=== PATIENT | male | born 1955 | race Caucasian/White ===

== ENCOUNTER 2020-07-29 15:00 | Outpatient (RCR) | payer BC, SELFPAY ==
--- NOTE | 2020-06-23 09:47 | HMH.PTOPEV ---
PT Outpatient Evaluation Rehab PT Outpatient Evaluation Start: 06/23/20 08:54 Freq: Status: Active Protocol: Document 06/23/20 09:30 DAKOTA (Rec: 06/23/20 09:47 [email or web address] [id number]) Electronically Signed By Floyd Campoverde, PT 06/23/20 09:30 Outpatient Therapy Subjective History Subjective History Patient is a 64 year old male presenting to outpatient PT with reports of L posterior hip pain which radiates to L posterior thigh. Specific to L ischial tuberiosity. No reports of lumbar spine pain. No specific mechanism of injury. No recent imaging to report. Pain is worst in prolonged sitting. Symptom onset approximatley 2 years that has most recently progressively gotten worse. Comorbidities include hx of diabetes, L lobectomy, L RCR, HTN and HL. Chief Complaint Pain,Stiff,Weakness Symptom Type Ache,Dull Symptoms Relieved By Activity Symptoms Aggravated By Sitting Prior Functional Limitations None Current Functional Limitations Sitting Symptom Description Intermittent Level of pain today (0-10) 2 Pain scale - at its best (0-10) 0 Pain scale - at its worst (0-10) 8 Hip/Knee Eval Gait Observation General Gait Pattern Observation No Deviations/Normal Assistive Device Assistive Devices None / NA Palpation Tenderness left Knee Palpation Overall Comment L ischial tuberosity 3/4 Hip Palpation Findings Tenderness MMT right Hip Flexion Strength Grade 5 Normal Hip Abduction Strength Grade 5 Normal Hip Adduction Strength Grade 5 Normal Hip Extension Strength Grade 5 Normal Hip External Rotation Strength Grade 5 Normal Hip Internal Rotation Strength Grade 5 Normal Knee Extension Strength Grade 5 Normal Knee Flexion Strength Grade 5 Normal left Hip Flexion Strength Grade 4- Good- Hip Abduction Strength Grade 4 Good Hip Adduction Strength Grade 4 Good Hip Extension Strength Grade 4- Good- Hip External Rotation Strength Grade 4- Good- Hip Internal Rotation Strength Grade 4- Good- Knee Extension Strength Grade 4 Good Knee Flexion Strength Grade 4 Good ROM Hip Flexion w/Knee Flexed Passive Range 88 of Motion (degrees) Hip Flexion w/Knee Extended Passive 42 Range of Motion (degrees) Hip Abduction Passive
--- NOTE | 2020-07-19 15:40 | HMH.RHREAS ---
Rehab Reassessment Rehab OP Re-assessment Start: 07/19/20 15:12 Freq: Status: Active Protocol: Document 07/19/20 15:13 DAKOTA (Rec: 07/19/20 15:18 DAKOTA [id number]) Electronically Signed By Floyd Campoverde, PT 07/19/20 15:13 Rehab Re-assessment Subjective Subjective Patient reports 60% improvement since start of care. Objective Objective Notes L hip AROM: flx 98; abd 40; ext 10; add 35; ER WNL; IR 10 L hip MMT: flx 4+/5; abd 4/5; ext 4/5; add 4+/5; ER 4/5; IR 4/5; knee flx 4+/5; knee ext 4 +/5 Pain: 3/10 currently 4/10 at worst Neuro WNL Special tests: - Assessment Progress Assessment Progressing as Expected Assessment Notes Patient has shown significant objective improvements as noted above since initial evaluation. He continues to have symptoms with prolonged sitting. These symptoms are resulting in functional limitations with work related and house hold activities. Patient goals met STG's Goals Not Met LTG's Revised Goals NA Plan Plan Continue with current POC Frequency of Therapy 2x/week Duration of therapy 4 weeks Time and Billing Re-Eval Time 15 Re-Eval Billing Units 1 PHYSICIAN CERTIFICATION: I certify the specified therapy services for Tomas Azul are required, authorized, and reviewed every 30 days.
== END 2020-07-29 15:05 | disposition home or self-care (01) ==
LOC: PT 15:00
PROVIDERS: PCP Nurse Practitioner Family; Visit Provider Internal Medicine Adolescent Medicine
DX: M16.12 Unilateral primary osteoarthritis, left hip (principal)
CPT/HCPCS: 20560; 97010; 97014; 97110; 97163; 97164; G0283

== ENCOUNTER → 2020-08-19 13:31 | Outpatient (CLI) | payer BC, SELFPAY | PROVIDERS: PCP Internal Medicine Adolescent Medicine; Visit Provider Internal Medicine Adolescent Medicine | DX: I48.91 Unspecified atrial fibrillation (principal) | CPT/HCPCS: 93306 ==

== ENCOUNTER → 2020-08-26 11:11 | Outpatient (CLI) | payer BC, SELFPAY | PROVIDERS: PCP Internal Medicine Adolescent Medicine; Visit Provider Internal Medicine Cardiovascular Disease | DX: R06.00 Dyspnea, unspecified (principal); R42 Dizziness and giddiness; R94.31 Abnormal electrocardiogram [ECG] [EKG] | CPT/HCPCS: 93225; 93226 ==

== ENCOUNTER → 2020-09-02 06:16 | Outpatient (CLI) | payer SELFPAY ==
--- NOTE | 2020-09-02 06:20 | CT_ITS ---
PROCEDURE: CT HEART W CALCIUM SCORE CLINICAL HISTORY: eval for CAD COMPARISON: No exams were available for comparison TECHNIQUE: Axial images obtained with sagittal and coronal reformats. All CT scans at the facility use one or more dose reduction, viz: automated exposure control, ma/kV adjustment per patient size (including targeted exams where dose is matched to indication, i.e. head), or iterative reconstruction technique. FINDINGS: Coronary artery calcium score is 309. Moderate calcific plaque burden with high cardiovascular disease risk. Incidental findings include degenerative changes in the thoracic spine. Calcified granuloma is present within the left upper lobe IMPRESSION: Moderate calcific plaque burden with high cardiovascular disease risk Dictated by: Silvio Hanna MD 09/02/2020 11:49 Silvio Hanna MD in [place] 09/02/2020 11:49
== END ==
PROVIDERS: PCP Internal Medicine Adolescent Medicine; Visit Provider Internal Medicine Cardiovascular Disease
DX: Z13.6 Encounter for screening for cardiovascular disorders (principal); Z82.49 Family history of ischemic heart disease and other diseases of the circulatory system
CPT/HCPCS: 75571

== ENCOUNTER → 2020-09-02 06:21 | Outpatient (CLI) | payer BC, SELFPAY ==
--- NOTE | 2020-09-02 06:22 | CA_ITS ---
APPROVED REPORT Heating Equipment Repairer: LIYAH Laterality: Bilateral Indications: dizziness Risk Factors Hypertension: Diabetes Doppler Spectral Velocity Analysis ECA (R) 93.60/16.10 cm/s ECA (L) 77.90/10.70 cm/s dICA (R) 78.90/36.30 cm/s dICA (L) 77.30/22.00 cm/s Marge (R) 78.20/30.00 cm/s Marge (L) 86.70/35.80 cm/s pICA (R) 51.10/18.10 cm/s pICA (L) 70.40/28.30 cm/s dCCA (R) 74.30/19.60 cm/s dCCA (L) 76.10/20.10 cm/s pCCA (R) 166.00/24.40 cm/s pCCA (L) 157.00/29.90 cm/s Vert (R) 71.20/21.00 cm/s Vert (L) 30.60/7.86 cm/s ICA/CCA 1.06 ICA/CCA 1.13 Findings Duplex evaluation demonstrates stenosis of the right proximal internal carotid artery <20% with PSV <140 cm/sec, EDV <100 cm/sec, and IC/CC Ratio <4.0. Duplex evaluation demonstrates stenosis of the left proximal internal carotid artery <20% with PSV <140 cm/sec, EDV <100 cm/sec, and IC/CC Ratio <4.0. Conclusion Duplex evaluation demonstrates stenosis of the right proximal internal carotid artery <20% with PSV <140 cm/sec, EDV <100 cm/sec, and IC/CC Ratio <4.0. Duplex evaluation demonstrates stenosis of the left proximal internal carotid artery <20% with PSV <140 cm/sec, EDV <100 cm/sec, and IC/CC Ratio <4.0. Electronically signed by : Silvio Hanna MD 09/02/2020 16:23:17
--- NOTE | 2020-09-02 06:22 | CA_ITS ---
APPROVED REPORT Exam: Pharmacologic Technologist: Sara Umana, Ht: 5 ft 11 in Wt: 284 lbs BSA: 2.45 m2 HR: 52 bpm BP: 124/61 mmHg Rhythm: A FIb with CVR, PRWP Anteriorly Medical History Medical History: Diabetic ??? Noninsulin, HTN, Hyperlipidemia Medications: Verapamil,,,,, Gabapentin,,,,, Mobic,,,,, Crestor,,,,, Vit b 12,,,,, NovOLOG,,,,, Janumet,,,,, Lisinopri/HCTZ,,,,, Apixbam,,,,, Cardiac Risk Factors: HTN, Hyperlipidemia, Diabetes (non-insulin) Stress Test Details Test: LEXISCAN HR Resting HR: 69 bpm Max Heart Rate (APMHR): 157.470998 bpm Max HR Achieved: 92 bpm Target HR (85% APMHR): 133.604813 bpm % of APMHR: 58.60 Recovery HR: 74 bpm BP Resting BP: 124/61 mmHg Max BP: 124/61 mmHg Recovery BP: 109.0/59.0 mmHg ECG Resting ECG: A Fib with CVR, PRWP anteriorly Clinical Reason for Termination: Completed Protocol Exercise duration: 04:12 min Highest Stage Achieved: Exercise capacity: 1.0 METs Stress ECG Conclusion During the lexiscan pt experinced no symptoms. No arrhythmias or ectopy. <1.5mm ST Segment changes. Non diagnostic conclusion. Images to follow. Test Summary REST . . . . . . . Sitting REST 09:17 . . 69 . 124/ 61 . . Stage 1 01:00 . . 65 . . . . Stage 2 01:00 . . 85 . . . . Stage 3 01:00 . . 73 . 107/ 62 . . Stage 4 01:00 . . 58 . 107/ 64 . . Stage 4 01:12 . . 65 . 107/ 64 . Stop exercise at 04:12 RECOVERY 01:00 . . 74 . . . . RECOVERY 02:00 . . 76 . . . . RECOVERY 03:00 . . 81 . . . . RECOVERY 03:17 . . 68 . 103/ 62 . . Electronically signed by : Milton Holley, 09/02/2020 10:08:08
--- NOTE | 2020-09-02 06:54 | NM_ITS ---
APPROVED REPORT Exam: Nuclear Stress Test Indication: short of breath..fatigue..dizziness Patient Location: Outpatient Stress Tech: Sara HUSSEIN Tech:Martha HoodISRAEL RT(R)(N) Ht: 5 ft 10 in Wt: 286 lbs HR: 52 bpm BP: 124/61 mmHg BSA: 2.43 m2 BMI: 41.0 History: short of breath..fatigue..dizziness Procedure: Patient received a 0.4 mg of intravenous Lexiscan, resting heart rate 52 bpm, resting blood pressure 124/61 mmHg, with Lexiscan maximum heart rate achived was 79 bpm which is Less than 85 % of the maximum predicted heart rate and blood pressure was 107/62 mmHg. With Lexiscan, patient denied any complaint of chest pain. Electrocardiogram Resting electrocardiogram showed atrial fibrillation, with Lexiscan there is less than 1.[address] segment depression noted from the baseline EKG. The EKG portion of the Lexiscan is nondiagnostic. Cardiac Stress and Resting SPECT Images: Cardiac Stress and Resting SPECT images were obtained using technetium 99m Myoview 31.5 mCi stress and 10.44 mCi at rest. Gated SPECT for analysis of segmental wall motion and calculation of the ejection fraction also done. Prone images were also obtained. Cardiac stress and resting SPECT images show uniform myocardial activity without segmental perfusion abnormality, computer derived ejection fraction is 42% with left ventricular global hypokinesis, however during the study patient was in atrial fibrillation with variable ventricular response that may underestimate the ejection fraction. Conclusion: 1. The EKG portion of the Lexiscan is nondiagnostic. 2. No scintigraphic evidence of reversible ischemia seen, computer derived ejection fraction is 42% with left ventricular global hypokinesis, however during the study patient was in atrial fibrillation with variable ventricular response that may underestimate the ejection fraction by gated SPECT. An echocardiogram will be better modality to evaluate left ventricular systolic function. Electronically signed by : Milton Holley, 09/03/2020 18:00:55
[2020-09-02 11:28] LABS: Chloride 99 mmol/L (98-107); Potassium 5.1 mmoL/L (3.5-5.1); Sodium 140 mmol/L (136-145)
[2020-09-02 11:31] LABS: Anion Gap 18.1 mEq/L (5-15); Blood Urea Nitrogen 18 mg/dl (9-20); Calcium 9.9 mg/dl (8.4-10.2); Carbon Dioxide 28 mmol/L (22.0-30.0); Estimated Glomerular Filt Rate 98 ml/min (>60); GFR (African American) 118 ML/MIN (>60); Glucose 127 mg/dl (74-100)
[2020-09-02 11:40] LABS: NT Pro Brain Natriuretic Pep. 550 pg/mL (0-125)
== END ==
PROVIDERS: PCP Internal Medicine Adolescent Medicine; Visit Provider Internal Medicine Cardiovascular Disease
DX: R06.00 Dyspnea, unspecified (principal); I48.91 Unspecified atrial fibrillation; R42 Dizziness and giddiness; R60.0 Localized edema; R94.31 Abnormal electrocardiogram [ECG] [EKG]; I27.20 Pulmonary hypertension, unspecified; I10 Essential (primary) hypertension; E78.5 Hyperlipidemia, unspecified; G56.80 Other specified mononeuropathies of unspecified upper limb; Z82.49 Family history of ischemic heart disease and other diseases of the circulatory system
CPT/HCPCS: 36415; 78452; 80048; 83880; 93017; 93880; A9502; J2785

== ENCOUNTER → 2020-09-14 10:21 | Outpatient (CLI) | payer BC, SELFPAY ==
[2020-09-14 11:05] LABS: Basophils # 0.1 K/mm3 (0-0.2); Basophils % 0.5 % (0.1-2.0); Eosinophils # 0.2 K/mm3 (0.0-0.4); Eosinophils % 2.6 % (0.1-12.0); Hematocrit 47.1 % (42.0-52.0); Hemoglobin 15.4 g/dL (14.1-18.0); Lymphocytes # 2.6 K/mm3 (0.7-4.5); Lymphocytes % 28.3 % (10-50); Mean Corpuscular HGB Conc 32.6 g/dL (31.8-35.4); Mean Corpuscular Hemoglobin 28.7 pg (27.0-31.2); Mean Platelet Volume 8.5 fl (7.4-10.4); Monocytes # 0.5 K/mm3 (0.1-1.0); Monocytes % 5.2 % (1.7-9.3); Neutrophils # 5.9 K/mm3 (1.8-7.8); Neutrophils % 63.3 % (37.0-80.0); Platelet Count 215 K/mm3 (142-424); Red Blood Count 5.35 M/mm3 (4.60-6.20); Red Cell Distribution Width 14.6 % (11.5-17.5); White Blood Count 9.3 K/mm3 (4.8-10.8)
[2020-09-14 11:09] LABS: Hemoglobin A1C 6.7 % (4.0-6.0)
[2020-09-14 12:25] LABS: Alanine Aminotransferase 18 U/L (12-78); Albumin Level 4.6 g/dl (3.5-5.0); Albumin/Globulin Ratio 1.4 (1.1-1.8); Alkaline Phosphatase 50 U/L (38-126); Anion Gap 13.5 mEq/L (5-15); Aspartate Amino Transferase 26 U/L (17-59); Bilirubin,Total 1.6 mg/dl (0.2-1.3); Blood Urea Nitrogen 24 mg/dl (9-20); Calcium 9.4 mg/dl (8.4-10.2); Carbon Dioxide 30 mmol/L (22.0-30.0); Chloride 102 mmol/L (98-107); Chol/HDL Ratio 2.8 (1-3.5); Cholesterol 135 mg/dl (140-200); Estimated Glomerular Filt Rate 75 ml/min (>60); GFR (African American) 91 ML/MIN (>60); Globulin 3.2 g/dL (1.3-3.2); Glucose 141 mg/dl (74-100); HDL Cholesterol 49 mg/dl (40-60); Magnesium 1.6 mg/dl (1.6-2.3); Potassium 5.5 mmoL/L (3.5-5.1); Sodium 140 mmol/L (136-145); Total Protein,Serum 7.8 g/dl (6.3-8.2); Triglycerides 87 mg/dl (30-150); VLDL Cholesterol 17 mg/dL (0-40)
[2020-09-14 12:36] LABS: Direct LDL Cholesterol 67.63 mg/dL (100-129)
== END ==
PROVIDERS: Visit Provider Internal Medicine Adolescent Medicine
DX: E11.9 Type 2 diabetes mellitus without complications (principal); E78.5 Hyperlipidemia, unspecified; E83.42 Hypomagnesemia
CPT/HCPCS: 36415; 80053; 80061; 83036; 83735; 85025

== ENCOUNTER → 2020-09-27 07:07 | Outpatient (CLI) | payer BC, SELFPAY | PROVIDERS: Visit Provider Internal Medicine Cardiovascular Disease | DX: Z20.822 Contact with and (suspected) exposure to COVID-19 (principal) | CPT/HCPCS: U0003 ==

== ENCOUNTER 2020-09-30 12:20 | Day surgery (SDC) | payer BC, SELFPAY ==
[2020-09-30 12:24] VITALS: BMI 39.0
[2020-09-30 12:32] VITALS: BP 130/89; PULSE 63; RESP 20; O2SAT 100
[2020-09-30 14:15] VITALS: BP 140/77; PULSE 72; RESP 20; O2SAT 98
--- NOTE | 2020-09-30 14:22 | ECG_ITS ---
APPROVED REPORT Exam: Resting ECG HR:72 bpm ECG Measurements Heart Rate 72 AXES IA 182 P 0 QRSd 90 QRS 20 QT 398 T 25 QTc 435 Conclusion Normal sinus rhythm Nonspecific ST abnormality Abnormal ECG Electronically signed by : Deo Larsen, 10/01/2020 15:18:53
[2020-09-30 14:23] VITALS: BP 121/75; PULSE 72; RESP 20; O2SAT 99
[2020-09-30 14:30] VITALS: BP 106/49; PULSE 72; RESP 20; O2SAT 97
[2020-09-30 14:31] LABS: Blood Urea Nitrogen 18 mg/dl (9-20); Calcium 9.1 mg/dl (8.4-10.2); Carbon Dioxide 29 mmol/L (22.0-30.0); Chloride 103 mmol/L (98-107); Creatinine Clearance Estimated 136 mL/min (50-200); Estimated Glomerular Filt Rate 98 ml/min (>60); GFR (African American) 118 ML/MIN (>60); Glucose 95 mg/dl (74-100); Sodium 137 mmol/L (136-145)
--- NOTE | 2020-09-30 14:35 | HMH.CARDIO ---
[facility] Cardioversion Date: 09/30/20 Provider:: LANI Maldonado Procedure Performed:: Synchronized electrical cardioversion Diagnosis:: New onset atrial fibrillation Procedure Summary:: Patient was brought to the cardiac Inside Steward/Stewardess as an outpatient. After informed consent was obtained, anesthesia provided sedation during which time the patient was given a single synchronized 200 J shock which converted him from atrial fibrillation to normal sinus rhythm. Patient tolerated the procedure without complications. Complications:: None Conculsion:: Routine postop care. Resume home medications. Follow-up in the office in 1 week.
[2020-09-30 14:39] VITALS: BP 106/49; PULSE 72; RESP 13; O2SAT 97
[2020-09-30 16:27] LABS: Anion Gap 9.7 mEq/L (5-15); Potassium 4.7 mmoL/L (3.5-5.1)
== END 2020-09-30 15:00 | disposition home or self-care (01) ==
LOC: CATHLAB 12:21
PROVIDERS: Physician Assistant; PCP Internal Medicine Adolescent Medicine; Visit Provider Internal Medicine Cardiovascular Disease
DX: I48.91 Unspecified atrial fibrillation (principal)
CPT/HCPCS: 80048; 92960; 93005

== ENCOUNTER → 2021-03-23 10:56 | Outpatient (CLI) | payer BC, SELFPAY ==
[2021-03-23 11:36] LABS: Basophils # 0.1 K/mm3 (0-0.2); Basophils % 0.7 % (0.1-2.0); Eosinophils # 0.3 K/mm3 (0.0-0.4); Eosinophils % 2.6 % (0.1-12.0); Hematocrit 48.6 % (42.0-52.0); Lymphocytes # 2.4 K/mm3 (0.7-4.5); Lymphocytes % 24.3 % (10-50); Mean Corpuscular Hemoglobin 30.7 pg (27.0-31.2); Mean Corpuscular Volume 92.9 fl (80-94); Mean Platelet Volume 9.5 fl (7.4-10.4); Monocytes # 0.5 K/mm3 (0.1-1.0); Monocytes % 5.1 % (1.7-9.3); Neutrophils # 6.6 K/mm3 (1.8-7.8); Neutrophils % 67.4 % (37.0-80.0); Platelet Count 223 K/mm3 (142-424); Red Blood Count 5.23 M/mm3 (4.60-6.20); Red Cell Distribution Width 13.9 % (11.5-17.5); White Blood Count 9.8 K/mm3 (4.8-10.8)
[2021-03-23 11:46] LABS: Chloride 100 mmol/L (98-107); Sodium 138 mmol/L (136-145)
[2021-03-23 11:47] LABS: Potassium 5.2 mmoL/L (3.5-5.1)
[2021-03-23 11:49] LABS: Alanine Aminotransferase 25 U/L (12-78); Albumin Level 4.8 g/dl (3.5-5.0); Albumin/Globulin Ratio 1.5 (1.1-1.8); Alkaline Phosphatase 45 U/L (38-126); Anion Gap 16.2 mEq/L (5-15); Aspartate Amino Transferase 35 U/L (17-59); Blood Urea Nitrogen 18 mg/dl (9-20); Calcium 9.7 mg/dl (8.4-10.2); Carbon Dioxide 27 mmol/L (22.0-30.0); Cholesterol 149 mg/dl (140-200); Estimated Glomerular Filt Rate 114 ml/min (>60); GFR (African American) 137 ML/MIN (>60); Globulin 3.2 g/dL (1.3-3.2); Glucose 176 mg/dl (74-100); Magnesium 1.4 mg/dl (1.6-2.3); Triglycerides 98 mg/dl (30-150); VLDL Cholesterol 20 mg/dL (0-40)
[2021-03-23 11:50] LABS: Chol/HDL Ratio 2.6 (1-3.5); HDL Cholesterol 57 mg/dl (40-60)
[2021-03-23 12:00] LABS: Direct LDL Cholesterol 72.92 mg/dL (100-129)
[2021-03-23 13:43] LABS: Hemoglobin A1C 8.9 % (4.0-6.0)
== END ==
PROVIDERS: PCP Internal Medicine Adolescent Medicine; Visit Provider Internal Medicine Adolescent Medicine
DX: E11.9 Type 2 diabetes mellitus without complications (principal); E83.42 Hypomagnesemia; E78.5 Hyperlipidemia, unspecified; Z79.4 Long term (current) use of insulin
CPT/HCPCS: 36415; 80053; 80061; 83036; 83735; 85025

== ENCOUNTER 2021-04-14 14:00 | Outpatient (RCR) | payer BC, SELFPAY | END 2021-04-14 14:05 | disposition home or self-care (01) | LOC: PT 14:00 | PROVIDERS: Visit Provider Nurse Practitioner Family | DX: M25.562 Pain in left knee (principal) | CPT/HCPCS: 97010; 97014; 97016; 97035; 97110; 97163; 97530; G0283 ==

== ENCOUNTER 2022-06-20 11:58 | Day surgery (SDC) | payer MEDICARE, OTHER, SELFPAY ==
[2022-06-05 13:18] VITALS: BMI 40.4
[2022-06-20 13:28] VITALS: BP 127/65; PULSE 89; RESP 18; TEMP 36.3; O2SAT 97
[2022-06-20 13:47] LABS: POC Glucose,Bedside 124 (70-110)
--- NOTE | 2022-06-20 14:14 | EXP.ANES.CKL ---
[facility] Disclaimer: The information contained in this section may have been updated after the patient was seen, as this information can be updated by other users. 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 caffeine: Yes special loly needs: No agree to transfusion: No do you feel safe at home: Yes victim of physical abuse: No victim of emotional abuse: No victim of sexual abuse: No would you like helpful sources: No [facility] Anesthesia Checklist Patient Identification Patient Identification: Arm Band Structural Data Admitted From: Home Planned Operative Procedure/s: Colonoscopy Consent for Planned Operative Procedure(s) Verified: Yes Verified Documents: Surgical Consent and History and Physical NPO Status Verified Time NPO: 00:00 Additional verifications Anesthesia Reactions: No Airway Assessment C-Spine Mobility Assessed: Yes TMJ Mobility Assessed: Yes Dentition: Good Dentition Neurological Assessment Level of Consciousness: Awake and Alert Anesthesia Plan Anesthesia Risk discussed: Yes Anesthesia Plan: Verified ASA Class: III Anesthesia Type: MAC
[2022-06-20 14:35] VITALS: O2SAT 99
--- NOTE | 2022-06-20 14:56 | HMH.SCOPE ---
Procedure: Date: 06/20/22 Patient Date of :: 1955 Procedure Performed:: Colonoscopy Indications:: Screening colonoscopy Performing Provider:: Hira Leal MD Referring Provider:: Deo Larsen MD Sedation:: See RN records Procedure:: After placing the patient in the left lateral decubitus position, the colonoscopy was gently inserted into the rectum and under direct visualization advanced to the cecum which was identified by transillumination in the right lower quadrant, identification of the ileocecal valve, appendiceal orifice, and cecal strap. Color, texture, mucosa, and anatomy of the colon were carefully examined with the scope. Findings:: Anal canal: normal Rectum: normal Sigmoid colon: diverticulosis Descending colon: normal without polyps or inflammatory changes Splenic flexure: normal Transverse colon: normal without polyps or inflammatory changes Hepatic flexure: normal Ascending colon: normal without polyps or inflammatory changes Cecum: Sessile polyp 4-5 mm in size. Removed with cold snare polypectomy Terminal ileum: not visualized Impression: Polyp of cecum Diverticulosis Recommendations:: Await pathology results Repeat colonoscopy in 5 years Complications:: None Estimated blood obtained (mL): 0
[2022-06-20 15:00] VITALS: BP 91/46; PULSE 76; RESP 15; TEMP 36.4; O2SAT 95
[2022-06-20 15:10] VITALS: BP 94/62; PULSE 74; RESP 17; O2SAT 96
[2022-06-20 15:30] VITALS: BP 122/62; PULSE 81; RESP 16; TEMP 36.6; O2SAT 97
== END 2022-06-20 15:30 | disposition home or self-care (01) ==
PROVIDERS: PCP Internal Medicine Adolescent Medicine; Visit Provider Internal Medicine
PROC: 0DJD8ZZ Inspection of Lower Intestinal Tract, Via Natural or Artificial Opening Endoscopic (ICD-10-PCS; CPT 45378; principal; 2022-06-20 13:30)
DX: Z12.11 Encounter for screening for malignant neoplasm of colon (principal); D12.0 Benign neoplasm of cecum; K57.30 Diverticulosis of large intestine without perforation or abscess without bleeding; Z79.899 Other long term (current) drug therapy; E11.9 Type 2 diabetes mellitus without complications
CPT/HCPCS: 45385; 82962; 88305

== ENCOUNTER → 2022-09-03 08:55 | Outpatient (CLI) | payer MEDICARE, OTHER, SELFPAY ==
[2022-09-03 10:36] LABS: Chloride 100 mmol/L (98-107); Potassium 4.1 mmoL/L (3.5-5.1); Sodium 139 mmol/L (136-145)
[2022-09-03 10:38] LABS: Blood Urea Nitrogen 12 mg/dl (9-20); Estimated Glomerular Filt Rate 135 ml/min (>60); GFR (African American) 164 ML/MIN (>60)
[2022-09-03 10:39] LABS: Anion Gap 16.1 mEq/L (5-15); Calcium 9.1 mg/dl (8.4-10.2); Carbon Dioxide 27 mmol/L (22.0-30.0); Cholesterol 111 mg/dl (140-200); Glucose 105 mg/dl (74-100); Triglycerides 73 mg/dl (30-150); VLDL Cholesterol 15 mg/dL (0-40)
[2022-09-03 10:50] LABS: Direct LDL Cholesterol 51.28 mg/dL (100-129)
[2022-09-03 10:55] LABS: Hemoglobin A1C 7.9 % (4.0-6.0)
[2022-09-03 13:33] LABS: Chol/HDL Ratio 2.4 (1-3.5); HDL Cholesterol 47 mg/dl (40-60)
== END ==
PROVIDERS: PCP Nurse Practitioner Family; Visit Provider Nurse Practitioner Family
DX: I10 Essential (primary) hypertension (principal); E11.29 Type 2 diabetes mellitus with other diabetic kidney complication; Z79.4 Long term (current) use of insulin
CPT/HCPCS: 36415; 80048; 80061; 83036

== ENCOUNTER 2023-06-19 12:00 | Day surgery (SDC) | payer MEDICARE, OTHER, SELFPAY ==
[2023-06-19] MEDS: LACTATED RINGERS 1000ML 1,000 ML 100 ML IV (13:05)
[2023-06-19 13:11] VITALS: BP 141/69; PULSE 61; RESP 18; TEMP 36.4; O2SAT 100
--- NOTE | 2023-06-19 14:06 | EXP.ANES.CKL ---
[facility] Disclaimer: The information contained in this section may have been updated after the patient was seen, as this information can be updated by other users. 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 caffeine: Yes special loly needs: No agree to transfusion: No do you feel safe at home: Yes victim of physical abuse: No victim of emotional abuse: No victim of sexual abuse: No would you like helpful sources: No [facility] Anesthesia Checklist Patient Identification Patient Identification: Arm Band, Family and Verbal (Name & ) Structural Data Admitted From: Home Planned Operative Procedure/s: EGD Consent for Planned Operative Procedure(s) Verified: Yes Verified Documents: Surgical Consent and History and Physical NPO Status Verified Time NPO: 22:00 Chart Verification Results Verified: CBC, BMP, ECG and Chest Xray Additional verifications Fingerstick Blood Glucose: 118 Anesthesia Reactions: No Cardiovascular Assessment Pulse Rhythm: Irregular Peripheral Edema: No Airway Assessment Mallampati Score:: Class II C-Spine Mobility Assessed: Yes (FROM) TMJ Mobility Assessed: Yes Dentition: Good Dentition (Nothing loose per pt.) Neurological Assessment Level of Consciousness: Awake, Alert, Appropriate and Follows Commands Hx Seizures: No Numbness or tingling in extremities: No Anesthesia Plan Anesthesia Risk discussed: Yes Anesthesia Plan: Verified ASA Class: III Anesthesia Type: MAC
[2023-06-19 14:08] VITALS: O2SAT 100
--- NOTE | 2023-06-19 14:19 | HMH.SCOPE ---
Procedure: Date: 06/19/23 Patient Date of :: 1955 Procedure Performed:: EGD Indications:: The patient is a 67-year-old who presents for EGD evaluation of anemia. The patient had a colonoscopy one year ago. The patient denies a history of melena or hematochezia. Performing Provider:: Hira Leal MD Referring Provider:: Tomas Ferro MD Sedation:: See RN records Procedure:: The gastroscope was gently passed through the incisoral orifice into the oral cavity and under direct visualization the esophagus was intubated. The endoscope was passed down the esophagus, through the stomach, and into the duodenum. Color, texture, mucosa, and anatomy of the esophagus, stomach, and duodenum were carefully examined with the scope. Findings:: The esophagus appeared normal. The Z-line was regular and measured at 44 cm. There was moderate inflammation characterized by erythematous and congested mucosa in the body of the stomach and erythematous mucosa in the antrum. Biopsies were obtained with a cold forceps for histology. Duodenum appeared normal. Obturator obtained with cold forceps for histology. Impression: Moderate gastritis Recommendations:: Await pathology results Will arrange small bowel capsule endoscopy for further evaluation of anemia. Follow-up with referring provider as previously scheduled. Complications:: None Estimated blood obtained (mL): 0 Colonoscopy Component Colonoscopy Component Was a colonoscopy performed during today's procedure?: No
[2023-06-19 14:25] VITALS: BP 141/75; PULSE 74; RESP 16; TEMP 36.4; O2SAT 94
[2023-06-19 14:31] VITALS: BP 156/75; PULSE 75; RESP 18; O2SAT 100
== END 2023-06-19 14:45 | disposition home or self-care (01) ==
PROVIDERS: PCP Nurse Practitioner Family; Visit Provider Internal Medicine
PROC: 0DJ08ZZ Inspection of Upper Intestinal Tract, Via Natural or Artificial Opening Endoscopic (ICD-10-PCS; CPT 43235; principal; 2023-06-19 13:30)
DX: D64.9 Anemia, unspecified (principal); K29.50 Unspecified chronic gastritis without bleeding; B96.81 Helicobacter pylori [H. pylori] as the cause of diseases classified elsewhere
CPT/HCPCS: 43239; 88305

== ENCOUNTER 2023-07-03 07:10 | Outpatient (CLI) | payer MEDICARE, OTHER, SELFPAY ==
[2023-07-03 07:31] LABS: Basophils % 0.6 % (0.1-2.0); Eosinophils # 0.2 K/mm3 (0.0-0.4); Eosinophils % 3.7 % (0.1-12.0); Hematocrit 28.6 % (42.0-52.0); Hemoglobin 8.4 g/dL (14.1-18.0); Lymphocytes # 1.8 K/mm3 (0.7-4.5); Lymphocytes % 38.5 % (10-50); Mean Corpuscular HGB Conc 29.5 g/dL (31.8-35.4); Mean Corpuscular Hemoglobin 21.2 pg (27.0-31.2); Mean Corpuscular Volume 71.9 fl (80-94); Mean Platelet Volume 8.5 fl (7.4-10.4); Monocytes # 0.3 K/mm3 (0.1-1.0); Monocytes % 6.5 % (1.7-9.3); Neutrophils # 2.3 K/mm3 (1.8-7.8); Neutrophils % 50.6 % (37.0-80.0); Platelet Count 197 K/mm3 (142-424); Red Blood Count 3.98 M/mm3 (4.60-6.20); Red Cell Distribution Width 17.7 % (11.5-17.5); White Blood Count 4.6 K/mm3 (4.8-10.8)
[2023-07-03 08:28] LABS: Iron 32 ug/dL (49-181)
[2023-07-03 08:38] LABS: Total Iron Binding Capacity 440 ug/dL (261-462)
[2023-07-03 09:04] LABS: Ferritin 6.01 ng/ml (17.9-464)
== END 2023-07-03 23:59 | disposition home or self-care (01) ==
LOC: LAB 07:11
PROVIDERS: PCP Nurse Practitioner Family; Visit Provider Internal Medicine Medical Oncology
DX: D64.9 Anemia, unspecified (principal); D50.9 Iron deficiency anemia, unspecified
CPT/HCPCS: 36415; 82728; 83540; 83550; 85025

== ENCOUNTER 2023-07-08 07:31 | Outpatient (CLI) | payer MEDICARE, OTHER, SELFPAY ==
--- NOTE | 2023-07-08 07:32 | FL_ITS ---
FINAL REPORT CLINICAL HISTORY: dap 4426.12 1.03 fluoro time anemia FINDINGS: Small bowel follow-through. The patient ingested barium. Spot and overhead films were obtained. The picture hanger film is unremarkable . The transit time to the colon is normal . The mucosal fold pattern is normal . Spot images of the terminal ileum are unremarkable . IMPRESSION: Normal small bowel follow-through . dap 4426.12 Authenticated and ERN
[2023-07-08] MEDS: BARIUM SULFATE(E-Z-AC);750ML BOTTLE 750 ML PO (11:16)
[2023-07-08] MEDS: DIATRIZOATE MEGLUMINE(GASTROGRAFIN) 66%-10% 120ML 120 ML PO (11:16)
== END 2023-07-08 23:59 | disposition home or self-care (01) ==
LOC: RAD 07:31
PROVIDERS: PCP Nurse Practitioner Family; Visit Provider Internal Medicine
DX: D50.9 Iron deficiency anemia, unspecified (principal)
CPT/HCPCS: 74250

== ENCOUNTER 2023-07-09 13:03 | Outpatient (CLI) | payer MEDICARE, OTHER, SELFPAY ==
[2023-07-09 13:14] VITALS: BP 138/68; PULSE 72; RESP 18; TEMP 36.9; O2SAT 100
[2023-07-09] MEDS: IRON SUCROSE COMPLEX 200 MG in 0.9 % SODIUM CHLORIDE 100 ML 220 MG IV (13:15)
[2023-07-09] MEDS: SODIUM CHLORIDE 0.9% 10ML FLUSH SYRINGE 10 ML IV (13:15)
[2023-07-09] MEDS: SODIUM CHLORIDE 0.9% 50ML BAG 50 ML IV (13:15)
[2023-07-09 13:45] VITALS: BP 129/66; PULSE 78; RESP 18; O2SAT 99
[2023-07-09 14:10] VITALS: BP 131/62; PULSE 74; RESP 18; O2SAT 99
== END 2023-07-09 14:10 | disposition home or self-care (01) ==
LOC: INF 13:04
PROVIDERS: PCP Nurse Practitioner Family; Visit Provider Internal Medicine Medical Oncology
DX: D50.9 Iron deficiency anemia, unspecified (principal)
CPT/HCPCS: 96365; J1756

== ENCOUNTER 2023-07-16 14:04 | Outpatient (CLI) | payer MEDICARE, OTHER, SELFPAY ==
[2023-07-16 14:05] VITALS: BP 116/64; PULSE 74; RESP 18; TEMP 36.7; O2SAT 99
[2023-07-16] MEDS: IRON SUCROSE COMPLEX 200 MG in 0.9 % SODIUM CHLORIDE 100 ML 220 MG IV (14:05)
[2023-07-16 14:35] VITALS: BP 115/72; PULSE 75
[2023-07-16] MEDS: SODIUM CHLORIDE 0.9% 10ML FLUSH SYRINGE 10 ML IV (14:36)
[2023-07-16] MEDS: SODIUM CHLORIDE 0.9% 50ML BAG 50 ML IV (14:36)
== END 2023-07-16 14:45 | disposition home or self-care (01) ==
LOC: INF 14:06
PROVIDERS: PCP Nurse Practitioner Family; Visit Provider Internal Medicine Medical Oncology
DX: D50.8 Other iron deficiency anemias (principal)
CPT/HCPCS: 96365; J1756

== ENCOUNTER 2023-07-23 13:22 | Outpatient (CLI) | payer MEDICARE, OTHER, SELFPAY ==
--- OUTSIDE RECORDS SUMMARY | 2023-07-23 13:24 | XMS_ITS | Patient Health Record ---
Author Name Unknown Organization [facility] Address [address] [place] [address] Care Team Providers [employer] Insurance Claims Adjuster Name Role Phone Deo Larsen Primary Care Provider JeseniaKimberly Unavailable [phone] Siegel Kimberly Unavailable [phone] ALLERGIES No Known Allergies RESULTS Component Value Reference Range Notes M-Basic Metabolic Panel Reviewed date:09/05/2022 02:52:05 PM Interpretation: Performing Lab: Notes/Report: NA 139 136-145 mmol/L K 4.1 3.5-5.1 mmoL/L CL 100 98-107 mmol/L CO2 27 22.0-30.0 mmol/L GAP 16.1 5-15 mEq/L BUN 12 9-20 mg/dl CREATT 0.60 0.66-1.25 mg/dl GFRAA 164 >60 ML/MIN EGFR 135 >60 ml/min GLU 105 74-100 mg/dl M-Hemoglobin A1C Reviewed date:09/05/2022 02:52:05 PM Interpretation: Performing Lab: Notes/Report: HGBA1C 7.9 4.0-6.0 % < 6% Non-Diabetic Level < 7% Controlled Diabetic Level > 8% Poorly Controlled Diabetic Level M-Lipid Panel Reviewed date:09/05/2022 02:52:06 PM Interpretation: Performing Lab: Notes/Report: Patient Fasting? Y TRIG 73 30-150 mg/dl CHOL 111 140-200 mg/dl DLDL 51.28 100-129 mg/dL VLDL 15 0-40 mg/dL HDL 47 40-60 mg/dl --- 09/03/22 1333 --- HDL previously reported as: 47 mg/dl CHLHDL 2.4 1-3.5 Microalbumin (In-House) Reviewed date:01/07/2023 09:02:59 AM Interpretation:Normal Performing Lab: Notes/Report: Normal ALB 30mg CRE 300mg A:C <30mg LIPID PANEL, STANDARD (7600) Reviewed date:01/08/2023 08:59:07 AM Interpretation: Performing Lab:LIYAH, [facility] [employer] [address], Community Veterinary PartnersTaenMR[address] Arnold Simmons Notes/Report: FASTING: YES FASTING:YES NON-FASTING; NON-FASTING; NON-FASTING; NON-FASTING; NON-FAST CHOLESTEROL, TOTAL 109 <200 mg/dL HDL CHOLESTEROL 42 > OR = 40 mg/dL TRIGLYCERIDES 88 <150 mg/dL LDL-CHOLESTEROL 50 Reference range: <100 Desirable range <100 mg/dL for primary prevention; <70 mg/dL for patients with CHD or diabetic patients with > or = 2 CHD risk factors. LDL-C is now calculated using the Sal-Meng calculation, which is a validated novel method providing better accuracy than the Friedewald equation in the estimation of LDL-C. Sal SS et al. ALLAN. 2013;310(19): 4896-0939 (http://education.InterAtlas/faq/IIC871) CHOL/HDLC RATIO 2.6 <5.0 (calc) NON HDL CHOLESTEROL 67 <130 mg/dL (calc) For patients with diabetes plus 1 major ASCVD risk factor, treating to a non-HDL-C goal of <100 mg/dL (LDL-C of <70 mg/dL) is considered a therapeutic option. COMPREHENSIVE METABOLIC PANE L (65709) Reviewed date:01/08/2023 09:00:07 AM Interpretation: Performing Lab:LIYAH, [employer] [facility], FilterEasyTpoxSV[address] Arnold Simmons Notes/Report: NON-FASTING; NON-FASTING; NON-FASTING; NON-FASTING; NON-FAST FASTING:YES FASTING: YES GLUCOSE 185 65-99 mg/dL Fasting reference interval For someone without known diabetes, a glucose value >125 mg/dL indicates that they may have diabetes and this should be confirmed with a follow-up test. UREA NITROGEN (BUN) 25 7-25 mg/dL CREATININE 0.84 0.70-1.35 mg/dL EGFR 96 > OR = 60 mL/min/1.73m2 BUN/CREATININE RATIO SEE NOTE: 6-22 (calc) Not Reported: BUN and Creatinine are within reference range. SODIUM 138 135-146 mmol/L POTASSIUM 4.3 3.5-5.3 mmol/L CHLORIDE 101 98-110 mmol/L CARBON DIOXIDE 26 20-32 mmol/L CALCIUM 9.7 8.6-10.3 mg/dL PROTEIN, TOTAL 7.3 6.1-8.1 g/dL ALBUMIN 4.4 3.6-5.1 g/dL GLOBULIN 2.9 1.9-3.7 g/dL (calc) ALBUMIN/GLOBULIN RATIO 1.5 1.0-2.5 (calc) BILIRUBIN, TOTAL 1.2 0.2-1.2 mg/dL ALKALINE PHOSPHATASE 41 35-144 U/L AST 22 10-35 U/L ALT 18 9-46 U/L MAGNESIUM (622) Reviewed date:01/08/2023 08:58:50 AM Interpretation: Performing Lab:LIYAH, [facility], FilterEasyNyyzMA[address] Arnold Simmons Notes/Report: NON-FASTING; NON-FASTING; NON-FASTING; NON-FASTING; NON-FAST FASTING:YES FASTING: YES MAGNESIUM 1.7 1.5-2.5 mg/dL CBC (INCLUDES DIFF/PLT) (639 9) Reviewed date:01/17/2023 06:24:04 PM Interpretation: Performing Lab:LIYAH [facility], FilterEasyLwobPU[address] Arnold Simmons Notes/Report: NON-FASTING; NON-FASTING; NON-FASTING; NON-FASTING; NON-FAST FASTING: YES FASTING:YES WHITE BLOOD CELL COUNT 7.9 3.8-10.8 Thousand/ uL RED BLOOD CELL COUNT 4.25 4.20-5.80 Million/uL HEMOGLOBIN 10.8 13.2-17.1 g/dL HEMATOCRIT 34.0 38.5-50.0 % MCV 80.0 80.0-100.0 fL MCH 25.4 27.0-33.0 pg MCHC 31.8 32.0-36.0 g/dL RDW 13.7 11.0-15.0 % PLATELET COUNT 248 140-400 Thousand/uL MPV 11.1 7.5-12.5 fL ABSOLUTE NEUTROPHILS 4519 5713-5036 cells/uL ABSOLUTE LYMPHOCYTES 2283 850-3900 cells/uL ABSOLUTE MONOCYTES 695 200-950 cells/uL ABSOLUTE EOSINOPHILS 356 15-500 cells/uL ABSOLUTE BASOPHILS 47 0-200 cells/uL NEUTROPHILS 57.2 LYMPHOCYTES 28.9 MONOCYTES 8.8 EOSINOPHILS 4.5 BASOPHILS 0.6 HEMOGLOBIN A1c (496) Reviewed date:01/17/2023 06:24:05 PM Interpretation: Performing Lab:LIYAH [facility], FilterEasyWulhVN[address] Arnold Simmons Notes/Report: FASTING: YES FASTING:YES NON-FASTING; NON-FASTING; NON-FASTING; NON-FASTING; NON-FAST HEMOGLOBIN A1c 9.2 <5.7 % of total Hgb For someone without known diabetes, a hemoglobin A1c value of 6.5% or greater indicates that they may have diabetes and this should be confirmed with a follow-up test. For someone with known diabetes, a value <7% indicates that their diabetes is well controlled and a value greater than or equal to 7% indicates suboptimal control. A1c targets should be individualized based on duration of diabetes, age, comorbid conditions, and other considerations. Currently, no consensus exists regarding use of hemoglobin A1c for diagnosis of diabetes for children. VITAMIN B12 (927) Reviewed date:01/11/2023 08:38:56 AM Interpretation: Performing Lab:LIYAH [employer] [address], FilterEasyNnfqEU[address] Arnold Simmons Notes/Report: NON-FASTING; NON-FASTING; NON-FASTING; NON-FASTING; NON-FAST FASTING:YES FASTING: YES VITAMIN B12 160 281-0756 pg/mL FERRITIN (457) Reviewed date:01/17/2023 06:24:05 PM Interpretation: Performing Lab:LIYAH [employer] [address], Community Veterinary PartnersIaswWQ[address] Arnold Simmons Notes/Report: NON-FASTING; NON-FASTING; NON-FASTING; NON-FASTING; NON-FAST FASTING:YES FASTING: YES FERRITIN 8 24-380 ng/mL Rapid Covid/Flu A-B Combo Reviewed date:02/26/2023 04:53:09 PM Interpretation: Performing Lab: Notes/Report: Rapid Covid positive Flu A neg Flu B neg IRON, TIBC AND FERRITIN PANE L (5616) Reviewed date:05/13/2023 11:54:10 AM Interpretation: Performing Lab:LIYAH [facility], FilterEasyLoevMT[address] Arnold Simmons Notes/Report: NON-FASTING; NON-FASTING; NON-FASTING; NON-FASTING; NON-FAST IRON, TOTAL 24 50-180 mcg/dL IRON BINDING CAPACITY 496 250-425 mc g/dL (calc) % SATURATION 5 20-48 % (calc) FERRITIN 5 24-380 ng/mL BASIC METABOLIC PANEL (26412 ) Reviewed date:05/13/2023 11:23:42 AM Interpretation: Performing Lab:LIYAH [facility], FilterEasyCwqaGM[address] Arnold Simmons Notes/Report: NON-FASTING; NON-FASTING; NON-FASTING; NON-FASTING; NON-FAST GLUCOSE 106 65-99 mg/dL Fasting reference interval For someone without known diabetes, a glucose value between 100 and 125 mg/dL is consistent with prediabetes and should be confirmed with a follow-up test. UREA NITROGEN (BUN) 18 7-25 mg/dL CREATININE 0.80 0.70-1.35 mg/dL EGFR 98 > OR = 60 mL/min/1.73m2 BUN/CREATININE RATIO SEE NOTE: 6-22 (calc) Not Reported: BUN and Creatinine are within reference range. SODIUM 139 135-146 mmol/L POTASSIUM 4.2 3.5-5.3 mmol/L CHLORIDE 103 98-110 mmol/L CARBON DIOXIDE 29 20-32 mmol/L CALCIUM 9.7 8.6-10.3 mg/dL MAGNESIUM (622) Reviewed date:05/11/2023 11:26:49 AM Interpretation: Performing Lab:LIYAH [employer] [address], FilterEasyFjmrZK[address] Arnold Simmons Notes/Report: NON-FASTING; NON-FASTING; NON-FASTING; NON-FASTING; NON-FAST MAGNESIUM 1.6 1.5-2.5 mg/dL CBC (INCLUDES DIFF/PLT) (639 9) Reviewed date:05/13/2023 11:23:42 AM Interpretation: Performing Lab:LIYAH [employer] Mt[address] [facility], [facility] Care HospitalLgxhZL[address] Arnold Simmons Notes/Report: NON-FASTING; NON-FASTING; NON-FASTING; NON-FASTING; NON-FAST WHITE BLOOD CELL COUNT 7.8 3.8-10.8 Thousand/ uL RED BLOOD CELL COUNT 3.92 4.20-5.80 Million/uL HEMOGLOBIN 8.6 13.2-17.1 g/dL HEMATOCRIT 29.2 38.5-50.0 % MCV 74.5 80.0-100.0 fL MCH 21.9 27.0-33.0 pg MCHC 29.5 32.0-36.0 g/dL RDW 15.3 11.0-15.0 % PLATELET COUNT 248 140-400 Thousand/uL MPV 11.0 7.5-12.5 fL ABSOLUTE NEUTROPHILS 5117 2826-3108 cells/uL ABSOLUTE LYMPHOCYTES 7428 347-7300 cells/uL ABSOLUTE MONOCYTES 616 200-950 cells/uL ABSOLUTE EOSINOPHILS 234 15-500 cells/uL ABSOLUTE BASOPHILS 39 0-200 cells/uL NEUTROPHILS 65.6 LYMPHOCYTES 23.0 MONOCYTES 7.9 EOSINOPHILS 3.0 BASOPHILS 0.5 HEMOGLOBIN A1c (496) Reviewed date:05/13/2023 11:23:42 AM Interpretation: Performing Lab:LIYAH [employer] [address] [facility], [facility] Care HospitalQsdfSC[address] Arnold Simmons Notes/Report: NON-FASTING; NON-FASTING; NON-FASTING; NON-FASTING; NON-FAST HEMOGLOBIN A1c 6.6 <5.7 % of total Hgb For someone without known diabetes, a hemoglobin A1c value of 6.5% or greater indicates that they may have diabetes and this should be confirmed with a follow-up test. For someone with known diabetes, a value <7% indicates that their diabetes is well controlled and a value greater than or equal to 7% indicates suboptimal control. A1c targets should be individualized based on duration of diabetes, age, comorbid conditions, and other considerations. Currently, no consensus exists regarding use of hemoglobin A1c for diagnosis of diabetes for children. HbA1c performed on Zhongjia MRO platform. occult blood Reviewed date:05/15/2023 01:57:50 PM Interpretation:Negative Performing Lab: Notes/Report: Negative TEST AUTHORIZATION Reviewed date:01/11/2023 08:39:18 AM Interpretation: Performing Lab:LIYAH [employer] A[address] [facility], [facility] CenterWdhjSI[address] Arnold Simmons Notes/Report: NON-FASTING; NON-FASTING; NON-FASTING; NON-FASTING; NON-FAST FASTING:YES FASTING: YES TEST NAME: FOLATE, SERUM TEST CODE: [id number] CLIENT CONTACT: CHRISTOS JAUREGUI REPORT ALWAYS MESSAGE SIGNATURE The laboratory testing on this patient was verbally requested or confirmed by the ordering physician or his or her authorized motor vehicle field representative after contact with an employee of [employer]. Federal regulations require that we maintain on file written authorization for all laboratory testing. Accordingly we are asking that the ordering physician or his or her authorized motor vehicle field representative sign a copy of this report and promptly return it to the client services associate. Signature: COMMENT Please fax this signed form to [phone]. Please do not attempt to return this document by other methods. Documents will not be viewed by a motor vehicle field representative. Please do not use this fax number for other service requests. FOLATE, SERUM (466) Reviewed date:01/11/2023 08:38:47 AM Interpretation: Performing Lab:LIYAH [employer] Qyue[address] [facility]te[facility], [facility] SystemBeuiGI[address] Arnold Simmons Notes/Report: NON-FASTING; NON-FASTING; NON-FASTING; NON-FASTING; NON-FAST FASTING:YES FASTING: YES FOLATE, SERUM 16.5 Reference Range Low: <3.4 Borderline: 3.4-5.4 Normal: >5.4 MEDICATIONS Medication SIG (Take, Route, Frequency, Duration) Notes Start Date End Date Status Xarelto 20 mg TAKE 1 TABLET BY JOSÉ TH EVERY EVENING for 30 days Active meloxicam 7.5 mg 1 tab(s) orally once a day for 90 days Active FeroSul 325 mg TAKE 1 TABLET BY JOSÉ TH 3 TIMES A WEEK for 28 Active gabapentin 100 mg 2 caps orally at bed time for 30 days 07/16/2023 Active metFORMIN 1000 mg 1 tab(s) orally 2 ti mes a day for 30 day(s) Active Toucuateo Max SoloStar 300 units/mL 64 units subcutaneously once a day for 30 days Active TraZODone Hydrochloride 50 mg 50 mg orally once a day at bedtime for 30 days 05/09/2023 Active magnesium gluconate 250 mg 1 tab(s) orally once daily Active NovoFine Plus Pen Needle 32G 4mm - for use with insulin injection 3 times a day for 30 days Active C-pap mask and supplies as directed DX: CRISTIAN for 30 days 01/29/2020 Active hydrochlorothiazide-lisino pril 25 mg-20 mg 1 tab(s) orally once a day for 90 days Active metoprolol 50 mg 1 tab(s) orally once a day for 30 day(s) Active Syringe 3cc 20g 1 - IM every 2 weeks f or 30 days Active rosuvastatin 5 mg 1 tab(s) orally once a day (at bedtime) Active cyanocobalamin 1000 mcg/mL 1000 MCG EVER Y 2 WEEKS INTRAMUSCULARLY intramuscularly every 2 weeks for 30 day(s) Active FreeStyle [place] 14 Day [place] as directed for 30 days 09/03/2022 Acti ve Mounjaro 5 mg/0.5 mL INJECT 5 MG (0.5 ML ) SUBCUTANEOUSLY ONCE a WEEK for 28 Active FreeStyle [place] 14 Day Sensor as directed for 28 days 09/03/2022 Acti ve HumaLOG KwikPen 100 units/mL 8 units subcutaneously with each meal for 30 days 02/14/2023 Activ e IMMUNIZATIONS Vaccine Route Administration Date Status Comme nts Pneumovax 23 IM Intramuscular 04/20/2016 Administered Influenza-Fluzone 3+years (NON-MEDICARE) IM Intramuscular 11/15/2016 Administered Flublok IM Intramuscular 12/21/2020 Administered Flublok IM Intramuscular 12/02/2019 Administered Fluvirin--Influenza vaccine 3+ year Unknown 12/12/2006 Administered Fluzone High Dose IM Intramuscular 01/07/2023 Administered H1N1 Vaccine IM Intramuscular 01/27/2009 Administered Influenza-Fluzone 3+years (NON-MEDICARE) IM Intramuscular 12/23/2017 Administered Prevnar PCV-20 (Pneumococcal conjugate 20) IM Intramuscular 01/01/2022 Administered SHINGRIX IM Intramuscular 01/01/2022 Administered Zostavax (Shingles) IM Intramuscular 11/04/2017 Administer ed Shingrix SOCIAL HISTORY Sex Assigned At : Social History Observation Description Sex Assigned At Unknown PROBLEMS Problem Type ICD Code Onset Dates Problem Status W/U Status Risk SNOMED Code Notes Problem Type 2 diabetes mellitus with other diabetic kidney complication (E11.29) Active confirmed 474432666 Problem Hypomagnesemia (E83.42) Active confirmed 583368076 Problem Proteinuria, unspecified (R80.9) Active confirmed 61166677 Problem Hyperlipidemia (E78.5) Active confirmed 97211164 Problem Essential hypertension (I10) Active confirmed 36415383 Problem B12 deficiency (E53.8) Active confirmed 903420040 Problem RLS (restless legs syndrome) (G25.81) Active confirmed 64156902 Problem BMI 40.0-44.9, adult (Z68.41) Active confirmed 419937542 Problem Immunization(s) administered (Z23) Active confirmed Requires vaccination (526620542) Problem Type 2 diabetes mellitus without complication (E11.9) Active confirmed 72005643 Problem History of anemia (Z86.2) Active confirmed 417936221 Problem Obstructive sleep apnea syndrome (G47.33) Active confirmed 53984440 Problem Diabetic peripheral neuropathy (E11.42) Active confirmed 894454116 Problem 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) Active confirmed 882711152 Problem Iron deficiency anemia, unspecified iron deficiency anemia type (D50.9) Active confirmed 91572120 Problem Insomnia, unspecified type (G47.00) Active confirmed 857040694 Problem Long-term insulin use (Z79.4) Active confirmed Long-term curre nt use of insulin (521898878) Problem Uncontrolled type 2 diabetes mellitus with hyperglycemia, without long-term current use of insulin (E11.65) Active confirmed 849112570 Problem Acne rosacea (L71.9) Active confirmed 369250027 Problem New onset a-fib (I48.91) Active confirmed 03169065 Problem Chronic atrial fibrillation (I48.20) Active confirmed 835488058 Problem Osteoarthritis of left hip, unspecified osteoarthritis type (M16.12) Active confirmed [id number] VITAL SIGNS Heart Rate 80 /min 05/09/2023 Temperature 98.0 degrees Fahrenheit 05/09/2023 Oximetry 99% on RA 02/26/2023 Blood pressure diastolic 84 mm Hg 05/09/2023 Height 5 ft 10 in in 05/09/2023 Blood pressure systolic 122 mm Hg 05/09/2023 Weight 268 lbs 05/09/2023 BMI 38.45 kg/m2 05/09/2023 Encounters Encounter Location Date Provider Diagnosis [facility] [address] [place] [address] 09/03/2022 Kimberly Ba Type 2 diabetes mellitus with other diabetic kidney complication E11.29 ; Essential hypertension I10 and Long-term insulin use Z79.4 [facility] [place] [address] [place] [address] 01/07/2023 Kimberly Ba Type 2 diabetes mellitus with other diabetic kidney complication E11.29 ; Medicare annual wellness visit, initial Z00.00 ; Essential hypertension I10 ; Long-term insulin use Z79.4 ; RLS (restless legs syndrome) G25.81 ; History of anemia Z86.2 ; B12 deficiency E53.8 ; Hypomagnesemia E83.42 ; Chronic atrial fibrillation I48.20 ; BMI 40.0-44.9, adult Z68.41 and Encounter for immunization Z23 [facility] [place] [address] [place] [address] 02/26/2023 Kimberly Sieegl Cough in adult R05.9 and Pneumonia due to Coronavirus disease 2019 J12.82 Brian[facility] [place] [address] [place], [place] [address] 05/09/2023 Kimberly Ba Type 2 diabetes mellitus with other diabetic kidney complication E11.29 ; Essential hypertension I10 ; Long-term insulin use Z79.4 ; RLS (restless legs syndrome) G25.81 ; Hypomagnesemia E83.42 ; Chronic atrial fibrillation I48.20 ; Iron deficiency anemia, unspecified iron deficiency anemia type D50.9 and Insomnia, unspecified type G47.00 [facility] [place] [address] [place] [address] 05/15/2023 Kimberly Ba Iron deficiency anem ia, unspecified iron deficiency anemia type D50.9 [facility] [place] [address] [place] [address] 01/07/2023 Deo Larsen RLS (restless legs syndrome) G25.81 [facility] [place] [address] [place] [address] 01/16/[address] [facility] [place] [address] [place] [address] 02/05/[address] [facility] [place] [address] [place] [address] 02/14/[address] [facility] [place] [address] [place] [address] 03/13/[address] [facility] [place] [address] [facility] [address] [place] [address] 03/14/2023 Kimberly Ba Pneumonia due to Coronavirus disease [address] [facility] [place] [address] [place] [address] 05/02/[address] [facility] [place] [address] [place] [address] 05/09/[address] [facility] [place] [address] [facility] [address] [place] [address] 05/15/2023 Kimberly Ba ASSESSMENTS Encounter Date Diagnosis Assessment Notes Treatment Notes Treatment Clinical Notes 01/07/2023 RLS (restless legs syndrome) (ICD-10 - G25.81) 02/26/2023 Pneumonia due to Coronavirus disease 2019 (ICD-10 - J12.82) Discussed importance of pulmonary toilet and hydration. Offered Paxlovid and discussed risk vs benefit. Also consulted PCP Kandace. Through shared decision making with patient, will proceed with prescribing Paxlovid. Advised on vitamin regimen. Discussed reasons to seek care in clinic or ED (worsening cough, shortness of breath, inability to tolerate typical PO intake). Also recommended self-quarantine at home per CDC guidelines. Discussed the etiology & expected course of a viral URI and discussed the rationale for not prescribing antibiotics. Continue supportive care with PRN antipyretics, OTC cough/cold meds Coricidin HBP, nasal saline rinses/Neti pot with distilled water, salt water gargles, cough drops, and humidifier. Encourage PO hydration. Discussed the signs and symptoms of worsening condition and need for reassessment in clinic or ED. Discussed if not starting to feel better by or Saturday, he can return to clinic for evaluation. Keep previously scheduled physical exam or f/u sooner PRN. Patient and his voice understanding and are agreeable to this plan. Patient is high risk for decline with COVID19. Very strict return precautions to clinic vs ED discussed. 02/26/2023 Cough in adult (ICD-10 - R05.9) 03/14/2023 Pneumonia due to Coronavirus disease 2019 (ICD-10 - J12.82) 05/09/2023 Type 2 diabetes mellitus with other diabetic kidney complication (ICD-10 - E11.29) Glucose readings are much more consistent over the past month or so. Continue to increase dose of Mounjaro and hopefully lower his dose of insulin. This should help with additional weight loss as well. Labs today as noted 05/09/2023 Essential hypertension (ICD-10 - I10) Well-controlled on current regimen 09/03/2022 Type 2 diabetes mellitus with other diabetic kidney complication (ICD-10 - E11.29) Rec trial of CGM as noted, labs today and may adjust insulin dosing again pending results 09/03/2022 Essential hypertension (ICD-10 - I10) 05/15/2023 Iron deficiency anemia, unspecified iron deficiency anemia type (ICD-10 - D50.9) 01/07/2023 Type 2 diabetes mellitus with other diabetic kidney complication (ICD-10 - E11.29) Continue to scale back lunchtime dose of NovoLog, avoid hypoglycemia. Insurance would not cover continuous glucose meter from his local pharmacy, I gave him the contact information for [facility] medical. Eye exam is up-to-date, tolerating GRACIA inhibitor and statin therapy. Continue efforts for weight loss, continue regular exercise 01/07/2023 Medicare annual wellness visit, initial (ICD-10 - Z00.00) Up-to-date on screening exams, influenza vaccination updated today. We discussed getting his RSV vaccine and COVID booster at his local pharmacy. 01/07/2023 Essential hypertension (ICD-10 - I10) Improved from prior visit, I did encourage him to get a blood pressure monitor so that he can check this periodically at home 09/03/2022 Long-term insulin use (ICD-10 - Z79.4) 05/09/2023 Long-term insulin use (ICD-10 - Z79.4) Still injecting up to 4 times per day, tolerating well 05/09/2023 RLS (restless legs syndrome) (ICD-10 - G25.81) Continue gabapentin for now. Consider transition to Requip if symptoms or not improving. 01/07/2023 Long-term insulin use (ICD-10 - Z79.4) 01/07/2023 RLS (restless legs syndrome) (ICD-10 - G25.81) Increase gabapentin to 200 mg at bedtime, if this is ineffective or not tolerated, consider Requip 05/09/2023 Hypomagnesemia (ICD-10 - E83.42) 05/09/2023 Chronic atrial fibrillation (ICD-10 - I48.20) follows with cardiology 01/07/2023 History of anemia (ICD-10 - Z86.2) 01/07/2023 B12 deficiency (ICD-10 - E53.8) 05/09/2023 Iron deficiency anemia, unspecified iron deficiency anemia type (ICD-10 - D50.9) repeat labs as noted. colonoscopy neg in 2022. consider IV iron replacement pending results 05/09/2023 Insomnia, unspecified type (ICD-10 - G47.00) 01/07/2023 Hypomagnesemia (ICD-10 - E83.42) 01/07/2023 Chronic atrial fibrillation (ICD-10 - I48.20) Continue follow-up with cardiology 01/07/2023 BMI 40.0-44.9, adult (ICD-10 - Z68.41) Complicates all aspects of care 01/07/2023 Encounter for immunization (ICD-10 - Z23) 01/07/2023 Other [facility] [employer] [facility] material was published PLAN OF TREATMENT Pending Test Test Name Order Date X ray : Chest 01/21/2009 MRI : Lumbosacral Spine 10/05/2013 N-CMP 08/14/2006 N-Lipid Panel 08/14/2006 N-HbA1C 08/14/2006 Sleep Study 06/03/2009 EKG : In House 02/25/2014 Physical Therapy 03/15/2021 Physical Therapy 06/20/2020 Physical Therapy 10/02/2013 Dietary Consult 05/14/2019 H-CMP 11/15/2016 H-LIPID PANEL 11/15/2016 H-HGBA1C 11/15/2016 H-MISCELLANEOUS TEST 02/25/2014 C-CBC 08/13/2016 C-CBC 06/23/2015 C-CBC 05/12/2015 C-CBC 10/11/2014 C-CBC 03/03/2014 C-CBC 10/02/2013 C-Sed Rate (ESR) 06/23/2015 C-BASIC METABOLIC 08/11/2015 C-BASIC METABOLIC 01/29/2019 C-CMP 03/18/2013 C-CMP 12/12/2011 C-CMP 09/10/2011 C-CMP 06/23/2015 C-CMP 08/13/2016 C-CMP 03/21/2020 C-CMP 03/03/2014 C-CMP 06/09/2014 C-CMP 10/11/2014 C-CMP 05/12/2015 C-CMP 06/20/2020 C-CMP 06/16/2012 C-CMP 08/27/2008 C-MICROALBUMIN 06/16/2012 C-MICROALBUMIN 12/12/2011 C-MICROALBUMIN 03/03/2014 C-LIPID PANEL 12/12/2011 C-LIPID PANEL 03/18/2013 C-LIPID PANEL 09/10/2011 C-LIPID PANEL 01/13/2009 C-LIPID PANEL 06/16/2012 C-LIPID PANEL 06/20/2020 C-LIPID PANEL 10/11/2014 C-LIPID PANEL 05/12/2015 C-LIPID PANEL 06/09/2014 C-LIPID PANEL 03/03/2014 C-LIPID PANEL 03/21/2020 C-LIPID PANEL 08/11/2015 C-MAGNESIUM 08/11/2015 C-MAGNESIUM 06/23/2015 C-MAGNESIUM 06/20/2020 C-TSH 10/02/2013 C-TSH 12/07/2010 C-TSH 06/23/2015 C-TSH 03/18/2013 C-FREE T4 03/18/2013 C-FREE T4 10/02/2013 C-PSA 06/16/2012 C-VITAMIN B12 12/24/2013 C-VITAMIN B12 10/02/2013 C-VITAMIN B12 06/20/2020 C-VITAMIN B12 08/13/2016 C-VITAMIN B12 10/11/2014 C-VITAMIN B12 05/12/2015 C-VITAMIN B12 03/03/2014 C-VITAMIN B12 03/18/2013 C-CPK 12/12/2011 C-CPK 06/23/2015 C-HGBA1C 08/11/2015 C-HGBA1C 08/13/2016 C-HGBA1C 01/29/2019 C-HGBA1C 05/12/2015 C-HGBA1C 10/11/2014 C-HGBA1C 06/09/2014 C-HGBA1C 03/03/2014 C-HGBA1C 08/27/2008 C-HGBA1C 06/16/2012 C-HGBA1C 09/10/2011 C-HGBA1C 12/12/2011 C-HGBA1C 03/18/2013 C-VITAMIN D, 25-HYDROXY 03/18/2013 C-VITAMIN D, 25-HYDROXY 10/02/2013 C-VITAMIN D, 25-HYDROXY 03/03/2014 spirometry 12/12/2011 Future Test Test Name Order Date C-HOMOCYSTEINE 01/26/2008 C-CMP 06/29/2019 C-HGBA1C 06/29/2019 C-CMP 10/19/2019 C-LIPID PANEL 10/19/2019 C-HGBA1C 10/19/2019 Next Appt Details Provider Name:Kimberly Abdi Travis ce, 09/02/2023 08:00:00 AM, [address] [place] [facility] [address] [facility], [address], [place], [address], Insurance Providers Payer Name Payer Address Payer Phone Subscriber Number Group Number Insured Name Patient Relationship to Insured Coverage Start Date Coverage End Date [place]IC[place] [address] [place] [place] [address] [id number] Tomas Azul Self - patient is the insured [facility]PPLE[facility] INSURANCE [address] [place] [phone] [id number] Tomas Azul Self - patient is the insured [employer] [address] [place] [address] ACL Tomas Azul Self - patient is the insured MEDICATIONS ADMINISTERED Medication Instructions Date of Administration Dosage Notes Cyanocobalamin/B-12 Pt's Own Medication 10/27/2013 Cyanocobalamin/B-12 Pt's Own Medication 11/12/2013 Cyanocobalamin/B-12 Pt's Own Medication 11/26/2013 Cyanocobalamin/B-12 Pt's Own Medication 12/15/2013 1 mL Cyanocobalamin/B-12 Pt's Own Medication 12/24/2013 1 mL Cyanocobalamin/B-12 Pt's Own Medication 01/13/2015 1 mL Cyanocobalamin/B-12 Pt's Own Medication 03/09/2015 1 mL Cyanocobalamin/B-12 Pt's Own Medication 08/11/2015 1 mL Cyanocobalamin/B-12 Pt's Own Medication 05/31/2015 1 mL Cyanocobalamin/B-12 Pt's Own Medication 12/11/2014 1 mL Cyanocobalamin/B-12 Pt's Own Medication 11/16/2014 1 mL Cyanocobalamin/B-12 Pt's Own Medication 10/23/2014 1 mL Cyanocobalamin/B-12 Pt's Own Medication 06/09/2014 1 mL Cyanocobalamin/B-12 Pt's Own Medication 03/03/2014 1 mL Cyanocobalamin/B-12 Pt's Own Medication 12/02/2013 1 mL Cyanocobalamin/B-12 Pt's Own Medication 11/04/2013 Cyanocobalamin/B-12 Pt's Own Medication 10/21/2013 Kenalog 10/28/2015 1 mL MEDICAL (GENERAL) HISTORY Medical History History ICD Code hypertension type II diabetes hypercholestrolemia 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
[2023-07-23 13:35] VITALS: BP 117/52; PULSE 81; RESP 18; O2SAT 100
[2023-07-23] MEDS: IRON SUCROSE COMPLEX 200 MG in 0.9 % SODIUM CHLORIDE 100 ML 220 MG IV (13:35)
[2023-07-23] MEDS: SODIUM CHLORIDE 0.9% 50ML BAG 50 ML IV (13:35)
[2023-07-23 14:15] VITALS: BP 128/60; PULSE 62; RESP 18; O2SAT 100
== END 2023-07-23 14:15 | disposition home or self-care (01) ==
PROVIDERS: PCP Nurse Practitioner Family; Visit Provider Internal Medicine Medical Oncology
DX: D50.8 Other iron deficiency anemias (principal); T45.4X5A Adverse effect of iron and its compounds, initial encounter
CPT/HCPCS: 96365; J1756

== ENCOUNTER 2023-07-30 13:02 | Outpatient (CLI) | payer MEDICARE, OTHER, SELFPAY ==
--- OUTSIDE RECORDS SUMMARY | 2023-07-30 13:04 | XMS_ITS | Patient Health Record ---
Author Name Unknown Organization [facility] Address [address] [place] [address] Care Team Providers Care Putty Mixer And Applier Name Role Phone Deo Larsen Primary Care Provider [phone] Kimberly Ba Unavailable [phone] Kimberly Siegel Unavailable [phone] ALLERGIES No Known Allergies RESULTS Component Value Reference Range Notes FOLATE, SERUM (466) Reviewed date:01/11/2023 08:38:47 AM Interpretation: Performing Lab:LIYAH, [facility] [id number], [place]oustVwilZZ[address] Arnold Simmons Notes/Report: NON-FASTING; NON-FASTING; NON-FASTING; NON-FASTING; NON-FAST FASTING:YES FASTING: YES FOLATE, SERUM 16.5 Reference Range Low: <3.4 Borderline: 3.4-5.4 Normal: >5.4 TEST AUTHORIZATION Reviewed date:01/11/2023 08:39:18 AM Interpretation: Performing Lab:LIYAH, [facility] [id number], [place]oust[place]jhqGA[address] Arnold Simmons Notes/Report: NON-FASTING; NON-FASTING; NON-FASTING; NON-FASTING; NON-FAST FASTING:YES FASTING: YES TEST NAME: FOLATE, SERUM TEST CODE: [id number] CLIENT CONTACT: CHRISTOS JAUREGUI REPORT ALWAYS MESSAGE SIGNATURE The laboratory testing on this patient was verbally requested or confirmed by the ordering physician or his or her authorized apprenticeship representative after contact with an employee of [facility]. Federal regulations require that we maintain on file written authorization for all laboratory testing. Accordingly we are asking that the ordering physician or his or her authorized apprenticeship representative sign a copy of this report and promptly return it to the retail client solutions analyst. Signature: COMMENT Please fax this signed form to [phone]. Please do not attempt to return this document by other methods. Documents will not be viewed by a apprenticeship representative. Please do not use this fax number for other service requests. Rapid Covid/Flu A-B Combo Reviewed date:02/26/2023 04:53:09 PM Interpretation: Performing Lab: Notes/Report: Rapid Covid positive Flu A neg Flu B neg occult blood Reviewed date:05/15/2023 01:57:50 PM Interpretation:Negative Performing Lab: Notes/Report: Negative HEMOGLOBIN A1c (496) Reviewed date:05/13/2023 11:23:42 AM Interpretation: Performing Lab:LIYAH, [facility] [id number], [place]oustJkuzUX[address] Arnold Simmons Notes/Report: NON-FASTING; NON-FASTING; NON-FASTING; NON-FASTING; [...] of diabetes for children. HbA1c performed on Rachel platform. CBC (INCLUDES DIFF/PLT) (639 9) Reviewed date:05/13/2023 11:23:42 AM Interpretation: Performing Lab:LIYAH, [facility] [id number], TencentTtrbXH[address] Arnold Simmons Notes/Report: NON-FASTING; NON-FASTING; NON-FASTING; NON-FASTING; NON-FAST WHITE BLOOD CELL COUNT 7.8 3.8-10.8 Thousand/ uL RED BLOOD CELL COUNT 3.92 4.20-5.80 Million/uL HEMOGLOBIN 8.6 13.2-17.1 g/dL HEMATOCRIT 29.2 38.5-50.0 % MCV 74.5 80.0-100.0 fL MCH 21.9 27.0-33.0 pg MCHC 29.5 32.0-36.0 g/dL RDW 15.3 11.0-15.0 % PLATELET COUNT 248 140-400 Thousand/uL MPV 11.0 7.5-12.5 fL ABSOLUTE NEUTROPHILS 5117 4501-5198 cells/uL ABSOLUTE LYMPHOCYTES 9641 159-7512 cells/uL ABSOLUTE MONOCYTES 616 200-950 cells/uL ABSOLUTE EOSINOPHILS 234 15-500 cells/uL ABSOLUTE BASOPHILS 39 0-200 cells/uL NEUTROPHILS 65.6 LYMPHOCYTES 23.0 MONOCYTES 7.9 EOSINOPHILS 3.0 BASOPHILS 0.5 MAGNESIUM (622) Reviewed date:05/11/2023 11:26:49 AM Interpretation: Performing Lab:LIYAH [facility] [id number], [place] YdiyJF[address] Arnold Simmons Notes/Report: NON-FASTING; NON-FASTING; NON-FASTING; NON-FASTING; NON-FAST MAGNESIUM 1.6 1.5-2.5 mg/dL BASIC METABOLIC PANEL (94538 ) Reviewed date:05/13/2023 11:23:42 AM Interpretation: Performing Lab:LIYAH [facility] [id number], TencentFskiGW[address] Arnold Simmons Notes/Report: NON-FASTING; NON-FASTING; NON-FASTING; NON-FASTING; [...] 29 20-32 mmol/L CALCIUM 9.7 8.6-10.3 mg/dL IRON, TIBC AND FERRITIN PANE L (5616) Reviewed date:05/13/2023 11:54:10 AM Interpretation: Performing Lab:LIYAH [facility] [id number], [facility] HospitalZqiwMX[address] Arnold Simmons Notes/Report: NON-FASTING; NON-FASTING; NON-FASTING; NON-FASTING; NON-FAST IRON, TOTAL 24 50-180 mcg/dL IRON BINDING CAPACITY 496 250-425 mc g/dL (calc) % SATURATION 5 20-48 % (calc) FERRITIN 5 24-380 ng/mL FERRITIN (457) Reviewed date:01/17/2023 06:24:05 PM Interpretation: Performing Lab:LIYAH [facility] [id number], [facility] HospitalBmgiNQ[address] Arnold Simmons Notes/Report: NON-FASTING; NON-FASTING; NON-FASTING; NON-FASTING; NON-FAST FASTING:YES FASTING: YES FERRITIN 8 24-380 ng/mL VITAMIN B12 (927) Reviewed date:01/11/2023 08:38:56 AM Interpretation: Performing Lab:LIYAH [facility], [place] XvmxSB[address] Arnold Simmons Notes/Report: NON-FASTING; NON-FASTING; NON-FASTING; NON-FASTING; NON-FAST FASTING:YES FASTING: YES VITAMIN B12 832 315-1979 pg/mL HEMOGLOBIN A1c (496) Reviewed date:01/17/2023 06:24:05 PM Interpretation: Performing Lab:LIYAH [facility], TencentCndfDN[address] Aronld Simmons Notes/Report: NON-FASTING; NON-FASTING; NON-FASTING; NON-FASTING; NON-FAST FASTING:YES FASTING: YES HEMOGLOBIN A1c 9.2 <5.7 % of total [...] A1c for diagnosis of diabetes for children. CBC (INCLUDES DIFF/PLT) (639 9) Reviewed date:01/17/2023 06:24:04 PM Interpretation: Performing Lab:LIYAH [facility] [id number], TencentJfxgHI[address] Arnold Simmons Notes/Report: NON-FASTING; NON-FASTING; NON-FASTING; NON-FASTING; NON-FAST FASTING:YES FASTING: YES WHITE BLOOD CELL COUNT 7.9 3.8-10.8 Thousand/ uL RED BLOOD CELL COUNT 4.25 4.20-5.80 Million/uL HEMOGLOBIN 10.8 13.2-17.1 g/dL HEMATOCRIT 34.0 38.5-50.0 % MCV 80.0 80.0-100.0 fL MCH 25.4 27.0-33.0 pg MCHC 31.8 32.0-36.0 g/dL RDW 13.7 11.0-15.0 % PLATELET COUNT 248 140-400 Thousand/uL MPV 11.1 7.5-12.5 fL ABSOLUTE NEUTROPHILS 4519 2785-4119 cells/uL ABSOLUTE LYMPHOCYTES 2283 850-3900 cells/uL ABSOLUTE MONOCYTES 695 200-950 cells/uL ABSOLUTE EOSINOPHILS 356 15-500 cells/uL ABSOLUTE BASOPHILS 47 0-200 cells/uL NEUTROPHILS 57.2 LYMPHOCYTES 28.9 MONOCYTES 8.8 EOSINOPHILS 4.5 BASOPHILS 0.6 MAGNESIUM (622) Reviewed date:01/08/2023 08:58:50 AM Interpretation: Performing Lab:LIYAH [facility] [id number], TencentIjtyNY[address] Arnold Simmons Notes/Report: NON-FASTING; NON-FASTING; NON-FASTING; NON-FASTING; NON-FAST FASTING:YES FASTING: YES MAGNESIUM 1.7 1.5-2.5 mg/dL COMPREHENSIVE METABOLIC PANE L (97750) Reviewed date:01/08/2023 09:00:07 AM Interpretation: Performing Lab:LIYAH [facility] [id number], TencentStbbMY[address] Arnold Simmons Notes/Report: NON-FASTING; NON-FASTING; NON-FASTING; NON-FASTING; [...] 22 10-35 U/L ALT 18 9-46 U/L LIPID PANEL, STANDARD (7600) Reviewed date:01/08/2023 08:59:07 AM Interpretation: Performing Lab:CB, [facility] [address] [facility], [facility] HospitalGoeiLX[address] Arnold Simmons Notes/Report: NON-FASTING; NON-FASTING; NON-FASTING; NON-FASTING; NON-FAST FASTING:YES FASTING: YES CHOLESTEROL, TOTAL 109 <200 mg/dL HDL CHOLESTEROL 42 > OR = 40 mg/dL TRIGLYCERIDES 88 <150 mg/dL LDL-CHOLESTEROL 50 Reference range: <100 Desirable range <100 mg/dL for primary prevention; <70 mg/dL for patients with CHD or diabetic patients with > or = 2 CHD risk factors. LDL-C is now calculated using the Verito calculation, which is a validated novel method providing better accuracy than the Friedewald equation in the estimation of LDL-C. Sal GREENBERG et al. ALLAN. 2013;310(19): 2105-0501 (http://education.Butlr/faq/POF814) CHOL/HDLC RATIO 2.6 <5.0 (calc) NON HDL CHOLESTEROL 67 <130 mg/dL (calc) For patients with diabetes plus 1 major ASCVD risk factor, treating to a non-HDL-C goal of <100 mg/dL (LDL-C of <70 mg/dL) is considered a therapeutic option. Microalbumin (In-House) Reviewed date:01/07/2023 09:02:59 AM Interpretation:Normal Performing Lab: Notes/Report: Normal ALB 30mg CRE 300mg A:C <30mg M-Lipid Panel Reviewed date:09/05/2022 02:52:06 PM Interpretation: Performing Lab: Notes/Report: Patient Fasting? Y TRIG 73 30-150 mg/dl CHOL 111 140-200 mg/dl DLDL 51.28 100-129 mg/dL VLDL 15 0-40 mg/dL HDL 47 40-60 mg/dl --- 09/03/22 1333 --- HDL previously reported as: 47 mg/dl CHLHDL 2.4 1-3.5 M-Hemoglobin A1C Reviewed date:09/05/2022 02:52:05 PM Interpretation: Performing Lab: Notes/Report: HGBA1C 7.9 4.0-6.0 % < 6% Non-Diabetic Level < 7% Controlled Diabetic Level > 8% Poorly Controlled Diabetic Level M-Basic Metabolic Panel Reviewed date:09/05/2022 02:52:05 PM Interpretation: Performing Lab: Notes/Report: NA 139 136-145 mmol/L K 4.1 3.5-5.1 mmoL/L CL 100 98-107 mmol/L CO2 27 22.0-30.0 mmol/L GAP 16.1 5-15 mEq/L BUN 12 9-20 mg/dl CREATT 0.60 0.66-1.25 mg/dl GFRAA 164 >60 ML/MIN EGFR 135 >60 ml/min GLU 105 74-100 mg/dl MEDICATIONS Medication SIG (Take, Route, Frequency, Duration) Notes Start Date End Date Status meloxicam 7.5 mg 1 tab(s) orally once a day for 90 days Active FeroSul 325 mg TAKE 1 TABLET BY JOSÉ 3 TIMES A WEEK for 28 Active gabapentin 100 mg 2 caps orally at bed time for 30 days 07/16/2023 Active metFORMIN 1000 mg 1 tab(s) orally 2 ti mes a day for 30 day(s) Active Toujeo Max SoloStar 300 units/mL 64 units subcutaneously once a day for 30 days Active TraZODone Hydrochloride 50 mg 50 mg orally once a day at bedtime for 30 days 05/09/2023 Active Mounjaro 5 mg/0.5 mL INJECT 5 MG (0.5 ML ) SUBCUTANEOUSLY ONCE a WEEK for 28 Active Syringe 3cc 20g 1 - IM every 2 weeks f or 30 days Active cyanocobalamin 1000 mcg/mL 1000 MCG EVER Y 2 WEEKS INTRAMUSCULARLY intramuscularly every 2 weeks for 30 day(s) Active magnesium gluconate 250 mg 1 tab(s) orally once daily Active NovoFine Plus Pen Needle 32G 4mm - for use with insulin injection 3 times a day for 30 days Active Xarelto 20 mg TAKE 1 TABLET BY JOSÉ TH EVERY EVENING for 30 days Active C-pap mask and supplies as directed DX: CRISTIAN for 30 days 01/29/2020 Active hydrochlorothiazide-lisino pril 25 mg-20 mg 1 tab(s) orally once a day for 90 days Active metoprolol 50 mg 1 tab(s) orally once a day for 30 day(s) Active rosuvastatin 5 mg 1 tab(s) orally once a day (at bedtime) Active FreeStyle [place] 14 Day [place] as directed for 30 days 09/03/2022 Acti ve FreeStyle [place] 14 Day Sensor as directed for 28 days 09/03/2022 Acti ve HumaLOG KwikPen 100 units/mL 8 units subcutaneously with each meal for 30 days 02/14/2023 Activ e IMMUNIZATIONS Vaccine Route Administration Date Status Comme nts Prevnar PCV-20 (Pneumococcal conjugate 20) IM Intramuscular 01/01/2022 Administered SHINGRIX IM Intramuscular 01/01/2022 Administered Pneumovax 23 IM Intramuscular 04/20/2016 Administered Influenza-Fluzone 3+years (NON-MEDICARE) IM Intramuscular 12/23/2017 Administered Influenza-Fluzone 3+years (NON-MEDICARE) IM Intramuscular 11/15/2016 Administered H1N1 Vaccine IM Intramuscular 01/27/2009 Administered Fluzone High Dose IM Intramuscular 01/07/2023 Administered Fluvirin--Influenza vaccine 3+ year Unknown 12/12/2006 Administered Flublok IM Intramuscular 12/21/2020 Administered Flublok IM Intramuscular 12/02/2019 Administered Zostavax (Shingles) IM Intramuscular 11/04/2017 Administer ed Shingrix SOCIAL HISTORY Sex Assigned At : Social History Observation Description Sex Assigned At Unknown PROBLEMS Problem Type ICD Code Onset Dates Problem Status W/U Status Risk SNOMED Code Notes Problem Type 2 diabetes mellitus with other diabetic kidney complication (E11.29) Active confirmed 874547573 Problem Hypomagnesemia (E83.42) Active confirmed 024424914 Problem Proteinuria, unspecified (R80.9) Active confirmed 97231847 Problem Hyperlipidemia (E78.5) Active confirmed 31418043 Problem Essential hypertension (I10) Active confirmed 96323090 Problem B12 deficiency (E53.8) Active confirmed 904246201 Problem RLS (restless legs syndrome) (G25.81) Active confirmed 49980260 Problem BMI 40.0-44.9, adult (Z68.41) Active confirmed 411491238 Problem Immunization(s) administered (Z23) Active confirmed Requires vaccination (624922058) Problem Type 2 diabetes mellitus without complication (E11.9) Active confirmed 92497249 Problem History of anemia (Z86.2) Active confirmed 654088790 Problem Obstructive sleep apnea syndrome (G47.33) Active confirmed 22458621 Problem Diabetic peripheral neuropathy (E11.42) Active confirmed 732582874 Problem 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) Active confirmed 625025921 Problem Iron deficiency anemia, unspecified iron deficiency anemia type (D50.9) Active confirmed 69888109 Problem Insomnia, unspecified type (G47.00) Active confirmed 245586805 Problem Long-term insulin use (Z79.4) Active confirmed Long-term curre nt use of insulin (688253570) Problem Uncontrolled type 2 diabetes mellitus with hyperglycemia, without long-term current use of insulin (E11.65) Active confirmed 950922263 Problem Acne rosacea (L71.9) Active confirmed 949292142 Problem New onset a-fib (I48.91) Active confirmed 33868059 Problem Chronic atrial fibrillation (I48.20) Active confirmed 268948919 Problem Osteoarthritis of left hip, unspecified osteoarthritis type (M16.12) Active confirmed 455408494173517 VITAL SIGNS Heart Rate 80 /min 05/09/2023 Temperature 98.0 degrees Fahrenheit 05/09/2023 Oximetry 99% on RA 02/26/2023 Blood pressure diastolic 84 mm Hg 05/09/2023 Height 5 ft 10 in in 05/09/2023 Blood pressure systolic 122 mm Hg 05/09/2023 Weight 268 lbs 05/09/2023 BMI 38.45 kg/m2 05/09/2023 Encounters Encounter Location Date [facility] [place] [address] [place] [address] 09/03/2022 Kimberly Ba Type 2 diabetes mellitus with other diabetic kidney complication E11.29 ; Essential hypertension I10 and Long-term insulin use Z79.4 [facility] [place] [address] [place] [address] 01/07/2023 Kimberly Ba Type 2 diabetes mellitus with other diabetic kidney complication E11.29 ; Medicare annual wellness visit, initial Z00.00 ; Essential hypertension I10 ; Long-term insulin use Z79.4 ; RLS (restless legs syndrome) G25.81 ; History of anemia Z86.2 ; B12 deficiency E53.8 ; Hypomagnesemia E83.42 ; Chronic atrial fibrillation I48.20 ; BMI 40.0-44.9, adult Z68.41 and Encounter for immunization Z23 [facility] [place] [address] [place] [address] 02/26/2023 Kimberly Siegel Cough in adult R05.9 and Pneumonia due to Coronavirus disease 2019 J12.82 Brianne [facility] [place] [address] [place], [place] [address] 05/09/2023 Kimberly Ba Type 2 diabetes mellitus with other diabetic kidney complication E11.29 ; Essential hypertension I10 ; Long-term insulin use Z79.4 ; RLS (restless legs syndrome) G25.81 ; Hypomagnesemia E83.42 ; Chronic atrial fibrillation I48.20 ; Iron deficiency anemia, unspecified iron deficiency anemia type D50.9 and Insomnia, unspecified type G47.00 [facility] [place] [address] [place] [address] 05/15/2023 Kimberly Jesenia Iron deficiency anem ia, unspecified iron deficiency anemia type D50.9 [facility] [place] [address] [place] [address] 01/07/2023 Deo Suzie RLS (restless legs syndrome) G25.81 [facility] [place] [address] [place] [address] 01/16/2023 Kimberly Jesenia [facility] [place] [address] [place] [address] 02/05/2023 Deo Besson [facility] [place] [address] [place] [address] 02/14/2023 Kimberly Jesenia [facility] [place] [address] [place] [address] 03/13/2023 Kimberly Velazcoence [facility] [place] [address] [place] [address] 03/14/2023 Kimberly Velazcoence Pneumonia due to Coronavirus disease 2018 J12.82 [facility] [place] [address] [place] [address] 05/02/2023 Deo Besson [facility] [place] [address] [place] [address] 05/09/2023 Kimberly Velazcoence [facility] [place] [address] [place] [address] 05/15/2023 Kimberly Velazcoence [facility] [place] [address] [place] [address] 07/30/2023 Deo Suzie ASSESSMENTS Encounter Date Diagnosis Assessment Notes Treatment Notes Treatment Clinical Notes 09/03/2022 Type 2 diabetes mellitus with other diabetic kidney complication (ICD-10 - E11.29) Rec trial of CGM as noted, labs today and may adjust insulin dosing again pending results 09/03/2022 Essential hypertension (ICD-10 - I10) 01/07/2023 RLS (restless legs syndrome) (ICD-10 - [...] 02/26/2023 Cough in adult (ICD-10 - R05.9) 05/09/2023 Type 2 diabetes mellitus with other diabetic kidney complication (ICD-10 - E11.29) Glucose readings are much more consistent over the past month or so. Continue to increase dose of Mounjaro and hopefully lower his dose of insulin. This should help with additional weight loss as well. Labs today as noted 05/09/2023 Essential hypertension (ICD-10 - I10) Well-controlled on current regimen 05/15/2023 Iron deficiency anemia, unspecified iron deficiency anemia type (ICD-10 - D50.9) 03/14/2023 Pneumonia due to Coronavirus disease 2019 (ICD-10 - J12.82) 01/07/2023 Type 2 diabetes mellitus with other diabetic kidney complication (ICD-10 - E11.29) Continue to scale back lunchtime dose of NovoLog, avoid hypoglycemia. Insurance would not cover continuous glucose meter from his local pharmacy, I gave him the contact information for [facility] medical. Eye exam is up-to-date, [...] he can check this periodically at home 05/09/2023 Long-term insulin use (ICD-10 - Z79.4) Still injecting up to 4 times per day, tolerating well 09/03/2022 Long-term insulin use (ICD-10 - Z79.4) 05/09/2023 RLS (restless legs syndrome) (ICD-10 - [...] EKG : In House 02/25/2014 Physical Therapy 10/02/2013 Physical Therapy 03/15/2021 Physical Therapy 06/20/2020 Dietary Consult 05/14/2019 H-CMP 11/15/2016 H-LIPID PANEL 11/15/2016 H-HGBA1C 11/15/2016 H-MISCELLANEOUS TEST 02/25/2014 C-CBC 10/02/2013 C-CBC 08/13/2016 C-CBC 06/23/2015 C-CBC 03/03/2014 C-CBC 05/12/2015 C-CBC 10/11/2014 C-Sed Rate (ESR) 06/23/2015 C-BASIC METABOLIC 08/11/2015 C-BASIC METABOLIC 01/29/2019 C-CMP 03/21/2020 C-CMP 06/20/2020 C-CMP 08/27/2008 C-CMP 08/13/2016 C-CMP 06/23/2015 C-CMP 05/12/2015 C-CMP 06/09/2014 C-CMP 10/11/2014 C-CMP 03/03/2014 C-CMP 03/18/2013 C-CMP 06/16/2012 C-CMP 12/12/2011 C-CMP 09/10/2011 C-MICROALBUMIN 12/12/2011 C-MICROALBUMIN 06/16/2012 C-MICROALBUMIN 03/03/2014 C-LIPID PANEL 03/03/2014 C-LIPID PANEL 10/11/2014 C-LIPID PANEL 05/12/2015 C-LIPID PANEL 06/09/2014 C-LIPID PANEL 08/11/2015 C-LIPID PANEL 01/13/2009 C-LIPID PANEL 06/20/2020 C-LIPID PANEL 03/21/2020 C-LIPID PANEL 06/16/2012 C-LIPID PANEL 12/12/2011 C-LIPID PANEL 03/18/2013 C-LIPID PANEL 09/10/2011 C-MAGNESIUM 06/20/2020 C-MAGNESIUM 08/11/2015 C-MAGNESIUM 06/23/2015 C-TSH 06/23/2015 C-TSH 10/02/2013 C-TSH 12/07/2010 C-TSH 03/18/2013 C-FREE T4 03/18/2013 C-FREE T4 10/02/2013 C-PSA 06/16/2012 C-VITAMIN B12 03/18/2013 C-VITAMIN B12 06/20/2020 C-VITAMIN B12 10/02/2013 C-VITAMIN B12 12/24/2013 C-VITAMIN B12 05/12/2015 C-VITAMIN B12 08/13/2016 C-VITAMIN B12 10/11/2014 C-VITAMIN B12 03/03/2014 C-CPK 06/23/2015 C-CPK 12/12/2011 C-HGBA1C 12/12/2011 C-HGBA1C 06/16/2012 C-HGBA1C 09/10/2011 C-HGBA1C 05/12/2015 C-HGBA1C 08/13/2016 C-HGBA1C 08/11/2015 C-HGBA1C 03/18/2013 C-HGBA1C 06/09/2014 C-HGBA1C 03/03/2014 C-HGBA1C 10/11/2014 C-HGBA1C 08/27/2008 C-HGBA1C 01/29/2019 C-VITAMIN D, 25-HYDROXY 10/02/2013 C-VITAMIN D, 25-HYDROXY 03/03/2014 C-VITAMIN D, 25-HYDROXY 03/18/2013 spirometry 12/12/2011 Future Test Test Name Order Date C-HOMOCYSTEINE 01/26/2008 C-CMP 06/29/2019 C-HGBA1C 06/29/2019 C-CMP 10/19/2019 C-LIPID PANEL 10/19/2019 C-HGBA1C 10/19/2019 Next Appt Details Provider Name:Kimberly Robles ce, 09/02/2023 08:00:00 AM, [address], [place], [address], Insurance Providers Payer Name Payer Address Payer Phone Subscriber Number Group Number Insured Name Patient Relationship to Insured Coverage Start Date Coverage End Date [place] [address] [place] [phone] [id number] Tomas Azul Self - patient is the insured [facility] MEDICARE SUPPLEMENT INSURANCE [address] [place] [phone] [id number] Azul Tomas Self - patient is the insured [employer] [address] [place] [address] [address] [place] [address] ACL Tomas Azul Self - patient is the insured MEDICATIONS ADMINISTERED Medication Instructions Date of Administration Dosage Notes Cyanocobalamin/B-12 Pt's Own Medication 10/21/2013 Cyanocobalamin/B-12 Pt's Own Medication 11/04/2013 Cyanocobalamin/B-12 Pt's Own Medication 11/12/2013 Cyanocobalamin/B-12 Pt's Own Medication 11/26/2013 Cyanocobalamin/B-12 Pt's Own Medication 12/02/2013 1 mL Cyanocobalamin/B-12 Pt's Own Medication 03/03/2014 1 mL Cyanocobalamin/B-12 Pt's Own Medication 06/09/2014 1 mL Cyanocobalamin/B-12 Pt's Own Medication 12/11/2014 1 mL Cyanocobalamin/B-12 Pt's Own Medication 03/09/2015 1 mL Kenalog 10/28/2015 1 mL Cyanocobalamin/B-12 Pt's Own Medication 08/11/2015 1 mL Cyanocobalamin/B-12 Pt's Own Medication 05/31/2015 1 mL Cyanocobalamin/B-12 Pt's Own Medication 01/13/2015 1 mL Cyanocobalamin/B-12 Pt's Own Medication 11/16/2014 1 mL Cyanocobalamin/B-12 Pt's Own Medication 10/23/2014 1 mL Cyanocobalamin/B-12 Pt's Own Medication 12/24/2013 1 mL Cyanocobalamin/B-12 Pt's Own Medication 12/15/2013 1 mL Cyanocobalamin/B-12 Pt's Own Medication 10/27/2013 MEDICAL (GENERAL) HISTORY Medical History History ICD [...]
[2023-07-30 13:19] VITALS: BP 101/49; PULSE 71; RESP 18; TEMP 36.7; O2SAT 99
[2023-07-30] MEDS: IRON SUCROSE COMPLEX 200 MG in 0.9 % SODIUM CHLORIDE 100 ML 220 MG IV (13:20)
[2023-07-30] MEDS: SODIUM CHLORIDE 0.9% 50ML BAG 50 ML IV (13:20)
[2023-07-30 13:50] VITALS: BP 103/49; PULSE 72
== END 2023-07-30 13:55 | disposition home or self-care (01) ==
LOC: INF 13:02
PROVIDERS: PCP Nurse Practitioner Family; Visit Provider Internal Medicine Medical Oncology
DX: D50.9 Iron deficiency anemia, unspecified (principal)
CPT/HCPCS: 96365; J1756

== ENCOUNTER 2023-08-02 12:18 | Outpatient (CLI) | payer MEDICARE, OTHER, SELFPAY ==
--- OUTSIDE RECORDS SUMMARY | 2023-08-02 12:21 | XMS_ITS | Patient Health Record ---
Author Name Unknown Organization [facility] [place] Address [address] [place] [address] Care Team Providers Care Livestock Sales Representative Name Role Phone Deo Larsen Primary Care Provider JeseniaKimberly Unavailable [phone] Siegel Kimberly Unavailable [phone] ALLERGIES No Known Allergies RESULTS Component Value [...] Reviewed date:01/08/2023 08:59:07 AM Interpretation: Performing Lab:LIYAH, [employer]-[address] O-CODESteAmeriprime, MacheenOsecRD[address] Arnold Simmons Notes/Report: NON-FASTING; NON-FASTING; NON-FASTING; NON-FASTING; [...] LDL-C. Sal SS et al. ALLAN. 2013;310(19): 7225-2435 (http://education.Plan Me Up/faq/TWR982) CHOL/HDLC RATIO 2.6 <5.0 (calc) NON HDL CHOLESTEROL 67 <130 mg/dL (calc) For patients with diabetes plus 1 major ASCVD risk factor, treating to a non-HDL-C goal of <100 mg/dL (LDL-C of <70 mg/dL) is considered a therapeutic option. COMPREHENSIVE METABOLIC PANE L (07650) Reviewed date:01/08/2023 09:00:07 AM Interpretation: Performing Lab:LIYAH, [address]13[address] O-CODEStel [facility], DOCUSYSCtueZC[address] Arnold Simmons Notes/Report: NON-FASTING; NON-FASTING; NON-FASTING; NON-FASTING; [...] Reviewed date:01/08/2023 08:58:50 AM Interpretation: Performing Lab:LIYAH, [employer] [facility]-[address]13[address] O-CODESteR&M Engineering, DOCUSYSAclrKJ[address] Arnold Simmons Notes/Report: NON-FASTING; NON-FASTING; NON-FASTING; NON-FASTING; NON-FAST FASTING:YES FASTING: YES MAGNESIUM 1.7 1.5-2.5 mg/dL CBC (INCLUDES DIFF/PLT) (639 9) Reviewed date:01/17/2023 06:24:04 PM Interpretation: Performing Lab:LIYAH [employer] [facility], DOCUSYSNqwmJK[address] Arnold Simmons Notes/Report: NON-FASTING; NON-FASTING; NON-FASTING; NON-FASTING; NON-FAST FASTING:YES FASTING: YES WHITE BLOOD CELL COUNT 7.9 3.8-10.8 Thousand/ uL RED BLOOD CELL COUNT 4.25 4.20-5.80 Million/uL HEMOGLOBIN 10.8 13.2-17.1 g/dL HEMATOCRIT 34.0 38.5-50.0 % MCV 80.0 80.0-100.0 fL MCH 25.4 27.0-33.0 pg MCHC 31.8 32.0-36.0 g/dL RDW 13.7 11.0-15.0 % PLATELET COUNT 248 140-400 Thousand/uL MPV 11.1 7.5-12.5 fL ABSOLUTE NEUTROPHILS 4519 8125-5038 cells/uL ABSOLUTE LYMPHOCYTES 2283 850-3900 cells/uL ABSOLUTE MONOCYTES 695 200-950 cells/uL ABSOLUTE EOSINOPHILS 356 15-500 cells/uL ABSOLUTE BASOPHILS 47 0-200 cells/uL NEUTROPHILS 57.2 LYMPHOCYTES 28.9 MONOCYTES 8.8 EOSINOPHILS 4.5 BASOPHILS 0.6 HEMOGLOBIN A1c (496) Reviewed date:01/17/2023 06:24:05 PM Interpretation: Performing Lab:LIYAH [employer] [facility]-[address] O-CODESteR&M Engineering, [employer]FeuqWW[address] Arnold Simmons Notes/Report: NON-FASTING; NON-FASTING; NON-FASTING; NON-FASTING; [...] A1c for diagnosis of diabetes for children. FOLATE, SERUM (466) Reviewed date:01/11/2023 08:38:47 AM Interpretation: Performing Lab:LIYAH [employer] [facility]-[place] [address], DOCUSYSHvrgNJ[address] Arnold Simmons Notes/Report: NON-FASTING; NON-FASTING; NON-FASTING; NON-FASTING; NON-FAST FASTING:YES FASTING: YES FOLATE, SERUM 16.5 Reference Range Low: <3.4 Borderline: 3.4-5.4 Normal: >5.4 VITAMIN B12 (927) Reviewed date:01/11/2023 08:38:56 AM Interpretation: Performing Lab:LIYAH [facility] [address], DOCUSYSUnxlVG[address] Arnold Simmons Notes/Report: NON-FASTING; NON-FASTING; NON-FASTING; NON-FASTING; NON-FAST FASTING:YES FASTING: YES VITAMIN B12 355 548-5900 pg/mL FERRITIN (457) Reviewed date:01/17/2023 06:24:05 PM Interpretation: Performing Lab:LIYAH, [employer] [facility] Orww5352 O-CODESteAmeriprime, [facility] HospitalTnvcUN[address] Arnold Simmons Notes/Report: NON-FASTING; NON-FASTING; NON-FASTING; NON-FASTING; NON-FAST FASTING:YES FASTING: YES FERRITIN 8 24-380 ng/mL TEST AUTHORIZATION Reviewed date:01/11/2023 08:39:18 AM Interpretation: Performing Lab:LIYAH, [address] O-CODEStel [employer], [place] NwugFJ[address] Arnold Simmons Notes/Report: NON-FASTING; NON-FASTING; NON-FASTING; NON-FASTING; NON-FAST FASTING:YES FASTING: YES TEST NAME: FOLATE, SERUM TEST CODE: [id number] CLIENT CONTACT: CHRISTOS JAUREGUI REPORT ALWAYS MESSAGE SIGNATURE The laboratory testing on this patient was verbally requested or confirmed by the ordering physician or his or her authorized service support representative after contact with an employee of [employer]. Federal regulations require that we maintain on file written authorization for all laboratory testing. Accordingly we are asking that the ordering physician or his or her authorized service support representative sign a copy of this report and promptly return it to the client care specialist. Signature: COMMENT Please fax this signed form to [phone]. Please do not attempt to return this document by other methods. Documents will not be viewed by a service support representative. Please do not use this fax number for other service requests. Rapid Covid/Flu A-B Combo Reviewed date:02/26/2023 04:53:09 PM Interpretation: Performing Lab: Notes/Report: Rapid Covid positive Flu A neg Flu B neg IRON, TIBC AND FERRITIN PANE L (5616) Reviewed date:05/13/2023 11:54:10 AM Interpretation: Performing Lab:LIYAH, [employer] [facility]-[place] Felp1789 O-CODESteSaint Barnab[facility], [facility] HospitalEgukBP[address] Arnold Simmons Notes/Report: NON-FASTING; NON-FASTING; NON-FASTING; NON-FASTING; NON-FAST IRON, TOTAL 24 50-180 mcg/dL IRON BINDING CAPACITY 496 250-425 mc g/dL (calc) % SATURATION 5 20-48 % (calc) FERRITIN 5 24-380 ng/mL BASIC METABOLIC PANEL (36661 ) Reviewed date:05/13/2023 11:23:42 AM Interpretation: Performing Lab:LIYAH [employer] Yiqs9681 O-CODEStel [facility], [facility] HospitalNjmsWL[address] Arnold Simmons Notes/Report: NON-FASTING; NON-FASTING; NON-FASTING; NON-FASTING; [...] Reviewed date:05/11/2023 11:26:49 AM Interpretation: Performing Lab:LIYAH [employer] [facility] Kihr5052 O-CODEStel [facility], [facility] HospitalWaprPI[address] Arnold Simmons Notes/Report: NON-FASTING; NON-FASTING; NON-FASTING; NON-FASTING; NON-FAST MAGNESIUM 1.6 1.5-2.5 mg/dL CBC (INCLUDES DIFF/PLT) (639 9) Reviewed date:05/13/2023 11:23:42 AM Interpretation: Performing Lab:LIYAH [facility] Tjcw8660 O-CODEStel [facility], [facility] HospitalIzrhFJ[address] Arnold Simmons Notes/Report: NON-FASTING; NON-FASTING; NON-FASTING; NON-FASTING; NON-FAST WHITE BLOOD CELL COUNT 7.8 3.8-10.8 Thousand/ uL RED BLOOD CELL COUNT 3.92 4.20-5.80 Million/uL HEMOGLOBIN 8.6 13.2-17.1 g/dL HEMATOCRIT 29.2 38.5-50.0 % MCV 74.5 80.0-100.0 fL MCH 21.9 27.0-33.0 pg MCHC 29.5 32.0-36.0 g/dL RDW 15.3 11.0-15.0 % PLATELET COUNT 248 140-400 Thousand/uL MPV 11.0 7.5-12.5 fL ABSOLUTE NEUTROPHILS 5117 8377-4569 cells/uL ABSOLUTE LYMPHOCYTES 9313 933-0071 cells/uL ABSOLUTE MONOCYTES 616 200-950 cells/uL ABSOLUTE EOSINOPHILS 234 15-500 cells/uL ABSOLUTE BASOPHILS 39 0-200 cells/uL NEUTROPHILS 65.6 LYMPHOCYTES 23.0 MONOCYTES 7.9 EOSINOPHILS 3.0 BASOPHILS 0.5 HEMOGLOBIN A1c (496) Reviewed date:05/13/2023 11:23:42 AM Interpretation: Performing Lab:CB, [facility]ale1355 RustteSaint [facility]ab[facility], [facility] HospitalHkrqHU[address] Arnold Simmons Notes/Report: NON-FASTING; NON-FASTING; NON-FASTING; NON-FASTING; [...] of diabetes for children. HbA1c performed on [employer] platform. occult blood Reviewed date:05/15/2023 01:57:50 PM Interpretation:Negative Performing Lab: Notes/Report: Negative MEDICATIONS Medication SIG (Take, Route, Frequency, Duration) [...] (at bedtime) Active FreeStyle Jersey 14 Day Shafer as directed for 30 days 09/03/2022 Acti ve FreeStyle [place] 14 Day Sensor as directed for 28 days 09/03/2022 Acti ve HumaLOG KwikPen 100 units/mL 8 units subcutaneously with each meal for 30 days 02/14/2023 Activ e IMMUNIZATIONS Vaccine Route Administration Date Status Comme nts Influenza-Fluzone 3+years (NON-MEDICARE) IM Intramuscular 11/15/2016 Administered Influenza-Fluzone 3+years (NON-MEDICARE) IM Intramuscular 12/23/2017 Administered Fluvirin--Influenza vaccine 3+ year Unknown 12/12/2006 Administered Flublok IM Intramuscular 12/21/2020 Administered Flublok IM Intramuscular 12/02/2019 Administered Fluzone High Dose IM Intramuscular 01/07/2023 Administered H1N1 Vaccine IM Intramuscular 01/27/2009 Administered Pneumovax 23 IM Intramuscular 04/20/2016 Administered Prevnar PCV-20 (Pneumococcal conjugate 20) IM [...] other diabetic kidney complication (E11.29) Active confirmed 208609723 Problem Hypomagnesemia (E83.42) Active confirmed 292230697 Problem Proteinuria, unspecified (R80.9) Active confirmed 49848252 Problem Hyperlipidemia (E78.5) Active confirmed 73078705 Problem Essential hypertension (I10) Active confirmed 98766739 Problem B12 deficiency (E53.8) Active confirmed 010121050 Problem RLS (restless legs syndrome) (G25.81) Active confirmed 12113013 Problem BMI 40.0-44.9, adult (Z68.41) Active confirmed 501459212 Problem Immunization(s) administered (Z23) Active confirmed Requires vaccination (478760226) Problem Type 2 diabetes mellitus without complication (E11.9) Active confirmed 03335794 Problem History of anemia (Z86.2) Active confirmed 109078301 Problem Obstructive sleep apnea syndrome (G47.33) Active confirmed 67621688 Problem Diabetic peripheral neuropathy (E11.42) Active confirmed 970102398 Problem 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) Active confirmed 560218649 Problem Iron deficiency anemia, unspecified iron deficiency anemia type (D50.9) Active confirmed 44582724 Problem Insomnia, unspecified type (G47.00) Active confirmed 809019494 Problem Long-term insulin use (Z79.4) Active confirmed Long-term curre nt use of insulin (190748508) Problem Uncontrolled type 2 diabetes mellitus with hyperglycemia, without long-term current use of insulin (E11.65) Active confirmed 582793947 Problem Acne rosacea (L71.9) Active confirmed 524368405 Problem New onset a-fib (I48.91) Active confirmed 66496630 Problem Chronic atrial fibrillation (I48.20) Active confirmed 969192046 Problem Osteoarthritis of left hip, unspecified osteoarthritis type (M16.12) Active confirmed 981896352791259 VITAL SIGNS Heart Rate 80 /min 05/09/2023 Temperature 98.0 degrees Fahrenheit 05/09/2023 Oximetry 99% on RA 02/26/2023 Blood pressure diastolic 84 mm Hg 05/09/2023 Height 5 ft 10 in in 05/09/2023 Blood pressure systolic 122 mm Hg 05/09/2023 Weight 268 lbs 05/09/2023 BMI 38.45 kg/m2 05/09/2023 Encounters Encounter Location Date [facility] [address] [place] [address] 09/03/2022 Kimberly Ba Type 2 diabetes mellitus with other diabetic kidney complication E11.29 ; Essential hypertension I10 and Long-term insulin use Z79.4 [facility] [place] [address] [place] [address] 01/07/2023 Kimberly Ba Type 2 diabetes mellitus with other diabetic kidney complication E11.29 ; Medicare annual wellness visit, initial Z00.00 ; Essential hypertension I10 ; Long-term insulin use Z79.4 ; RLS (restless legs syndrome) G25.81 ; History of anemia Z86.2 ; B12 deficiency E53.8 ; Hypomagnesemia E83.42 ; Chronic atrial fibrillation I48.20 ; BMI 40.0-44.9, adult Z68.41 and Encounter for immunization Z23 [facility] [place] [address] [place] [address] 02/26/2023 Kimberly Siegel Cough in adult R05.9 and Pneumonia due to Coronavirus disease 2019 J12.82 Brianne [facility] [place] [address] [place], [place] [address] 05/09/2023 Kimberly Ba Type 2 diabetes mellitus with other diabetic kidney complication E11.29 ; Essential hypertension I10 ; Long-term insulin use Z79.4 ; RLS (restless legs syndrome) G25.81 ; Hypomagnesemia E83.42 ; Chronic atrial fibrillation I48.20 ; Iron deficiency anemia, unspecified iron deficiency anemia type D50.9 and Insomnia, unspecified type G47.00 [facility] [place] [address] [place] [address] 05/15/2023 Kimberly Jesenia Iron deficiency anem ia, unspecified iron deficiency anemia type D50.9 [facility] [place] [address] [place] [address] 01/07/2023 Deo Besnaveen RLS (restless legs syndrome) G25.81 [facility] [place] [address] [place] [address] 01/16/2023 Kimberly Jesenia [facility] [place] [address] [place] [address] 02/05/2023 Deo Besson [facility] [place] [address] [place] [address] 02/14/2023 Kimberly Jesenia [facility] [place] [address] [place] [address] 03/13/2023 Kimberly Jesenia [facility] [place] [address] [place] [address] 03/14/2023 Kimberly Velazcoence Pneumonia due to Coronavirus disease 2019 J12.82 [facility] [place] [address] [place] [address] 05/02/2023 Deo Besson [facility] [place] [address] [place] [address] 05/09/2023 Kimberly Jesenia [facility] [place] [address] [place] [address] 05/15/2023 Kimberly Jesenia [facility] [place] [address] [place] [address] 07/30/2023 Deo Suzie ASSESSMENTS Encounter Date Diagnosis Assessment Notes Treatment Notes Treatment Clinical Notes 09/03/2022 Type 2 diabetes mellitus with other diabetic kidney complication (ICD-10 - E11.29) Rec trial of CGM as noted, labs today and may adjust insulin dosing again pending results 09/03/2022 Essential hypertension (ICD-10 - I10) 01/07/2023 Type 2 diabetes mellitus with other diabetic kidney complication (ICD-10 - E11.29) Continue to scale back lunchtime dose of NovoLog, avoid hypoglycemia. Insurance would not cover continuous glucose meter from his local pharmacy, I gave him the contact information for [facility] medical. Eye exam is up-to-date, tolerating GRACIA inhibitor and statin therapy. Continue efforts for weight loss, continue regular exercise 01/07/2023 RLS (restless legs syndrome) (ICD-10 - G25.81) 03/14/2023 Pneumonia due to Coronavirus disease 2019 [...] (ICD-10 - I10) Well-controlled on current regimen 01/07/2023 Medicare annual wellness visit, initial (ICD-10 - Z00.00) Up-to-date on screening exams, influenza vaccination updated today. We discussed getting his RSV vaccine and COVID booster at his local pharmacy. 05/15/2023 Iron deficiency anemia, unspecified iron deficiency anemia type (ICD-10 - D50.9) 02/26/2023 Pneumonia due to Coronavirus disease 2019 [...] Cough in adult (ICD-10 - R05.9) 05/09/2023 Long-term insulin use (ICD-10 - Z79.4) Still injecting up to 4 times per day, tolerating well 01/07/2023 Essential hypertension (ICD-10 - I10) Improved from prior visit, I did encourage him to get a blood pressure monitor so that he can check this periodically at home 09/03/2022 Long-term insulin use (ICD-10 - Z79.4) 01/07/2023 Long-term insulin use (ICD-10 - Z79.4) 05/09/2023 RLS (restless legs syndrome) (ICD-10 - G25.81) Continue gabapentin for now. Consider transition to Requip if symptoms or not improving. 01/07/2023 RLS (restless legs syndrome) (ICD-10 - G25.81) Increase gabapentin to 200 mg at bedtime, if this is ineffective or not tolerated, consider Requip 05/09/2023 Hypomagnesemia (ICD-10 - E83.42) 01/07/2023 History of anemia (ICD-10 - Z86.2) 05/09/2023 Chronic atrial fibrillation (ICD-10 - I48.20) follows with cardiology 05/09/2023 Iron deficiency anemia, unspecified iron deficiency anemia type (ICD-10 - D50.9) repeat labs as noted. colonoscopy neg in 2022. consider IV iron replacement pending results 01/07/2023 B12 deficiency (ICD-10 - E53.8) 01/07/2023 Hypomagnesemia (ICD-10 - E83.42) 05/09/2023 Insomnia, unspecified type (ICD-10 - G47.00) 01/07/2023 Chronic atrial fibrillation (ICD-10 - I48.20) [...] House 02/25/2014 Physical Therapy 10/02/2013 Physical Therapy 06/20/2020 Physical Therapy 03/15/2021 Dietary Consult 05/14/2019 H-CMP 11/15/2016 H-LIPID PANEL 11/15/2016 H-HGBA1C 11/15/2016 H-MISCELLANEOUS TEST 02/25/2014 C-CBC 03/03/2014 C-CBC 08/13/2016 C-CBC 05/12/2015 C-CBC 06/23/2015 C-CBC 10/02/2013 C-CBC 10/11/2014 C-Sed Rate (ESR) 06/23/2015 C-BASIC METABOLIC 08/11/2015 C-BASIC METABOLIC 01/29/2019 C-CMP 06/23/2015 C-CMP 08/13/2016 C-CMP 03/03/2014 C-CMP 05/12/2015 C-CMP 12/12/2011 C-CMP 06/16/2012 C-CMP 03/18/2013 C-CMP 06/09/2014 C-CMP 09/10/2011 C-CMP 06/20/2020 C-CMP 03/21/2020 C-CMP 10/11/2014 C-CMP 08/27/2008 C-MICROALBUMIN 06/16/2012 C-MICROALBUMIN 12/12/2011 C-MICROALBUMIN 03/03/2014 C-LIPID PANEL 03/03/2014 C-LIPID PANEL 03/18/2013 C-LIPID PANEL 12/12/2011 C-LIPID PANEL 06/16/2012 C-LIPID PANEL 08/11/2015 C-LIPID PANEL 05/12/2015 C-LIPID PANEL 10/11/2014 C-LIPID PANEL 03/21/2020 C-LIPID PANEL 06/20/2020 C-LIPID PANEL 09/10/2011 C-LIPID PANEL 01/13/2009 C-LIPID PANEL 06/09/2014 C-MAGNESIUM 06/20/2020 C-MAGNESIUM 06/23/2015 C-MAGNESIUM 08/11/2015 C-TSH 06/23/2015 C-TSH 10/02/2013 C-TSH 03/18/2013 C-TSH 12/07/2010 C-FREE T4 03/18/2013 C-FREE T4 10/02/2013 C-PSA 06/16/2012 C-VITAMIN B12 03/18/2013 C-VITAMIN B12 05/12/2015 C-VITAMIN B12 03/03/2014 C-VITAMIN B12 12/24/2013 C-VITAMIN B12 10/02/2013 C-VITAMIN B12 08/13/2016 C-VITAMIN B12 10/11/2014 C-VITAMIN B12 06/20/2020 C-CPK 06/23/2015 C-CPK 12/12/2011 C-HGBA1C 12/12/2011 C-HGBA1C 06/16/2012 C-HGBA1C 03/18/2013 C-HGBA1C 05/12/2015 C-HGBA1C 03/03/2014 C-HGBA1C 08/11/2015 C-HGBA1C 08/13/2016 C-HGBA1C 01/29/2019 C-HGBA1C 10/11/2014 C-HGBA1C 06/09/2014 C-HGBA1C 09/10/2011 C-HGBA1C 08/27/2008 C-VITAMIN D, 25-HYDROXY 10/02/2013 C-VITAMIN D, 25-HYDROXY 03/18/2013 C-VITAMIN D, 25-HYDROXY 03/03/2014 spirometry 12/12/2011 Future Test Test Name Order Date C-HOMOCYSTEINE 01/26/2008 C-CMP 06/29/2019 C-HGBA1C 06/29/2019 C-CMP 10/19/2019 C-LIPID PANEL 10/19/2019 C-HGBA1C 10/19/2019 Next Appt Details Provider Name:Kimberly Robles ce, 09/02/2023 08:00:00 AM, [address], [place], [address], Insurance Providers Payer Name Payer Address Payer Phone Subscriber Number Group Number Insured Name Patient Relationship to Insured Coverage Start Date Coverage End Date [place] [address] [place] [place] [phone] [id number] Tomas Azul Self - patient is the insured [facility] MEDICARE SUPPLEMENT INSURANCE [address] [place] [phone] [id number] Azul Tomas Self - patient is the insured [employer] [address] [place] [address] [address] [place] [address] ACL Tomas Azul Self - patient is the insured MEDICATIONS ADMINISTERED Medication Instructions Date of Administration Dosage Notes Cyanocobalamin/B-12 Pt's Own Medication 10/21/2013 Cyanocobalamin/B-12 Pt's Own Medication 11/04/2013 Cyanocobalamin/B-12 Pt's Own Medication 11/12/2013 Cyanocobalamin/B-12 Pt's Own Medication 11/26/2013 Cyanocobalamin/B-12 Pt's Own Medication 12/02/2013 1 mL Cyanocobalamin/B-12 Pt's Own Medication 06/09/2014 1 mL Cyanocobalamin/B-12 Pt's Own Medication 10/23/2014 1 mL Cyanocobalamin/B-12 Pt's Own Medication 03/09/2015 1 mL Cyanocobalamin/B-12 Pt's Own Medication 05/31/2015 1 mL Kenalog 10/28/2015 1 mL Cyanocobalamin/B-12 Pt's Own Medication 08/11/2015 1 mL Cyanocobalamin/B-12 Pt's Own Medication 01/13/2015 1 mL Cyanocobalamin/B-12 Pt's Own Medication 12/11/2014 1 mL Cyanocobalamin/B-12 Pt's Own Medication 11/16/2014 1 mL Cyanocobalamin/B-12 Pt's Own Medication 03/03/2014 1 mL Cyanocobalamin/B-12 Pt's Own Medication 12/24/2013 [...]
[2023-08-02 12:33] VITALS: BP 132/63; PULSE 73; RESP 18; TEMP 36.6; O2SAT 99
[2023-08-02] MEDS: IRON SUCROSE COMPLEX 200 MG in 0.9 % SODIUM CHLORIDE 100 ML 220 MG IV (12:33)
[2023-08-02 13:05] VITALS: BP 130/77; PULSE 76; RESP 18; TEMP 36.4; O2SAT 98
== END 2023-08-02 13:06 | disposition home or self-care (01) ==
LOC: INF 12:19
PROVIDERS: PCP Nurse Practitioner Family; Visit Provider Internal Medicine Medical Oncology
DX: D50.9 Iron deficiency anemia, unspecified (principal)
CPT/HCPCS: 96365; J1756

== ENCOUNTER 2023-12-24 11:43 | Outpatient (CLI) | payer MEDICARE, OTHER, SELFPAY ==
--- OUTSIDE RECORDS SUMMARY | 2023-12-24 11:46 | XMS_ITS | Patient Health Record ---
Author Organization [facility] [place] Address [address] [place] [address] Care Team Providers Care Parking Meter Collector Name Role Phone Deo Larsen Primary Care Provider [phone] Kimberly Ba Unavailable [phone] Kimberly Siegel Unavailable [phone] Allergies No Known Allergies Results Component Value Reference Range Notes Rapid Covid/Flu A-B Combo Reviewed date:02/26/2023 04:53:09 PM Interpretation: Performing Lab: Notes/Report: Rapid Covid positive Flu A neg Flu B neg TEST AUTHORIZATION Reviewed date:01/11/2023 08:39:18 AM Interpretation: Performing Lab:CB, [facility] [address], [facility] CenterQwskST[address] Arnold Simmons Notes/Report: FASTING: YES FASTING:YES NON-FASTING; NON-FASTING; NON-FASTING; NON-FASTING; NON-FAST TEST NAME: FOLATE, SERUM TEST CODE: [id number] CLIENT CONTACT: CHRISTOS JAUREGUI REPORT ALWAYS MESSAGE SIGNATURE The laboratory testing on this patient was verbally requested or confirmed by the ordering physician or his or her authorized sales representative business courses after contact with an employee of [email or web address]. Federal regulations require that we maintain on file written authorization for all laboratory testing. Accordingly we are asking that the ordering physician or his or her authorized sales representative business courses sign a copy of this report and promptly return it to the client account specialist. Signature: COMMENT Please fax this signed form to [phone]. Please do not attempt to return this document by other methods. Documents will not be viewed by a sales representative business courses. Please do not use this fax number for other service requests. FOLATE, SERUM (466) Reviewed date:01/11/2023 08:38:47 AM Interpretation: Performing Lab:[email or web address] Bpxg[address]144 [facility] Arnold Simmons Notes/Report: NON-FASTING; NON-FASTING; NON-FASTING; NON-FASTING; NON-FAST FASTING:YES FASTING: YES FOLATE, SERUM 16.5 Reference Range Low: <3.4 Borderline: 3.4-5.4 Normal: >5.4 CBC (INCLUDES DIFF/PLT) (639 9) Reviewed date:05/13/2023 11:23:42 AM Interpretation: Performing Lab:LIYAH [email or web address] Jiii8305 [facility] CenterLogue TransportSelect Special[facility] Arnold Simmons Notes/Report: NON-FASTING; NON-FASTING; NON-FASTING; NON-FASTING; NON-FAST WHITE BLOOD CELL COUNT 7.8 3.8-10.8 Thousand/ uL RED BLOOD CELL COUNT 3.92 4.20-5.80 Million/uL HEMOGLOBIN 8.6 13.2-17.1 g/dL HEMATOCRIT 29.2 38.5-50.0 % MCV 74.5 80.0-100.0 fL MCH 21.9 27.0-33.0 pg MCHC 29.5 32.0-36.0 g/dL RDW 15.3 11.0-15.0 % PLATELET COUNT 248 140-400 Thousand/uL MPV 11.0 7.5-12.5 fL ABSOLUTE NEUTROPHILS 5117 3882-9300 cells/uL ABSOLUTE LYMPHOCYTES 2158 344-1134 cells/uL ABSOLUTE MONOCYTES 616 200-950 cells/uL ABSOLUTE EOSINOPHILS 234 15-500 cells/uL ABSOLUTE BASOPHILS 39 0-200 cells/uL NEUTROPHILS 65.6 LYMPHOCYTES 23.0 MONOCYTES 7.9 EOSINOPHILS 3.0 BASOPHILS 0.5 HEMOGLOBIN A1c (496) Reviewed date:05/13/2023 11:23:42 AM Interpretation: Performing Lab:LIYAH [email or web address]1355 [employer] [facility], [facility] CenterPzmeJU[address] Arnold Simmons Notes/Report: NON-FASTING; NON-FASTING; NON-FASTING; NON-FASTING; [...] of diabetes for children. HbA1c performed on Storelift platform. COMPREHENSIVE METABOLIC PANE (96053) Reviewed date:09/05/2023 02:15:33 PM Interpretation: Performing Lab:LIYAH [email or web address] Jzjw7433 My Ad BoxVirtua Voorhees, [facility] CenterTqamVQ[address] Arnold Simmons Notes/Report: NON-FASTING; NON-FASTING; NON-FASTING; NON-FASTING; NON-FAST GLUCOSE 117 65-99 mg/dL Fasting reference interval For someone without known diabetes, a glucose value between 100 and 125 mg/dL is consistent with prediabetes and should be confirmed with a follow-up test. UREA NITROGEN (BUN) 32 7-25 mg/dL CREATININE 1.27 0.70-1.35 mg/dL EGFR 62 > OR = 60 mL/min/1.73m2 BUN/CREATININE RATIO 25 6-22 (calc) SODIUM 139 135-146 mmol/L POTASSIUM 4.8 3.5-5.3 mmol/L CHLORIDE 102 98-110 mmol/L CARBON DIOXIDE 24 20-32 mmol/L CALCIUM 10.2 8.6-10.3 mg/dL PROTEIN, TOTAL 7.7 6.1-8.1 g/dL ALBUMIN 4.6 3.6-5.1 g/dL GLOBULIN 3.1 1.9-3.7 g/dL (calc) ALBUMIN/GLOBULIN RATIO 1.5 1.0-2.5 (calc) BILIRUBIN, TOTAL 1.3 0.2-1.2 mg/dL ALKALINE PHOSPHATASE 36 35-144 U/L AST 18 10-35 U/L ALT 12 9-46 U/L VITAMIN B12 (927) Reviewed date:09/05/2023 02:15:34 PM Interpretation: Performing Lab:LIYAH [email or web address] Y[address] [facility], [facility] CenterDmcbRO[address] Arnold Simmons Notes/Report: NON-FASTING; NON-FASTING; NON-FASTING; NON-FASTING; NON-FAST VITAMIN B12 147 295-6017 pg/mL PSA, TOTAL (5363) Reviewed date:09/05/2023 02:15:34 PM Interpretation: Performing Lab:LIYAH [email or web address] Tycn[address] [facility], [place] RyyeHX[address] Arnold Simmons Notes/Report: NON-FASTING; NON-FASTING; NON-FASTING; NON-FASTING; NON-FAST PSA, TOTAL 3.34 < OR = 4.00 ng/mL The total PSA value from this assay system is standardized against the WHO standard. The test result will be approximately 20% lower when compared to the equimolar-standardized total PSA (Renae Lookout). Comparison of serial PSA results should be interpreted with this fact in mind. This test was performed using the Siemens chemiluminescent method. Values obtained from different assay methods cannot be used interchangeably. PSA levels, regardless of value, should not be interpreted as absolute evidence of the presence or absence of disease. occult blood Reviewed date:05/15/2023 01:57:50 PM Interpretation:Negative Performing Lab: Notes/Report: Negative IRON, TIBC AND FERRITIN PANE L (5616) Reviewed date:09/05/2023 02:15:33 PM Interpretation: Performing Lab:LIYAH [email or web address] Lsos9164 [employer] [facility], [facility] CenterXczzCK[address] Arnold Simmons Notes/Report: NON-FASTING; NON-FASTING; NON-FASTING; NON-FASTING; NON-FAST IRON, TOTAL 56 50-180 mcg/dL IRON BINDING CAPACITY 428 250-425 mc g/dL (calc) % SATURATION 13 20-48 % (calc) FERRITIN 27 24-380 ng/mL LIPID PANEL, STANDARD (7600) Reviewed date:09/05/2023 02:15:33 PM Interpretation: Performing Lab:LIYAH [email or web address] Albi7296 [employer] [facility], [facility] CenterTcudGU[address] Arnold Simmons Notes/Report: NON-FASTING; NON-FASTING; NON-FASTING; NON-FASTING; NON-FAST CHOLESTEROL, TOTAL 120 <200 mg/dL HDL CHOLESTEROL 54 > OR = 40 mg/dL TRIGLYCERIDES 86 <150 mg/dL LDL-CHOLESTEROL 49 with > or = 2 CHD risk factors. LDL-C is now calculated using the Verito calculation, which is a validated novel method providing better accuracy than the Friedewald equation in the estimation of LDL-C. Sal SS et al. ALLAN. 2013;310(27): 7622-4863 (http://Resident Research.[employer]/faq/RWH020) Reference range: <100 Desirable range <100 mg/dL for primary prevention; <70 mg/dL for patients with CHD or diabetic patients CHOL/HDLC RATIO 2.2 <5.0 (calc) NON HDL CHOLESTEROL 66 <130 mg/dL (calc) For patients with diabetes plus 1 major ASCVD risk factor, treating to a non-HDL-C goal of <100 mg/dL (LDL-C of <70 mg/dL) is considered a therapeutic option. MAGNESIUM (622) Reviewed date:09/05/2023 02:15:33 PM Interpretation: Performing Lab:LIYAH [email or web address]1355 [employer], [employer] ApyhUC[address] Arnold Simmons Notes/Report: NON-FASTING; NON-FASTING; NON-FASTING; NON-FASTING; NON-FAST MAGNESIUM 1.8 1.5-2.5 mg/dL CBC (INCLUDES DIFF/PLT) (639 9) Reviewed date:09/05/2023 02:15:33 PM Interpretation: Performing Lab:LIYAH [id number], Return PathKjfkGS[address] Arnold Simmons Notes/Report: NON-FASTING; NON-FASTING; NON-FASTING; NON-FASTING; NON-FAST WHITE BLOOD CELL COUNT 7.8 3.8-10.8 Thousand/ uL RED BLOOD CELL COUNT 4.86 4.20-5.80 Million/uL HEMOGLOBIN 11.9 13.2-17.1 g/dL HEMATOCRIT 39.0 38.5-50.0 % MCV 80.2 80.0-100.0 fL MCH 24.5 27.0-33.0 pg MCHC 30.5 32.0-36.0 g/dL RDW 11.0-15.0 % Due to platelet or RBC variability in size or shape the result cannot be reported accurately. PLATELET COUNT 197 140-400 Thousand/uL MPV 11.0 7.5-12.5 fL ABSOLUTE NEUTROPHILS 4688 3443-5971 cells/uL ABSOLUTE LYMPHOCYTES 2192 850-3900 cells/uL ABSOLUTE MONOCYTES 585 200-950 cells/uL ABSOLUTE EOSINOPHILS 289 15-500 cells/uL ABSOLUTE BASOPHILS 47 0-200 cells/uL NEUTROPHILS 60.1 LYMPHOCYTES 28.1 MONOCYTES 7.5 EOSINOPHILS 3.7 BASOPHILS 0.6 HEMOGLOBIN A1c (496) Reviewed date:09/05/2023 02:15:33 PM Interpretation: Performing Lab:LIYAH, [facility] Harveye1355 [facility] CenterteVirtua Voorhees, [place] HliqMX[address] Arnold Simmons Notes/Report: NON-FASTING; NON-FASTING; NON-FASTING; NON-FASTING; NON-FAST HEMOGLOBIN A1c 6.0 <5.7 % of total Hgb This test was performed on the Joan selvin c503 platform. Effective 05/15/23, a change in test platforms from the Rachel [employer]ulator to the Joan selvin c503 may have shifted HbA1c results compared to historical results. Based on laboratory validation testing conducted at [facility], the Joan platform relative to the Rachel platform had an average increase in HbA1c value of < or = 0.3%. This difference is within accepted variability established by the National Glycohemoglobin Standardization Program. Note that not all individuals will have had a shift in their results and direct comparisons between historical and current results for testing conducted on different platforms is not recommended. For someone without known diabetes, a hemoglobin A1c value between 5.7% and 6.4% is consistent with prediabetes and should be confirmed with a follow-up test. For someone with known diabetes, a value <7% indicates that their diabetes is well controlled. A1c targets should be individualized based on duration of diabetes, age, comorbid conditions, and other considerations. This assay result is consistent with an increased risk of diabetes. Currently, no consensus exists regarding use of hemoglobin A1c for diagnosis of diabetes for children. Microalbumin (In-House) Reviewed date:01/07/2023 09:02:59 AM Interpretation:Normal Performing Lab: Notes/Report: Normal ALB 30mg CRE 300mg A:C <30mg LIPID PANEL, STANDARD (7600) Reviewed date:01/08/2023 08:59:07 AM Interpretation: Performing Lab:LIYAH [employer] Kucy4494 [employer] GroupteVirtua Voorhees, [facility] Medical CenterDwwwTT[address] Arnold Simmons Notes/Report: NON-FASTING; NON-FASTING; NON-FASTING; NON-FASTING; [...] LDL-C. Sal GREENBERG et al. ALLAN. 2013;310(19): 3983-1909 (http://education.[employer]/faq/CMC255) CHOL/HDLC RATIO 2.6 <5.0 (calc) NON HDL CHOLESTEROL 67 <130 mg/dL (calc) For patients with diabetes plus 1 major ASCVD risk factor, treating to a non-HDL-C goal of <100 mg/dL (LDL-C of <70 mg/dL) is considered a therapeutic option. COMPREHENSIVE METABOLIC PANE (54140) Reviewed date:01/08/2023 09:00:07 AM Interpretation: Performing Lab:LIYAH [email or web address] Wlyf2749 [employer] [facility], [facility] CenterXyezIY[address] Arnold Simmons Notes/Report: NON-FASTING; NON-FASTING; NON-FASTING; NON-FASTING; [...] Reviewed date:01/08/2023 08:58:50 AM Interpretation: Performing Lab:LIYAH [email or web address] [employer], [facility] CenterQgcjJU[address] Arnold Simmons Notes/Report: NON-FASTING; NON-FASTING; NON-FASTING; NON-FASTING; NON-FAST FASTING:YES FASTING: YES MAGNESIUM 1.7 1.5-2.5 mg/dL CBC (INCLUDES DIFF/PLT) (639 9) Reviewed date:01/17/2023 06:24:04 PM Interpretation: Performing Lab:LIYAH [facility] [employer], TechniScanVzxzIC[address] Arnold Simmons Notes/Report: NON-FASTING; NON-FASTING; NON-FASTING; NON-FASTING; NON-FAST FASTING:YES FASTING: YES WHITE BLOOD CELL COUNT 7.9 3.8-10.8 Thousand/ uL RED BLOOD CELL COUNT 4.25 4.20-5.80 Million/uL HEMOGLOBIN 10.8 13.2-17.1 g/dL HEMATOCRIT 34.0 38.5-50.0 % MCV 80.0 80.0-100.0 fL MCH 25.4 27.0-33.0 pg MCHC 31.8 32.0-36.0 g/dL RDW 13.7 11.0-15.0 % PLATELET COUNT 248 140-400 Thousand/uL MPV 11.1 7.5-12.5 fL ABSOLUTE NEUTROPHILS 4519 9472-9279 cells/uL ABSOLUTE LYMPHOCYTES 2283 850-3900 cells/uL ABSOLUTE MONOCYTES 695 200-950 cells/uL ABSOLUTE EOSINOPHILS 356 15-500 cells/uL ABSOLUTE BASOPHILS 47 0-200 cells/uL NEUTROPHILS 57.2 LYMPHOCYTES 28.9 MONOCYTES 8.8 EOSINOPHILS 4.5 BASOPHILS 0.6 HEMOGLOBIN A1c (496) Reviewed date:01/17/2023 06:24:05 PM Interpretation: Performing Lab:LIYAH [email or web address] [address], [facility] CenterFcfqSA[address] Arnold Simmons Notes/Report: NON-FASTING; NON-FASTING; NON-FASTING; NON-FASTING; NON-FAST FASTING:YES FASTING: YES HEMOGLOBIN A1c 9.2 <5.7 % of total Hgb For someone without known diabetes, a hemoglobin A1c value of 6.5% or greater indicates that they may have diabetes and this should be confirmed with a follow-up test. hemoglobin A1c for diagnosis of diabetes for children. For someone with known diabetes, a value <7% indicates that their diabetes is well controlled and a value greater than or equal to 7% indicates suboptimal control. A1c targets should be individualized based on duration of diabetes, age, comorbid conditions, and other considerations. Currently, no consensus exists regarding use of VITAMIN B12 (927) Reviewed date:01/11/2023 08:38:56 AM Interpretation: Performing Lab:LIYAH [email or web address], TechniScanFqdhBD[address] Arnold Simmons Notes/Report: NON-FASTING; NON-FASTING; NON-FASTING; NON-FASTING; NON-FAST FASTING:YES FASTING: YES VITAMIN B12 283 510-9185 pg/mL FERRITIN (457) Reviewed date:01/17/2023 06:24:05 PM Interpretation: Performing Lab:LIYAH [email or web address], [place] KatgKR[address] Arnold Simmons Notes/Report: NON-FASTING; NON-FASTING; NON-FASTING; NON-FASTING; NON-FAST FASTING:YES FASTING: YES FERRITIN 8 24-380 ng/mL IRON, TIBC AND FERRITIN PANE L (5616) Reviewed date:05/13/2023 11:54:10 AM Interpretation: Performing Lab:LIYAH [email or web address], [place] SudgFU[address] Arnold Simmons Notes/Report: NON-FASTING; NON-FASTING; NON-FASTING; NON-FASTING; NON-FAST IRON, TOTAL 24 50-180 mcg/dL IRON BINDING CAPACITY 496 250-425 mc g/dL (calc) % SATURATION 5 20-48 % (calc) FERRITIN 5 24-380 ng/mL BASIC METABOLIC PANEL (37421 ) Reviewed date:05/13/2023 11:23:42 AM Interpretation: Performing Lab:LIYAH [email or web address] Healthe1355 [facility] CenterLogue TransportSelect Specialty Hospital [facility] Arnold Simmons Notes/Report: NON-FASTING; NON-FASTING; NON-FASTING; NON-FASTING; [...] Reviewed date:05/11/2023 11:26:49 AM Interpretation: Performing Lab:LIYAH [email or web address].comEssentia Healthe1355 [facility] CenterLogue TransportSelect Specialty Hospital [facility] Arnold Simmons Notes/Report: NON-FASTING; NON-FASTING; NON-FASTING; NON-FASTING; NON-FAST MAGNESIUM 1.6 1.5-2.5 mg/dL Medications Medication SIG (Take, Route, Frequency, Duration) Notes Start Date End Date Status metFORMIN 1000 mg 1 tab(s) orally 2 ti mes a day for 90 days Active C-pap mask and supplies as directed DX: CRISTIAN for 30 days 01/29/2020 Active meloxicam 7.5 mg 1 tab(s) orally once a day for 90 days Active metoprolol 50 mg 1 tab(s) orally once a day for 30 day(s) Active gabapentin 100 mg 2 caps orally at bed time for 30 days 07/16/2023 Active rosuvastatin 5 mg 1 tab(s) orally once a day (at bedtime) Active FreeStyle [place] 14 Day [place] as directed for 30 days 09/03/2022 Acti ve Mounjaro 7.5 mg/0.5 mL 7.5 mg subcutaneo usly once a week for 28 days 09/09/2023 Active magnesium gluconate 250 mg 1 tab(s) orally once daily Active cyanocobalamin 1000 mcg/mL 1000 MCG EVER Y 2 WEEKS INTRAMUSCULARLY intramuscularly every 2 weeks for 30 day(s) Active Xarelto 20 mg 1 tab(s) orally once a day (in the evening) for 90 days Active FreeStyle Jersey 14 Day Sensor as directed for 28 days 09/03/2022 Acti ve Syringe 3cc 20g 1 - IM every 2 weeks f or 30 days Active hydrochlorothiazide-lisino pril 25 mg-20 mg 1 tab(s) orally once a day Active NovoFine Plus Pen Needle 32G 4mm - for use with insulin injection 3 times a day for 30 days Active Immunizations Vaccine Route Administration Date Status Comme nts Flublok IM Intramuscular 12/02/2019 Administered Flublok IM Intramuscular 12/21/2020 Administered Fluvirin--Influenza vaccine 3+ year Unknown 12/12/2006 Administered Fluzone High Dose IM Intramuscular 01/07/2023 Administered Fluzone High Dose IM Intramuscular 10/30/2023 Administered H1N1 Vaccine IM Intramuscular 01/27/2009 Administered Influenza-Fluzone 3+years (NON-MEDICARE) IM Intramuscular 11/15/2016 Administered Influenza-Fluzone 3+years (NON-MEDICARE) IM Intramuscular 12/23/2017 Administered Pneumovax 23 IM Intramuscular 04/20/2016 Administered Prevnar PCV-20 (Pneumococcal conjugate 20) IM Intramuscular 01/01/2022 Administered SHINGRIX IM Intramuscular 01/01/2022 Administered Zostavax (Shingles) IM Intramuscular 11/04/2017 Administer ed Shingrix Problems Problem Type SNOMED Code ICD Code Onset Dates Problem Status W/U Status Risk Notes Problem 453055231 Type 2 diabetes mellitus with other diabetic kidney complication (E11.29) Active confirmed Problem 546133121 Hypomagnesemia (E83.42) Active confirmed Problem 07858753 Proteinuria, unspecified (R80.9) Active confirmed Problem 06359587 Hyperlipidemia (E78.5) Active confirmed Problem 88857191 Essential hypertension (I10) Active confirmed Problem 282222899 B12 deficiency (E53.8) Active confirmed Problem 22501380 RLS (restless legs syndrome) (G25.81) Active confirmed Problem 651971570 BMI 40.0-44.9, adult (Z68.41) Active confirmed Problem Requires vaccination (203087802) Immunization(s) administered (Z23) Active confirmed Problem 36528731 Type 2 diabetes mellitus without complication (E11.9) Active confirmed Problem 187631101 History of anemi a (Z86.2) Active confirmed Problem 58849890 Obstructive slee p apnea syndrome (G47.33) Active confirmed Problem 923251151 Diabetic peripheral neuropathy (E11.42) Active confirmed Problem 865837533 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) Active confirmed Problem 88220187 Iron deficiency anemia, unspecified iron deficiency anemia type (D50.9) Active confirmed Problem 070688176 Insomnia, unspecified type (G47.00) Active confirmed Problem Long-term current use of insulin (947974304) Long-term insulin use (Z79.4) Active confirmed Problem 834035317 Uncontrolled typ e 2 diabetes mellitus with hyperglycemia, without long-term current use of insulin (E11.65) Active confirmed Problem 479525130 Acne rosacea (L71.9) Active confirmed Problem 96252054 New onset a-fib (I48.91) Active confirmed Problem 161152203 Chronic atrial fibrillation (I48.20) Active confirmed Problem 776759856876240 Osteoarthritis o f left hip, unspecified osteoarthritis type (M16.12) Active confirmed Vital Signs Heart Rate 88 /min 09/09/2023 Temperature 98.0 degrees Fahrenheit 09/09/2023 Oximetry 99% on RA 02/26/2023 Blood pressure diastolic 68 mm Hg 09/09/2023 Height 5 ft 10 in in 09/09/2023 Blood pressure systolic 112 mm Hg 09/09/2023 Weight 244 lbs 09/09/2023 BMI 35.01 kg/m2 09/09/2023 Encounters Encounter Location Date Provider Diagnosis [facility] [place] [address] [place] [address] 09/04/2023 Deo Suzie [facility] [place] [address] [place] [address] 01/07/2023 Kimberly Ba Type 2 diabetes mellitus with other diabetic kidney complication E11.29 ; Medicare annual wellness visit, initial Z00.00 ; Essential hypertension I10 ; Long-term insulin use Z79.4 ; RLS (restless legs syndrome) G25.81 ; History of anemia Z86.2 ; B12 deficiency E53.8 ; Hypomagnesemia E83.42 ; Chronic atrial fibrillation I48.20 ; BMI 40.0-44.9, adult Z68.41 and Encounter for immunization Z23 [facility] [place] [address] [place] [address] 02/26/2023 Kimberly Robbin Cough in adult R05.9 and Pneumonia due to Coronavirus disease 2019 J12.82 [facility] [place] [address] [place] [address] 05/09/2023 Kimberly Ba Type 2 diabetes mellitus with other diabetic kidney complication E11.29 ; Essential hypertension I10 ; Long-term insulin use Z79.4 ; RLS (restless legs syndrome) G25.81 ; Hypomagnesemia E83.42 ; Chronic atrial fibrillation I48.20 ; Iron deficiency anemia, unspecified iron deficiency anemia type D50.9 and Insomnia, unspecified type G47.00 [facility] [place] [address] [place] [address] 05/15/2023 Kimberly Jesenia Iron deficiency anem ia, unspecified iron deficiency anemia type D50.9 [facility] [place] [address] [place] [address] 09/09/2023 Kimberly Jesenia B12 deficiency E53.8 ; Type 2 diabetes mellitus with other diabetic kidney complication E11.29 ; Essential hypertension I10 ; Hyperlipidemia E78.5 ; Hypomagnesemia E83.42 and Iron deficiency anemia, unspecified iron deficiency anemia type D50.9 [facility] [address] [address] 10/30/2023 Deo Larsen Immunization(s) administered Z23 [facility] [place] [address] [place] [address] 01/07/2023 Deo Besson RLS (restless legs syndrome) G25.81 [facility] [place] [address] [place] [address] 01/16/2023 Kimberly Jesenia [facility] [place] [address] [place] [address] 02/05/2023 Deo Besson [facility] [place] [address] [place] [address] 02/14/2023 Kimberly Jesenia [facility] [place] [address] [place] [address] 03/13/2023 Kimberly Jesenia [facility] [place] [address] [place] [address] 03/14/2023 Kimberly Jesenia Pneumonia due to Coronavirus disease 2019 J12.82 [facility] [place] [address] [place] [address] 05/02/2023 Deo Besson [facility] [place] [address] [place] [address] 05/09/2023 Kimberly Jesenia [facility] [place] [address] [place] [address] 05/15/2023 Kimberly Jesenia [facility] [place] [address] [place] [address] 07/30/2023 Deo Besson [facility] [place] [address] [place] [address] 08/26/2023 Kimberly Jesenia B12 deficiency E53.8 ; Essential hypertension I10 ; Hyperlipidemia E78.5 ; Hypomagnesemia E83.42 ; Type 2 diabetes mellitus with other diabetic kidney complication E11.29 ; Iron deficiency anemia, unspecified iron deficiency anemia type D50.9 and Screening PSA (prostate specific antigen) Z12.5 [facility] [place] [address] [place] [address] 09/09/2023 Kimberly Jesenia [facility] [place] [address] [place] [address] 11/04/2023 Kimberly Ba Assessments Encounter Date Diagnosis (ICD Code) Assessment Notes Treat ment Notes Treatment Clinical Notes 01/07/2023 Type 2 diabetes mellitus with other diabetic kidney complication (ICD-10 - E11.29) Continue to scale back lunchtime dose of NovoLog, avoid hypoglycemia. Insurance would not cover continuous glucose meter from his local pharmacy, I gave him the contact information for [facility] medical. Eye exam is up-to-date, tolerating GRACIA [...] iron deficiency anemia type (ICD-10 - D50.9) 08/26/2023 Essential hypertension (ICD-10 - I10) 08/26/2023 B12 deficiency (ICD-10 - E53.8) 09/09/2023 Type 2 diabetes mellitus with other diabetic kidney complication (ICD-10 - E11.29) doing wonderfully on Mounjaro, has stopped insulin for now. Rec increase to 7.5mg weekly and decrease metformin to once daily. Continue to monitor. Continue ACEI, statin therapy and routine podiatry exam. H/O mild microalbuminuria, continue to monitor creatinine. Did not tolerate SGLT2I on several occasions 09/09/2023 B12 deficiency (ICD-10 - E53.8) at goal > 400 10/30/2023 Immunization(s) administered (ICD-10 - Z23) 09/09/2023 Essential hypertension (ICD-10 - I10) Rec decrease lisinopril HCT to 1/2 tablet daily and monitor BP. Goal < 130/80 08/26/2023 Hyperlipidemia (ICD-10 - E78.5) 05/09/2023 Long-term insulin use (ICD-10 - Z79.4) Still injecting up to 4 times per day, tolerating well 01/07/2023 Essential hypertension (ICD-10 - I10) Improved from prior visit, I did encourage him to get a blood pressure monitor so that he can check this periodically at home 05/09/2023 RLS (restless legs syndrome) (ICD-10 - G25.81) Continue gabapentin for now. Consider transition to Requip if symptoms or not improving. 01/07/2023 Long-term insulin use (ICD-10 - Z79.4) 08/26/2023 Hypomagnesemia (ICD-10 - E83.42) 09/09/2023 Hyperlipidemia (ICD-10 - E78.5) continue statin therapy 09/09/2023 Hypomagnesemia (ICD-10 - E83.42) in normal range 08/26/2023 Type 2 diabetes mellitus with other diabetic kidney complication (ICD-10 - E11.29) 05/09/2023 Hypomagnesemia (ICD-10 - E83.42) 01/07/2023 RLS (restless legs syndrome) (ICD-10 - G25.81) Increase gabapentin to 200 mg at bedtime, if this is ineffective or not tolerated, consider Requip 01/07/2023 History of anemia (ICD-10 - Z86.2) 05/09/2023 Chronic atrial fibrillation (ICD-10 - I48.20) follows with cardiology 08/26/2023 Iron deficiency anemia, unspecified iron deficiency anemia type (ICD-10 - D50.9) 09/09/2023 Iron deficiency anemia, unspecified iron deficiency anemia type (ICD-10 - D50.9) labs improved, continue FU with Dr Ferro 01/07/2023 B12 deficiency (ICD-10 - E53.8) 05/09/2023 Iron deficiency anemia, unspecified iron deficiency anemia type (ICD-10 - D50.9) repeat labs as noted. colonoscopy neg in 2022. consider IV iron replacement pending results 05/09/2023 Insomnia, unspecified type (ICD-10 - G47.00) 01/07/2023 Hypomagnesemia (ICD-10 - E83.42) 08/26/2023 Screening PSA (prostate specific antigen) (ICD-10 - Z12.5) 01/07/2023 Chronic atrial fibrillation (ICD-10 - I48.20) Continue follow-up with cardiology 01/07/2023 BMI 40.0-44.9, adult (ICD-10 - Z68.41) Complicates all aspects of care 01/07/2023 Encounter for immunization (ICD-10 - Z23) 01/07/2023 Other [facility] material was published Plan Of Treatment Pending Test Test Name Order Date X ray : Chest 01/21/2009 MRI : Lumbosacral Spine 10/05/2013 N-CMP 08/14/2006 N-Lipid Panel 08/14/2006 N-HbA1C 08/14/2006 Sleep Study 06/03/2009 EKG : In House 02/25/2014 Physical Therapy 10/02/2013 Physical Therapy 06/20/2020 Physical Therapy 03/15/2021 Dietary Consult 05/14/2019 H-CMP 11/15/2016 H-LIPID PANEL 11/15/2016 H-HGBA1C 11/15/2016 H-MISCELLANEOUS TEST 02/25/2014 C-CBC 03/03/2014 C-CBC 10/02/2013 C-CBC 08/13/2016 C-CBC 06/23/2015 C-CBC 05/12/2015 C-CBC 10/11/2014 C-Sed Rate (ESR) 06/23/2015 C-BASIC METABOLIC 01/29/2019 C-BASIC METABOLIC 08/11/2015 C-CMP 08/13/2016 C-CMP 03/21/2020 C-CMP 06/20/2020 C-CMP 03/03/2014 C-CMP 03/18/2013 C-CMP 06/09/2014 C-CMP 06/16/2012 C-CMP 06/23/2015 C-CMP 10/11/2014 C-CMP 05/12/2015 C-CMP 08/27/2008 C-CMP 12/12/2011 C-CMP 09/10/2011 C-MICROALBUMIN 12/12/2011 C-MICROALBUMIN 06/16/2012 C-MICROALBUMIN 03/03/2014 C-LIPID PANEL 06/20/2020 C-LIPID PANEL 03/21/2020 C-LIPID PANEL 03/03/2014 C-LIPID PANEL 06/16/2012 C-LIPID PANEL 03/18/2013 C-LIPID PANEL 06/09/2014 C-LIPID PANEL 05/12/2015 C-LIPID PANEL 10/11/2014 C-LIPID PANEL 08/11/2015 C-LIPID PANEL 12/12/2011 C-LIPID PANEL 09/10/2011 C-LIPID PANEL 01/13/2009 C-MAGNESIUM 08/11/2015 C-MAGNESIUM 06/23/2015 C-MAGNESIUM 06/20/2020 C-TSH 10/02/2013 C-TSH 06/23/2015 C-TSH 03/18/2013 C-TSH 12/07/2010 C-FREE T4 03/18/2013 C-FREE T4 10/02/2013 C-PSA 06/16/2012 C-VITAMIN B12 06/20/2020 C-VITAMIN B12 03/03/2014 C-VITAMIN B12 12/24/2013 C-VITAMIN B12 10/02/2013 C-VITAMIN B12 08/13/2016 C-VITAMIN B12 03/18/2013 C-VITAMIN B12 10/11/2014 C-VITAMIN B12 05/12/2015 C-CPK 06/23/2015 C-CPK 12/12/2011 C-HGBA1C 09/10/2011 C-HGBA1C 08/27/2008 C-HGBA1C 05/12/2015 C-HGBA1C 10/11/2014 C-HGBA1C 06/09/2014 C-HGBA1C 06/16/2012 C-HGBA1C 12/12/2011 C-HGBA1C 03/18/2013 C-HGBA1C 08/11/2015 C-HGBA1C 08/13/2016 C-HGBA1C 01/29/2019 C-HGBA1C 03/03/2014 C-VITAMIN D, 25-HYDROXY 03/03/2014 C-VITAMIN D, 25-HYDROXY 10/02/2013 C-VITAMIN D, 25-HYDROXY 03/18/2013 spirometry 12/12/2011 Future Test Test Name Order Date C-HOMOCYSTEINE 01/26/2008 C-CMP 06/29/2019 C-HGBA1C 06/29/2019 C-CMP 10/19/2019 C-LIPID PANEL 10/19/2019 C-HGBA1C 10/19/2019 Next Appt Details Provider Name:Kimberly Abdi Travis ce, 01/13/2024 08:00:00 AM, [address] [facility] [address] [facility], [address], [place], [address], Insurance Providers Payer Name Payer Address Payer Phone Subscriber Number Group Number Insured Name Patient Relationship to Insured Coverage Start Date Coverage End Date [place] [address] [place] [place] [phone] [id number] Tomas Azul Self - patient is the insured [employer] MED[employer]ARE SUPPLEMENT INSURANCE [address] [place] [phone] [id number] Tomas Azul Self - patient is the insured [employer] [address] [place] [address] [phone] ACL Tomas Azul Self - patient is the insured Medications Administered Medication Instructions Date of Administration Dosage Notes Cyanocobalamin/B-12 Pt's Own Medication 10/21/2013 Cyanocobalamin/B-12 Pt's Own Medication 10/27/2013 Cyanocobalamin/B-12 Pt's Own Medication 11/04/2013 Cyanocobalamin/B-12 Pt's Own Medication 11/12/2013 Cyanocobalamin/B-12 Pt's Own Medication 11/26/2013 Cyanocobalamin/B-12 Pt's Own Medication 12/02/2013 1 mL Cyanocobalamin/B-12 Pt's Own Medication 12/15/2013 1 mL Cyanocobalamin/B-12 Pt's Own Medication 12/24/2013 1 mL Cyanocobalamin/B-12 Pt's Own Medication 03/03/2014 1 mL Cyanocobalamin/B-12 Pt's Own Medication 06/09/2014 1 mL Cyanocobalamin/B-12 Pt's Own Medication 10/23/2014 1 mL Cyanocobalamin/B-12 Pt's Own Medication 11/16/2014 1 mL Cyanocobalamin/B-12 Pt's Own Medication 12/11/2014 1 mL Cyanocobalamin/B-12 Pt's Own Medication 01/13/2015 1 mL Cyanocobalamin/B-12 Pt's Own Medication 03/09/2015 1 mL Cyanocobalamin/B-12 Pt's Own Medication 05/31/2015 1 mL Cyanocobalamin/B-12 Pt's Own Medication 08/11/2015 1 mL Kenalog 10/28/2015 1 mL Medical (General) History Medical History History ICD Code hypertension type [...]
[2023-12-24 12:17] LABS: Basophils # 0.1 K/mm3 (0-0.2); Basophils % 0.8 % (0.1-2.0); Eosinophils # 0.3 K/mm3 (0.0-0.4); Eosinophils % 4.6 % (0.1-12.0); Hematocrit 35.1 % (42.0-52.0); Hemoglobin 13.2 g/dL (14.1-18.0); Lymphocytes % 32.7 % (10-50); Mean Corpuscular HGB Conc 37.6 g/dL (31.8-35.4); Mean Corpuscular Hemoglobin 31.9 pg (27.0-31.2); Mean Corpuscular Volume 84.9 fl (80-94); Mean Platelet Volume 8.2 fl (7.4-10.4); Monocytes # 0.3 K/mm3 (0.1-1.0); Monocytes % 5.3 % (1.7-9.3); Neutrophils # 3.5 K/mm3 (1.8-7.8); Neutrophils % 56.7 % (37.0-80.0); Platelet Count 169 K/mm3 (142-424); Red Blood Count 4.14 M/mm3 (4.60-6.20); Red Cell Distribution Width 15.1 % (11.5-17.5); White Blood Count 6.1 K/mm3 (4.8-10.8)
[2023-12-24 12:34] LABS: Iron 67 ug/dL (49-181)
[2023-12-24 12:44] LABS: Total Iron Binding Capacity 443 ug/dL (261-462)
[2023-12-24 17:57] LABS: Occult Blood,Stool Positive (Negative)
[2023-12-26 15:12] LABS: H. pylori Stool Ag, EIA Negative (Negative)
== END 2023-12-24 23:59 | disposition home or self-care (01) ==
PROVIDERS: PCP Nurse Practitioner Family; Visit Provider Internal Medicine Gastroenterology
DX: D50.9 Iron deficiency anemia, unspecified (principal); A04.8 Other specified bacterial intestinal infections; B19.20 Unspecified viral hepatitis C without hepatic coma
CPT/HCPCS: 36415; 82272; 82728; 83540; 83550; 85025; 87338; G0328

== ENCOUNTER 2024-01-02 09:25 | Day surgery (SDC) | payer MEDICARE, OTHER, SELFPAY ==
[2023-12-31 11:58] VITALS: BMI 32.3
--- OUTSIDE RECORDS SUMMARY | 2024-01-02 09:29 | XMS_ITS ---
Author Organization [facility] Address [address] [place], [place] [address] Care Team Providers Care Metal Furniture Assembly Supervisor Name Role Phone Deo Larsen Primary Care Provider Kimberly Ba [phone] REASON FOR VISIT glucometer Encounters Encounter Location Date Provider Diagnosis [facility] [address] [place], [place] [address] 09/09/2023 Kimberly Ba Plan Of Treatment Next Appt Details Provider Name:Kimberly Robles ce, 01/13/2024 08:00:00 AM, [address], [address], [place], [place], [address], Progress Notes * Tomas AZUL TDOB:[birth year] (67 yo M)Acc No.[id number]:09/09/2023 Patient:?Tomas AZUL :1955???Age:67 Y???Sex:Male Address[address] [place] [address] * true * Date:? Generated for Printi ng/Faxing/eTransmitting on:?01/02/2024 09:29 AM EDT
--- OUTSIDE RECORDS SUMMARY | 2024-01-02 09:29 | XMS_ITS ---
Author Organization [facility] Address [address] [facility] [address] [place] [address] Care Team Providers Care Supervisor Grading Name Role Phone Deo Larsen Primary Care Provider REASON FOR VISIT flu shot Immunizations Vaccine Route Administration Date Status Comme nts Fluzone High Dose IM Intramuscular 10/30/2023 Administered Encounters Encounter Location Date Provider Diagnosis [address] [address] 10/30/2023 Deo Larsen Immunization(s) administered Z23 Assessments Encounter Date Diagnosis (ICD Code) Assessment Notes Treat ment Notes Treatment Clinical Notes 10/30/2023 Immunization(s) administered (ICD-10 - Z23) Plan Of Treatment Next Appt Details Provider Name:Kimberly Robles , 01/13/2024 08:00:00 AM, [address] [facility] [address] [facility], [address], [place], [address], Progress Notes * Tomas AZUL TDOB:[birth year] (67 yo M)Acc No.[id number]:10/30/2023 Patient:?Tomas AZUL Provider:?Deo Larsen MD :1955???Age:67 Y???Sex:Male Luis Alberto e:10/30/2023 Address[address] [place] Subjective: * Chief Complaints: * ???1. Flu shot. * Medical History:? Objective: Assessment: * Assessment: 1.?Immunization(s) administe red - Z23 (Primary)? Plan: * Treatment: * Immunizations:? Fluzone High Dose : 0.7 mL (Dose No:1) (Route: Intramuscular) given by ANURAG Perez on Left Deltoid (Immunization(s) administered) * Procedure Codes:?95012 Influ trixie High Dose Vaccine >65 Years Old, G0008 ADMINISTRATION-FLU VACCINE MEDICARE ONLY * * Sign off status: Completed true * Provider:?Deo Larsen MD Date :?10/30/2023 Generated for Paul smith/Iker/Brittney on:?01/02/2024 09:29 AM EDT
--- OUTSIDE RECORDS SUMMARY | 2024-01-02 09:29 | XMS_ITS ---
Author Organization [facility] Address [address] [facility] [address] [facility] [address] [place] [address] Care Team Providers Care Academic Director Name Role Phone Deo Larsen Primary Care Provider Kimberly Ba [phone] REASON FOR VISIT Refills Medications Medication SIG (Take, Route, Frequency, Duration) Notes Start Date End Date Status Xarelto 20 mg TAKE 1 TABLET BY JOSÉ TH EVERY EVENING for 90 days Active Encounters Encounter Location Date Provider Diagnosis [facility] [address] [facility] [address] [facility] [address] [place], [place] [address] 11/04/2023 Kimberly Ba Plan Of Treatment Medication Medication Name Sig Start Date Stop Date Notes Xarelto 20 mg TAKE 1 TABLET BY JOSÉ TH EVERY EVENING for 90 days Next Appt Details Provider Name:Kimberly Robles ce, 01/13/2024 08:00:00 AM, [address] [facility] [address] [facility], [address], [place], [place], [address], Progress Notes * Tomas AZUL TDOB:[birth year] (67 yo M)Acc No.[id number]:11/04/2023 Patient:?Tomas AZUL :1955???Age:67 Y???Sex:Male Address:[address] [place] [address] * Refills? Refill Xarelto tablet, 20 mg, 90, TAKE 1 TABLET BY MOUTH EVERY EVENING, 90 days, Refills=0 * true * Date:? Generated for Paul smith/Iker/Brittney on:?01/02/2024 09:29 AM EDT
--- OUTSIDE RECORDS SUMMARY | 2024-01-02 09:30 | XMS_ITS | Patient Health Record ---
Author Organization [facility] [place] Address [address] [place] [address] Care Team Providers Care Statistical Typist Name Role Phone Deo Lasren Primary Care Provider [phone] Kimberly Ba Unavailable [phone] Kimberly Siegel Unavailable [phone] Allergies No Known Allergies Results Component Value Reference Range Notes Rapid Covid/Flu A-B Combo Reviewed date:02/26/2023 04:53:09 PM Interpretation: Performing Lab: Notes/Report: Rapid Covid positive Flu A neg Flu B neg FOLATE, SERUM (466) Reviewed date:01/11/2023 08:38:47 AM Interpretation: Performing Lab:LIYAH [facility] [address], [facility] ClinicAhyaLV[address] Arnold Simmons Notes/Report: NON-FASTING; NON-FASTING; NON-FASTING; NON-FASTING; NON-FAST FASTING:YES FASTING: YES FOLATE, SERUM 16.5 Reference Range Low: <3.4 Borderline: 3.4-5.4 Normal: >5.4 TEST AUTHORIZATION Reviewed date:01/11/2023 08:39:18 AM Interpretation: Performing Lab:LIYAH [employer] [address], [facility] ClinicLgjlVH[address] Arnold Simmons Notes/Report: NON-FASTING; NON-FASTING; NON-FASTING; NON-FASTING; NON-FAST FASTING:YES FASTING: YES TEST NAME: FOLATE, SERUM TEST CODE: [id number] CLIENT CONTACT: CHRISTOS JAUREGUI REPORT ALWAYS MESSAGE SIGNATURE The laboratory testing on this patient was verbally requested or confirmed by the ordering physician or his or her authorized entry level marketing representative after contact with an employee of [employer]. Federal regulations require that we maintain on file written authorization for all laboratory testing. Accordingly we are asking that the ordering physician or his or her authorized entry level marketing representative sign a copy of this report and promptly return it to the client insights consultant. Signature: COMMENT Please fax this signed form to [phone]. Please do not attempt to return this document by other methods. Documents will not be viewed by a entry level marketing representative. Please do not use this fax number for other service requests. IRON, TIBC AND FERRITIN JESSICA Abdi ([id number]) Reviewed date:05/13/2023 11:54:10 AM Interpretation: Performing Lab:LIYAH [facility] Ex[address] 4[facility]ilsSh[facility] Cities[address] Arnold Simmons Notes/Report: NON-FASTING; NON-FASTING; NON-FASTING; NON-FASTING; NON-FAST IRON, TOTAL 24 50-180 mcg/dL IRON BINDING CAPACITY 496 250-425 mc g/dL (calc) % SATURATION 5 20-48 % (calc) FERRITIN 5 24-380 ng/mL BASIC METABOLIC PANEL (08093 ) Reviewed date:05/13/2023 11:23:42 AM Interpretation: Performing Lab:LIYAH [facility] Qkks3344 4SoilsAtrium Health [facility] MinneapolisDixlNG[address] Arnold Simmons Notes/Report: NON-FASTING; NON-FASTING; NON-FASTING; NON-FASTING; [...] Reviewed date:05/11/2023 11:26:49 AM Interpretation: Performing Lab:LIYAH [facility] [address], [facility] MinneapolisRyskDM[address] Arnold Simmons Notes/Report: NON-FASTING; NON-FASTING; NON-FASTING; NON-FASTING; NON-FAST MAGNESIUM 1.6 1.5-2.5 mg/dL CBC (INCLUDES DIFF/PLT) (639 9) Reviewed date:05/13/2023 11:23:42 AM Interpretation: Performing Lab:LIYAH [employer]come[address], [facility] MinneapolisTsscFD[address] Arnold Simmons Notes/Report: NON-FASTING; NON-FASTING; NON-FASTING; NON-FASTING; NON-FAST WHITE BLOOD CELL COUNT 7.8 3.8-10.8 Thousand/ uL RED BLOOD CELL COUNT 3.92 4.20-5.80 Million/uL HEMOGLOBIN 8.6 13.2-17.1 g/dL HEMATOCRIT 29.2 38.5-50.0 % MCV 74.5 80.0-100.0 fL MCH 21.9 27.0-33.0 pg MCHC 29.5 32.0-36.0 g/dL RDW 15.3 11.0-15.0 % PLATELET COUNT 248 140-400 Thousand/uL MPV 11.0 7.5-12.5 fL ABSOLUTE NEUTROPHILS [phone] cells/uL ABSOLUTE LYMPHOCYTES 3336 261-4561 cells/uL ABSOLUTE MONOCYTES 616 200-950 cells/uL ABSOLUTE EOSINOPHILS 234 15-500 cells/uL ABSOLUTE BASOPHILS 39 0-200 cells/uL NEUTROPHILS 65.6 LYMPHOCYTES 23.0 MONOCYTES 7.9 EOSINOPHILS 3.0 BASOPHILS 0.5 HEMOGLOBIN A1c (496) Reviewed date:05/13/2023 11:23:42 AM Interpretation: Performing Lab:LIYAH [facility] [address], [facility] MinneapolisSucdEC[address] Arnold Simmons Notes/Report: NON-FASTING; NON-FASTING; NON-FASTING; NON-FASTING; [...] for children. HbA1c performed on Rachel platform. IRON, TIBC AND FERRITIN JESSICA Abdi ([id number]) Reviewed date:09/05/2023 02:15:33 PM Interpretation: Performing Lab:LIYAH [facility] Fdlv9970 DiveboardRaritan [facility], [facility] MinneapolisDldzAI[address] Arnold Simmons Notes/Report: NON-FASTING; NON-FASTING; NON-FASTING; NON-FASTING; NON-FAST IRON, TOTAL 56 50-180 mcg/dL IRON BINDING CAPACITY 428 250-425 mc g/dL (calc) % SATURATION 13 20-48 % (calc) FERRITIN 27 24-380 ng/mL LIPID PANEL, STANDARD (7600) Reviewed date:09/05/2023 02:15:33 PM Interpretation: Performing Lab:LIYAH [facility] Ggxj8387 DiveboardRaritan Bay Medical Center, [facility] MinneapolisMvghKS[address] Arnold Simmons Notes/Report: NON-FASTING; NON-FASTING; NON-FASTING; NON-FASTING; NON-FAST CHOLESTEROL, TOTAL 120 <200 mg/dL HDL CHOLESTEROL 54 > OR = 40 mg/dL TRIGLYCERIDES 86 <150 mg/dL LDL-CHOLESTEROL 49 with > or = 2 CHD risk factors. LDL-C is now calculated using the Sal-Yusra calculation, which is a validated novel method providing better accuracy than the Friedewald equation in the estimation of LDL-C. Sal GREENBERG et al. ALLAN. 2013;310(19): 2711-3775 (http://education.Talend/faq/LLU484) Reference range: <100 Desirable range <100 mg/dL for primary prevention; <70 mg/dL for patients with CHD or diabetic patients CHOL/HDLC RATIO 2.2 <5.0 (calc) NON HDL CHOLESTEROL 66 <130 mg/dL (calc) For patients with diabetes plus 1 major ASCVD risk factor, treating to a non-HDL-C goal of <100 mg/dL (LDL-C of <70 mg/dL) is considered a therapeutic option. COMPREHENSIVE METABOLIC PANE L (47677) Reviewed date:09/05/2023 02:15:33 PM Interpretation: Performing Lab:LIYAH [employer] Platformse[address], [place] IjhjHP[address] Arnold Simmons Notes/Report: NON-FASTING; NON-FASTING; NON-FASTING; NON-FASTING; [...] 18 10-35 U/L ALT 12 9-46 U/L MAGNESIUM (622) Reviewed date:09/05/2023 02:15:33 PM Interpretation: Performing Lab:LIYAH [employer] Platformse[address] [facility], [facility] MinneapolisNmqzOV[address] Arnold Simmons Notes/Report: NON-FASTING; NON-FASTING; NON-FASTING; NON-FASTING; NON-FAST MAGNESIUM 1.8 1.5-2.5 mg/dL CBC (INCLUDES DIFF/PLT) (639 9) Reviewed date:09/05/2023 02:15:33 PM Interpretation: Performing Lab:LIYAH [facility] Vmao2884 [facility] HospitalteRar[facility], [facility] MinneapolisDrysJN[address] Arnold Simmons Notes/Report: NON-FASTING; NON-FASTING; NON-FASTING; NON-FASTING; [...] MPV 11.0 7.5-12.5 fL ABSOLUTE NEUTROPHILS 4688 1229-8911 cells/uL ABSOLUTE LYMPHOCYTES 2192 850-3900 cells/uL ABSOLUTE MONOCYTES 585 200-950 cells/uL ABSOLUTE EOSINOPHILS 289 15-500 cells/uL ABSOLUTE BASOPHILS 47 0-200 cells/uL NEUTROPHILS 60.1 LYMPHOCYTES 28.1 MONOCYTES 7.5 EOSINOPHILS 3.7 BASOPHILS 0.6 HEMOGLOBIN A1c (496) Reviewed date:09/05/2023 02:15:33 PM Interpretation: Performing Lab:LIYAH [facility] Tstc0540 [facility], [facility] HospitalDxvaCA[address] Arnold Simmons Notes/Report: NON-FASTING; NON-FASTING; NON-FASTING; NON-FASTING; NON-FAST HEMOGLOBIN A1c 6.0 <5.7 % of total Hgb This test was performed on the Joan selvin c503 platform. Effective 05/15/23, a change in test platforms from the Rachel Cheese Blender to the Joan selvin c503 may have shifted HbA1c results compared to historical results. Based on laboratory validation testing conducted at [facility], the Joan platform relative to the Rachel [...] diabetes for children. VITAMIN B12 (927) Reviewed date:09/05/2023 02:15:34 PM Interpretation: Performing Lab:LIYAH, [facility] [address], [place] CkbiNE[address] Arnold Simmons Notes/Report: NON-FASTING; NON-FASTING; NON-FASTING; NON-FASTING; NON-FAST VITAMIN B12 678 474-5590 pg/mL PSA, TOTAL (5363) Reviewed date:09/05/2023 02:15:34 PM Interpretation: Performing Lab:LIYAH, [facility] [address], MyNewDeals.comFcdkAI[address] Arnold Simmons Notes/Report: NON-FASTING; NON-FASTING; NON-FASTING; NON-FASTING; NON-FAST PSA, TOTAL 3.34 < OR = 4.00 ng/mL The total PSA value from this assay system is standardized against the WHO standard. The test result will be approximately 20% lower when compared to the equimolar-standardized total PSA (Renae Fany). Comparison of serial PSA results should be interpreted with this fact in mind. This test was performed using the Siemens chemiluminescent method. Values obtained from different assay methods cannot be used interchangeably. PSA levels, regardless of value, should not be interpreted as absolute evidence of the presence or absence of disease. Microalbumin (In-House) Reviewed date:01/07/2023 09:02:59 AM Interpretation:Normal Performing Lab: Notes/Report: Normal ALB 30mg CRE 300mg A:C <30mg LIPID PANEL, STANDARD (7600) Reviewed date:01/08/2023 08:59:07 AM Interpretation: Performing Lab:LIYAH, [facility] [address], [place] UlpdLF[address] Arnold Simmons Notes/Report: NON-FASTING; NON-FASTING; NON-FASTING; NON-FASTING; [...] of LDL-C. Sal SS et al. ALLAN. 2013;310(31): 1573-7853 (http://education.Talend/faq/CLN910) CHOL/HDLC RATIO 2.6 <5.0 (calc) NON HDL CHOLESTEROL 67 <130 mg/dL (calc) For patients with diabetes plus 1 major ASCVD risk factor, treating to a non-HDL-C goal of <100 mg/dL (LDL-C of <70 mg/dL) is considered a therapeutic option. COMPREHENSIVE METABOLIC JESSICA Abdi (71660) Reviewed date:01/08/2023 09:00:07 AM Interpretation: Performing Lab:CB, [facility]ared [address], [place] HarveyLryrUK[address] Arnold Simmons Notes/Report: NON-FASTING; NON-FASTING; NON-FASTING; NON-FASTING; [...] Reviewed date:01/08/2023 08:58:50 AM Interpretation: Performing Lab:LIYAH [employer] Platformse[address], [facility] MinneapolisKhnmWC[address] Arnold Simmons Notes/Report: NON-FASTING; NON-FASTING; NON-FASTING; NON-FASTING; NON-FAST FASTING:YES FASTING: YES MAGNESIUM 1.7 1.5-2.5 mg/dL CBC (INCLUDES DIFF/PLT) (639 9) Reviewed date:01/17/2023 06:24:04 PM Interpretation: Performing Lab:LIYAH [employer] H[address]ji[address], [facility] MinneapolisIpinVE[address] Arnold Simmons Notes/Report: NON-FASTING; NON-FASTING; NON-FASTING; NON-FASTING; NON-FAST FASTING:YES FASTING: YES WHITE BLOOD CELL COUNT 7.9 3.8-10.8 Thousand/ uL RED BLOOD CELL COUNT 4.25 4.20-5.80 Million/uL HEMOGLOBIN 10.8 13.2-17.1 g/dL HEMATOCRIT 34.0 38.5-50.0 % MCV 80.0 80.0-100.0 fL MCH 25.4 27.0-33.0 pg MCHC 31.8 32.0-36.0 g/dL RDW 13.7 11.0-15.0 % PLATELET COUNT 248 140-400 Thousand/uL MPV 11.1 7.5-12.5 fL ABSOLUTE NEUTROPHILS 4519 5186-9871 cells/uL ABSOLUTE LYMPHOCYTES 2283 850-3900 cells/uL ABSOLUTE MONOCYTES 695 200-950 cells/uL ABSOLUTE EOSINOPHILS 356 15-500 cells/uL ABSOLUTE BASOPHILS 47 0-200 cells/uL NEUTROPHILS 57.2 LYMPHOCYTES 28.9 MONOCYTES 8.8 EOSINOPHILS 4.5 BASOPHILS 0.6 HEMOGLOBIN A1c (496) Reviewed date:01/17/2023 06:24:05 PM Interpretation: Performing Lab:LIYAH [employer] [address] [facility], [facility] MinneapolisFlwjEQ[address] Arnold Simmons Notes/Report: NON-FASTING; NON-FASTING; NON-FASTING; NON-FASTING; [...] Reviewed date:01/11/2023 08:38:56 AM Interpretation: Performing Lab:LIYAH [facility]come[address]55 [address] [facility], [facility] MinneapolisXbjwDT[address] Arnold Simmons Notes/Report: NON-FASTING; NON-FASTING; NON-FASTING; NON-FASTING; NON-FAST FASTING:YES FASTING: YES VITAMIN B12 880 150-2442 pg/mL FERRITIN (457) Reviewed date:01/17/2023 06:24:05 PM Interpretation: Performing Lab:LIYAH [facility]come1355 [address] [facility], [facility] MinneapolisUwtzGN[address] Arnold Simmons Notes/Report: NON-FASTING; NON-FASTING; NON-FASTING; NON-FASTING; NON-FAST FASTING:YES FASTING: YES FERRITIN 8 24-380 ng/mL occult blood Reviewed date:05/15/2023 01:57:50 PM Interpretation:Negative Performing Lab: Notes/Report: Negative Medications Medication SIG (Take, Route, Frequency, Duration) [...] (at bedtime) Active FreeStyle [place] 14 Day Severance as directed for 30 days 09/03/2022 Acti [...] Problem Status W/U Status Risk Notes Problem 234165686 Type 2 diabetes mellitus with other diabetic kidney complication (E11.29) Active confirmed Problem 292432773 Hypomagnesemia (E83.42) Active confirmed Problem 48843685 Proteinuria, unspecified (R80.9) Active confirmed Problem 48981636 Hyperlipidemia (E78.5) Active confirmed Problem 11108309 Essential hypertension (I10) Active confirmed Problem 489359723 B12 deficiency (E53.8) Active confirmed Problem 32474234 RLS (restless legs syndrome) (G25.81) Active confirmed Problem 202723379 BMI 40.0-44.9, adult (Z68.41) Active confirmed Problem Requires vaccination (444713237) Immunization(s) administered (Z23) Active confirmed Problem 90871102 Type 2 diabetes mellitus without complication (E11.9) Active confirmed Problem 421602384 History of anemi a (Z86.2) Active confirmed Problem 84590632 Obstructive slee p apnea syndrome (G47.33) Active confirmed Problem 466256482 Diabetic peripheral neuropathy (E11.42) Active confirmed Problem 132557951 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) Active confirmed Problem 04772897 Iron deficiency anemia, unspecified iron deficiency anemia type (D50.9) Active confirmed Problem 251440797 Insomnia, unspecified type (G47.00) Active confirmed Problem Long-term current use of insulin (309973859) Long-term insulin use (Z79.4) Active confirmed Problem 159598286 Uncontrolled typ e 2 diabetes mellitus with hyperglycemia, without long-term current use of insulin (E11.65) Active confirmed Problem 412129292 Acne rosacea (L71.9) Active confirmed Problem 51327262 New onset a-fib (I48.91) Active confirmed Problem 197426733 Chronic atrial fibrillation (I48.20) Active confirmed Problem 278519953996689 Osteoarthritis o f left hip, unspecified osteoarthritis type (M16.12) Active confirmed Vital Signs Heart Rate 88 /min 09/09/2023 Temperature 98.0 degrees Fahrenheit 09/09/2023 Oximetry 99% on RA 02/26/2023 Blood pressure diastolic 68 mm Hg 09/09/2023 Height 5 ft 10 in in 09/09/2023 Blood pressure systolic 112 mm Hg 09/09/2023 Weight 244 lbs 09/09/2023 BMI 35.01 kg/m2 09/09/2023 Encounters Encounter Location Date Provider Diagnosis [facility] [place] [address] [place] [address] 09/04/2023 Deo Suzie [facility] [place] [address] [place] [address] 01/07/2023 Kimberly Ba Type 2 diabetes mellitus with other diabetic kidney complication E11.29 ; Medicare annual wellness visit, initial Z00.00 ; Essential hypertension I10 ; Long-term insulin use Z79.4 ; RLS (restless legs syndrome) G25.81 ; History of anemia Z86.2 ; B12 deficiency E53.8 ; Hypomagnesemia E83.42 ; Chronic atrial fibrillation I48.20 ; BMI 40.0-44.9, adult Z68.41 and Encounter for immunization Z23 [facility] [place] [address] [place] [address] 02/26/2023 Kimberly Robbin Cough in adult R05.9 and Pneumonia due to Coronavirus disease 2019 J12.82 [facility] [place] [address] [place] [address] 05/09/2023 Kimberly Ba Type 2 diabetes mellitus with other diabetic kidney complication E11.29 ; Essential hypertension I10 ; Long-term insulin use Z79.4 ; RLS (restless legs syndrome) G25.81 ; Hypomagnesemia E83.42 ; Chronic atrial fibrillation I48.20 ; Iron deficiency anemia, unspecified iron deficiency anemia type D50.9 and Insomnia, unspecified type G47.00 [facility] [place] [address] [place] [address] 05/15/2023 Kimberly Jesenia Iron deficiency anem ia, unspecified iron deficiency anemia type D50.9 [facility] [place] [address] [place] [address] 09/09/2023 Kimberly Jesenia B12 deficiency E53.8 ; Type 2 diabetes mellitus with other diabetic kidney complication E11.29 ; Essential hypertension I10 ; Hyperlipidemia E78.5 ; Hypomagnesemia E83.42 and Iron deficiency anemia, unspecified iron deficiency anemia type D50.9 [facility] [address] [address] 10/30/2023 Deo Larsen Immunization(s) administered Z23 [facility] [place] [address] [place] [address] 01/07/2023 Deo Besson RLS (restless legs syndrome) G25.81 [facility] [place] [address] [place] [address] 01/16/2023 Kimberly Jesenia [facility] [place] [address] [place] [address] 02/05/2023 Deo Besson [facility] [place] [address] [place] [address] 02/14/2023 Kimberly Jesenia [facility] [place] [address] [place] [address] 03/13/2023 Kimberly Jesenia [facility] [place] [address] [place] [address] 03/14/2023 Kimberly Jesenia Pneumonia due to Coronavirus disease 2019 J12.82 [facility] [place] [address] [place] [address] 05/02/2023 Deo Besson [facility] [place] [address] [place] [address] 05/09/2023 Kimberly Jesenia [facility] [place] [address] [place] [address] 05/15/2023 Kimberly Jesenia [facility] [place] [address] [place] [address] 07/30/2023 Deo Besson [facility] [place] [address] [place] [address] 08/26/2023 Kimberly Jesenia B12 deficiency E53.8 ; Essential hypertension I10 ; Hyperlipidemia E78.5 ; Hypomagnesemia E83.42 ; Type 2 diabetes mellitus with other diabetic kidney complication E11.29 ; Iron deficiency anemia, unspecified iron deficiency anemia type D50.9 and Screening PSA (prostate specific antigen) Z12.5 [facility] [place] [address] [place] [address] 09/09/2023 Kimberly Jesenia [facility] [place] [address] [place] [address] 11/04/2023 Kimberly Ba Assessments Encounter Date Diagnosis (ICD Code) Assessment Notes Treat ment Notes Treatment Clinical Notes 01/07/2023 Type 2 diabetes mellitus with other diabetic kidney complication (ICD-10 - E11.29) Continue to scale back lunchtime dose of NovoLog, avoid hypoglycemia. Insurance would not cover continuous glucose meter from his local pharmacy, I gave him the contact information for [facility] medical. Eye exam is up-to-date, [...] 11/15/2016 H-MISCELLANEOUS TEST 02/25/2014 C-CBC 03/03/2014 C-CBC 06/23/2015 C-CBC 10/11/2014 C-CBC 05/12/2015 C-CBC 08/13/2016 C-CBC 10/02/2013 C-Sed Rate (ESR) 06/23/2015 C-BASIC METABOLIC 01/29/2019 C-BASIC METABOLIC 08/11/2015 C-CMP 05/12/2015 C-CMP 08/13/2016 C-CMP 06/23/2015 C-CMP 06/09/2014 C-CMP 12/12/2011 C-CMP 03/03/2014 C-CMP 10/11/2014 C-CMP 08/27/2008 C-CMP 09/10/2011 C-CMP 06/16/2012 C-CMP 03/18/2013 C-CMP 06/20/2020 C-CMP 03/21/2020 C-MICROALBUMIN 06/16/2012 C-MICROALBUMIN 03/03/2014 C-MICROALBUMIN 12/12/2011 C-LIPID PANEL 12/12/2011 C-LIPID PANEL 06/09/2014 C-LIPID PANEL 08/11/2015 C-LIPID PANEL 05/12/2015 C-LIPID PANEL 10/11/2014 C-LIPID PANEL 03/03/2014 C-LIPID PANEL 03/18/2013 C-LIPID PANEL 06/16/2012 C-LIPID PANEL 09/10/2011 C-LIPID PANEL 01/13/2009 C-LIPID PANEL 03/21/2020 C-LIPID PANEL 06/20/2020 C-MAGNESIUM 06/20/2020 C-MAGNESIUM 08/11/2015 C-MAGNESIUM 06/23/2015 C-TSH 06/23/2015 C-TSH 03/18/2013 C-TSH 12/07/2010 C-TSH 10/02/2013 C-FREE T4 10/02/2013 C-FREE T4 03/18/2013 C-PSA 06/16/2012 C-VITAMIN B12 03/18/2013 C-VITAMIN B12 03/03/2014 C-VITAMIN B12 08/13/2016 C-VITAMIN B12 05/12/2015 C-VITAMIN B12 10/11/2014 C-VITAMIN B12 10/02/2013 C-VITAMIN B12 12/24/2013 C-VITAMIN B12 06/20/2020 C-CPK 06/23/2015 C-CPK 12/12/2011 C-HGBA1C 12/12/2011 C-HGBA1C 06/09/2014 C-HGBA1C 05/12/2015 C-HGBA1C 08/11/2015 C-HGBA1C 01/29/2019 C-HGBA1C 08/13/2016 C-HGBA1C 03/03/2014 C-HGBA1C 10/11/2014 C-HGBA1C 03/18/2013 C-HGBA1C 06/16/2012 C-HGBA1C 09/10/2011 C-HGBA1C 08/27/2008 C-VITAMIN D, 25-HYDROXY 03/03/2014 C-VITAMIN D, 25-HYDROXY 03/18/2013 C-VITAMIN D, 25-HYDROXY 10/02/2013 spirometry 12/12/2011 Future Test Test Name Order Date C-HOMOCYSTEINE 01/26/2008 C-CMP 06/29/2019 C-HGBA1C 06/29/2019 C-CMP 10/19/2019 C-LIPID PANEL 10/19/2019 C-HGBA1C 10/19/2019 Next Appt Details Provider Name:Kimberly Abdi Travis ce, 01/13/2024 08:00:00 AM, [address] [facility] [address] [facility], [address], [place], [address], Insurance Providers Payer Name Payer Address Payer Phone Subscriber Number Group Number Insured Name Patient Relationship to Insured Coverage Start Date Coverage End Date MEDICARE [place] [place] [phone] [id number] Tomas Azul Self - patient is the insured [employer] MEDICARE SUPPLEMENT INSURANCE [address] [place] [phone] [id number] Tomas Azul Self - patient is the insured [employer] [address] [place] [address] ACL Tomas Azul Self - patient is [...]
[2024-01-02] MEDS: LACTATED RINGERS 1000ML 1,000 ML 25 ML IV (09:51)
[2024-01-02 09:53] VITALS: BP 144/73; PULSE 72; RESP 18; TEMP 36.6; O2SAT 99
[2024-01-02 10:04] LABS: POC Glucose,Bedside 127 (70-110)
--- NOTE | 2024-01-02 10:10 | EXP.ANES.CKL ---
[facility] Disclaimer: The information contained in this section may have been updated after the patient was seen, as this information can be updated by other users. 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 caffeine: Yes special loly needs: No agree to transfusion: No do you feel safe at home: Yes victim of physical abuse: No victim of emotional abuse: No victim of sexual abuse: No would you like helpful sources: No [facility] Anesthesia Checklist Patient Identification Patient Identification: Arm Band and Verbal (Name & ) Structural Data Admitted From: Home Planned Operative Procedure/s: EGD/Colonoscopy Consent for Planned Operative Procedure(s) Verified: Yes Verified Documents: Surgical Consent and History and Physical NPO Status Verified Time NPO: 00:00 Additional verifications Anesthesia Reactions: No Airway Assessment Mallampati Score:: Class II C-Spine Mobility Assessed: Yes TMJ Mobility Assessed: Yes Dentition: Good Dentition Neurological Assessment Level of Consciousness: Awake Hx Seizures: No Numbness or tingling in extremities: No Anesthesia Plan Anesthesia Risk discussed: Yes Anesthesia Plan: Verified ASA Class: III Anesthesia Type: MAC
[2024-01-02 10:41] VITALS: O2SAT 100
--- NOTE | 2024-01-02 10:50 | HMH.PROCNOTE ---
[facility] Procedure Note Date: 01/02/24 Time: 10:50 Procedure Note:: Upper Endoscopy Procedure Report: Esophagogastroduodenoscopy with cold biopsies Endoscopost: Loi Dumont II, MD Referring Physician: ELLIOTT Gandara Date of Procedure: January 02, 2024 Equipment: Olympus GIF 190 standard upper endoscope Sedation: MAC sedation Indications: Mr. Azul is a 68-year-old gentleman with iron deficiency anemia in June 2023. His hemoglobin and hematocrit were 8.4 and 28.6 with serum iron 32 and ferritin 6.01. His iron saturation was 7.27%. He had a colonoscopy in June 2022 with single small tubular adenoma in the cecum. His EGD in June 2023 showed moderate chronic gastritis with biopsies positive for H. pylori. He was treated for H. pylori. He has been on Xarelto. He was taking ibuprofen regularly but stopped ibuprofen. Repeat labs showed hemoglobin 13.2 and hematocrit 35.1 and he was on some iron replacement. His repeat iron saturation was 15% with ferritin 11.0 and serum iron 67. Stool was sent and he was Hemoccult positive. Repeat panendoscopy was performed because of ongoing chronic GI blood loss and iron deficiency. Procedure: Prior to the procedure, a history and physical exam was performed, and patient's medications and allergies were reviewed. The risks, benefits and alternatives of the sedation and procedure were discussed with the patient. All questions were answered and informed consent was obtained. The patient was brought to the procedure room. Patient identification and proposed procedure were verified by the physician and the nurse. The patient was placed in a left lateral decubitus position and the scope was passed under direct vision. Throughout the procedure, the patient's blood pressure, pulse, and oxygen saturations were monitored continuously. The upper GI endoscopy was accomplished without difficulty. The patient tolerated the procedure well. Findings: The scope was passed directly into the upper esophagus and advanced to the fourth portion of the duodenum and proximal jejunum. The post bulbar duodenum, proximal jejunum and duodenal bulb were normal with normal mucosa and conniventes. There were no AVMs/angiodysplasias identified. The scope was withdrawn through a normal duodenal bulb and pylorus into the stomach. Within the stomach there was evidence of cobblestoning/reticular pattern with erythema of the body and fundus of the stomach suggestive of H. pylori. Biopsies were taken at the incisura and lesser curvature and body of the stomach to rule out H. pylori. Upon retroflexion there was no hiatal hernia. The scope was then withdrawn into the esophagus. There was no evidence of reflux esophagitis or Montero's. Biopsies were taken from the GE junction. The remainder of the esophageal mucosa was normal. Impression: 1. Mild to moderate chronic gastritis?suspect H. pylori (not eradicated) Plan: I will follow-up the biopsies for H. pylori and if positive use therapy with less resistance patterns (no clarithromycin-based therapy). I would plan to repeat stool antigen in 3 months. This could be the source of his iron deficiency and anemia. I will proceed with colonoscopy. If colonoscopy is normal, I would then consider video capsule enteroscopy.
--- NOTE | 2024-01-02 10:56 | P.PCN_ITS ---
[facility] Procedure Note Date: 01/02/24 Time: 11:08 Procedure Note:: Colonoscopy Procedure Report: Colonoscopy Endoscopist: Loi Dumont II, MD Referring physician: ELLIOTT Gandara Date of Procedure: January 02, 2024 Equipment: Olympus 190 variable stiffness pediatric colonoscope Sedation: MAC sedation Indication: Mr. Azul is a 68-year-old gentleman with ongoing iron deficiency anemia and Hemoccult positive stool. His hemoglobin and hematocrit have improved but he remains anemic and his Hemoccult was positive on 12/24/2023. His hemoglobin and hematocrit were 13.2 and 35.1 with serum iron 67, iron saturation 15% and ferritin 11.0. This was slightly improved from iron studies in June 2023 when his ferritin was 6 and iron saturation 7.27% and serum iron 32. The patient did have a colonoscopy in June 2022 at which time a 4 to 5 mm cecal tubular adenoma was removed. He reports no abdominal pain, bright red rectal bleeding, hematochezia or melena. His EGD showed chronic gastritis with endoscopic appearance of probable H. pylori. Procedure: Prior to the procedure, a history and physical exam was performed, and patient's medications and allergies were reviewed. The risks, benefits and alternatives of the sedation and procedure were discussed with the patient. All questions were answered and informed consent was obtained. The patient was brought to the procedure room. Patient identification and proposed procedure were verified by the physician and the nurse. The patient was placed in a left lateral decubitus position and the scope was passed under direct vision. Throughout the procedure, the patient's blood pressure, pulse, and oxygen saturations were monitored continuously. The colonoscopy was accomplished without difficulty. The patient tolerated the procedure well. Findings: On digital rectal examination there was normal rectal tone. There were no external hemorrhoids. The colonoscope was introduced through the anal canal to the rectum and advanced to the cecum. The ileocecal valve and appendiceal orifice were identified. The scope was advanced a short distance into the ileum which appeared grossly normal. The scope was then withdrawn into the colon. There was a nonbleeding AVMs/angiodysplasia of the cecum and a small AVM/angiodysplasia of the transverse (nonbleeding) the remaining cecum, ascending and transverse colon and mucosa were grossly normal. There were scattered diverticuli throughout the descending and sigmoid colon (LEFT colon). The rectum itself was normal. Upon retroflexion within the rectum there were grade 2 internal hemorrhoids. The preparation was good throughout with Pep Preparation Score of 8 out of 9. The cecal time was 10 minutes. Impression: 1. Small nonbleeding AVMs/angiodysplasia of cecum/transverse 2. Left-sided diverticulosis 3. Grade 2 internal hemorrhoids Plan: I do feel that the anemia is likely related to H. pylori and his use of anticoagulation/Xarelto. I would consider video capsule enteroscopy if he fails to have iron repletion on daily iron replacement or remains Hemoccult positive. I do suspect that he may small bowel AVMs/angiodysplasias that may be playing some role.
[2024-01-02 11:14] VITALS: BP 109/64; PULSE 67; RESP 18; O2SAT 96
[2024-01-02 11:24] VITALS: BP 114/72; PULSE 69; RESP 18; O2SAT 98
[2024-01-02 11:34] VITALS: BP 112/64; PULSE 68; RESP 18; O2SAT 97
[2024-01-02 11:48] VITALS: BP 119/71; PULSE 58; RESP 18; O2SAT 98
== END 2024-01-02 11:44 | disposition home or self-care (01) ==
PROVIDERS: PCP Nurse Practitioner Family; Visit Provider Internal Medicine Gastroenterology
PROC: 0DJ08ZZ Inspection of Upper Intestinal Tract, Via Natural or Artificial Opening Endoscopic (ICD-10-PCS; CPT 43235; principal; 2024-01-02 11:00)
DX: R19.5 Other fecal abnormalities (principal); D50.9 Iron deficiency anemia, unspecified; Z86.0101 Personal history of adenomatous and serrated colon polyps; K29.70 Gastritis, unspecified, without bleeding; K55.20 Angiodysplasia of colon without hemorrhage; K57.30 Diverticulosis of large intestine without perforation or abscess without bleeding; K64.1 Second degree hemorrhoids; E11.8 Type 2 diabetes mellitus with unspecified complications; Z79.84 Long term (current) use of oral hypoglycemic drugs
CPT/HCPCS: 43239; 45378; 82962; J7120

== ENCOUNTER 2024-04-06 09:30 | Outpatient (CLI) | payer MEDICARE, OTHER, SELFPAY ==
[2024-04-06 10:08] LABS: Basophils % 0.4 % (0.1-2.0); Eosinophils # 0.2 K/mm3 (0.0-0.4); Eosinophils % 3.1 % (0.1-12.0); Hematocrit 38.8 % (42.0-52.0); Lymphocytes % 28.1 % (10-50); Mean Corpuscular HGB Conc 30.9 g/dL (31.8-35.4); Mean Corpuscular Hemoglobin 25.4 pg (27.0-31.2); Mean Corpuscular Volume 82.2 fl (80-94); Mean Platelet Volume 10.6 fl (7.4-10.4); Monocytes # 0.5 K/mm3 (0.1-1.0); Monocytes % 7.4 % (1.7-9.3); Neutrophils # 4.4 K/mm3 (1.8-7.8); Neutrophils % 60.7 % (37.0-80.0); Platelet Count 234 K/mm3 (142-424); Red Blood Count 4.72 M/mm3 (4.60-6.20); Red Cell Distribution Width 14.7 % (11.5-17.5); White Blood Count 7.2 K/mm3 (4.8-10.8)
[2024-04-06 10:47] LABS: Iron 54 ug/dL (49-181)
[2024-04-06 13:07] LABS: Total Iron Binding Capacity 481 ug/dL (261-462)
[2024-04-06 13:21] LABS: Ferritin 8.27 ng/ml (17.9-464)
== END 2024-04-06 23:59 | disposition home or self-care (01) ==
LOC: LAB 09:32
PROVIDERS: PCP Nurse Practitioner Family; Visit Provider Nurse Practitioner Family
DX: D50.9 Iron deficiency anemia, unspecified (principal)
CPT/HCPCS: 36415; 82728; 83540; 83550; 85025

== ENCOUNTER 2024-04-09 15:01 | Outpatient (CLI) | payer MEDICARE, OTHER, SELFPAY ==
[2024-04-09 15:31] LABS: Occult Blood,Stool Positive (Negative)
[2024-04-09 15:32] LABS: Occult Blood,Stool Positive (Negative)
[2024-04-09 15:34] LABS: Occult Blood,Stool Positive (Negative)
== END 2024-04-09 23:59 | disposition home or self-care (01) ==
LOC: LAB 15:03
PROVIDERS: PCP Nurse Practitioner Family; Visit Provider Nurse Practitioner Family
DX: D50.9 Iron deficiency anemia, unspecified (principal)
CPT/HCPCS: 82272; G0328

== ENCOUNTER 2024-07-06 09:40 | Outpatient (CLI) | payer MEDICARE, SELFPAY ==
[2024-07-06 09:52] LABS: Basophils % 0.6 % (0.1-2.0); Eosinophils # 0.2 Kmm3 (0.0-0.4); Eosinophils % 3.2 % (0.1-12.0); Hematocrit 41.4 % (42.0-52.0); Hemoglobin 13.8 g/dL (14.1-18.0); Lymphocytes # 1.9 K/mm3 (0.7-4.5); Lymphocytes % 28.5 % (10-50); Mean Corpuscular HGB Conc 33.3 g/dL (31.8-35.4); Mean Corpuscular Hemoglobin 28.7 pg (27.0-31.2); Mean Corpuscular Volume 86.1 fl (80-94); Mean Platelet Volume 10.2 fl (7.4-10.4); Monocytes # 0.5 K/mm3 (0.1-1.0); Monocytes % 7.9 % (1.7-9.3); Neutrophils # 3.9 K/mm3 (1.8-7.8); Neutrophils % 59.6 % (37.0-80.0); Nucleated Red Blood Cells # 0 10^3/uL; Nucleated Red Blood Cells % 0 %; Platelet Count 186 K/mm3 (142-424); Red Blood Count 4.81 M/mm3 (4.60-6.20); Red Cell Distribution Width 15.4 % (11.5-17.5); Red Cell Distribution Width-SD 48.8 fL; White Blood Count 6.6 K/mm3 (4.8-10.8)
[2024-07-06 10:59] LABS: Iron 162 ug/dL (49-181)
[2024-07-06 11:08] LABS: Total Iron Binding Capacity 434 ug/dL (261-462)
[2024-07-06 11:34] LABS: Ferritin 15.5 ng/ml (17.9-464)
== END 2024-07-06 23:59 | disposition home or self-care (01) ==
LOC: LAB 09:41
PROVIDERS: PCP Nurse Practitioner Family; Visit Provider Nurse Practitioner Family
DX: D50.9 Iron deficiency anemia, unspecified (principal)
CPT/HCPCS: 36415; 82728; 83540; 83550; 85025

== ENCOUNTER 2024-07-08 08:51 | Outpatient (CLI) | payer MEDICARE, SELFPAY | END 2024-07-08 23:59 | disposition home or self-care (01) | LOC: RAD 08:52 | PROVIDERS: PCP Nurse Practitioner Family; Visit Provider Nurse Practitioner Family | DX: R50.9 Fever, unspecified (principal); R19.5 Other fecal abnormalities ==

== ENCOUNTER 2025-02-01 07:37 | Outpatient (CLI) | payer MEDICARE, SELFPAY ==
--- OUTSIDE RECORDS SUMMARY | 2023-09-04 03:45 | XMS_ITS ---
Author Organization [facility] Address [address] [facility] [address] [place] [address] Care Team Providers Care Director Of Market Intelligence Name Role Phone Deo Larsen Primary Care Provider Encounters Encounter Location Date Provider Diagnosis [facility] [place] [address] [place] [address] 09/04/2023 Deo Larsen Plan Of Treatment Next Appt Details Provider Name:Kimberly Robles ce, 07/13/2025 08:00:00 AM, [address], [place], [place], [address], Progress Notes * Tomas AZUL TDOB:[birth year] (69 yo M)Acc No.[id number]:09/04/2023 LABS Patient: Tomas KRUEGER Provider: Lexis Larsen MD :1955 A ge:67 Y S ex:Male Date:09/04/2023 Address:[address] [place], [id number] Subjective: * Chief Complaints: * * Medical History: Objective: * Vitals: Assessment: Plan: * Treatment: * * Electronic signature of Jason Larsen MD FAAP on 02/01/2025 at 07:42 AM EST Sign off status: Pending * Provider: Lexis Larsen MD Date: 09/04/2023 Generated for Printi ng/Iker/Brittney on: 1 04/03/2024 07:42 AM EST
--- OUTSIDE RECORDS SUMMARY | 2024-06-13 16:30 | XMS_ITS ---
Author Organization [facility] Address [address] [place] [address] Care Team Providers Care Slurry Worker Name Role Phone Deo Larsen Primary Care Provider [phone] Migration, Provider Unavailable Unavailable REAS[facility]ISIT [facility] Encounter Medications Medication SIG (Take, Route, Frequency, Duration) Notes Start Date End Date Status FreeStyle Jersey 14 Day Sensor DIRECTED; Duration: 28 DAYS *Please review and pick correct strength-formulat ion from Linkuaan options. If intended option is not shown, discontinue and re-order from Quick Search* 09/03/2022 Active metFORMIN HCl 1000 MG 1 tab(s) orally once a day; Duration: 90 days Active NOVOFINE PLUS PEN NEEDLE 32G 4MM - FOR USE WITH INSULIN INJECTION 3 TIMES A DAY; Duration: 30 DAYS *Please review for potential replacement for e-prescription and drug interaction check* Active Meloxicam 7.5 MG 1 tab(s) orally once a day; Duration: 90 days Active Mounjaro 10 MG/0.5 ML 10 MG SUBCUTANEOUSLY ONCE A WEEK; Duration: 28 DAYS *Please review and pick correct strength-formulat ion from Linkuaan options. If intended option is not shown, discontinue and re-order from Quick Search* 01/15/2024 Active Magnesium Gluconate 250 MG 1 tab(s) orally once daily Active FreeStyle Jersey 14 Day Peridot DIRECTED; Duration: 30 DAYS *Please review and pick correct strength-formulat ion from Linkuaan options. If intended option is not shown, discontinue and re-order from Quick Search* 09/03/2022 Active Rosuvastatin Calcium 5 MG 1 tab(s) orally once a day (at bedtime) Active C-PAP MASK AND SUPPLIES DIRECTED DX: CRISTIAN; Duration: 30 DAYS *Please review for potential replacement for e-prescription and drug interaction check* 01/29/2020 Active Lisinopril-hydroCHLO ROthiazide 20-25 MG 1 tab(s) orally once a day; Duration: 90 days Active SYRINGE 3CC 20G 1 - IM EVERY 2 WEEKS; Duration: 28 DAYS *Please review for potential replacement for e-prescription and drug interaction check* Active Cyanocobalamin 1000 MCG/ML 1000 MCG EVERY 2 WEEKS INTRAMUSCULARLY intramuscularly every 2 weeks; Duration: 28 days Active Gabapentin 100 MG 2 caps orally at bedtime; Duration: 90 days 01/13/2024 Active Xarelto 20 MG 1 tab(s) orally once a day (in the evening); Duration: 90 days Active Metoprolol Succinate ER 50 MG 1 tab(s) orally once a day; Duration: 90 days Active Encounters Encounter Location Date Provider Diagnosis [facility] [place] [address] [facility] [address] [place], [place] [address] 06/13/2024 Provider Migration Essential hypertension I10 Assessments Encounter Date Diagnosis (ICD Code) Assessment Notes Treatment Notes Treatment Clinical Notes Section Notes 06/13/2024 Essential hypertension (ICD-10 - I10) Plan Of Treatment Medication Medication Name Sig Start Date Stop Date Notes Mounjaro 10 MG/0.5 ML 10 MG SUBCUTANEOUS LY ONCE A WEEK; Duration: 28 DAYS 01/15/2024 *Please review and pick correct strength-formulatio n from Medispan options. If intended option is not shown, discontinue and re-order from Quick Search* Lisinopril-hydroCHLORO thiazide 20-25 MG 1 tab(s) orally once a day; Duration: 90 days SYRINGE 3CC 20G 1 - IM EVERY 2 WEEKS; Duration: 28 DAYS *Please review for potential replacement for e-prescription and drug interaction check* Cyanocobalamin 1000 MCG/ML 1000 MCG EVERY 2 WEEKS INTRAMUSCULARLY intramuscularly every 2 weeks; Duration: 28 days Gabapentin 100 MG 2 caps orally at bedtime; Duration: 90 days 01/13/2024 Xarelto 20 MG 1 tab(s) orally once a day (in the evening); Duration: 90 days Metoprolol Succinate ER 50 MG 1 tab(s) orally once a day; Duration: 90 days Next Appt Details Provider Name:Kimberly Robles ce, 07/13/2025 08:00:00 AM, [address], [address], [place], [address], Progress Notes * Tomas AZUL TDOB:[birth year] (69 yo M)Acc No.[id number]:06/13/2024 Patient: Tomas KRUEGER Provider: Maxi Kumar :1955 A ge:68 Y S ex:Male Date:06/13/2024 Address:[address] [place] [address] [address] [id number] Pcp:Deo Larsen Subjective: * Chief Complaints: * [facility] . [facility] * Medical History: * Medications: T aking Magnesium Gluconate 250 MG Tablet 1 tab(s) orally once daily , Taking C- PAP MASK AND SUPPLIES DIRECTED DX: CRISTIAN , Notes to Pharmacist: *Please review for potential replacement for e-prescription and drug interaction check*, Taking Rosuvastatin Calcium 5 MG Tablet 1 tab(s) orally once a day (at bedtime) , Taking FreeStyle Jersey 14 Day Peridot DIRECTED , Notes to Pharmacist: *Please review and pick correct strength-formulation from Kalidospan options. If intended option is not shown, discontinue and re-order from Quick Search*, Taking FreeStyle Jersey 14 Day Sensor DIRECTED , Notes to Pharmacist: *Please review and pick correct strength-formulation from Kalidospan options. If intended option is not shown, discontinue and re-order from Quick Search*, Taking NOVOFINE PLUS PEN NEEDLE 32G 4MM - FOR USE WITH INSULIN INJECTION 3 TIMES A DAY , Notes to Pharmacist: *Please review for potential replacement for e-prescription and drug interaction check*, Taking metFORMIN HCl 1000 MG Tablet 1 tab(s) orally once a day , Taking Meloxicam 7.5 MG Tablet 1 tab(s) orally once a day Objective: * Vitals: Assessment: * Assessment: 1. E ssential hypertension - I10 Plan: * Treatment: 2. O thers Refill Metoprolol Succinate ER Tablet Extended Release 24 Hour, 50 MG, 1 tab(s), orally, once a day, 90 days, 90 Tablet, Refills 1; R efill Gabapentin Capsule, 100 MG, 2 caps, orally, at bedtime, 90 days, 180, Refills 1; R efill Cyanocobalamin Solution, 1000 MCG/ML, 1000 MCG EVERY 2 WEEKS INTRAMUSCULARLY, intramuscularly, every 2 weeks, 28 days, 2, Refills 5; R efill SYRINGE 3CC 20G 1 , - IM EVERY 2 WEEKS, 28 DAYS, 2, Refills 5, Notes to Pharmacist: *Please review for potential replacement for e-prescription and drug interaction check*; R efill Mounjaro SOLUTION, 10 MG/0.5 ML, 10 MG, SUBCUTANEOUSLY, ONCE A WEEK, 28 DAYS, 2 ML, Refills 5, Notes to Pharmacist: *Please review and pick correct strength-formulation from Usbek & Rica options. If intended option is not shown, discontinue and re-order from Quick Search*; R efill Xarelto Tablet, 20 MG, 1 tab(s), orally, once a day (in the evening), 90 days, 90, Refills 3. * * Electronic signature of Prov ider Migration on 02/01/2025 at 07:42 AM EST Sign off status: Pending * Provider: Maxi montes de oca Migration Date: 0 06/13/2024 Generated for Paul smith/Iker/Brittney on: 04/03/2024 07:42 AM EST
--- OUTSIDE RECORDS SUMMARY | 2024-12-11 11:30 | XMS_ITS | Encounter Summary ---
Author Organization [facility] Address [address] [place] [address] Care Team Providers Care Web Project Manager Name Role Phone Deo Larsen MD Primary Care Provider [phone] Reason for Visit * Auth/Cert (Routine) Specialty Diagnoses / Procedures Referred By Ema shipman Referred To Contact Diagnoses Atrial fibrillation, persistent Iron deficiency anemia, unspecified iron deficiency anemia type Atrial Fibrillation Procedures NH PERQ CLSR TCAT L ATR APNDGE W/ENDOCARDIAL IMPLNT Atrial Appendage Occlusion, DNS Xarelto Referral ID Status Reason Start Date Expiration Date Visits Re quested Visits Authorized [id number] 1 1 Encounter Details Date Type Department Care Team (Latest Contact Info) Description 12/11/2024 12:30 PM EDT Pre-Admission Testing [facility] PREADMISSION T [address] [place] [id number] Atrial fibrillation, persistent Social History Tobacco Use Types Packs/Day Years Used Date Smoking Tobacco: Never Smokeless Tobacco: Never Alcohol Use Standard Drinks/Week Comments Never 0 (1 standard drink = 0.6 oz pur e alcohol) AUDIT-C Answer Date Recorded Q1: How often do you have a drink containing alcohol? Never 08/29/2021 Q2: How many drinks containi ng alcohol do you have on a typical day when you are drinking? Patient does not drink Q3: How often do you have si x or more drinks on one occasion? Never 08/29/2021 Abuse Screen Answer Date Recorded Feels Unsafe at Home or Work/School no 12/11/2024 Feels Threatened by Someone no 100 05/2024 Does Anyone Try to Keep You From Having Contact with Others or Doing Things Outside Your Home? no 12/11/2024 Physical Signs of Abuse Present no 12/11/2024 Education Answer Date Recorded Help with school or training? Not on file Preferred Language Gambian 12/11/2024 Sex and Gender Information Value Date Recorded Sex Assigned at Male 12/07/2024 10:00 AM EDT Legal Sex Male 1:21 PM EDT Gender Identity Not on file Sexual Orientation Straight 12/07/2024 10 :00 AM EDT documented as of this encounter OR Notes * PAT - Naty Miranda RN - 12/11/2024 12:30 PM EDT An arrival time for procedure was not provided during PAT visit. If patient had any questions or concerns about their arrival time, they were instructed to contact their surgeon/physician. Additionally, if the patient referred to an arrival time that was acquired from their my chart account, patient was encouraged to verify that time with their surgeon/physician. Arrival times are NOT provided inPre Admission Testing Department. Patient denies any current skin issues. documented in this encounter Plan of Treatment Upcoming Encounters Date Type Department Care Team (Late st Contact Info) Description 03/31/2025 2:00 PM EST Office Visit [facility] [address] [facility] [address] [place] [address] Elmer Olea PA [address] [facility] [address] [place] [address] 06/25/2025 12:30 PM EDT Telemedicine [facility] [address] [facility] [address] [place] [address] Nathan Sherman APRN [address] [place] [address] 01/12/2026 1:45 PM EST Office Visit [facility] [address] [place] [phone] Willy Garza MD [address] [place] [address] documented as of this encounter Procedures Procedure Name Priority Date/Time Associated Diagnosis Comments PROTIME-INR Routine 12/11/2024 12:34 PM EDT Atrial fibrillation, persistent CBC (NO DIFF) Routine 12/11/2024 12:34 PM EDT Atrial fibrillation, persistent HEMOGLOBIN A1C STAT 12/11/2024 12:34 PM EDT BASIC METABOLIC PANEL Routine 12/11/2024 12:34 PM EDT Atrial fibrillation, persistent documented in this encounter Results * (ABNORMAL) Protime-INR (12/11/2024 12:34 PM EDT) Protime 25.0(H) 12.2 - 15.3 Seconds 12/11/2024 1:20 PM EDT [facility] INR 2.10(H) 0.89 - 1.12 12/11/2024 1:20 PM EDT [facility] Blood Venipuncture / Unknown 12/11/2024 12:34 PM EDT 12/11/2024 12:52 PM EDT us Tara GARIBAY LAB BLOOD ORDERABLES Final Res ult [facility]
[address] [place] [address], * (ABNORMAL) Basic metabolic panel (12/11/2024 12:34 PM EDT) Glucose 121(H) 65 - 99 mg/dL 12/11/2024 1:16 PM EDT [facility] BUN 16.7 8.0 - 23.0 mg/dL 12/11/2024 1:16 PM EDT [facility] Creatinine 0.89 0.76 - 1.27 mg/dL 12/11/2024 1:16 PM EDT [facility] Sodium 136 136 - 145 mmol/L 12/11/2024 1:16 PM EDT [facility] Potassium 4.6 3.5 - 5.2 mmol/L 12/11/2024 1:16 PM EDT [facility] Comment:Specimen hemolyzed. Result may be falsely elevated. Chloride 101 98 - 107 mmol/L 12/11/2024 1:16 PM EDT [facility] CO2 24.5 22.0 - 29.0 mmol/L 12/11/2024 1:16 PM EDT [facility] Calcium 9.6 8.6 - 10.5 mg/dL 12/11/2024 1:16 PM EDT [facility] BUN/Creatinine Ratio 18.8 7.0 - 25.0 12/11/2024 1:16 PM EDT [facility] Anion Gap 10.5 5.0 - 15.0 mmol/L 12/11/2024 1:16 PM EDT [facility] eGFR 93.9 >60.0 mL/min/1.7 3 12/11/2024 1:16 PM EDT [facility] Blood Venipuncture / Unknown 12/11/2024 12:34 PM EDT 12/11/2024 12:52 PM EDT [facility] - 12/11/2024 1:16 PM EDT GFR Categories in Chronic Kidney Disease (CKD) GFR Category GFR (mL/min/1.73) Interpretation G1 90 or greater Normal or high (1) G2 60-89 Mild decrease (1) G3a 45-59 Mild to moderate decrease G3b 30-44 Moderate to severe decrease G4 15-29 Severe decrease G5 14 or less Kidney failure (1)In the absence of evidence of kidney disease, neither GFR category G1 or G2 fulfill the criteria for CKD. eGFR calculation 2020 CKD-EPI creatinine equation, which does not include race as a factor us Tara GARIBAY LAB BLOOD ORDERABLES Final Res ult [facility]
[address] [place] [address], [place] [phone] * CBC (No diff) (12/11/2024 12:34 PM EDT) WBC 6.50 3.40 - 10.80 10*3/mm3 12/11/2024 1:01 PM EDT [facility] RBC 4.91 4.14 - 5.80 10*6/mm3 12/11/2024 1:01 PM EDT [facility] Hemoglobin 14.9 13.0 - 17.7 g/dL 12/11/2024 1:01 PM EDT [facility] Hematocrit 44.9 37.5 - 51.0 % 12/11/2024 1:01 PM EDT [facility] MCV 91.4 79.0 - 97.0 fL 12/11/2024 1:01 PM EDT [facility] MCH 30.3 26.6 - 33.0 pg 12/11/2024 1:01 PM EDT [facility] MCHC 33.2 31.5 - 35.7 g/dL 12/11/2024 1:01 PM EDT [facility] RDW 12.7 12.3 - 15.4 % 12/11/2024 1:01 PM EDT [facility] RDW-SD 42.5 37.0 - 54.0 fl 12/11/2024 1:01 PM EDT [facility] MPV 10.3 6.0 - 12.0 fL 12/11/2024 1:01 PM EDT [facility] Platelets 189 140 - 450 10*3/mm3 12/11/2024 1:01 PM EDT [facility] Blood Venipuncture / Unknown 12/11/2024 12:34 PM EDT 12/11/2024 12:52 PM EDT Tara GARIBAY LAB BLOOD ORDERABLES Final Res ult Performing Organization Address [facility] Co de Phone Number [facility]
[address] [place] [address], * (ABNORMAL) Hemoglobin A1c (12/11/2024 12:34 PM EDT) Hemoglobin A1C 6.25(H) 4.80 - 5.60 % 12/11/2024 2:07 PM EDT [facility] Blood Venipuncture / Unknown 12/11/2024 12:34 PM EDT 12/11/2024 12:52 PM EDT Narrative [facility] - 12/11/2024 2:07 PM EDT Hemoglobin A1C Ranges: Increased Risk for Diabetes 5.7% to 6.4% Diabetes >= 6.5% Diabetic Goal < 7.0% Tara GARIBAY LAB BLOOD ORDERABLES Final Res ult Performing Organization Address [facility] Co de Phone Number [facility]
[address] [place] [address], documented in this encounter Visit Diagnoses Diagnosis Atrial fibrillation, persistent documented in this encounter Care Teams Web Project Manager Relationship Specialty Start Date End Date Deo Larsen MD [facility] [address] [place] [id number] PCP - General Adolescent Medicine 11/18/20 documented as of this encounter"
--- OUTSIDE RECORDS SUMMARY | 2024-12-22 09:10 | XMS_ITS | Encounter Summary ---
Author Organization [facility] Address [address] [place] [id number] Care Team Providers Care Sporting Goods Sales Manager Name Role Phone Deo Larsen MD Primary Care Provider [phone] Reason for Referral * Diagnostic Imaging (Routine) - Closed Specialty Diagnoses / Procedures Referred By Ema shipman Referred To Contact Diagnoses Atrial fibrillation, persistent Iron deficiency anemia, unspecified iron deficiency anemia type Procedures Intra-Op Structural Heart DAVID (Cardiology Read) [facility] [address] [place] [address] Phone: tel: fax: Referral ID Status Reason Start Date Expiration Date Visits Re quested Visits Authorized [id number] Closed 08/26/2024 11/25/2025 1 1 * Invasive Procedures (Routine) - Pending Review Specialty Diagnoses / Procedures Referred By Ema shipman Referred To Contact Diagnoses Atrial fibrillation, persistent Iron deficiency anemia, unspecified iron deficiency anemia type Procedures EP/CRM Study Willy Garza MD [address] [place] [address] Phone: tel: fax: Referral ID Status Reason Start Date Expiration Date V isits Requested Visits Authorized [id number] Pending Review 11/13/2024 02/12/2026 1 1 Reason for Visit * Auth/Cert (Routine) Specialty Diagnoses / Procedures Referred By Contac t Referred To Contact Diagnoses Atrial fibrillation, persistent Iron deficiency anemia, unspecified iron deficiency anemia type Atrial Fibrillation Procedures NC PERQ CLSR TCAT L ATR APNDGE W/ENDOCARDIAL IMPLNT Atrial Appendage Occlusion, DNS Xarelto Referral ID Status Reason Start Date Expiration Date Visits Re quested Visits Authorized [id number] 1 1 Encounter Details Date Type Department Care Team (Late st Contact Info) Description 12/22/2024 10:10 AM EDT - 12/22/2024 4:00 PM EDT Hospital Encounter [facility] [address] [facility] [place] [address] Willy Garza MD [address] [facility] [address] [place] [address] Longstanding persistent atrial fibrillation (Primary Dx); Atrial fibrillation, persistent; Iron deficiency anemia, unspecified iron deficiency anemia type Discharge Disposition: Home or Self Care Social History Tobacco Use Types Packs/Day Years Used Date Smoking Tobacco: Never Smokeless Tobacco: Never Alcohol Use Standard Drinks/Week Comments Never 0 (1 standard drink = 0.6 oz pur e alcohol) AUDIT-C Answer Date Recorded Q1: How often do you have a drink containing alcohol? Never 12/22/2024 Q2: How many drinks containi ng alcohol do you have on a typical day when you are drinking? Patient does not drink Q3: How often do you have si x or more drinks on one occasion? Never 12/22/2024 Abuse Screen Answer Date Recorded Feels Unsafe at Home or Work/School no 12/22/2024 Feels Threatened by Someone no 12/09 Does Anyone Try to Keep You From Having Contact with Others or Doing Things Outside Your Home? no 12/22/2024 Physical Signs of Abuse Present no 12/22/2024 Housing Stability Answer Date Recorded Current Living Arrangements home 12/09 Potentially Unsafe Housing Conditions Not on satish e 12/22/2024 Disabilities Answer Date Recorded Difficulty Concentrating, Remembering or Making Decisions no 12/22/2024 Difficulty Managing Errands Independently no 12/22/2024 Education Answer Date Recorded Help with school or training? Not on file Preferred Language Italian 12/11/2024 Sex and Gender Information Value Date Recorded Sex Assigned at Male 12/07/2024 10:00 AM EDT Legal Sex Male 1:21 PM EDT Gender Identity Not on file Sexual Orientation Straight 12/07/2024 10 :00 AM EDT documented as of this encounter Last Filed Vital Signs Vital Sign Reading Time Taken Comments Blood Pressure 116/70 12/22/2024 3:30 PM EDT Pulse 59 12/22/2024 3:30 PM EDT Temperature 36.2 C (97.1 F) 12/22/2024 1:14 PM EDT Respiratory Rate 16 12/22/2024 1:14 PM EDT Oxygen Saturation 96% 12/22/2024 3:30 PM EDT Inhaled Oxygen Concentration - - Weight 103 kg (227 lb 1.2 oz) 12/22/2024 3:18 PM EDT Height 180.3 cm (5' 11 ) 12/22/2024 10:33 AM EDT Body Mass Index 31.67 12/22/2024 10:33 AM EDT documented in this encounter Functional Status * Question Answer Date of Assessment Author 1. Wish to be (Past 1 Month) No 12/22/2024 10:30 AM EDT Radha Corbin RN 2. Non-Specific Active Suicidal Thoughts (Past 1 Month) No 12/22/2024 10:30 AM EDT Radha Corbin RN * Calculated C-SSRS Risk Score (Lifetime/Recent) Answer Date of Assessment Author No Risk Indicated 12/22/2024 10:30 AM EDT Rebeka Wolfe RN * Keith Suicide Severity Rating Scale (Screener/Recent Self-Report) Question Answer Date of Assessment Author 6. Suicidal Behavior (Lifetime) No 12/22/2024 10:30 AM EDT Radha Corbin RN documented as of this encounter Discharge Instructions * Attachments The following attachments cannot be sent through Care Everywhere. * Femoral Site Care (Italian) * General Anesthesia Adult Care After (Italian) * Left Atrial Appendage Closure Device Implantation (Italian) * Atrial Fibrillation (Italian) * Rivaroxaban Tablets (Italian) * Aspirin Tablets (Italian) documented in this encounter Medications at Time of Discharge aspirin 81 MG EC tablet Take 1 tablet by mouth Daily. 90 tablet 3 12/22/2024 gabapentin (NEURONTIN) 100 MG capsule Take 2 capsules by mouth every night at bedtime. 10/24/2024 lisinopril-hydro chlorothiazide (PRINZIDE,ZESTOR ETIC) 20-12.5 MG per tablet Take 1 tablet by mouth Every Morning. 08/31/2021 meloxicam (MOBIC) 7.5 MG tablet Take 1 tablet by mouth Daily. metFORMIN (GLUCOPHAGE) 1000 MG tablet Take 1 tablet by mouth Daily. 08/19/2022 Metoprolol Succinate 50 MG capsule extended-release 24 hour sprinkle Take 50 mg by mouth Every Morning. rosuvastatin (CRESTOR) 10 MG tablet Take 1 tablet by mouth Daily. 07/26/2023 B-D 3CC LUER-SERGE SYR 23GX1 23G X 1 3 ML misc 12/14/2021 Continuous Glucose Sensor (FreeStyle Jersey 3 Plus Sensor) Use. Cyanocobalamin 1000 MCG/ML kit Inject 1 mL into the appropriate muscle as directed by prescriber Every 14 (Fourteen) Days. Iron, Ferrous Sulfate, 325 (65 Fe) MG tablet Take 1 tablet by mouth Daily. 08/20/2023 Magnesium Oxide -Mg Supplement ([employer] Magnesium) 500 MG tablet Take 1 tablet by mouth Daily. 08/20/2023 Mounjaro 12.5 MG/0.5ML solution auto-injector Inject 0.5 mL under the skin into the appropriate area as directed 1 (One) Time Per Week. 08/10/2024 Tirzepatide (MOUNJARO SC) Inject under the skin into the appropriate area as directed. documented as of this encounter H&P Notes * Willy Garza MD - 12/22/2024 10:12 AM EDT Cardiology H&P Tomas Azul 1955 There is no work phone number on file. 12/22/24 DATE OF ADMISSION: 12/22/2024 [facility] Deo Treadwell MD [address] [facility] [address] / [place] [address] Referring Provider: Willy Garza MD CC: AFIB, bleeding issues in past. Problem List: Persistent Atrial Fibrillation CHADsVasc= 3 (HTN, DM, age) on Xarelto Diagnosed August 2020 ECV to NSR, return to AFIB about one month later Echo, 08/20/20, EF 55%, LA mod dilated Lexiscan Stress test, 09/02/20, EF 42%, no ischemia 48 hour Holter, 12/20/20, Avg HR 59, Min HR 26, Max HR 131 bpm. 99% AF, periodic slow ventricular response, longest pause 2.8 seconds, WC NSVT VT vs aberrancy. Initiated on Flecainide Dec 2020. PVA 08/29/2021: RFA of PV, LA PW, LA roof, and RFA of right atrial flutter. Echocardiogram 04/16/2023: EF is 56 to 60%, mild calcification of the aortic valve HTN HLD Iron deficiency anemia with unknown GI blood loss. Multiple iron transfusions in the past. 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 He has been taking Xarelto and over the past year has had multiple E GDs and colonoscopies due to iron deficiency anemia and chronic blood loss. Unfortunately they havenot found the source. He has required multiple iron transfusions in the past. He states he gets bloodwork 3-4 times per year which has showed anemia or low iron each time. He denies any CVA or TIA symptoms. In regards to his atrial fibrillation he is status post pulmonary vein ablation and right atrial flutter ablation in August 2021 and has been maintaining normal sinus rhythm. He has been compliant with his Xarelto without missed doses. He also started a baby aspirin this morning as instructed. Allergies[1] Prior to Admission Medications Prescriptions Last Dose Informant Patient Reported? Taking? B-D 3CC LUER-SERGE SYR 23GX1 23G X 1 3 ML misc Self Yes No Continuous Glucose Sensor (FreeStyle [place] 3 Plus Sensor) Self, Medication Bottle Yes No Use. Cyanocobalamin 1000 MCG/ML kit Self Yes No Inject 1 mL into the appropriate muscle as directed by prescriber Every 14 (Fourteen) Days. gabapentin (NEURONTIN) 100 MG capsule Self, Medication Bottle Yes No Take 2 capsules by mouth every night at bedtime. Iron, Ferrous Sulfate, 325 (65 Fe) MG tablet Self, Medication Bottle Yes No Take 1 tablet by mouth Daily. lisinopril-hydrochlorothiazide (PRINZIDE,ZESTORETIC) 20-12.5 MG per tablet Self, Medication Bottle No No Take 1 tablet by mouth Every Morning. Patient taking differently: Take 0.5 tablets by mouth Every Morning. lisinopril-hydrochlorothiazide (PRINZIDE,ZESTORETIC) 20-25 MG per tablet Self, Medication Bottle Yes No Take 1 tablet by mouth Daily. Magnesium Oxide -Mg Supplement ([employer]S Magnesium) 500 MG tablet Self, Medication Bottle Yes No Take 1 tablet by mouth Daily. meloxicam (MOBIC) 7.5 MG tablet Medication Bottle, Self Yes No Take 1 tablet by mouth Daily. metFORMIN (GLUCOPHAGE) 1000 MG tablet Self, Medication Bottle Yes No Take 1 tablet by mouth Daily. Metoprolol Succinate 50 MG capsule extended-release 24 hour sprinkle Medication Bottle, Self Yes No Take 50 mg by mouth Every Morning. Mounjaro 12.5 MG/0.5ML solution auto-injector Self, Medication Bottle Yes No Inject 0.5 mL under the skin into the appropriate area as directed 1 (One) Time Per Week. rivaroxaban (XARELTO) 20 MG tablet Self, Medication Bottle No No Take 1 tablet by mouth Daily. PATIENT HAS NOT YET STARTED THIS MEDICATION OF 08/28/21, STATES HISINSURANCE CHANGED HIM FROM ELIQUIS TO XARELTO BUT HE IS TO FINISH HIS ELIQUIS FIRST rosuvastatin (CRESTOR) 10 MG tablet Self, Medication Bottle Yes No Take 1 tablet by mouth Daily. Tirzepatide (MOUNJARO SC) Self, Medication Bottle Yes No Inject under the skin into the appropriate area as directed. Current Medications[2] Social History[3] Family History Problem Relation Age of Onset Heart attack Mother Heart failure Father No Known Problems Brother No Known Problems Sister REVIEW OF SYSTEMS: CONSTITUTIONAL: No weight loss, fever, chills, weakness or fatigue. HEENT: No visual loss, blurred vision, double vision, yellow sclerae. No hearing loss, congestion, sore throat. SKIN: No rashes, urticaria, ulcers, sores. RESPIRATORY: No shortness of breath, hemoptysis, cough, sputum. GI: No anorexia, nausea, vomiting, diarrhea. No abdominal pain, melena. : No burning on urination, hematuria or increased frequency. ENDOCRINE: No diaphoresis, cold or heat intolerance. No polyuria or polydipsia. NEURO: No headache, dizziness, syncope, paralysis, ataxia, or parasthesias. No change in bowel or bladder control. No history of CVA/TIA MUSCULOSKELETAL: No muscle, back pain, joint pain or stiffness. HEMATOLOGY: No anemia, bleeding, bruising. No history of DVT/PE. PSYCH: No history of depression, anxiety Vitals: 12/22/24 1033 12/22/24 1035 BP: 133/73 132/67 BP Location: Right arm Left arm Patient Position: Lying Lying Pulse: 66 66 Resp: 16 Temp: 98.4 ??F (36.9 ??C) TempSrc: Tympanic SpO2: 99% 99% Weight: 103 kg (226 lb 13.7 oz) Height: 180.3 cm (71 ) Vital Sign Min/Max for last 24 hours Temp Min: 98.4 ??F (36.9 ??C) Max: 98.4 ??F (36.9 ??C) BP Min: 132/67 Max: 133/73 Pulse Min: 66 Max: 66 Resp Min: 16 Max: 16 SpO2 Min: 99 % Max: 99 % No data recorded No intake or output data in the 24 hours ending 12/22/24 1136 Physical Exam: GEN: Well nourished, Well- developed No acute distress HEENT: Normocephalic, Atraumatic, PERRLA, moist mucous membranes NECK: supple, NO JVD, no thyromegaly, no lymphadenopathy CARDIAC: S1S2 RRR no murmur, gallop, rub LUNGS: Clear to ausculation, normal respiratory effort ABDOMEN: Soft, nontender, normal bowel sounds EXTREMITIES:No gross deformities, No clubbing, cyanosis, or edema SKIN: Warm, dry NEURO: No focal deficits PSYCHIATRIC: Normal affect and mood I personally viewed and interpreted the patient's EKG/Telemetry/lab data Data: Results from last 7 days Lab Units 12/22/24 1031 POTASSIUM mmol/L 4.1 Lab Results Component Value Date GLUCOSE 121 (H) 12/11/2024 CALCIUM 9.6 12/11/2024 NA 136 12/11/2024 K 4.1 12/22/2024 CO2 24.5 12/11/2024 CL 101 12/11/2024 BUN 16.7 12/11/2024 CREATININE 0.89 12/11/2024 EGFR 93.9 12/11/2024 BCR 18.8 12/11/2024 ANIONGAP 10.5 12/11/2024 Lab Results Component Value Date WBC 6.50 12/11/2024 HGB 14.9 12/11/2024 HCT 44.9 12/11/2024 MCV 91.4 12/11/2024 PLT 189 12/11/2024 No intake or output data in the 24 hours ending 12/22/24 1136 Telemetry: NSR Assessment and Plan: Persistent atrial fibrillation: - Status post PVI and right atrial flutter ablation August 2021. [id number] = 3. Continue Xarelto 20 mg daily continue present medications. Successful procedure at this point with no recurrent clinical symptoms of atrial fibrillation. Patient doing well. - Anticoagulation: [id number] 3 on Xarelto with chronic iron deficiency anemia requiring multipleiron transfusions in the past and persistent anemia with bloodwork 3-4 times this year, and inability to identify source of bleeding. The patient will undergo left atrial appendage occlusive device today as he has not had good candidate for long-term anticoagulation but is tolerating short-term anticoagulation with Xarelto. - Has bled score: 4 (estimated rate of major bleeding with 1 year of OAC - 4.9 to 19.6%) Electronically signed by LANI Morataya, 12/22/24, 10:43 AM EDT. I have read the above note and agree [1] No Known Allergies [2] Current Facility-Administered Medications: acetaminophen (TYLENOL) tablet 650 mg, 650 mg, Oral, Q4H PRN, Tara Fajardo PA ceFAZolin 2000 mg IVPB in 100 mL NS (MBP), 2,000 mg, Intravenous, Once, Tara Fajardo PA famotidine (PEPCID) injection 20 mg, 20 mg, Intravenous, Once, Tha Ferro MD [START ON 12/23/2024] lactated ringers infusion, 9 mL/hr, Intravenous, Continuous, Tha Ferro MD lidocaine PF 1% (XYLOCAINE) injection 0.5 mL, 0.5 mL, Injection, Once PRN, Tha Ferro MD midazolam (VERSED) injection 0.5 mg, 0.5 mg, Intravenous, Q10 Min PRN, Tha Ferro MD nitroglycerin (NITROSTAT) SL tablet 0.4 mg, 0.4 mg, Sublingual, Q5 Min PRN, Tara Fajardo PA sodium chloride 0.9 % flush 10 mL, 10 mL, Intravenous, Q12H, Tha Ferro MD sodium chloride 0.9 % flush 10 mL, 10 mL, Intravenous, PRN, Tha Ferro MD sodium chloride 0.9 % flush 10 mL, 10 mL, Intravenous, PRN, Tara Fajardo PA sodium chloride 0.9 % flush 3 mL, 3 mL, Intravenous, Q12H, Tara Fajardo PA sodium chloride 0.9 % infusion 40 mL, 40 mL, Intravenous, PRN, Tara Fajardo PA [3] Social History Socioeconomic History Marital status: Tobacco Use Smoking status: Never Smokeless tobacco: Never Vaping Use Vaping status: Never Used Substance and Sexual Activity Alcohol use: Never Drug use: Never Sexual activity: Yes Partners: Female control/protection: None documented in this encounter Nursing Notes * Samantha Barragan RN - 12/22/2024 1:30 PM EDT LAAO Procedure Information Tomas Azul [address] [place] [phone] (home) ISH Orifice Maximal Width: 24 mm Cumulative Air Kerma: 25 mGy Contrast Volume: 70 mL Dose Area Product: 185.44 ?Gy-M2 * Samantha Barragan RN - 12/09/2024 12:10 PM EDT PRE-LAAO HISTORY Tomas Azul [address] [place], [place] [address] [place] [address] There are no phone numbers on file. Referring MD: Deo Larsen MD Information obtained from: [x] Medical record review [x] Patient report Scheduled for: LAAO implant on December 22, [address] Garza SDM Visit: Deo Larsen MD CHADS-VASc Risk Assessment 3 Total Score 1 Hypertension 1 DM 1 Age 65-74 Criteria that do not apply: CHF Age >/= 75 PRIOR STROKE/TIA/THROMBO Vascular Disease Sex: Female History & Risk Factors (prior to LAAO implant) [id number] Risk Factors: Congestive HF [x] No [] Yes LV Dysfunction [x] No [] Yes Hypertension [] No [x] Yes Diabetes [] No [x] Yes Stroke [x] No [] Yes TIA [x] No [] Yes Thromboembolism [] No [] Yes Vascular Disease [x] No [] Yes If Yes, Type [] Prior [place] [] PAD [] Aortic Plaque Statin if indicated [] No [x] Yes (CAD, CVA/TIA, PVA, DM) HAS-BLED Risk Factors: HTN (uncontrolled) [] No [x] Yes Abnormal Renal Fxn [x] No [] Yes Abnormal Liver Fxn [x] No [] Yes Stroke [x] No [] Yes Bleeding event [x] No [] Yes Labile INR [x] No [] Yes Alcohol [x] No [] Yes Antiplatelets [x] No [] Yes NSAIDS [] No [x] Yes- Mobic Additional Stroke & Bleeding Risk Factors: Increased Fall Risk [] No [x] Yes Bleeding Event [] No [x] Yes If Yes, Type [] Intracranial [] Epistaxis [] GI [x] Other- anemia Rhythm History: AFIBTYPE: persistent Valvular AFib [x] No [] Yes If Yes, Rheum Valve Disease [] No [] Yes If Yes, Mitral Valve Replacement [] No [] Yes If Yes, Mechanical? [] No [] Yes If Yes, Mitral Valve Repair [] No [] Yes Attempt at AFib Termination: [] No [x] Yes If Yes, pharmacologic CV [] No [x] Yes If Yes, DC cardioversion [] No [x] Yes If Yes, catheter ablation [] No [x] Yes If Yes, Date of most recent: Atrial Flutter [x] No [] Yes If Yes, attempt at termination [] No [] Yes If Yes, pharmacologic cardioversion [] No [] Yes If Yes, DC cardioversion [] No [] Yes If Yes, catheter ablation [] No [] Yes If Yes, Date of most recent: ISH Intervention [x] No [] Yes Additional History & Risk Factors: Cardiomyopathy [x] No [] Yes Chronic Lung Disease [x] No [] Yes Coronary Artery Disease [x] No [] Yes Sleep Apnea [x] No [] Yes If Yes, compliant with treatment [] No [] Yes Epicardial Approach Considered [x] No [] Yes Diagnostic Studies: Last Echo: [x] TTE Date: 04/16/23 EF: 56-60% LA: 3.7cm VHD: Mild mitral annular calcification is present. Trace mitral valve regurgitation is present. No significant mitral valve stenosis is present. The tricuspid valve is grossly normal in structure. Trace tricuspid valve regurgitation is present. Estimated right ventricular systolic pressure from tricuspid regurgitation is normal (<35 mmHg). No tricuspid valve stenosis is present. Juan Antonio, arb arni for EF < 40% Pre-procedure blood thinner medications: Pt will hold monjaro 7 days prior to surgery and continue uninterrupted Xarelto. Discussed pre procedure workup, procedure, recovery and follow up appointments along with medication options. 12/09/24 12:10 EDT [facility] Revised 04/04/2023 Cosigned by Willy Garza MD at 12/09/2024 4:39 PM EDT Associated attestation - Willy Garza MD - 12/09/2024 4:39 PM EDT I have reviewed this documentation and agree. documented in this encounter Plan of Treatment Upcoming Encounters Date Type Department Care Team (Late st Contact Info) Description 03/31/2025 2:00 PM EST Office Visit [facility] [address] [place] [phone] Elmer Olea PA [address] [place] [address] 06/25/2025 12:30 PM EDT Telemedicine [facility] [address] [facility] [address] [place] [address] Nathan Sherman APRN [address] [place] [address] 01/12/2026 1:45 PM EST Office Visit [facility] [address] [email or web address] [address] [place] [phone] Willy Garza MD [address] [facility] [address] [place] [address] documented as of this encounter Procedures Procedure Name Priority Date/Time Associated Diagnosis Comments EP STUDY Routine 12/22/2024 1:06 PM EDT Atrial fibrillation, persistent Iron deficiency anemia, unspecified iron deficiency anemia type POCT ACTIVATED CLOTTING TIME Routine 12/22/2024 12:59 PM EDT POCT ACTIVATED CLOTTING TIME Routine 12/22/2024 12:44 PM EDT INTRA-OP STRUCTURAL HEART DAVID (CARDIOLOGY READ) Routine 12/22/2024 11:56 AM EDT Atrial fibrillation, persistent Iron deficiency anemia, unspecified iron deficiency anemia type POCT GLUCOSE FINGERSTICK Routine 12/22/2024 10:38 AM EDT POTASSIUM Routine 12/22/2024 10:31 AM EDT documented in this encounter Results * ATRIAL APPENDAGE OCCLUSION - CAR (12/22/2024 1:06 PM EDT) Anatomical Region Laterality Modality X-Ray Angiograph y Narrative 12/22/2024 1:28 PM EDT DATE OF PROCEDURE: 12/22/24 REFERRING PHYSICIAN: Deo Larsen MD CHAIN TESTING MACHINE OPERATOR/REAMING PRESS OPERATOR: Willy Garza MD PROCEDURE(S) PERFORMED: 1. Insertion of a left atrial appendage occlusive device (Watchman flex pro). 2. Transseptal catheterization to the left atrium x1. 3. Intracardiac ultrasound monitoring. INDICATIONS FOR PROCDEDURE: 69-year-old white male with a history of persistent atrial fibrillation in the setting of elevated Andrew Vasc Score 3 with a score of 4 with a past medical history of chronic iron deficiency anemia with unknown GI blood loss who has been deemed a poor long-term oral anticoagulant candidate but is stable short-term one. He presents today for insertion of left atrial appendage occlusive device. MEDICATION(S) GIVEN TO PATIENT DURING THIS PROCEDURE: General anesthesia, heparin, dye, protamine DESCRIPTION(S) OF THE PROCEDURE: The patient was brought to the cardiovascular electrophysiology laboratory in a non-sedated state. The risks and benefits of conscious sedation and insertion of a left atrial appendage occlusive device were explained to the patient and written, informed consent was obtained. The patient was prepped and draped in the usual sterile manner. Access through the right femoral vein was achieved x 2 using the modified Seldinger technique and the following sheaths and catheters were inserted: 1. An 11-[place], intracardiac ultrasound catheter was advanced via a 10-[place] sheath in the right femoral vein to the high right atrium for visualization of left atrial structures. 2. A 27 mm left atrial appendage occlusive watchman flex device pro was advanced via a 17 [place] sheath to the left atrial appendage for insertion. The patient arrived in the clinical electrophysiology laboratory in atrial fibrillation with a heart rate of 66 bpm. Intracardiac ultrasound demonstrated no left atrial appendage thrombus or significant left atrial smoke. Transseptal catheterization to the left atrium was then performed x 1 using a Diag transseptal needle and guided with the use of intracardiac ultrasound. Intravenous heparin was initiated during the study to maintain activated clotting times greater than 300 seconds. The 8 [place] Daig transseptal sheath was exchanged for a 17 [place] sterrable Watchman sheath in the left atrium. A 6 [place] pigtail catheter was then advanced in the left atrial appendage. Venograms of the left atrial appendage was then performed in 2 views. There was only 1 lobe of the appendage identified. The 17 [place] sheath was advanced over the pigtail in the appendage. A 27 mm watchman flex pro device was then left in place. The compression stability numbers were excellent and no significant leakage around the device was seen by DAVID. A tug test was performed which demonstrated excellent stability as well. After multiple measurements confirmed the stability of the device with no significant yung-device leakage by DAVID, the device was left in place. No pericardial effusion was seen at the end this study. The sheaths and catheters are removed and with Vascade venous plugging system. Hemostasis was adequate. Estimated blood loss was minimal. The patient tolerated the procedure without difficulty and was transferred to their room in stable condition. COMPLICATIONS: None. FINAL IMPRESSIONS: 1. Successful insertion of a 27 mm watchman flex pro left atrial appendage occlusive device. 2. Successful transseptal catheterization to the left atrium x 1. 3. Successful intracardiac ultrasound monitoring. RECOMMENDATION(S): 1. The patient will be monitored on telemetry. If stable, the patient will be discharged later today. Willy Garza MD 12/22/24 13:13 EDT Procedure Narrative Risks, benefits and alternatives were discussed with the patient and/or family. Plan is for monitored anesthesia care. Less than 20 mL of estimated blood loss during the case. No specimen was collected during the case. us Willy Garza MD CV ELECTROPHYSIOLOGY ORDERAB LES Final Result * (ABNORMAL) POC Activated Clotting Time (12/22/2024 12:59 PM EDT) Activated Clotting Time 423(H) 82 - 152 Seconds 12/22/2024 3:14 PM EDT [facility] Comment:Serial Number: [id number] 1Operator: [id number] Blood 12/22/2024 12:5 9 PM EDT 12/22/2024 3:14 PM EDT us Willy Garza MD POINT OF CARE TEST ORDERABLE S Final Result Performing Organization Address [facility] Co de Phone Number [facility]
[address] [place] [address], [place] [phone] * (ABNORMAL) POC Activated Clotting Time (12/22/2024 12:44 PM EDT) [facility] Activated Clotting Time 158(H) 82 - 152 Seconds 12/22/2024 3:14 PM EDT [facility] Comment:Serial Number: [id number] 1Operator: [id number] Blood 12/22/2024 12:4 4 PM EDT 12/22/2024 3:14 PM EDT us Willy Garza MD POINT OF CARE TEST ORDERABLE S Final Result Performing Organization Address [facility] de Phone Number [facility]
[address] [place] [address], [place] [phone] * Intra-Op Structural Heart DAVID (Cardiology Read) (12/22/2024 11:56 AM EDT) [facility] CV VAS BP LEFT ARM 132/74 mmHg Anatomical Region Laterality Modality Ultrasound Narrative 12/22/2024 4:03 PM EDT Intraoperative DAVID imaging was performed for ISH occlusion device placement. The ISH was examined and found to be free of thrombus and sizing measurements were obtained. DAVID imaging was used to guide placement of a 27mm Watchman FLX Pro. After deployment at the ISH ostium, there was no periprosthetic flow seen. Left Ventricle Left ventricular ejection fraction appears to be 56 - 60%. Normal left ventricular cavity size and wall thickness noted. All left ventricular wall segments contract normally. Right Ventricle Normal right ventricular cavity size and systolic function noted. Left Atrium The left atrial cavity is dilated. No evidence of a left atrial thrombus present. Left atrial appendage was found to be singularly lobar in nature. Left atrial appendage morphology best described as chicken wing. The left atrial appendage was visualized through multiple planes. No evidence of a left atrial appendage thrombus was present. Intraoperative DAVID imaging was performed for ISH occlusion device placement. The ISH was examined and found to be free of thrombus and sizing measurements were obtained. DAVID imaging was used to guide placement of a 27mm Watchman FLX Pro. After deployment at the ISH ostium, there was no periprosthetic flow seen. After removal of the sheaths, there was a residual 2-3mm ASD with left to right flow seen on color doppler. Right Atrium The right atrial cavity is dilated. Mitral Valve The mitral valve is structurally normal with no significant stenosis present. Trace mitral valve regurgitation is present. Tricuspid Valve The tricuspid valve is normal in structure. Aortic Valve The aortic valve is abnormal in structure. There is mild calcification of the aortic valve. Trace aortic valve regurgitation is present. No aortic valve stenosis is present. Pulmonic Valve The pulmonic valve is structurally normal. There is no significant pulmonic valve regurgitation present. Pericardium There is no evidence of pericardial effusion. . Greater Vessels No dilation of the sinuses of Valsalva is present. No dilation of the proximal aorta is present. There is (grade 2) plaque in the proximal aorta present. There is evidence of proximal aorta sclerosis/calcification present. No dilation of the ascending aorta is present. No dilation of the aortic arch is present. There is mild plaque in the aortic arch present. Study Quality The study is technically good for diagnosis. Atrial fibrillation was the predominant rhythm observed during the procedure. DAVID Procedure Details 3D rendering, reconstruction & interpretation was performed under concurrent supervision. The 3D imaging probe was used to image the heart. Acquisitions were captured in real-time 3D and full volume to assess Watchman. Informed consent for Transesophageal Echocardiogram, and use of contrast as needed, was obtained prior to the procedure. The procedure was performed in the labor standards director. Patient was noted to be in a fasting state, with a peripheral IV in place. A bite block was placed for probe protection. Anesthesia monitored sedation was administered by anesthesia staff. Please see notes for documentation. See anesthesia noted for meds used An adult multi-frequency, multiplane transesophageal echocardiographic endoscope was inserted and manipulated in the standard fashion to achieve multiplane views. Transesophageal probe was able to be passed without difficulty. Usual basal, mid-esophageal, transgastric, and aortic views were obtained. DAVID probe identification 6. The patient's vital signs, including blood pressure, heart rate, pulse oximetry, and cardiac rhythm were monitored throughout the procedure. Vitals signs remained stable throughout the study. Post-procedural recovery was completed in the Cardio-Vascular/Close Observation Unit, The patient tolerated the procedure without evidence of oropharyngeal or esophageal trauma. us Willy Garza MD CV ECHO ORDERABLES Final Res ult * (ABNORMAL) POC Glucose Once (12/22/2024 10:38 AM EDT) Glucose 145(H) 70 - 130 mg/dL 12/22/2024 10:41 AM EDT [facility] Comment:Serial Number: [id number]: [id number] Blood 12/22/2024 10:3 8 AM EDT 12/22/2024 10:41 AM EDT us Tha Ferro MD POINT OF CARE TEST ORDERABLES F inal Result Performing Organization Address City/[facility]/ZIP Co de Phone Number [facility]
[address] [place] [address], * Potassium (12/22/2024 10:31 AM EDT) Potassium 4.1 3.5 - 5.2 mmol/L 12/22/2024 11:07 AM EDT [facility] Blood Line / Unknown 12/22/2024 10 :31 AM EDT 12/22/2024 10:42 AM EDT us Tha Ferro MD LAB BLOOD ORDERABLES Final Resu lt [facility]
[address] [place] [address], documented in this encounter Visit Diagnoses Diagnosis Iron deficiency anemia- Primary Unspecified iron deficiency anemia Atrial fibrillation, persistent Iron deficiency anemia, unspecified iron deficiency anemia type Longstanding persistent atrial fibrillation Atrial fibrillation, persistent PAF (paroxysmal atrial fibrillation) Atrial fibrillation Atrial fibrillation, persistent Iron deficiency anemia, unspecified iron deficiency anemia type documented in this encounter Admitting Diagnoses Diagnosis Atrial fibrillation, persistent Iron deficiency anemia Unspecified iron deficiency anemia PAF (paroxysmal atrial fibrillation) Atrial fibrillation documented in this encounter Administered Medications Inactive Administered Medications - up to 3 most recent administrations Medication Order MAR Action Action Date Dose Rate Site dexAMETHasone (DECADRON) injection 8 mg 8 mg, Intravenous, Once As Needed, Vomiting, Nausea, If not given pre-op/intra-op, Starting on Sat12/22/24 at 1328, For 1 dose, If giving IV, may be pushed over a minimum of 1 minute. droperidol (INAPSINE) injection 0.625 mg 0.625 mg, Intravenous, Once As Needed, Nausea, Vomiting, Starting on Sat12/22/24 at 1328, For 1 dose droperidol (INAPSINE) injection 0.625 mg 0.625 mg, Intramuscular, Once As Needed, Nausea, Vomiting, Starting on Sat12/22/24 at 1328, For 1 dose famotidine (PEPCID) tablet 20 mg 20 mg, Oral, Once, On Sat12/22/24 at 1012, For 1 dose Given 12/22/2024 10:48 AM EDT 20 mg fentaNYL citrate (PF) (SUBLIMAZE) injection 25 mcg 25 mcg, Intravenous, Every 5 Minutes PRN, Severe Pain, breakthrough pain, Starting on Sat12/22/24 at 1328, For 4 doses, PACU only. Maximum cumulative total dose of fentanyl is 100 mcg (30 MME) If given for pain, use the following pain scale: Mild Pain = Pain Score of 1-3, CPOT 1-2 Moderate Pain = Pain Score of 4-6, CPOT 3-4 Severe Pain = Pain Score of 7-10, CPOT 5-8 hydrALAZINE (APRESOLINE) injection 5 mg 5 mg, Intravenous, Every 10 Minutes PRN, High Blood Pressure, for systolic blood pressure greater than 180 mmHg or diastolic blood pressure greater than 105 mmHg, Starting on Sat12/22/24 at 1328, Up to 20 mg. If multiple IV medications ordered use in the following order: labetalol, hydrALAZINE, metoprolol, enalaprilat, verapamil, niCARdipine if blood pressure remains uncontrolled. Caution: Look alike/sound alike drug alert ipratropium-albuterol (DUO-NEB) nebulizer solution 3 mL 3 mL, Nebulization, Once As Needed, Wheezing, Shortness of Air, bronchospasm, Starting on Sat12/22/24 at 1328, For 1 dose labetalol (NORMODYNE,TRANDATE) injection 5 mg 5 mg, Intravenous, Every 5 Minutes PRN, High Blood Pressure, for systolic blood pressure greater than 180 mmHg or diastolic blood pressure greater than 105 mmHg, Starting on Sat12/22/24 at 1328, Up to 20 mg. Hold for heart rate less than 60. If multiple IV medications ordered use in the following order: labetalol, hydrALAZINE, metoprolol, enalaprilat, verapamil, niCARdipine if blood pressure remains uncontrolled. Give IV Push over 2 minutes. lactated ringers infusion 9 mL/hr, Intravenous, Continuous, Starting on Sat12/23/24 at 0000, For 1 day, May switch to NS IV at [facility] if renal / if indicated New Bag 12/22/2024 12:01 PM EDT lidocaine PF 1% (XYLOCAINE) injection 0.5 mL 0.5 mL, Injection, Once As Needed, IV Start, Starting on Sat12/22/24 at 1011, For 1 dose midazolam (VERSED) injection 0.5 mg 0.5 mg, Intravenous, Every 10 Minutes PRN, Anxiety prophylaxis, Pre-op comfort, Starting on Sat12/22/24 at 1011, For 2 doses, May repeat dose in 10 minutes one time then contact provider for additional orders. If given IV Push: give slowly over at least 2 minutes, unless provider at bedside for induction. (KAM) naloxone (NARCAN) injection 0.4 mg 0.4 mg, Intravenous, As Needed, Opioid Reversal, unresponsiveness, decrease oxygen saturation, Starting on Sat12/22/24 at 1328 naloxone (NARCAN) injection 0.4 mg 0.4 mg, Intravenous, Every 5 Minutes PRN, Respiratory Depression, Starting on Sat12/22/24 at 1328, If respiratory rate is less than 8 breaths/minute or patient is difficult to arouse stop any narcotics and contact physician. Administer slow IV push. Repeat as ordered until patient's respiratory rate is greater than 12 breaths/minute. ondansetron (ZOFRAN) injection 4 mg 4 mg, Intravenous, Once As Needed, Nausea, Vomiting, Starting on Sat12/22/24 at 1328, For 1 dose, If BOTH ondansetron (ZOFRAN) and promethazine (PHENERGAN) are ordered use ondansetron first and THEN promethazine IF ondansetron is ineffective. sodium chloride 0.9 % flush 10 mL 10 mL, Intravenous, Every 12 Hours Scheduled, First dose on Sat12/22/24 at 1012 sodium chloride 0.9 % flush 10 mL 10 mL, Intravenous, As Needed, Line Care, Starting on Sat12/22/24 at 1011 sodium chloride 0.9 % flush 10 mL 10 mL, Intravenous, Every 12 Hours Scheduled, First dose on Sat12/22/24 at 1330 sodium chloride 0.9 % flush 10 mL 10 mL, Intravenous, As Needed, Line Care, Starting on Sat12/22/24 at 1328 sodium chloride 0.9 % infusion 40 mL 40 mL, Intravenous, As Needed, Line Care, Starting on Sat12/22/24 at 1328, Following administration of an IV intermittent medication, flush line with 40mL NS at 100mL/hr. documented in this encounter Active and Recently Administered Medications Times are shown in EDT. Scheduled Medication Order 12/20/2024 12/21/2024 12/22/2024 ceFAZolin 2000 mg IVPB in 100 mL NS (MBP) (COMPLETED) 2,000 mg, Intravenous, Administer over 30 Minutes, Once, On Sat12/22/24 at 1013, For 1 dose, dental front office assistant to EP lab Caution: Look alike/sound alike drug alert, Indications: Surgical Prophylaxis 1222 (New Bag - Prov ider: Daniel Gutierres, JOSE DE JESUS) famotidine (PEPCID) injection 20 mg 20 mg, Intravenous, Once, On Sat12/22/24 at 1012, For 1 dose, Give IV push over 2 minutes. 1012 (Due) famotidine (PEPCID) tablet 20 mg (COMPLETED) 20 mg, Oral, Once, On Sat12/22/24 at 1012, For 1 dose 1048 (Given - Provid er: Rebeka Corbin RN) sodium chloride 0.9 % flush 10 mL 10 mL, Intravenous, Every 12 Hours Scheduled, First dose on Sat12/22/24 at 1012 1012 (Due) sodium chloride 0.9 % flush 10 mL 10 mL, Intravenous, Every 12 Hours Scheduled, First dose on Sat12/22/24 at 1330 1330 (Due) Continuous Medication Order 12/20/2024 12/21/2024 12/22/2024 lactated ringers infusion 9 mL/hr, Intravenous, Continuous, Starting on Sat12/23/24 at 0000, For 1 day, May switch to NS IV at [facility] if renal / if indicated 1201 (New Bag - Prov ider: Daniel Gutierres CRNA)1853 (Due: Order Ending - Provider: Automatic Discharge Provider - Comment: [Order ends at this time. Document the following action when infusion is complete: Stopped]) PRN Medication Order 12/20/2024 12/21/2024 12/22/2024 dexAMETHasone (DECADRON) injection 8 mg 8 mg, Intravenous, Once As Needed, Vomiting, Nausea, If not given pre-op/intra-op, Starting on Sat12/22/24 at 1328, For 1 dose, If giving IV, may be pushed over a minimum of 1 minute. droperidol (INAPSINE) injection 0.625 mg(Linked Group 1) 0.625 mg, Intravenous, Once As Needed, Nausea, Vomiting, Starting on Sat12/22/24 at 1328, For 1 dose droperidol (INAPSINE) injection 0.625 mg(Linked Group 1) 0.625 mg, Intramuscular, Once As Needed, Nausea, Vomiting, Starting on Sat12/22/24 at 1328, For 1 dose fentaNYL citrate (PF) (SUBLIMAZE) injection 25 mcg(Linked Group 2) 25 mcg, Intravenous, Every 5 Minutes PRN, Severe Pain, breakthrough pain, Starting on Sat12/22/24 at 1328, For 4 doses, PACU only. Maximum cumulative total dose of fentanyl is 100 mcg (30 MME) If given for pain, use the following pain scale: Mild Pain = Pain Score of 1-3, CPOT 1-2 Moderate Pain = Pain Score of 4-6, CPOT 3-4 Severe Pain = Pain Score of 7-10, CPOT 5-8 heparin (porcine) injection (CANCELED) Code / Trauma / Sedation Medication, Starting on Sat12/22/24 at 1243 1243 (Given - Provid er: Lucie Toth RN) hydrALAZINE (APRESOLINE) injection 5 mg 5 mg, Intravenous, Every 10 Minutes PRN, High Blood Pressure, for systolic blood pressure greater than 180 mmHg or diastolic blood pressure greater than 105 mmHg, Starting on Sat12/22/24 at 1328, Up to 20 mg. If multiple IV medications ordered use in the following order: labetalol, hydrALAZINE, metoprolol, enalaprilat, verapamil, niCARdipine if blood pressure remains uncontrolled. Caution: Look alike/sound alike drug alert iopamidol (ISOVUE-370) 76 % injection (CANCELED) Code / Trauma / Sedation Medication, Starting on Sat12/22/24 at 1300 1300 (Given - Provid er: Willy Garza MD) ipratropium-albuterol (DUO-NEB) nebulizer solution 3 mL 3 mL, Nebulization, Once As Needed, Wheezing, Shortness of Air, bronchospasm, Starting on Sat12/22/24 at 1328, For 1 dose labetalol (NORMODYNE,TRANDATE) injection 5 mg 5 mg, Intravenous, Every 5 Minutes PRN, High Blood Pressure, for systolic blood pressure greater than 180 mmHg or diastolic blood pressure greater than 105 mmHg, Starting on Sat12/22/24 at 1328, Up to 20 mg. Hold for heart rate less than 60. If multiple IV medications ordered use in the following order: labetalol, hydrALAZINE, metoprolol, enalaprilat, verapamil, niCARdipine if blood pressure remains uncontrolled. Give IV Push over 2 minutes. lidocaine PF 1% (XYLOCAINE) injection 0.5 mL 0.5 mL, Injection, Once As Needed, IV Start, Starting on Sat12/22/24 at 1011, For 1 dose midazolam (VERSED) injection 0.5 mg 0.5 mg, Intravenous, Every 10 Minutes PRN, Anxiety prophylaxis, Pre-op comfort, Starting on Sat12/22/24 at 1011, For 2 doses, May repeat dose in 10 minutes one time then contact provider for additional orders. If given IV Push: give slowly over at least 2 minutes, unless provider at bedside for induction. (KAM) naloxone (NARCAN) injection 0.4 mg 0.4 mg, Intravenous, As Needed, Opioid Reversal, unresponsiveness, decrease oxygen saturation, Starting on Sat12/22/24 at 1328 naloxone (NARCAN) injection 0.4 mg(Linked Group 2) 0.4 mg, Intravenous, Every 5 Minutes PRN, Respiratory Depression, Starting on Sat12/22/24 at 1328, If respiratory rate is less than 8 breaths/minute or patient is difficult to arouse stop any narcotics and contact physician. Administer slow IV push. Repeat as ordered until patient's respiratory rate is greater than 12 breaths/minute. ondansetron (ZOFRAN) injection 4 mg 4 mg, Intravenous, Once As Needed, Nausea, Vomiting, Starting on Sat12/22/24 at 1328, For 1 dose, If BOTH ondansetron (ZOFRAN) and promethazine (PHENERGAN) are ordered use ondansetron first and THEN promethazine IF ondansetron is ineffective. protamine injection (CANCELED) Code / Trauma / Sedation Medication, Starting on Sat12/22/24 at 1304 1304 (Given - Provid er: Lucie Toth RN) sodium chloride 0.9 % flush 10 mL 10 mL, Intravenous, As Needed, Line Care, Starting on Sat12/22/24 at 1011 sodium chloride 0.9 % flush 10 mL 10 mL, Intravenous, As Needed, Line Care, Starting on Sat12/22/24 at 1328 sodium chloride 0.9 % infusion 40 mL 40 mL, Intravenous, As Needed, Line Care, Starting on Sat12/22/24 at 1328, Following administration of an IV intermittent medication, flush line with 40mL NS at 100mL/hr. Linked Groups Order Group 1: droperidol (INAPSINE) injection 0.625 mgJump to med 0.625 mg, Intravenous, Once As Needed, Nausea, Vomiting, Starting on Sat12/22/24 at 1328, For 1 dose Or droperidol (INAPSINE) injection 0.625 mgJump to med 0.625 mg, Intramuscular, Once As Needed, Nausea, Vomiting, Starting on Sat12/22/24 at 1328, For 1 dose Group 2: fentaNYL citrate (PF) (SUBLIMAZE) injection 25 mcgJump to med 25 mcg, Intravenous, Every 5 Minutes PRN, Severe Pain, breakthrough pain, Starting on Sat12/22/24 at 1328, For 4 doses, PACU only. Maximum cumulative total dose of fentanyl is 100 mcg (30 MME) If given for pain, use the following pain scale: Mild Pain = Pain Score of 1-3, CPOT 1-2 Moderate Pain = Pain Score of 4-6, CPOT 3-4 Severe Pain = Pain Score of 7-10, CPOT 5-8 And naloxone (NARCAN) injection 0.4 mgJump to med 0.4 mg, Intravenous, Every 5 Minutes PRN, Respiratory Depression, Starting on Sat12/22/24 at 1328, If respiratory rate is less than 8 breaths/minute or patient is difficult to arouse stop any narcotics and contact physician. Administer slow IV push. Repeat as ordered until patient's respiratory rate is greater than 12 breaths/minute. documented in this encounter Care Teams Sporting Goods Sales Manager Relationship Specialty Start Date End Date Deo Larsen MD [address] [place] [address] [address] PCP - General Adolescent Medicine 11/18/20 documented as of this encounter
--- OUTSIDE RECORDS SUMMARY | 2024-12-22 10:15 | XMS_ITS | Encounter Summary ---
Author Organization [facility] Address [address] [place] [address] Care Team Providers Care Director Of Recruitment Name Role Phone Deo Larsen MD Primary Care Provider [phone] Reason for Visit * Auth/Cert (Routine) Specialty Diagnoses / Procedures Referred By Ema shipman Referred To Contact Diagnoses Atrial fibrillation, persistent Iron deficiency anemia, unspecified iron deficiency anemia type Atrial Fibrillation Procedures SD PERQ CLSR TCAT L ATR APNDGE W/ENDOCARDIAL IMPLNT Atrial Appendage Occlusion, DNS Xarelto Referral ID Status Reason Start Date Expiration Date Visits Re quested Visits Authorized [id number] 1 1 Encounter Details Date Type Department Care Team (Late st Contact Info) Description 12/22/2024 11:15 AM EDT - 12/22/2024 1:15 PM EDT Surgery [facility] EP LAB [address] [place] [phone] Willy Garza MD [address] [facility] [address] [place] [address] Atrial Appendage Occlusion, DNS Xarelto [07059 (CPT )] Social History Tobacco Use Types Packs/Day Years [...] or training? Not on file Preferred Language Montenegrin 12/11/2024 Sex and Gender Information Value Date Recorded Sex Assigned at Male 12/07/2024 10:00 AM EDT Legal Sex Male 1:21 PM EDT Gender Identity Not on file Sexual Orientation Straight 12/07/2024 10 :00 AM EDT documented as of this encounter Last Filed Vital Signs Vital Sign Reading Time Taken Comments Blood Pressure 118/63 12/22/2024 1:14 PM EDT Pulse 68 12/22/2024 1:14 PM EDT Temperature 36.2 C (97.1 F) 12/22/2024 1:14 PM EDT Respiratory Rate 16 12/22/2024 1:14 PM EDT Oxygen Saturation 99% 12/22/2024 1:14 PM EDT Inhaled Oxygen Concentration - - Weight 103 kg (226 lb 13.7 oz) 12/22/2024 10:33 AM EDT Height 180.3 cm (5' 11 ) [...] 10:30 AM EDT Rebeka Wolfe RN * [place] Suicide Severity Rating Scale (Screener/Recent Self-Report) Question Answer Date of Assessment Author 6. Suicidal Behavior (Lifetime) No 12/22/2024 10:30 AM EDT Radha Corbin RN documented as of this encounter Discharge Instructions * Attachments The following attachments cannot be sent through Care Everywhere. * Femoral Site Care (Montenegrin) * General Anesthesia Adult Care After (Montenegrin) * Left Atrial Appendage Closure Device Implantation (Montenegrin) * Atrial Fibrillation (Montenegrin) * Rivaroxaban Tablets (Montenegrin) * Aspirin Tablets (Montenegrin) documented in this encounter Medications at Time [...] on file. 12/22/24 DATE OF ADMISSION: 12/22/2024 [facility] Deo Brown MD [address] [facility] [address] [facility] [address] Referring Provider: Willy Garza MD CC: AFIB, [...] misc Self Yes No Continuous Glucose Sensor (AppPowerGroupyle [place] 3 Plus Sensor) Self, Medication Bottle [...] and right atrial flutter ablation August 2021. [id number] = 3. Continue Xarelto 20 mg daily continue present medications. Successful procedure at this point with no recurrent clinical symptoms of atrial fibrillation. Patient doing well. - Anticoagulation: [id number] 3 on Xarelto with chronic iron deficiency [...] 0.5 mg, Intravenous, Q10 Min PRN, Tha eFrro MD nitroglycerin (NITROSTAT) SL tablet 0.4 mg, [...] EDT LAAO Procedure Information Tomas Azul 1955 [address] [place] [address] [place]) ISH Orifice Maximal Width: 24 mm Cumulative Air Kerma: 25 mGy Contrast Volume: 70 mL Dose Area Product: 185.44 ?Gy-M2 * Samantha Barragan RN - 12/09/2024 12:10 PM EDT PRE-LAAO HISTORY Tomas Shipman Azul [address] [place] [address] There are no phone numbers on file. [...] & Risk Factors (prior to LAAO implant) [id number] Risk Factors: Congestive HF [x] No [] Yes LV Dysfunction [x] No [] Yes Hypertension [] No [x] Yes Diabetes [] No [x] Yes Stroke [x] No [] Yes TIA [x] No [] Yes Thromboembolism [] No [] Yes Vascular Disease [x] No [] Yes If Yes, Type [] Prior TX [] PAD [] Aortic Plaque Statin if [...] along with medication options. 12/09/24 12:10 EDT [facility] Revised 04/04/2023 Cosigned by Willy Garza MD at 12/09/2024 4:39 PM EDT Associated attestation - Willy Garza MD - 12/09/2024 4:39 PM EDT I have reviewed this documentation and agree. documented in this encounter Plan of Treatment Upcoming Encounters Date Type Department Care Team (Late st Contact Info) Description 03/31/2025 2:00 PM EST Office Visit [facility] CARDIOLOGY [address] [facility] [address] [place] [phone] Elmer Olea PA [address] [facility] [address] [place] [address] 06/25/2025 12:30 PM EDT Telemedicine [facility] CARDI[facility] [address] [facility] [address] [place] [phone] Nathan Sherman APRN [address] [facility] [address] [place] [address] 01/12/2026 1:45 PM EST Office Visit [facility] C[facility]IOLOG[facility] [address] [facility] [address] [place] [phone] Willy Garza MD [address] [facility] [address] [address] [place], [place] [phone] documented as of this encounter Procedures Procedure [...] PROCEDURE: 12/22/24 REFERRING PHYSICIAN: Deo Larsen MD ALUMINUM FABRICATION SUPERVISOR/CHIEF WARDEN: Willy Garza MD PROCEDURE(S) PERFORMED: 1. Insertion [...] sheaths and catheters were inserted: 1. An 11-Slovak, intracardiac ultrasound catheter was advanced via a 10-Slovak sheath in the right femoral vein to the high right atrium for visualization of left atrial structures. 2. A 27 mm left atrial appendage occlusive watchman flex device pro was advanced via a 17 Slovak sheath to the left atrial appendage for [...] times greater than 300 seconds. The 8 Slovak Daig transseptal sheath was exchanged for a 17 Slovak sterrable Watchman sheath in the left atrium. A 6 Slovak pigtail catheter was then advanced in the left atrial appendage. Venograms of the left atrial appendage was then performed in 2 views. There was only 1 lobe of the appendage identified. The 17 Slovak sheath was advanced over the pigtail in [...] - 152 Seconds 12/22/2024 3:14 PM EDT [facility] Comment:Serial Number: [id number] 1Operator: [id number] Blood 12/22/2024 12:5 9 PM EDT 12/22/2024 3:14 PM EDT Willy Garza MD POINT OF CARE TEST ORDERABLE S Final Result Performing Organization Address [facility] Co de Phone Number [facility]
[address] [place] [address], [place] [phone] * (ABNORMAL) POC Activated Clotting Time (12/22/2024 12:44 PM EDT) Activated Clotting Time 158(H) 82 - 152 Seconds 12/22/2024 3:14 PM EDT [facility] Comment:Serial Number: [id number] 1Operator: [id number] Blood 12/22/2024 12:4 4 PM EDT 12/22/2024 3:14 PM EDT us Willy Garza MD POINT OF CARE TEST ORDERABLE S Final Result Performing Organization Address [facility] Co de Phone Number [facility]
[address] [place] [address], * Intra-Op Structural Heart DAVID (Cardiology Read) (12/22/2024 11:56 AM EDT) Pathologist [facility] CV VAS BP LEFT ARM 132/74 mmHg [...] procedure. The procedure was performed in the garden labourer. Patient was noted to be in a [...] without evidence of oropharyngeal or esophageal trauma. Willy Garza MD CV ECHO ORDERABLES Final Res ult * (ABNORMAL) POC Glucose Once (12/22/2024 10:38 AM EDT) Glucose 145(H) 70 - 130 mg/dL 12/22/2024 10:41 AM EDT [facility] Comment:Serial Number: [id number]: [id number] Blood 12/22/2024 10:3 8 AM EDT 12/22/2024 10:41 AM EDT Tha Ferro MD POINT OF CARE TEST ORDERABLES F inal Result [facility]
[address] [id number], * Potassium (12/22/2024 10:31 AM EDT) Potassium 4.1 3.5 - 5.2 mmol/L 12/22/2024 11:07 AM EDT [facility] Blood Line / Unknown 12/22/2024 10 :31 AM EDT 12/22/2024 10:42 AM EDT Tha Ferro MD LAB BLOOD ORDERABLES Final Resu lt [facility]
[address] [place] [address], documented in this encounter Visit Diagnoses Diagnosis Iron deficiency anemia- Primary Unspecified iron deficiency anemia Atrial fibrillation, persistent Iron deficiency anemia, unspecified iron deficiency anemia type Longstanding persistent atrial fibrillation Atrial fibrillation, persistent Atrial fibrillation, persistent Iron deficiency anemia, unspecified [...] Once As Needed, Nausea, Vomiting, Starting on e 12/22/24 at 1328, For 1 dose droperidol (INAPSINE) injection 0.625 mg 0.625 mg, Intramuscular, Once As Needed, Nausea, Vomiting, Starting on Sat12/22/24 at 1328, For 1 dose fentaNYL citrate (PF) (SUBLIMAZE) injection 25 mcg [...] of 7-10, CPOT 5-8 heparin (porcine) injection Code / Trauma / Sedation Medication, Starting on Sat12/22/24 at 1243 Given 12/22/2024 12:43 PM EDT 18,000 Units hydrALAZINE (APRESOLINE) injection 5 mg 5 mg, [...] drug alert iopamidol (ISOVUE-370) 76 % injection Code / Trauma / Sedation Medication, Starting on Sat12/22/24 at 1300 Given 12/22/2024 1:00 PM EDT 70 mL ipratropium-albuterol (DUO-NEB) nebulizer solution 3 mL 3 [...] at KVO if renal / if indicated New Bag [...] promethazine IF ondansetron is ineffective. protamine injection Code / Trauma / Sedation Medication, Starting on Sat12/22/24 at 1304 Given 12/22/2024 1:04 PM EDT 100 mg sodium chloride 0.9 % flush 10 mL [...] On Sat12/22/24 at 1013, For 1 dose, tester operator helper to EP lab Caution: Look alike/sound alike drug alert, Indications: Surgical Prophylaxis 1222 (New Bag - Prov ider: Daniel Gutierers CRNA) famotidine (PEPCID) injection 20 mg 20 mg, [...] breaths/minute. documented in this encounter Care Teams Director Of Recruitment Relationship Specialty Start Date End Date Deo Larsen MD [address] [facility] [address] [address] PCP - General Adolescent Medicine 11/18/20 documented as of this encounter
--- OUTSIDE RECORDS SUMMARY | 2024-12-22 11:01 | XMS_ITS | Encounter Summary ---
Author Organization [facility] Address [address] [place] [address] Care Team Providers Care C++ Professor Name Role Phone Deo Larsen MD Primary Care Provider [phone] Reason for Visit * Auth/Cert (Routine) Specialty Diagnoses / Procedures Referred By Eam shipman Referred To Contact Diagnoses Atrial fibrillation, persistent Iron deficiency anemia, unspecified iron deficiency anemia type Atrial Fibrillation Procedures OK PERQ CLSR TCAT L ATR APNDGE W/ENDOCARDIAL IMPLNT Atrial Appendage Occlusion, DNS Mary Referral ID Status Reason Start Date Expiration Date Visits Re quested Visits Authorized [id number] 1 1 Encounter Details Date Type Department Care Team (Late st Contact Info) Description 12/22/2024 12:01 PM EDT Anesthesia Event [facility] EP [facility] [address] [place] [phone] Tha Ferro MD [address] [place] [address] Anesthesia Record Procedure Summary Procedure Name Responsible Anesthesiologist Anesthesia Start Time Anesthesia Stop Time Atrial Appendage Occlusion, DNS Tha David MD 12/22/24 1201 12/22/24 1313 Events Date Time Event Comment 12/22/2024 1049 1201 AN Equip Check 1201 An Start The patient was reevaluated immediately before moderate or deep sedation use and before anesthesia induction. 1201 An Start Data 1210 An Induction 1212 An Intubation 1308 An Extubation 1313 an stop data 1313 Handoff to RN The following has been completed: 1. Identification of Patient, toscano family member(s) or patient surrogate 2. Identification of the responsible Practitioner (primary service) 3. Discussion of the pertinent/attainable medical history 4. Discussion of the surgical/procedure course (procedure, reason for surgery, procedure performed) 5. Intraoperative anesthetic management and issue/concerns to include things such as airway, hemodynamics, narcotic, sedation level and paralytic management and intravenous fluids/blood products and urine output during the procedure 6. Expectations/Plans for the early post-procedure period to include things such as anticipated course (anticipatory guidance), complications, need for laboratory or ECG and medication administration 7. Opportunity for questions and acknowledgment of understanding of report from the receiving PACU/ICU team 1313 An Stop Meds Name Total ceFAZolin 2000 mg IVPB in 100 mL NS (MBP ) 2,000 mg propofol (DIPRIVAN) 10 mg/mL injection 2 00 mg rocuronium (ZEMURON) 50 mg/5 mL injectio n 50 mg lidocaine (XYLOCAINE) injection 1% 50 mg dexamethasone (DECADRON) 4 mg/mL injecti on 8 mg ondansetron (ZOFRAN) 2 mg/mL 4 mg sugammadex (BRIDION) 200 mg/2 mL injecti on 400 mg phenylephrine (MISHA-SYNEPHRIN E) 50 mg in sodium chloride 0.9 % 250 mL infusion 410 mcg lactated ringers infusion 0 mL * Agents Name O2 N2O Air Sevoflurane Inspired Sevoflurane * Blood No blood administrations on file. Lines, Drains, and Airways Type Details Placement Removal Peripheral IV Placement Date: 12/09 07/03; Placement Time: 1036; Catheter Size: 20 G; Orientation: Anterior, Distal, Right, Upper; Location: Arm; Site Prep: Chlorhexidine; Technique: Anatomical landmarks; Insertion Attempts: 1; Patient Tolerance: Tolerated well; Removal Date: 12/22/24; Removal Time: 1549 12/22/24 1036 by Rebeka Corbin RN 12/22/24 1549 by Zainab Anguiano RN Peripheral IV Placement Date: 12/09 07/03; Placement Time: 1043; Catheter Size: 20 G; Orientation: Anterior, Left; Location: Forearm; Site Prep: Chlorhexidine; Technique: Anatomical landmarks; Insertion Attempts: 1; Patient Tolerance: Tolerated well; Removal Date: 12/22/24; Removal Time: 1549 12/22/24 1043 by Rebeka Corbin RN 12/22/24 1549 by Zainab Anguiano RN ETT Placement Date: 12/09 07/03; Placement Time: 1212 (created via procedure documentation); Blade Size: 4; Location: Oral; Removal Date: 12/22/24; Removal Time: 1308 12/22/24 1212 by Daniel Gutierres CRNA 12/22/24 1308 by Daniel Gutierres CRNA Venous Sheath 12/22/24; 1241; Yes; 8 Fr.; Right; Femoral; gt; Injectable; Chlorhexidine; Yes; Vascase xl; 12/22/24; 1305; Per order; No complications 12/22/24 1241 by Jose Guadalupe Abdullahi RN 12/22/24 1305 by Jose Guadalupe Abdullahi RN Venous Sheath 12/22/24; 1241; Yes; 10 Fr.; Right; Femoral; gt; Injectable; Chlorhexidine; Yes; vascade xl; 12/22/24; 1305; Per order; No complications 12/22/24 1241 by Jose Guadalupe Abdullahi RN 12/22/24 1305 by Jose Guadalupe Abdullahi, RN documented in this encounter Social History Tobacco Use Types Packs/Day Years [...] or training? Not on file Preferred Language Maldivian 12/11/2024 Sex and Gender Information Value Date Recorded Sex Assigned at Male 12/07/2024 10:00 AM EDT Legal Sex Male 1:21 PM EDT Gender Identity Not on file Sexual Orientation Straight 12/07/2024 10 :00 AM EDT documented as of this encounter Functional Status * Question Answer [...] 10:30 AM EDT Rebeka Wolfe RN * [place] Suicide Severity Rating Scale (Screener/Recent Self-Report) Question Answer Date of Assessment Author 6. Suicidal Behavior (Lifetime) No 12/22/2024 10:30 AM EDT Radha Corbin RN documented as of this encounter OR Notes * Anesthesia Postprocedure Evaluation - Daniel Gutierres CRNA - 12/22/2024 1:13 PM EDT Patient: Tomas Azul Procedure Summary Date: 12/22/24 Room / Location: [facility] Anesthesia Start: 1201 Anesthesia Stop: 1313 Procedure: Atrial Appendage Occlusion, DNS Mary Diagnosis: Atrial fibrillation, persistent Iron deficiency anemia, unspecified iron deficiency anemia type (Atrial Fibrillation) Providers: Willy Garza MD Provider: Tha Ferro MD Anesthesia Type: general ASA Status: 3 Anesthesia Type: general Vitals Vitals Value Taken Time BP 118/63 12/22/24 13:14 Temp 97.1 ??F (36.2 ??C) 12/22/24 13:14 Pulse 66 12/22/24 13:14 Resp 16 12/22/24 13:14 SpO2 99 % 12/22/24 13:14 Post Anesthesia Care and Evaluation Patient location during evaluation: PACU Patient participation: complete - patient participated Level of consciousness: awake and alert Pain management: adequate Airway patency: patent Anesthetic complications: No anesthetic complications PONV Status: none Cardiovascular status: hemodynamically stable and acceptable Respiratory status: nonlabored ventilation, acceptable and nasal cannula Hydration status: acceptable * Anesthesia Procedure Notes - Daniel Gutierres CRNA - 12/22/2024 12:26 PM EDT Associated Order(s): Airway Airway Reason: elective Date/Time: 12/22/2024 12:12 PM Airway not difficult General Information and Staff Patient location during procedure: OR LEARNING OPERATIONS SPECIALIST/CAA: Daniel Gutierres CRNA Indications and Patient Condition Indications for airway management: airway protection Preoxygenated: yes MILS not maintained throughout Mask difficulty assessment: 1 - vent by mask Final Airway Details Final airway type: endotracheal airway Successful airway: ETT Cuffed: yes Successful intubation technique: video laryngoscopy Endotracheal tube insertion site: oral Blade: Brennan Blade size: 4 ETT size (mm): 7.5 Cormack-Lehane Classification: grade I - full view of glottis Placement verified by: chest auscultation and capnometry Measured from: lips ETT/EBT to lips (cm): 22 Number of attempts at approach: 1 Assessment: lips, teeth, and gum same as pre-op and atraumatic intubation Additional Comments Negative epigastric sounds, Breath sound equal bilaterally with symmetric chest rise and fall * Anesthesia Preprocedure Evaluation - Tha Ferro MD - 12/22/2024 9:19 AM EDT Anesthesia Evaluation Patient summary reviewed and Nursing notes reviewed NPO Solid Status: > 8 hours NPO Liquid Status: > 2 hours Airway Mallampati: I TM distance: >3 FB Neck ROM: full No difficulty expected Dental Pulmonary (+) ,sleep apnea (CPAP in past) (-) asthma, shortness of breath, recent URI, not a smoker ROS comment: Sats 99% Paralysed L mimi diaphragm Cardiovascular ECG reviewed (+) hypertension, dysrhythmias Atrial Fib, hyperlipidemia (-) valvular problems/murmurs (see normal valves on ECHO), past AL, cardiac stents ROS comment: Persistent Atrial Fibrillation since 2020 CHADsVasc= 3 (HTN, DM, age) on Xarelto 2020 ECV to NSR, return to AFIB about one month later 48 hour Holter, 2020, Avg HR 59, Min HR 26, Max HR 131 bpm. 99% AF, periodic slow ventricular response, longest pause 2.8 seconds, WC NSVT VT vs aberrancy. Flecainide 2020. PVA 08/29/2021: RFA of PV, LA PW, LA roof, RFA of right atrial flutter. 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 Plan discussed with LEARNING OPERATIONS SPECIALIST. CODE STATUS: documented in this encounter Plan of Treatment Upcoming Encounters Date Type Department Care Team (Late st Contact Info) Description 03/31/2025 2:00 PM EST Office Visit [facility] CARDI[facility] [address] [place] [address] [address] [place] [phone] Elmer Olea PA [address] [facility] [address] [address] [place], [place] [id number] 06/25/2025 12:30 PM EDT Telemedicine [facility] [address] [facility] [address] [place] [phone] Nathan Sherman APRN [address] [facility] [address] [place] [address] 01/12/2026 1:45 PM EST Office Visit [facility] [address] [facility] [address] [place] [address] Willy Garza MD [address] [facility] [address] [place] [address] documented as of this encounter Procedures Procedure Name Priority Date/Time Associated Diagnosis Comments ANESTHESIA INTUBATION Routine 12/22/2024 12:26 PM EDT documented in this encounter Results * BH AN ETT AIRWAY (12/22/2024 12:26 PM EDT) Narrative Daniel Gutierres CRNA - 12/22/2024 12:26 PM EDT Daniel Gutierres CRNA 12/22/2024 12:27 PM Airway Reason: elective Date/Time: 12/22/2024 12:12 PM Airway not difficult General Information and Staff Patient location during procedure: OR LEARNING OPERATIONS SPECIALIST/CAA: Daniel Gutierres CRNA Indications and Patient Condition Indications for airway management: airway protection Preoxygenated: yes MILS not maintained throughout Mask difficulty assessment: 1 - vent by mask Final Airway Details Final airway type: endotracheal airway Successful airway: ETT Cuffed: yes Successful intubation technique: video laryngoscopy Endotracheal tube insertion site: oral Blade: Brennan Blade size: 4 ETT size (mm): 7.5 Cormack-Lehane Classification: grade I - full view of glottis Placement verified by: chest auscultation and capnometry Measured from: lips ETT/EBT to lips (cm): 22 Number of attempts at approach: 1 Assessment: lips, teeth, and gum same as pre-op and atraumatic intubation Additional Comments Negative epigastric sounds, Breath sound equal bilaterally with symmetric chest rise and fall Tha Ferro MD ANESTHESIA ORDERABLES Final Res ult documented in this encounter Visit Diagnoses Not on filedocumented in this encounter Administered Medications Inactive Administered Medications - up to 3 most recent administrations Medication Order MAR Action Action Date Dose Rate Site ceFAZolin 2000 mg IVPB in 100 mL NS (MBP) 2,000 mg, Intravenous, Administer over 30 Minutes, Once, On Sat12/22/24 at 1013, For 1 dose, security system sales consultant to EP lab Caution: Look alike/sound alike drug alert, Indications: Surgical ProphylaxisIndications:Surgi rodriguez Prophylaxis New Bag 12/22/2024 12:22 PM EDT 2,000 mg dexAMETHasone (DECADRON) injection Intravenous, As Needed, Starting on Sat12/22/24 at 1219 Given 12/22/2024 12:19 PM EDT 8 mg lactated ringers infusion 9 mL/hr, Intravenous, Continuous, Starting on Sat12/23/24 at 0000, For 1 day, May switch to NS IV at KVO if renal / if indicated New Bag 12/22/2024 12:01 PM EDT lidocaine (XYLOCAINE) 1 % injection Injection, As Needed, Starting on Sat12/22/24 at 1210 Given 12/22/2024 12:10 PM EDT 50 mg ondansetron (ZOFRAN) injection Intravenous, As Needed, Starting on Sat12/22/24 at 1219 Given 12/22/2024 12:19 PM EDT 4 mg phenylephrine (MISHA-SYNEPHRINE) 50 mg in sodium chloride 0.9 % 250 mL infusion Intravenous, Continuous PRN, Starting on Sat12/22/24 at 1226 New Bag 12/22/2024 12:26 PM EDT 10 mcg/min 3 mL/hr propofol (DIPRIVAN) injection Intravenous, As Needed, Starting on Sat12/22/24 at 1210 Given 12/22/2024 12:10 PM EDT 200 mg rocuronium (ZEMURON) injection Intravenous, As Needed, Starting on Sat12/22/24 at 1210 Given 12/22/2024 12:10 PM EDT 50 mg sugammadex (BRIDION) injection Intravenous, As Needed, Starting on Sat12/22/24 at 1307 Given 12/22/2024 1:07 PM EDT 400 mg documented in this encounter Care Teams C++ Professor Relationship Specialty Start Date End Date Deo Larsen MD [address] [facility] [address] [facility] [place] [address] PCP - General Adolescent Medicine 11/18/20 documented as of this encounter
--- OUTSIDE RECORDS SUMMARY | 2025-01-11 03:00 | XMS_ITS ---
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 Name Role Phone Deo Larsen Primary Care Provider [phone] JeseniaKimberly stanford Unavailable [phone] Allergies No Known Allergies Results Component Value Reference Range Notes Microalbumin (In-House) Reviewed date:01/11/2025 11:50:13 AM Interpretation:Normal Performing Lab: Notes/Report: Normal ALB 10mg CRE 300mg A:C <30mg IRON, TIBC AND FERRITIN PANE L (5616) Reviewed date:01/13/2025 02:26:16 PM Interpretation: Performing Lab:[facility] [id number], Code Kingdoms[place]uyNC[address] Arnold Simmons Notes/Report: NON-FASTING; NON-FASTING; NON-FASTING; NON-FASTING; NON-FAST FASTING:YES FASTING: YES IRON, TOTAL 193 50-180 mcg/dL IRON BINDING CAPACITY 413 250-425 mcg/dL (rodriguez c) % SATURATION 47 20-48 % (calc) FERRITIN 37 24-380 ng/mL LIPID PANEL, STANDARD (7600) Reviewed date:01/13/2025 02:26:16 PM Interpretation: Performing Lab:[facility] [id number], [place]ojdFF[address] Arnold Simmons Notes/Report: NON-FASTING; NON-FASTING; NON-FASTING; NON-FASTING; NON-FAST FASTING:YES FASTING: YES CHOLESTEROL, TOTAL 127 <200 mg/dL HDL CHOLESTEROL 56 > OR = 40 mg/dL TRIGLYCERIDES 77 <150 mg/dL LDL-CHOLESTEROL 55 Reference range: <100 Desirable range <100 mg/dL for primary prevention; <70 mg/dL for patients with CHD or diabetic patients with > or = 2 CHD risk factors. LDL-C is now calculated using the Verito calculation, which is a validated novel method providing better accuracy than the Friedewald equation in the estimation of LDL-C. Sal SS et al. ALLAN. 2013;310(02): 3325-5926 (http://education.centrose.SimilarWeb/faq/LXX731) CHOL/HDLC RATIO 2.3 <5.0 (calc) NON HDL CHOLESTEROL 71 <130 mg/dL (calc) For patients with diabetes plus 1 major ASCVD risk factor, treating to a non-HDL-C goal of <100 mg/dL (LDL-C of <70 mg/dL) is considered a therapeutic option. COMPREHENSIVE METABOLIC JESSICA Abdi ([id number]) Reviewed date:01/13/2025 02:26:16 PM Interpretation: Performing Lab:CB, [facility] [id number] [facility], [facility] InstituteHytiCM[address] Arnold Simmons Notes/Report: NON-FASTING; NON-FASTING; NON-FASTING; NON-FASTING; NON-FAST FASTING:YES FASTING: YES GLUCOSE 147 65-99 mg/dL Fasting reference interval For someone without known diabetes, a glucose value >125 mg/dL indicates that they may have diabetes and this should be confirmed with a follow-up test. UREA NITROGEN (BUN) 20 7-25 mg/dL CREATININE 1.02 0.70-1.35 mg/dL EGFR 80 > OR = 60 mL/min/1.73m2 BUN/CREATININE RATIO SEE NOTE: 6-22 (calc) Not Reported: BUN and Creatinine are within reference range. SODIUM 139 135-146 mmol/L POTASSIUM 4.3 3.5-5.3 mmol/L CHLORIDE 101 98-110 mmol/L CARBON DIOXIDE 29 20-32 mmol/L CALCIUM 9.8 8.6-10.3 mg/dL PROTEIN, TOTAL 7.4 6.1-8.1 g/dL ALBUMIN 4.4 3.6-5.1 g/dL GLOBULIN 3.0 1.9-3.7 g/dL (calc) ALBUMIN/GLOBULIN RATIO 1.5 1.0-2.5 (calc) BILIRUBIN, TOTAL 1.9 0.2-1.2 mg/dL ALKALINE PHOSPHATASE 44 35-144 U/L AST 15 10-35 U/L ALT 10 9-46 U/L CBC (INCLUDES DIFF/PLT) (639 9) Reviewed date:01/13/2025 02:26:16 PM Interpretation: Performing Lab:[facility]e[address] [employer], Code KingdomsMvxdPX[address] Arnold Simmons Notes/Report: NON-FASTING; NON-FASTING; NON-FASTING; NON-FASTING; NON-FAST FASTING:YES FASTING: YES WHITE BLOOD CELL COUNT 5.7 3.8-10.8 Thousand/ uL RED BLOOD CELL COUNT 4.90 4.20-5.80 Million/uL HEMOGLOBIN 15.0 13.2-17.1 g/dL HEMATOCRIT 46.3 38.5-50.0 % MCV 94.5 80.0-100.0 fL MCH 30.6 27.0-33.0 pg MCHC 32.4 32.0-36.0 g/dL For adults, a slight decrease in the calculated MCHC value (in the range of 30 to 32 g/dL) is most likely not clinically significant; however, it should be interpreted with caution in correlation with other red cell parameters and the patient's clinical condition. RDW 12.2 11.0-15.0 % PLATELET COUNT 204 140-400 Thousand/uL MPV 10.8 7.5-12.5 fL ABSOLUTE NEUTROPHILS [phone] cells/uL ABSOLUTE LYMPHOCYTES 7653 680-8052 cells/uL ABSOLUTE MONOCYTES 450 200-950 cells/uL ABSOLUTE EOSINOPHILS 268 15-500 cells/uL ABSOLUTE BASOPHILS 40 0-200 cells/uL NEUTROPHILS 56.9 LYMPHOCYTES 29.8 MONOCYTES 7.9 EOSINOPHILS 4.7 BASOPHILS 0.7 HEMOGLOBIN A1c (496) Reviewed date:01/13/2025 02:26:16 PM Interpretation: Performing Lab:[facility] [id number] [employer] [place], Code KingdomsUefnYO[address] Arnold Simmons Notes/Report: NON-FASTING; NON-FASTING; NON-FASTING; NON-FASTING; NON-FAST FASTING:YES FASTING: YES HEMOGLOBIN A1c 6.5 <5.7 % For someone without known diabetes, a hemoglobin [...] diabetes for children. VITAMIN B12 (927) Reviewed date:01/13/2025 02:26:16 PM Interpretation: Performing Lab:LIYAH, [facility] Umen[address] [employer]tel [facility], Code [id number] Arnold Simmons Notes/Report: NON-FASTING; NON-FASTING; NON-FASTING; NON-FASTING; NON-FAST FASTING:YES FASTING: YES VITAMIN B12 >2000 200-1100 pg/mL PSA, TOTAL (5363) Reviewed date:01/13/2025 02:26:17 PM Interpretation: Performing Lab:[facility] [address], QualgenixAtiySU[address] Arnold Simmons Notes/Report: NON-FASTING; NON-FASTING; NON-FASTING; NON-FASTING; NON-FAST FASTING:YES FASTING: YES PSA, TOTAL 3.36 < OR = 4.00 ng/mL The total [...] of the presence or absence of disease. TSH W/REFLEX TO FT4 ([id number]) Reviewed date:01/13/2025 02:26:17 PM Interpretation: Performing Lab:[facility] [address], [place] NcetQS[address] Arnold Simmons Notes/Report: NON-FASTING; NON-FASTING; NON-FASTING; NON-FASTING; NON-FAST FASTING:YES FASTING: YES TSH W/REFLEX TO FT4 0.88 0.40-4.50 mIU/L REASON FOR VISIT 6 Month follow up Medications Medication SIG (Take, Route, Frequency, Duration) Notes Start Date End Date Status Rosuvastatin Calcium 5 MG 1 tab(s) orally once a day (at bedtime); Duration: 90 days Active Mounjaro 12.5 MG/0.5ML INJECT THE CONTENTS OF 1 PEN (12.5 MG / 0.5ML) SUBCUTANEOUSLY ONCE A WEEK; Duration: 28 Active Cyanocobalamin 1000 MCG/ML 1000 MCG EVERY 2 WEEKS INTRAMUSCULARLY intramuscularly every 2 weeks; Duration: 28 days Active SYRINGE 3CC 20G 1 - IM EVERY 2 WEEKS; Duration: 28 days Active Ferrous Sulfate 325 (65 Fe) MG 1 tablet Orally daily; Duration: 90 days 09/21/2024 Active Meloxicam 7.5 MG 1 tablet Orally Once a day; Duration: 90 days Active Lisinopril-hydroCHLO ROthiazide 20-25 MG 1 tab(s) orally once a day; Duration: 90 days Active metFORMIN HCl 1000 MG TAKE 1 TABLET BY MOUTH ONCE DAILY; Duration: 90 Active Metoprolol Succinate ER 50 MG 1 tab(s) orally once a day; Duration: 90 days Active Gabapentin 100 MG 2 caps orally at bedtime; Duration: 90 days 07/24/2024 Active NOVOFINE PLUS PEN NEEDLE 32G 4MM - FOR USE WITH INSULIN INJECTION 3 TIMES A DAY; Duration: 30 DAYS *Please review for potential replacement for e-prescription and drug interaction check* Active FreeStyle Jersey 14 Day Sensor DIRECTED; Duration: 28 DAYS *Please review and pick correct strength-formulat ion from Coupmon options. If intended option is not shown, discontinue and re-order from Quick Search* 09/03/2022 Active FreeStyle [place] 14 Day [place] DIRECTED; Duration: 30 DAYS *Please review and pick correct strength-formulat ion from Coupmon options. If intended option is not shown, discontinue and re-order from Quick Search* 09/03/2022 Active C-PAP MASK AND SUPPLIES DIRECTED DX: CRISTIAN; Duration: 30 DAYS *Please review for potential replacement for e-prescription and drug interaction check* 01/29/2020 Active Magnesium Gluconate 250 MG 1 tab(s) orally once daily Active Aspirin 81 81 MG 1 tablet Orally Once a day Active Immunizations Vaccine Route Administration Date Status Comme nts Fluzone High Dose IM Intramuscular 01/11/2025 Administered Vital Signs Temperature 98.0 degrees Fahrenheit 01/12/20 25 Blood pressure systolic 116 mm Hg 01/12/20 25 Blood pressure diastolic 82 mm Hg 025 Heart Rate 80 /min 01/11/2025 Height 5 ft 10 in in 01/11/2025 Weight 234 lbs 01/11/2025 BMI 33.57 kg/m2 01/11/2025 Encounters Encounter Location Date Provider Diagnosis [facility] [place] [address] [place], [place] [address] 01/11/2025 Kimberly Ba Type 2 diabetes mellitus with other diabetic kidney complication E11.29 ; Essential hypertension I10 ; Medicare annual wellness visit, subsequent Z00.00 ; Long-term insulin use Z79.4 ; RLS (restless legs syndrome) G25.81 ; B12 deficiency E53.8 ; Chronic atrial fibrillation I48.20 ; Iron deficiency anemia due to chronic blood loss D50.0 ; Screening PSA (prostate specific antigen) Z12.5 and Immunization(s) administered Z23 Assessments Encounter Date Diagnosis (ICD Code) Assessment Notes Treatment Notes Treatment Clinical Notes Section Notes 01/11/2025 Type 2 diabetes mellitus with other diabetic kidney complication (ICD-10 - E11.29) has done very well on Mounjaro, able to DC insulin. LDL < 70, tolerating statin and ACEI Normal UAC today 01/11/2025 Essential hypertension (ICD-10 - I10) well controlled 01/11/2025 Medicare annual wellness visit, subsequent (ICD-10 - Z00.00) Well Visit, Over 65: Care Instructions material was published, Advance Directives: Care Instructions material was published 01/11/2025 Long-term insulin use (ICD-10 - Z79.4) discontinued since starting GLP1I 01/11/2025 RLS (restless legs syndrome) (ICD-10 - G25.81) improved on current regimen and with iron replacement 01/11/2025 B12 deficiency (ICD-10 - E53.8) 01/11/2025 Chronic atrial fibrillation (ICD-10 - I48.20) Continue follow-up with cardiology 01/11/2025 Iron deficiency anemia due to chronic blood loss (ICD-10 - D50.0) hopeful this will resolve since Watchman procedure and stopping OAC 01/11/2025 Screening PSA (prostate specific antigen) (ICD-10 - Z12.5) 01/11/2025 Immunization(s) administered (ICD-10 - Z23) Plan Of Treatment Treatment Notes Assessment Notes Medicare annual wellness visit, [facility] [place] nt Well Visit, Over 65: Care Instructions material was published, Advance Directives: Care Instructions material was published Next Appt Details Follow Up: 6 Months, Reason: Provider Name:Kimberly Robles ce, 07/13/2025 08:00:00 AM, [address], [address], [place], [address], Progress Notes * Tomas AZUL TDOB:[birth year] (69 yo M)Acc No.[id number]:01/11/2025 Progress Notes Patient: Tomas KRUEGER Provider: ELLIOTT Cantrell :1955 A ge:69 Y S ex:Male Date:01/11/2025 Address:[address] [place] [address] , [place], [id number] Pcp:Deo Larsen Subjective: * Chief Complaints: * 1 . 6 Month follow up. * HPI: g en: 69-year-old male here for chronic disease follow up and AWV. Denies acute concerns at this time. T2DM- States he is doing well on current regimen without AE. Currently, taking metformin once daily and Mounjaro. Has done an excellent job maintaining weight loss. H e routinely works out at wellness center and has been doing home projects as well. Average BG of 130s on jersey. Eye exam is UTD. + statin/ACEI HTN/Afib: Has routine cardiology FU. Recently underwent Watchman procedure due to persistent DARREL. Has FU arranged with cardiology and interventionalist. Denies CP, SOA, GIANG, numbness/tingling CRISTIAN: Sleeping well. Denies use of CPAP machine since weight loss DARREL: following with GI and Hematology. * ROS: F UNCTIONAL STATUS: ADLS I ndependent for all ADL/IADL. R ESPIRATORY: Reviewed, No Symptoms Reported: Y es. C ARDIOLOGY: no D izziness. n o C hest pain. n o P alpitations. n o L eg edema. C ONSTITUTIONAL: no L oss of appetite. n o W eakness. ? D ERMATOLOGY: Reviewed, No Symptoms Reported: Y es. E NDOCRINOLOGY: no P olydypsia. n o P olyuria. n o S leep disturbance. E NT: Reviewed, No Symptoms Reported: Y es. G ASTROENTEROLOGY: no N ausea. n o H eartburn. n o V omiting.?no A bdominal pain. n o D ysphagia. n o D iarrhea. n o C onstipation. n o B lood in stool. M USCULOSKELETAL: no l ower extremity claudication. N EUROLOGY: no H eadache. n o T ingling numbness. n o G ait abnormality. O PTHALMOLOGY: no D iminished vision. U ROLOGY: Reviewed, No Symptoms Reported: Y es. 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 * Surgical History: C olonoscopy/EGD 12/2023. * Hospitalization/Major Diagno stic Procedure: D enies Past Hospitalization. * Family History: F ather: , heart disease, diabetes. M other: , heart disease. P aternal Grand Father: . P aternal Grand Mother: . M aternal Grand Father: . M aternal Grand Mother: . P aternal uncle: . P aternal aunt: .?Maternal uncle: alive. M aternal aunt: . S iblings: alive, 2 sisters diabetes,. C hildren: alive. 1 brother(s) , 2 sister(s) . 1 son(s) , 1 daughter(s) - healthy. . * Social History: S moking: no A re you a:: nonsmoker. R ecreational drug use: no. Exercise: yes. Home smoke detector use: yes. Caffeine: yes, frequency:tea occasionally. Living Will: No. Alcohol: no. Sexually active: yes. Travel outside [place]: no. Occupation: retired from [employer]. * Medications: T aking Aspirin 81 81 MG Tablet Delayed Release 1 tablet Orally Once a day , Taking Magnesium Gluconate 250 MG Tablet 1 tab(s) orally once daily , Taking C-PAP MASK AND SUPPLIES DIRECTED DX: CRISTIAN , Notes to Pharmacist: *Please review for potential replacement for e-prescription and drug interaction check*, Taking FreeStyle Jersey 14 Day [place] DIRECTED , Notes to Pharmacist: *Please review and pick correct strength-formulation from Coupmon options. If intended option is not shown, discontinue and re-order from Quick Search*, Taking FreeStyle [place] 14 Day Sensor DIRECTED , Notes to Pharmacist: *Please review and pick correct strength- formulation from Accruentan options. If intended option is not shown, discontinue and re-order from Quick Search*, Taking NOVOFINE PLUS PEN NEEDLE 32G 4MM - FOR USE WITH INSULIN INJECTION 3 TIMES A DAY , Notes to Pharmacist: *Please review for potential replacement for e-prescription and drug interaction check*, Taking Gabapentin 100 MG Capsule 2 caps orally at bedtime , Taking Metoprolol Succinate ER 50 MG Tablet Extended Release 24 Hour 1 tab(s) orally once a day , Taking metFORMIN HCl 1000 MG Tablet TAKE 1 TABLET BY MOUTH ONCE DAILY , Taking Lisinopril-hydroCHLOROthiazide 20-25 MG Tablet 1 tab(s) orally once a day , Taking Meloxicam 7.5 MG Tablet 1 tablet Orally Once a day , Taking Rosuvastatin Calcium 5 MG Tablet 1 tab(s) orally once a day (at bedtime) , Taking Ferrous Sulfate 325 (65 Fe) MG Tablet 1 tablet Orally daily , Taking SYRINGE 3CC 20G 1 - IM EVERY 2 WEEKS , Taking Cyanocobalamin 1000 MCG/ML Solution 1000 MCG EVERY 2 WEEKS INTRAMUSCULARLY intramuscularly every 2 weeks , Taking Mounjaro 12.5 MG/0.5ML Solution Auto-injector INJECT THE CONTENTS OF 1 PEN (12.5 MG / 0.5ML) SUBCUTANEOUSLY ONCE A WEEK , Discontinued Xarelto 20 MG Tablet 1 tab(s) orally once a day (in the evening) , Medication List reviewed and reconciled with the patient * Allergies: N .K.D.A. Objective: * Vitals: N urse: be, Pain: 0, Temp: 98.0, RR: 16, HR: 80, BP: 116/82, Ht: 5 ft 10 in, Wt: 234, BMI:33.57. * Examination: G eneral Examination: General P leasant and Cooperative, NAD on RA,. Heart: RRR, 2/6 systolic murmur. Lungs: L CTAB, No wheezes, crackles or rhonchi, Good air movement,. Abdomen: s oft, BS present. Neurologic Exam: A lert and oriented x 3. Skin: w ithout acute rashes. Peripheral pulses: n ormal (2+) bilaterally. Extremities: no clubbing, no edema,, no foot lesions,.? neck s upple,, no thyromegaly,, no lymphadenopathy,. Psych N ormal Mood/Affect. Assessment: * Assessment: 1. Martha saenz annual wellness visit, subsequent - Z00.00 (Primary) 2 . T ype 2 diabetes mellitus with other diabetic kidney complication - E11.29 3 . E ssential hypertension - I10 4 . L buster-term insulin use - Z79.4 5 . RLS (restless legs syndrome) - G25.81 6 . B 12 deficiency - E53.8 7 . C hronic atrial fibrillation - I48.20 8 . I maribel deficiency anemia due to chronic blood loss - D50.0 9 . S creening PSA (prostate specific antigen) - Z12.5 1 0. I mmunization(s) administered - Z23 Plan: * Treatment: 2. T ype 2 diabetes mellitus with other diabetic kidney complication L AB: IRON, TIBC AND FERRITIN PANEL (5616) Value Reference Range I MARIBEL, TOTAL 193 H 50-180 - mcg/dL * I MARIBEL BINDING CAPACITY 413 250-425 - mcg/dL (c alc) * % SATURATION 47 20-48 - % (calc) * F ERRITIN 37 24-380 - ng/mL * Matilde Smith 01/13/2025 02:25:56 PM EST > Left vm with resultsThis lab was reviewed by Matilde Smith on 01/13/2025 at 14:26 PM EST ?LAB: LIPID PANEL, STANDARD (7600)* Value Reference Range T RIGLYCERIDES 77 <150 - mg/dL * C HOLESTEROL, TOTAL 127 <200 - mg/dL * H DL CHOLESTEROL 56 > OR = 40 - mg/dL * L DL-CHOLESTEROL 55 - mg/dL (calc) * C HOL/HDLC RATIO 2.3 <5.0 - (calc) * N ON HDL CHOLESTEROL 71 <130 - mg/dL (calc) * Matilde Smith 01/13/2025 02:25:56 PM EST > Left vm with resultsThis lab was reviewed by Matilde Smith on 01/13/2025 at 14:26 PM EST ?LAB: COMPREHENSIVE METABOLIC PANEL (94657)* Value Reference Range G LUCOSE 147 H 65-99 - mg/dL * U SHAGUFTA NITROGEN (BUN) 20 7-25 - mg/dL * C REATININE 1.02 0.70-1.35 - mg/dL * B UN/CREATININE RATIO SEE NOTE: 6-22 - (calc) * S ODIUM 139 135-146 - mmol/L * P OTASSIUM 4.3 3.5-5.3 - mmol/L * C HLORIDE 101 98-110 - mmol/L * C ARBON DIOXIDE 29 20-32 - mmol/L * C ALCIUM 9.8 8.6-10.3 - mg/dL * P ROTEIN, TOTAL 7.4 6.1-8.1 - g/dL * A LBUMIN 4.4 3.6-5.1 - g/dL * G LOBULIN 3.0 1.9-3.7 - g/dL (calc ) * A LBUMIN/GLOBULIN RATIO 1.5 1.0-2.5 - (calc) * B ILIRUBIN, TOTAL 1.9 H 0.2-1.2 - mg/dL * A LKALINE PHOSPHATASE 44 35-144 - U/L * A ST 15 10-35 - U/L * A LT 10 9-46 - U/L * E GFR 80 > OR = 60 - mL/min/1 .73m2 * Matilde Smith 01/13/2025 02:25:56 PM EST > Left vm with resultsThis lab was reviewed by Matilde Smith on 01/13/2025 at 14:26 PM EST ?LAB: CBC (INCLUDES DIFF/PLT) (5456)* Value Reference Range W TIGIST BLOOD CELL COUNT 5.7 3.8-10.8 - Thousan d/uL * R ED BLOOD CELL COUNT 4.90 4.20-5.80 - Million/ uL * H EMOGLOBIN 15.0 13.2-17.1 - g/dL * H EMATOCRIT 46.3 38.5-50.0 - % * M CV 94.5 80.0-100.0 - fL * M CH 30.6 27.0-33.0 - pg * M CHC 32.4 32.0-36.0 - g/dL * R DW 12.2 11.0-15.0 - % * P LATELET COUNT 204 140-400 - Thousand/u L * N EUTROPHILS 56.9 - % * A BSOLUTE NEUTROPHILS 3243 0493-7414 - cells/uL * L YMPHOCYTES 29.8 - % * A BSOLUTE LYMPHOCYTES 0354 441-2971 - cells/uL * M ONOCYTES 7.9 - % * A BSOLUTE MONOCYTES 450 200-950 - cells/uL * E OSINOPHILS 4.7 - % * A BSOLUTE EOSINOPHILS 268 15-500 - cells/uL * B ASOPHILS 0.7 - % * A BSOLUTE BASOPHILS 40 0-200 - cells/uL * M PV 10.8 7.5-12.5 - fL * Matilde Smith 01/13/2025 02:25:56 PM EST > Left vm with resultsThis lab was reviewed by Matilde Smith on 01/13/2025 at 14:26 PM EST ?LAB: HEMOGLOBIN A1c (496)* Value Reference Range H EMOGLOBIN A1c 6.5 H <5.7 - % * Matilde Smith 01/13/2025 02:25:56 PM EST > Left vm with resultsThis lab was reviewed by Matilde Smith on 01/13/2025 at 14:26 PM EST ?LAB: VITAMIN B12 (927)* Value Reference Range V ITAMIN B12 >2000 H 200-1100 - pg/mL * Matilde Smith 01/13/2025 02:25:56 PM EST > Left vm with resultsThis lab was reviewed by Matilde Smith on 01/13/2025 at 14:26 PM EST ?LAB: PSA, TOTAL (5363)* Value Reference Range P SA, TOTAL 3.36 < OR = 4.00 - ng/mL * Matilde Smith 01/13/2025 02:25:56 PM EST > Left vm with resultsThis lab was reviewed by Matilde Smith on 01/13/2025 at 14:26 PM EST ?LAB: Microalbumin (In-House) (Collection Date & Time - 01/11/2025)?Normal* Value Reference Range A LB 10mg * C RE 300mg * A :C <30mg * Ruby Ríos 01/11/2025 09: 04:05 AM EST > Clinical Notes: has done very well on Mounjaro, able to DC insulin. LDL < 70, tolerating statin and ACEI Normal UAC today??3.?Essential hypertension?LAB: IRON, TIBC AND FERRITIN PANEL (5616)* Value Reference Range I MARIBEL, TOTAL 193 H 50-180 - mcg/dL * I MARIBEL BINDING CAPACITY 413 250-425 - mcg/dL (c alc) * % SATURATION 47 20-48 - % (calc) * F ERRITIN 37 24-380 - ng/mL * Matilde Smith 01/13/2025 02:25:56 PM EST > Left vm with resultsThis lab was reviewed by Matilde Smith on 01/13/2025 at 14:26 PM EST ?LAB: LIPID PANEL, STANDARD (7600)* Value Reference Range T RIGLYCERIDES 77 <150 - mg/dL * C HOLESTEROL, TOTAL 127 <200 - mg/dL * H DL CHOLESTEROL 56 > OR = 40 - mg/dL * L DL-CHOLESTEROL 55 - mg/dL (calc) * C HOL/HDLC RATIO 2.3 <5.0 - (calc) * N ON HDL CHOLESTEROL 71 <130 - mg/dL (calc) * Matilde Smith 01/13/2025 02:25:56 PM EST > Left vm with resultsThis lab was reviewed by Matilde Smith on 01/13/2025 at 14:26 PM EST ?LAB: COMPREHENSIVE METABOLIC PANEL (97769)* Value Reference Range G LUCOSE 147 H 65-99 - mg/dL * U SHAGUFTA NITROGEN (BUN) 20 7-25 - mg/dL * C REATININE 1.02 0.70-1.35 - mg/dL * B UN/CREATININE RATIO SEE NOTE: 6-22 - (calc) * S ODIUM 139 135-146 - mmol/L * P OTASSIUM 4.3 3.5-5.3 - mmol/L * C HLORIDE 101 98-110 - mmol/L * C ARBON DIOXIDE 29 20-32 - mmol/L * C ALCIUM 9.8 8.6-10.3 - mg/dL * P ROTEIN, TOTAL 7.4 6.1-8.1 - g/dL * A LBUMIN 4.4 3.6-5.1 - g/dL * G LOBULIN 3.0 1.9-3.7 - g/dL (calc ) * A LBUMIN/GLOBULIN RATIO 1.5 1.0-2.5 - (calc) * B ILIRUBIN, TOTAL 1.9 H 0.2-1.2 - mg/dL * A LKALINE PHOSPHATASE 44 35-144 - U/L * A ST 15 10-35 - U/L * A LT 10 9-46 - U/L * E GFR 80 > OR = 60 - mL/min/1 .73m2 * Matilde Smith 01/13/2025 02:25:56 PM EST > Left vm with resultsThis lab was reviewed by Matilde Smith on 01/13/2025 at 14:26 PM EST ?LAB: CBC (INCLUDES DIFF/PLT) (8563)* Value Reference Range W TIGIST BLOOD CELL COUNT 5.7 3.8-10.8 - Thousan d/uL * R ED BLOOD CELL COUNT 4.90 4.20-5.80 - Million/ uL * H EMOGLOBIN 15.0 13.2-17.1 - g/dL * H EMATOCRIT 46.3 38.5-50.0 - % * M CV 94.5 80.0-100.0 - fL * M CH 30.6 27.0-33.0 - pg * M CHC 32.4 32.0-36.0 - g/dL * R DW 12.2 11.0-15.0 - % * P LATELET COUNT 204 140-400 - Thousand/u L * N EUTROPHILS 56.9 - % * A BSOLUTE NEUTROPHILS 3243 5332-2508 - cells/uL * L YMPHOCYTES 29.8 - % * A BSOLUTE LYMPHOCYTES 7870 772-1447 - cells/uL * M ONOCYTES 7.9 - % * A BSOLUTE MONOCYTES 450 200-950 - cells/uL * E OSINOPHILS 4.7 - % * A BSOLUTE EOSINOPHILS 268 15-500 - cells/uL * B ASOPHILS 0.7 - % * A BSOLUTE BASOPHILS 40 0-200 - cells/uL * M PV 10.8 7.5-12.5 - fL * Matilde Smith 01/13/2025 02:25:56 PM EST > Left vm with resultsThis lab was reviewed by Matilde Smith on 01/13/2025 at 14:26 PM EST ?LAB: HEMOGLOBIN A1c (496)* Value Reference Range H EMOGLOBIN A1c 6.5 H <5.7 - % * Matilde Smith 01/13/2025 02:25:56 PM EST > Left vm with resultsThis lab was reviewed by Matilde Smith on 01/13/2025 at 14:26 PM EST ?LAB: VITAMIN B12 (927)* Value Reference Range V ITAMIN B12 >2000 H 200-1100 - pg/mL * Matilde Smith 01/13/2025 02:25:56 PM EST > Left vm with resultsThis lab was reviewed by Matilde Smith on 01/13/2025 at 14:26 PM EST ?LAB: PSA, TOTAL (5363)* Value Reference Range P SA, TOTAL 3.36 < OR = 4.00 - ng/mL * Matilde Smith 01/13/2025 02:25:56 PM EST > Left vm with resultsThis lab was reviewed by Matilde Smith on 01/13/2025 at 14:26 PM EST Clinical Notes: well controlled??4.?Long-term insulin use? Clinical Notes: discontinued since starting GLP1I??5.?RLS (restless legs syndrome)? Clinical Notes: improved on current regimen and with iron replacement??6.?B12 deficiency?LAB: IRON, TIBC AND FERRITIN PANEL (5206)* Value Reference Range I MARIBEL, TOTAL 193 H 50-180 - mcg/dL * I MARIBEL BINDING CAPACITY 413 250-425 - mcg/dL (c alc) * % SATURATION 47 20-48 - % (calc) * F ERRITIN 37 24-380 - ng/mL * Matilde Smith 01/13/2025 02:25:56 PM EST > Left vm with resultsThis lab was reviewed by Matilde Smith on 01/13/2025 at 14:26 PM EST ?LAB: LIPID PANEL, STANDARD (2620)* Value Reference Range T RIGLYCERIDES 77 <150 - mg/dL * C HOLESTEROL, TOTAL 127 <200 - mg/dL * H DL CHOLESTEROL 56 > OR = 40 - mg/dL * L DL-CHOLESTEROL 55 - mg/dL (calc) * C HOL/HDLC RATIO 2.3 <5.0 - (calc) * N ON HDL CHOLESTEROL 71 <130 - mg/dL (calc) * Matilde Smith 01/13/2025 02:25:56 PM EST > Left vm with resultsThis lab was reviewed by Matilde Smith on 01/13/2025 at 14:26 PM EST ?LAB: COMPREHENSIVE METABOLIC PANEL (45209)* Value Reference Range G LUCOSE 147 H 65-99 - mg/dL * U SHAGUFTA NITROGEN (BUN) 20 7-25 - mg/dL * C REATININE 1.02 0.70-1.35 - mg/dL * B UN/CREATININE RATIO SEE NOTE: 6-22 - (calc) * S ODIUM 139 135-146 - mmol/L * P OTASSIUM 4.3 3.5-5.3 - mmol/L * C HLORIDE 101 98-110 - mmol/L * C ARBON DIOXIDE 29 20-32 - mmol/L * C ALCIUM 9.8 8.6-10.3 - mg/dL * P ROTEIN, TOTAL 7.4 6.1-8.1 - g/dL * A LBUMIN 4.4 3.6-5.1 - g/dL * G LOBULIN 3.0 1.9-3.7 - g/dL (calc ) * A LBUMIN/GLOBULIN RATIO 1.5 1.0-2.5 - (calc) * B ILIRUBIN, TOTAL 1.9 H 0.2-1.2 - mg/dL * A LKALINE PHOSPHATASE 44 35-144 - U/L * A ST 15 10-35 - U/L * A LT 10 9-46 - U/L * E GFR 80 > OR = 60 - mL/min/1 .73m2 * Matilde Smith 01/13/2025 02:25:56 PM EST > Left vm with resultsThis lab was reviewed by Matilde Smith on 01/13/2025 at 14:26 PM EST ?LAB: CBC (INCLUDES DIFF/PLT) (9488)* Value Reference Range W TIGIST BLOOD CELL COUNT 5.7 3.8-10.8 - [place] d/uL * R ED BLOOD CELL COUNT 4.90 4.20-5.80 - Million/ uL * H EMOGLOBIN 15.0 13.2-17.1 - g/dL * H EMATOCRIT 46.3 38.5-50.0 - % * M CV 94.5 80.0-100.0 - fL * M CH 30.6 27.0-33.0 - pg * M CHC 32.4 32.0-36.0 - g/dL * R DW 12.2 11.0-15.0 - % * P LATELET COUNT 204 140-400 - Thousand/u L * N EUTROPHILS 56.9 - % * A BSOLUTE NEUTROPHILS 3243 2320-9153 - cells/uL * L YMPHOCYTES 29.8 - % * A BSOLUTE LYMPHOCYTES 2308 208-3178 - cells/uL * M ONOCYTES 7.9 - % * A BSOLUTE MONOCYTES 450 200-950 - cells/uL * E OSINOPHILS 4.7 - % * A BSOLUTE EOSINOPHILS 268 15-500 - cells/uL * B ASOPHILS 0.7 - % * A BSOLUTE BASOPHILS 40 0-200 - cells/uL * M PV 10.8 7.5-12.5 - fL * Matilde Smith 01/13/2025 02:25:56 PM EST > Left vm with resultsThis lab was reviewed by Matilde Smith on 01/13/2025 at 14:26 PM EST ?LAB: HEMOGLOBIN A1c (496)* Value Reference Range H EMOGLOBIN A1c 6.5 H <5.7 - % * Matilde Smith 01/13/2025 02:25:56 PM EST > Left vm with resultsThis lab was reviewed by Matilde Smith on 01/13/2025 at 14:26 PM EST ?LAB: VITAMIN B12 (927)* Value Reference Range V ITAMIN B12 >2000 H 200-1100 - pg/mL * Matilde Smith 01/13/2025 02:25:56 PM EST > Left vm with resultsThis lab was reviewed by Matilde Smith on 01/13/2025 at 14:26 PM EST ?LAB: PSA, TOTAL (5363)* Value Reference Range P SA, TOTAL 3.36 < OR = 4.00 - ng/mL * Matilde Smith 01/13/2025 02:25:56 PM EST > Left vm with resultsThis lab was reviewed by Matilde Smith on 01/13/2025 at 14:26 PM EST 7.?Chronic atrial fibrillation?LAB: TSH W/REFLEX TO FT4 (58523)* Value Reference Range T SH W/REFLEX TO FT4 0.88 0.40-4.50 - mIU/L * Matilde Smith 01/13/2025 02:25:56 PM EST > Left vm with resultsThis lab was reviewed by Matilde Smith on 01/13/2025 at 14:26 PM EST Clinical Notes: Continue follow-up with cardiology??8.?Iron deficiency anemia due to chronic blood loss?LAB: IRON, TIBC AND FERRITIN PANEL (5616)* Value Reference Range I MARBIEL, TOTAL 193 H 50-180 - mcg/dL * I MARIBEL BINDING CAPACITY 413 250-425 - mcg/dL (c alc) * % SATURATION 47 20-48 - % (calc) * F ERRITIN 37 24-380 - ng/mL * Matilde Smith 01/13/2025 02:25:56 PM EST > Left vm with resultsThis lab was reviewed by Matilde Smith on 01/13/2025 at 14:26 PM EST ?LAB: LIPID PANEL, STANDARD (7600)* Value Reference Range T RIGLYCERIDES 77 <150 - mg/dL * C HOLESTEROL, TOTAL 127 <200 - mg/dL * H DL CHOLESTEROL 56 > OR = 40 - mg/dL * L DL-CHOLESTEROL 55 - mg/dL (calc) * C HOL/HDLC RATIO 2.3 <5.0 - (calc) * N ON HDL CHOLESTEROL 71 <130 - mg/dL (calc) * Matilde Smith 01/13/2025 02:25:56 PM EST > Left vm with resultsThis lab was reviewed by Matilde Smith on 01/13/2025 at 14:26 PM EST ?LAB: COMPREHENSIVE METABOLIC PANEL (09308)* Value Reference Range G LUCOSE 147 H 65-99 - mg/dL * U SHAGUFTA NITROGEN (BUN) 20 7-25 - mg/dL * C REATININE 1.02 0.70-1.35 - mg/dL * B UN/CREATININE RATIO SEE NOTE: 6-22 - (calc) * S ODIUM 139 135-146 - mmol/L * P OTASSIUM 4.3 3.5-5.3 - mmol/L * C HLORIDE 101 98-110 - mmol/L * C ARBON DIOXIDE 29 20-32 - mmol/L * C ALCIUM 9.8 8.6-10.3 - mg/dL * P ROTEIN, TOTAL 7.4 6.1-8.1 - g/dL * A LBUMIN 4.4 3.6-5.1 - g/dL * G LOBULIN 3.0 1.9-3.7 - g/dL (calc ) * A LBUMIN/GLOBULIN RATIO 1.5 1.0-2.5 - (calc) * B ILIRUBIN, TOTAL 1.9 H 0.2-1.2 - mg/dL * A LKALINE PHOSPHATASE 44 35-144 - U/L * A ST 15 10-35 - U/L * A LT 10 9-46 - U/L * E GFR 80 > OR = 60 - mL/min/1 .73m2 * Matilde Smith 01/13/2025 02:25:56 PM EST > Left vm with resultsThis lab was reviewed by Matilde Smith on 01/13/2025 at 14:26 PM EST ?LAB: CBC (INCLUDES DIFF/PLT) (2199)* Value Reference Range W TIGIST BLOOD CELL COUNT 5.7 3.8-10.8 - [place] d/uL * R ED BLOOD CELL COUNT 4.90 4.20-5.80 - Million/ uL * H EMOGLOBIN 15.0 13.2-17.1 - g/dL * H EMATOCRIT 46.3 38.5-50.0 - % * M CV 94.5 80.0-100.0 - fL * M CH 30.6 27.0-33.0 - pg * M CHC 32.4 32.0-36.0 - g/dL * R DW 12.2 11.0-15.0 - % * P LATELET COUNT 204 140-400 - Thousand/u L * N EUTROPHILS 56.9 - % * A BSOLUTE NEUTROPHILS 3243 1612-2634 - cells/uL * L YMPHOCYTES 29.8 - % * A BSOLUTE LYMPHOCYTES 1447 851-1636 - cells/uL * M ONOCYTES 7.9 - % * A BSOLUTE MONOCYTES 450 200-950 - cells/uL * E OSINOPHILS 4.7 - % * A BSOLUTE EOSINOPHILS 268 15-500 - cells/uL * B ASOPHILS 0.7 - % * A BSOLUTE BASOPHILS 40 0-200 - cells/uL * M PV 10.8 7.5-12.5 - fL * Matilde Smith 01/13/2025 02:25:56 PM EST > Left vm with resultsThis lab was reviewed by Matilde Smith on 01/13/2025 at 14:26 PM EST ?LAB: HEMOGLOBIN A1c (496)* Value Reference Range H EMOGLOBIN A1c 6.5 H <5.7 - % * Matilde Smith 01/13/2025 02:25:56 PM EST > Left vm with resultsThis lab was reviewed by Matilde Smith on 01/13/2025 at 14:26 PM EST ?LAB: VITAMIN B12 (927)* Value Reference Range V ITAMIN B12 >2000 H 200-1100 - pg/mL * Matilde Smith 01/13/2025 02:25:56 PM EST > Left vm with resultsThis lab was reviewed by Matilde Smith on 01/13/2025 at 14:26 PM EST ?LAB: PSA, TOTAL (5363)* Value Reference Range P SA, TOTAL 3.36 < OR = 4.00 - ng/mL * Matilde Smith 01/13/2025 02:25:56 PM EST > Left vm with resultsThis lab was reviewed by Matilde Smith on 01/13/2025 at 14:26 PM EST Clinical Notes: hopeful this will resolve since Watchman procedure and stopping OAC??9.?Screening PSA (prostate specific antigen)?LAB: IRON, TIBC AND FERRITIN PANEL (5616)* Value Reference Range I MARIBEL, TOTAL 193 H 50-180 - mcg/dL * I MARIBEL BINDING CAPACITY 413 250-425 - mcg/dL (c alc) * % SATURATION 47 20-48 - % (calc) * F ERRITIN 37 24-380 - ng/mL * Matilde Smith 01/13/2025 02:25:56 PM EST > Left vm with resultsThis lab was reviewed by Matilde Smith on 01/13/2025 at 14:26 PM EST ?LAB: LIPID PANEL, STANDARD (7600)* Value Reference Range T RIGLYCERIDES 77 <150 - mg/dL * C HOLESTEROL, TOTAL 127 <200 - mg/dL * H DL CHOLESTEROL 56 > OR = 40 - mg/dL * L DL-CHOLESTEROL 55 - mg/dL (calc) * C HOL/HDLC RATIO 2.3 <5.0 - (calc) * N ON HDL CHOLESTEROL 71 <130 - mg/dL (calc) * Matilde Smith 01/13/2025 02:25:56 PM EST > Left vm with resultsThis lab was reviewed by Matlide Smith on 01/13/2025 at 14:26 PM EST ?LAB: COMPREHENSIVE METABOLIC PANEL (91729)* Value Reference Range G LUCOSE 147 H 65-99 - mg/dL * U SHAGUFTA NITROGEN (BUN) 20 7-25 - mg/dL * C REATININE 1.02 0.70-1.35 - mg/dL * B UN/CREATININE RATIO SEE NOTE: 08-30 - (calc) * S ODIUM 139 135-146 - mmol/L * P OTASSIUM 4.3 3.5-5.3 - mmol/L * C HLORIDE 101 98-110 - mmol/L * C ARBON DIOXIDE 29 20-32 - mmol/L * C ALCIUM 9.8 8.6-10.3 - mg/dL * P ROTEIN, TOTAL 7.4 6.1-8.1 - g/dL * A LBUMIN 4.4 3.6-5.1 - g/dL * G LOBULIN 3.0 1.9-3.7 - g/dL (calc ) * A LBUMIN/GLOBULIN RATIO 1.5 1.0-2.5 - (calc) * B ILIRUBIN, TOTAL 1.9 H 0.2-1.2 - mg/dL * A LKALINE PHOSPHATASE 44 35-144 - U/L * A ST 15 10-35 - U/L * A LT 10 9-46 - U/L * E GFR 80 > OR = 60 - mL/min/1 .73m2 * Matilde Smith 01/13/2025 02:25:56 PM EST > Left vm with resultsThis lab was reviewed by Matilde Smith on 01/13/2025 at 14:26 PM EST ?LAB: CBC (INCLUDES DIFF/PLT) (7593)* Value Reference Range W TIGIST BLOOD CELL COUNT 5.7 3.8-10.8 - [place] d/uL * R ED BLOOD CELL COUNT 4.90 4.20-5.80 - Million/ uL * H EMOGLOBIN 15.0 13.2-17.1 - g/dL * H EMATOCRIT 46.3 38.5-50.0 - % * M CV 94.5 80.0-100.0 - fL * M CH 30.6 27.0-33.0 - pg * M CHC 32.4 32.0-36.0 - g/dL * R DW 12.2 11.0-15.0 - % * P LATELET COUNT 204 140-400 - Thousand/u L * N EUTROPHILS 56.9 - % * A BSOLUTE NEUTROPHILS 3243 3241-4301 - cells/uL * L YMPHOCYTES 29.8 - % * A BSOLUTE LYMPHOCYTES 8479 848-5513 - cells/uL * M ONOCYTES 7.9 - % * A BSOLUTE MONOCYTES 450 200-950 - cells/uL * E OSINOPHILS 4.7 - % * A BSOLUTE EOSINOPHILS 268 15-500 - cells/uL * B ASOPHILS 0.7 - % * A BSOLUTE BASOPHILS 40 0-200 - cells/uL * M PV 10.8 7.5-12.5 - fL * Matilde Smith 01/13/2025 02:25:56 PM EST > Left vm with resultsThis lab was reviewed by Matilde Smith on 01/13/2025 at 14:26 PM EST ?LAB: HEMOGLOBIN A1c (496)* Value Reference Range H EMOGLOBIN A1c 6.5 H <5.7 - % * Matilde Smith 01/13/2025 02:25:56 PM EST > Left vm with resultsThis lab was reviewed by Matilde Smith on 01/13/2025 at 14:26 PM EST ?LAB: VITAMIN B12 (927)* Value Reference Range V ITAMIN B12 >2000 H 200-1100 - pg/mL * Matilde Smith 01/13/2025 02:25:56 PM EST > Left vm with resultsThis lab was reviewed by Matilde Smith on 01/13/2025 at 14:26 PM EST ?LAB: PSA, TOTAL (5363)* Value Reference Range P SA, TOTAL 3.36 < OR = 4.00 - ng/mL * Matilde Smith 01/13/2025 02:25:56 PM EST > Left vm with resultsThis lab was reviewed by Matilde Smith on 01/13/2025 at 14:26 PM EST * Immunizations: Fluzone High Dose : 0.7 mL (Route: Intramuscular) given by BRITTANY Cerda on Left Deltoid (Immunization(s) administered) * Procedure Codes: 9 0662 Influenza High Dose Vaccine >65 Years Old, Units: 1.40 , G0008 ADMINISTRATION-FLU VACCINE MEDICARE ONLY, 64863 MICROALBUMIN, URINE, Modifiers: QW , G0439 ANNUAL WELLNESS VST; PPS SUBSQT VST, M1371 Mst rec gsa<7, 3017F COLORECTAL CA SCREEN DOC REV, G8417 BMI >=30 CALCUATE W/FOLLOWUP, G8510 NEGATIVE SCREENING F/U NOT REQUIRED, G9903 Pt scrn tbco id as non user, G8752 Most recent systolic blood pressure < 140mmhg, G8754 Most recent diastolic blood pressure < 90mmhg, G9744 PATIENT NOT ELIG D/T ACTIVE DX HTN, 1124F ADVANCED DIRECTIVE - NO LIVING WILL * Preventive Medicine: Counseling: L iving will D oes not have living will. GENO Screening: F alls: Future screening for fall risks H ave you had two or more falls in the past year? N o, H ave you had any falls with injury in the past year? N o. Depression Screening: P HQ 2 F eeling down depressed or hopeless N o. Immunizations: i nfluenza H ave you had a flu shot since the most recent November 09 ? Y es. P neumonia vaccine: Status for Older Adults A re you up-to-date on your pneumonia vaccine? yes or no y es, PCV 20. T dap U TD. S hingrix U TD. C OVID Completed series. R SV vaccination C ompleted for season. Screening / Special Tests: C olonoscopy 2 024. P SA N o Family History, No symptoms. L bebeto Cancer Screening N ot indicated - nonsmoker. * Follow Up: 6 Months * * Sign off status: Completed true * Provider: ELLIOTT Cantrell Date: 03/13/2024 Generated for Paul smith/Iker/Brittney on: 04/03/2024 07:42 AM EST History and Physical Notes * Examination Category Sub-Category Detail Notes Category Not es General Examination Heart: RRR, 2/6 systolic mur mur Lungs: LCTAB, No wheezes, c rackles or rhonchi, Good air movement, Abdomen: soft, BS present Extremities: no clubbing, no rachelle a,, no foot lesions, Skin: without acute rashes Neurologic Exam: Alert and oriented x 3 Peripheral pulses: normal (2+) bilatera lly neck supple,, no thyromeg liang,, no lymphadenopathy, General [place] and [place] t[place], NAD on RA, Psych Normal Mood/Affect
--- OUTSIDE RECORDS SUMMARY | 2025-01-29 09:35 | XMS_ITS | Encounter Summary ---
Author Organization [facility] Address [address] [place] [id number] Care Team Providers Care Manager Corporate Strategy Name Role Phone Deo Larsen MD Primary Care Provider [phone] Reason for Visit * Diagnostic Imaging (Routine) - Closed Specialty Diagnoses / Procedures Referred By Ema shipman Referred To Contact Diagnoses Longstanding persistent atrial fibrillation Procedures Adult Transesophageal Echo 3D (DAVID) W/ Cont If Necessary Per Protocol Adult Transesophageal Echo (DAVID) W/ Cont if Necessary Per Protocol ND ECHO TRANSESOPHAG R-T 2D W/PRB IMG SOFIA I&R Tara Fajardo PA [address] [facility] [address] [facility] [address] [place] [address] Phone: tel: fax: [facility] [address] [place] [address] Phone: tel: Referral ID Status Reason Start Date Expiration Date Visits Re quested Visits Authorized [id number] Closed 12/22/2024 03/23/2026 1 1 Encounter Details Date Type Department Care Team (Late st Contact Info) Description 01/29/2025 9:35 AM EST - 01/29/2025 11:59 PM EST Hospital Encounter [facility] [address] [facility] 3rd [place] [address] Daniel Bethea MD [address] [facility] [address] [place] [address] Longstanding persistent atrial fibrillation Discharge Disposition: Home or Self Care Social [...] or training? Not on file Preferred Language Citizen Of [place] 12/11/2024 Sex and Gender Information Value Date Recorded Sex Assigned at Male 12/07/2024 10:00 AM EDT Legal Sex Male 1:21 PM EDT Gender Identity Not on file Sexual Orientation Straight 12/07/2024 10 :00 AM EDT documented as of this encounter Last Filed Vital Signs Vital Sign Reading Time Taken Comments Blood Pressure 95/65 01/29/2025 11:15 AM EST Pulse 57 01/29/2025 11:15 AM EST Temperature - - Respiratory Rate 16 01/29/2025 11:15 AM EST Oxygen Saturation 98% 01/29/2025 11:15 AM EST Inhaled Oxygen Concentration - - Weight - - Height - - Body Mass Index - - documented in this encounter Discharge Instructions * Attachments The following attachments cannot be sent through Care Everywhere. * Transesophageal Echocardiogram (Citizen Of [place]) * Moderate Conscious Sedation Adult Care After (Citizen Of [place]) documented in this encounter Medications at Time [...] as of this encounter H&P Notes * Kailey Ross APRN - 01/29/2025 10:00 AM EST Pre-Procedure History and Physical [facility] Patient: Tomas Azul : 1955 PCP: Deo Larsen MD PHONE: [phone] DATE: 01/29/2025 ID: Tomas Azul is a 69 y.o. male from [place], [place]. CC: Persistent atrial fibrillation, 45-day s/p watchman follow-up DAVID PROBLEM LIST: Persistent Atrial Fibrillation CHADsVasc= 3 (HTN, DM, [...] 60%, mild calcification of the aortic valve S/p 27 mm watchman LAAOD with Dr. Garza on 12/22/2024. HTN HLD Iron deficiency anemia with unknown GI blood loss. Multiple iron transfusions in the past. 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 male who present today for 45-day post left atrial appendage occlusive devise implant DAVID. Patient past medical history significant for persistent atrial fibrillation with [id number] score of 3. Patient has a history of chronic iron deficiency with unknown GI blood loss who has been deemed a poor long-term oral anticoagulant candidate who underwent LAAOD placement with Dr. Garza. Patient is on aspirin therapy. 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 Hold Flecainide 4 days prior and Eliquis one day prior.; Surgeon: Willy Garza MD; Location: [facility] LOCATION; Service: Cardiovascular; Laterality: N/A; CARDIOVERSION COLONOSCOPY ROTATOR CUFF REPAIR Left Allergies: No Known Allergies MEDICATIONS: Current Outpatient Medications Medication Instructions aspirin 81 mg, Oral, Daily B-D 3CC LUER-SERGE SYR 23GX1 23G X 1 3 ML misc No dose, route, or frequency recorded. Continuous Glucose Sensor (TopVisible [place] 3 Plus Sensor) Use. Cyanocobalamin 1,000 mcg, Every 14 Days gabapentin (NEURONTIN) 200 mg, Every Night at Bedtime Iron, Ferrous Sulfate, 325 (65 Fe) MG tablet Take 1 tablet by mouth Daily. lisinopril-hydrochlorothiazide (PRINZIDE,ZESTORETIC) 20-12.5 MG per tablet 1 tablet, Oral, Every Morning Magnesium Oxide -Mg Supplement ([employer] Magnesium) 500 MG tablet Take 1 tablet by mouth Daily. meloxicam (MOBIC) 7.5 mg, Every 24 Hours metFORMIN (GLUCOPHAGE) 1,000 mg, Daily Metoprolol Succinate 50 mg, Every Morning Mounjaro 12.5 mg, Weekly rosuvastatin (CRESTOR) 10 mg, Daily Tirzepatide (MOUNJARO SC) Inject under the skin into the appropriate area as directed. Past medical & surgical history, social and family history reviewed in the electronic medical record. ROS: Pertinent positives listed in the HPI and problem list above. All others reviewed and negative. Physical Exam: BP 126/73 Pulse 59 Resp 18 SpO2 96% Constitutional: Alert, cooperative, in no acute distress Neck: No Jugular venous distention, adenopathy, or thyromegaly noted. Heart: Irregularly irregular rhythm and normal rate, normal S1 and S2, no murmur, gallops, rubs, or clicks. No distinct PMI noted. Lungs: Clear to auscultation bilaterally, respirations regular, even and unlabored Abdomen: Soft nontender, nondistended, normal bowel sounds Extremities: No gross deformities, no edema, clubbing, or cyanosis. Pulses: Peripheral pulses palpable and equal bilaterally. Labs and Diagnostic Data: No results found for: CHOL , TRIG , HDL , LDL , AST , ALT EKG/Tele: Atrial fibrillation Assessment & Plan Persistent atrial fibrillation, s/p 27 mm Watchman FLX Pro on 12/22/[address] Garza. Will proceed to transesophageal echocardiogram. Risks, benefits, and alternatives of the procedure were discussed with the patient who verbalized understanding and wishes to proceed. Further recommendations to follow procedure. Kailey Ross APRN Cosigned by Daniel Bethea MD at 01/29/2025 10:08 AM EST Associated attestation - Daniel Bethea MD - 01/29/2025 10:08 AM EST I have reviewed this documentation and agree. documented in this encounter Plan of Treatment Upcoming Encounters Date Type Department Care Team (Late st Contact Info) Description 03/31/2025 2:00 PM EST Office Visit [facility] [address] [facility] [address] [place] [phone] Elmer Olea PA [address] [facility] [address] [place] [address] [place], [place] [id number] 06/25/2025 12:30 PM EDT Telemedicine [facility] [address] [facility] [address] [place] [address] Nathan Sherman APRN [address] [facility] [address] [place] [address] 01/12/2026 1:45 PM EST Office Visit [facility] [address] [facility] [address] [place] [address] Willy Garza MD [address] [facility] [address] [place] [address] [place] [address] documented as of this encounter Procedures Procedure Name Priority Date/Time Associated Diagnosis Comments DAVID W/ COMPLETE DOPPLER, COLOR AND 3D Routine 01/29/2025 9:50 AM EST Longstanding persistent atrial fibrillation documented in this encounter Results * DAVID W/ COMPLETE DOPPLER, COLOR AND 3D (01/29/2025 9:50 AM EST) Anatomical Region Laterality Modality Other Narrative 01/29/2025 2:08 PM EST Images from the original result were not included. There is a 27mm Watchman FLX Pro device in place at the ISH ostium. It appears well seated and well compressed with no yung-prosthetic flow or device related thrombus seen. Left ventricular systolic function is normal. Left ventricular ejection fraction appears to be 56 - 60%. Normal left ventricular cavity size and wall thickness noted. All left ventricular wall segments contract normally. No aortic valve regurgitation or stenosis is present. There is mild calcification of the aortic valve. The aortic valve appears trileaflet. Mild mitral annular calcification is present. Trace mitral valve regurgitation is present. No significant mitral valve stenosis is present. Left Ventricle Left ventricular systolic function is normal. Left ventricular ejection fraction appears to be 56 - 60%. Normal left ventricular cavity size and wall thickness noted. All left ventricular wall segments contract normally. Right Ventricle Normal right ventricular cavity size and systolic function noted. Left Atrium The left atrial cavity is dilated. There is a 27mm Watchman FLX Pro device in place at the ISH ostium. It appears well seated and well compressed with no yung- prosthetic flow or device related thrombus seen. No evidence of an atrial septal defect present. There were 1 pulmonary veins interrogated. Systolic blunting of pulmonary venous inflow. Right Atrium The right atrial cavity is dilated. Mitral Valve Mild mitral annular calcification is present. Trace mitral valve regurgitation is present. No significant mitral valve stenosis is present. Tricuspid Valve The tricuspid valve is structurally normal with no significant stenosis present. Physiologic tricuspid valve regurgitation is present. Aortic Valve No aortic valve regurgitation or stenosis is present. The aortic valve is abnormal in structure. There is mild calcification of the aortic valve. The aortic valve appears trileaflet. Pulmonic Valve The pulmonic valve is grossly normal in structure. There is no significant pulmonic valve regurgitation present. Pericardium The pericardium is normal. There is no evidence of pericardial effusion. . Greater Vessels No dilation of the aortic root is present. No dilation of the proximal aorta is present. There is (grade 2) plaque in the proximal aorta present. There is evidence of proximal aorta sclerosis/calcification present. No dilation of the aortic arch is present. There is mild plaque in the aortic arch present. No dilation of the descending aorta present. There is mild plaque in the descending aorta present. Study Quality The study is technically good for diagnosis. Atrial fibrillation was the predominant rhythm observed during the procedure. DAVID Procedure Details 3D rendering, reconstruction & interpretation was performed under concurrent supervision. The 3D imaging probe was used to image the heart. Acquisitions were captured in real-time 3D and full volume to assess AV anatomy. Informed consent for Transesophageal Echocardiogram, and use of contrast as needed, was obtained prior to the procedure. Patient was noted to be in a fasting state, with a peripheral IV in place. A bite block was placed for probe protection. Moderate sedation was utilized. An immediate assessment was done prior to the administration of moderate sedation. Under my direct supervision, intravenous moderate sedation was administered during the course of this procedure with continuous monitoring of hemodynamic parameters and level of consciousness by an independent, trained observer. The independent trained observer was Neno Burrell. Physician in room time: 10:09 EST Physician out of room time: 10:41 EST Total intraservice time was: 32 minutes The following medication(s) were administered during the procedure: 125 mcg of Fentanyl 5 mg of Versed An adult multi-frequency, multiplane transesophageal echocardiographic endoscope was inserted and manipulated in the standard fashion to achieve multiplane views. Transesophageal probe was able to be passed without difficulty. Usual basal, mid-esophageal, transgastric, and aortic views were obtained. The patient's vital signs, including blood pressure, heart rate, pulse oximetry, and cardiac rhythm were monitored throughout the procedure. Vitals signs remained stable throughout the study. The patient tolerated the procedure without evidence of oropharyngeal or esophageal trauma. us Tara GARIBAY CV ECHO ORDERABLES Final Resul t documented in this encounter Visit Diagnoses Diagnosis Longstanding persistent atrial fibrillation documented in this encounter Administered Medications Inactive Administered Medications - up to 3 most recent administrations Medication Order MAR Action Action Date Dose Rate Site fentaNYL citrate (PF) (SUBLIMAZE) injection Code / Trauma / Sedation Medication, Starting on Sat01/29/25 at 1009 Given 01/29/2025 10:24 AM EST 25 mcg Given 01/29/2025 10:21 AM EST 25 mcg Given 01/29/2025 10:17 AM EST 25 mcg midazolam (VERSED) injection Code / Trauma / Sedation Medication, Starting on Sat01/29/25 at 1009 Given 01/29/2025 10:28 AM EST 1 mg Given 01/29/2025 10:24 AM EST 1 mg Given 01/29/2025 10:21 AM EST 1 mg documented in this encounter Care Teams Manager Corporate Strategy Relationship Specialty Start Date End Date Deo Larsen MD [address] [facility] [address] [facility] [place] [address] PCP - General Adolescent Medicine 11/18/20 documented as of this encounter
--- OUTSIDE RECORDS SUMMARY | 2025-02-01 07:40 | XMS_ITS | Data Portability ---
Author Organization [place] [facility] [place] [facility] Address [address] [facility] [address] [place] [address] Assessment No assessment recorded. Plan of Treatment Reminders Order Date Submit Date Provider Last Modified By Organization Details Last Modified Time Details Appointments None recorded. Lab surgical pathology study - EXCISION: R/O SCC CHECK FOR CLEAR MARGINS BIOPSY PROVEN 2024 025 [facility], [address] [place] [address], [phone], 11:49:57 Referral None recorded. Procedures None recorded. Surgeries excision of lesions (SURG) 2024 025 [email or web address] 03 [facility], [address] [place] [address], [phone], 5 11:39:50 excision of lesions (SURG) 2024 025 [email or web address] Not available 11:01:24 Imaging None recorded. Medication Orders None recorded. Patient TargetsNo targets recorded. Patient Instructions Encounter Date Encounter Id Patient Instructions Last Modified By Organization Details Last Modified Time 08/13/2024 [id number] Patient tolerate d procedure well and was given wound care instructions. Once pathology comes back, patient will be notified of results. [email or web address] Not available 08/13/2024 15:49:16 Reason for Referral None Reported. Results Created Date Observation Date Name Description Value Unit Range Abnormal Flag Note LastModifiedBy Organization Detail LastModifiedTime 08/14/19 25 08/13/2024 SURGI RODRIGUEZ surgical SEE BELOW abnormal [place] topat holog y Repor t NAME: ROSHAN AZUL PATH: [id number] PROCE DURE DATE: 08/13 SIGNO UT DATE: 08/17 Copy to: Diagn osis: Right forea rm- SQUAM OUS CELL CARCI NOMA Comme nt: The wander ns are free of tumor . Subcu taneo us fat is ident ified . AJCC: T1, Nx, Mx SOURC E OF SPECI MEN: SKIN, R FOREA RM CLINI RODRIGUEZ INFOR MATIO N: BX PROVE N: SCC. CHECK FOR CLEAR WANDER NS. Gross Descr iptio n: Recei cm times one pace ellip tical -shap ed excis ion which measu red 49 x 15 x 6 mm. Speci men is inked with blue dye for wander ns and seria lly secti oned (x17) . All is submi tted in six casse ttes. Micro scopi c Descr iptio n: Irreg ular islan ds and nests of cytol ogica lly atypi rodriguez kerat inizi ng epith elial cells infil trate the dermi s. VIRIDIANA REESE MD Karen d Out Date: 08/17 11:49 1 Not Available [facility] [address] [facility], [place], [phone], 08/17/2024 11:49:56 Result Notes None recorded. Procedures Surgical History Date Name Laterality Status Provider Name and Address Organization Details Recorded Time 08/13/2024 DAK - Lesion Excision, [place]; trunk,arms, legs completed Robel Lindsey [facility] 08/13/2024 15:48:52 07/09/2024 DAK - Cryo AK completed Randal May [facility] 07/09/2024 10:33:46 Imaging Results None recorded. Procedure Notes None recorded. Medical Equipment None Reported. Allergies No known drug allergies Medications Name Sig Start Date Stop Date Status Note LastModified by Organization Details LastModified Time Glucophage 500 mg tablet Two times a day active Frequency: bid;Medica tion Descriptio n: metformin; Dosage:1; Route:oral ; refills:0 Not Available Not Available Not Available hydrochlor othiazide 50 mg tablet active Medication Descriptio n: hydrochlor othiazide; Route:oral ; refills:0 Not Available Not Available Not Available lisinopril 20 mg tablet Bedtime active Frequency: hs;Medicat ion Descriptio n: lisinopril ; Dosage:1; Route:oral ; refills:0 Not Available Not Available Not Available metoprolol succinate active Not Available Not Available No t Available metformin active Not Available Not Summer ilable Not Available glimepirid e active Medication Descriptio n: glimepirid e; Route:oral ; refills:0 Not Available Not Available Not Available gabapentin active Not Available Not Av ailable Not Available Mounjaro active Not Available Not Avai lable Not Available Vitals Date Recorded Body temperature Body temperature Systolic And Diastolic Systolic And Diastolic Provider Name and Address Organization Details Last Updated DateTime 5 97.2 [degF] 97.4 [degF] 114/76 mm[Hg] 128/79 mm[Hg] [facility] 5 15:54:05 Social History Question Answer Notes LastModified by Organizat ion Details LastModified Time What Was The Date Of Your Most Recent Tobacco Screening? 07/09/2024 [email or web address] Information not available 07/09/2024 Sex: Unknown Functional Status None recorded. Mental Status None recorded. Family History Nothing Reported. Medical History No medical history recorded. Past Encounters Encounter ID Performer Location Encounter Start Date Encounter Closed Date Diagnosis/Indication Diagnosis SNOMED-CT Code Diagnosis ICD10 Code Diagnosis IMO Codes Diagnosis Note [id number] LIZ TAVARES MD [facility] [address] [place] [address] 07/09/2024 09:41:10 07/09/2024 10:42:45 Squamous cell carcinoma of upper extremity [id number] C44.622 [id number] Biopsy proven SCC, moderately differenti ated on patient R dorsal forearm [place] derm [place] [facility] by Kimberly Ba with [facility] age sent to team to retrieve biopsy results from abovePt was referred to general surgeon Dr. Beck but [facility] mm margin excision recommende d, order sent to surgical coordinato r todayPt to contact with any change or concerns Multiple a ctinic keratoses [id number] L57.0 244834 Actinic keratoses are precancero us lesions that may progress to squamous cell carcinoma if untreated. UV light and genetics may increase risk. Treated lesions should blister, scab over, and heal within a few weeks.-Dis cussed treatment options including cryotherap y, and topical field therapy with 5-FU. Patient elected cryotherap y. If does not resolve within 1-2 months, patient agrees to follow up for re-evaluat ion and potential biopsy [id number] LIZ TAVARES MD [address] [address] 07/15/2024 12:28:30 07/15/2024 14:19:34 Multiple benign melanocytic nevi [id number] D22.9 [id number] Benign appearing lesions.Poole n protection discussed. Look for physical varsha sunscreens with at least SPF 30 containing zinc oxide or titanium dioxide as active ingredient . This helps avoid risks inherent to chemical sunscreens including photoaller gic, phototoxic , allergic contact and irritant contact dermatitis .Recommend monthly self examinatio ns and yearly full skin examinatio n with a dermatolog y provider.P atient instructed to call with any concerns or changing lesions. Squamous c ell carcinoma of upper extremity [id number] C44.622 [id number] Biopsy proven SCC, moderately differenti ated on patient R dorsal forearm from derm at [facility].Walter tos of path uploaded in this chart. Clinical photo obtained at last visit.4-6 mm margin excision recommende d, order sent to surgical coordinato r.Pt to contact with any change or concerns [id number] LEISA GALDAMEZ MD [address] [address] 08/13/2024 13:41:23 08/19/2024 09:58:42 Squamous cell carcinoma of upper extremity [id number] C44.818 [id number] Health Concerns Section Related Observation LastModified by Organization Detai ls LastModified Time None Recorded Concern Status LastModified by Organization Details LastModified Time None Recorded Advance Directives Directive None Recorded Payers Insurance Date Sequence Insurance Name Policy Number Policy Ascencio Covered Member ID Ascencio Member ID Guarantor Name 07/09/2024 2 [employer] Tomas Azul [id number] Tomas Azul 08/18/2024 2 [employer] SUPPLEMENTAL - [employer]UR[employer] (MEDICARE SUPPLEMENT) Tomas Azul [id number] Tomas Azul 07/09/2024 2 [employer]ARE (MEDICARE SUPPLEMENT) Tomas Azul [id number] Tomas Azul 08/10/2024 1 [place] Tomas Azul [id number] Tomas Azul Notes Date Note Type Note Provider Name and Address Organization Details Recorded Time 07/09/2024 text/html ROS as noted in the HPI spot of concernlocation: R Armduration: 2 monthsreports: [place] it was proven to be a a SCC. They decided to come here instead of Dr. Beck ( general surgeon ) office in [place]. LIZ TAVARES MD [address] [place] [address], [phone], [facility] 07/11/2024 14:31:58 07/15/2024 text/html Here for a full body skin examination - first skin check - history of skin cancer - SCCon R dorsal wrist - last skin cancer was in 06/2024 - spots of concern today: none LIZ TAVARES MD [address] [place] [address], [phone], [facility] 07/15/2024 21:08:24 08/13/2024 text/html ROS as noted in the HPI Patient presents for an excision to treat a SCC on the right forearm. PREOP CHECKLIST 1. Pacemaker or Defibrillator? NO2. Artificial heart valve or joints? NO3. Pt currently on antibiotic? NONotes:4. History of bleeding, infection or complications with other surgeries? NO5. Med history, medications and allergies reviewed? YES6. Has pt taken Immunosuppressive meds (imuran, cyclosporine, mycophenolate, chemo etc.?, or steroids in last 2 weeks? NO7. Prearranged Closure?Notes:8. Have a ride home? YESNotes:jagdish GALDAMEZ MD [address] [place] [address], [phone], [facility] 08/14/2024 16:32:08
--- OUTSIDE RECORDS SUMMARY | 2025-02-01 07:40 | XMS_ITS | Encounter Summary ---
[facility] [address] [place] [address] Care Team Providers Care Motion Picture Cameraman Name Role Phone Deo Larsen MD Primary Care Provider [phone] Reason for Visit * Reason Onset Date Comments PCI/Device 12/23/2024 Encounter Details Date Type Department Care Team (Late st Contact Info) Description 12/23/2024 Call Center Programs [facility] [address] [place] [phone] Subhash Alfaro, RN Social History Tobacco Use Types Packs/Day Years [...] or training? Not on file Preferred Language Filipino 12/11/2024 Sex and Gender Information Value Date Recorded Sex Assigned at Male 12/07/2024 10:00 AM EDT Legal Sex Male 1:21 PM EDT Gender Identity Not on file Sexual Orientation Straight 12/07/2024 10 :00 AM EDT documented as of this encounter Miscellaneous Notes * Outreach Note - Subhash Alfaro RN - 12/23/2024 8:48 AM EDT Images from the original note were not included. PCI/Device Survey Flowsheet Row Responses Facility patient discharged from? [facility] Procedure date 12/22/24 Procedure (if device, specify in description) Device Device Description atrial appendage occlusive device insertion. Performing MD Dr. Willy Garza Attempt successful? Yes Call start time [phone] Call end time 907 Person spoke with today (if not patient) and relationship Patient Has the patient had any of the following symptoms since discharge? -- [No issues.] Is the patient taking prescribed medications: ASA Nursing intervention Reminded to continue to take prescribed medications, Nurse provided patient education Medication comments Xarelto stopped Does the patient have any of the following symptoms related to the cath/surgical site? -- [Dressingdry and intact with no s/s oozing or infection.] Nursing intervention Patient education provided Does the patient have an appointment scheduled with the bottle sorter? No Appointment comments He will see Cardiology in 45 days If the patient is a current smoker, are they able to teach back resources for cessation? Not a smoker Did the patient feel prepared to go home on the same day as the procedure? Yes Is the patient satisfied with the same day discharge process? Yes PCI/Device call completed Yes Wrap up additional comments Patient is doing well Subhash Wright - Registered Nurse documented in this encounter Plan of Treatment Upcoming Encounters Date Type Department Care Team (Late st Contact Info) Description 03/31/2025 2:00 PM EST Office Visit [facility] [address] [facility] [address] [place] [phone] Elmer Olea PA [address] [facility] [address] [place] [address] 06/25/2025 12:30 PM EDT Telemedicine [facility] [address] [facility] [address] [place] [id number] Nathan Sherman APRN [address] [facility] [address] [place] [address] 01/12/2026 1:45 PM EST Office Visit [facility] [address] [facility] [address] [place] [phone] Willy Garza MD [address] [facility] [address] [place] [address] documented as of this encounter Visit Diagnoses Not on filedocumented in this encounter Care Teams Motion Picture Cameraman Relationship Specialty Start Date End Date Deo Larsen MD [address] [facility] [address] [place] [address] PCP - General Adolescent Medicine 11/18/20 documented as of this encounter
--- OUTSIDE RECORDS SUMMARY | 2025-02-01 07:41 | XMS_ITS | Patient Health Record ---
Author Organization [facility] Address [address] [place] [address] Care Team Providers Care Reformatory Attendant Name Role Phone Deo Larsen Primary Care Provider Jesenia Kimberly Unavailable [phone] Migration, Provider Unavailable Unavailable Allergies No Known Allergies Results Component Value Reference Range Notes Microalbumin (In-House) Reviewed date:01/11/2025 11:50:13 AM Interpretation:Normal Performing Lab: Notes/Report: Normal ALB 10mg CRE 300mg A:C <30mg IRON, TIBC AND FERRITIN PANE L (5616) Reviewed date:01/13/2025 02:26:16 PM Interpretation: Performing Lab:LI[email or web address] [address], [place] NetworkKrmxYT[address] Velma Simmons Notes/Report: NON-FASTING; NON-FASTING; NON-FASTING; NON-FASTING; NON-FAST FASTING:YES FASTING: YES IRON, TOTAL 193 50-180 mcg/dL IRON BINDING CAPACITY 413 250-425 mcg/dL (rodriguez c) % SATURATION 47 20-48 % (calc) FERRITIN 37 24-380 ng/mL LIPID PANEL, STANDARD (7600) Reviewed date:01/13/2025 02:26:16 PM Interpretation: Performing Lab:LI[facility]AH [facility] [address], [place] NetworkTdmcDE[address] Velma Simmons Notes/Report: NON-FASTING; NON-FASTING; NON-FASTING; NON-FASTING; NON-FAST [...] of LDL-C. Sal SS et al. ALLAN. 2013;310(56): 8374-1339 (http://education.Artimplant AB.Earth Class Mail/faq/PYN445) CHOL/HDLC RATIO 2.3 <5.0 (calc) NON HDL CHOLESTEROL 71 <130 mg/dL (calc) For patients with diabetes plus 1 major ASCVD risk factor, treating to a non-HDL-C goal of <100 mg/dL (LDL-C of <70 mg/dL) is considered a therapeutic option. COMPREHENSIVE METABOLIC JESSICA Abdi ([id number]) Reviewed date:01/13/2025 02:26:16 PM Interpretation: Performing Lab:CB, [address] Cgoq0494 [facility], Jared HarveySuslCH[address] Velma Simmons Notes/Report: NON-FASTING; NON-FASTING; NON-FASTING; NON-FASTING; NON-FAST [...] Reviewed date:01/13/2025 02:26:16 PM Interpretation: Performing Lab:LIYAH [address] Networke[address] [employer], [place] ShwmUV[address] Velma Simmons Notes/Report: NON-FASTING; NON-FASTING; NON-FASTING; NON-FASTING; NON-FAST [...] MPV 10.8 7.5-12.5 fL ABSOLUTE NEUTROPHILS 3243 2549-5171 cells/uL ABSOLUTE LYMPHOCYTES 7206 752-8431 cells/uL ABSOLUTE MONOCYTES 450 200-950 cells/uL ABSOLUTE EOSINOPHILS 268 15-500 cells/uL ABSOLUTE BASOPHILS 40 0-200 cells/uL NEUTROPHILS 56.9 LYMPHOCYTES 29.8 MONOCYTES 7.9 EOSINOPHILS 4.7 BASOPHILS 0.7 HEMOGLOBIN A1c (496) Reviewed date:01/13/2025 02:26:16 PM Interpretation: Performing Lab:LIYAH [address] Net[address]ke[address] [employer], WhenU.comRxqmMO[address] Velma Simmons Notes/Report: NON-FASTING; NON-FASTING; NON-FASTING; NON-FASTING; NON-FAST [...] Reviewed date:01/13/2025 02:26:16 PM Interpretation: Performing Lab:LIYAH, [address] T[address] [facility], WhenU.comKighRK[address] Velma Simmons Notes/Report: NON-FASTING; NON-FASTING; NON-FASTING; NON-FASTING; NON-FAST FASTING:YES FASTING: YES VITAMIN B12 >2000 200-1100 pg/mL PSA, TOTAL (5363) Reviewed date:01/13/2025 02:26:17 PM Interpretation: Performing Lab:LIYAH [address] [address], WhenU.comYhegCT[address] Velma Simmons Notes/Report: NON-FASTING; NON-FASTING; NON-FASTING; NON-FASTING; NON-FAST [...] absence of disease. TSH W/REFLEX TO FT4 (38720) Reviewed date:01/13/2025 02:26:17 PM Interpretation: Performing Lab:LIYAH [address], [place] MgavES[address] Velma Simmons Notes/Report: NON-FASTING; NON-FASTING; NON-FASTING; NON-FASTING; NON-FAST FASTING:YES FASTING: YES TSH W/REFLEX TO FT4 0.88 0.40-4.50 mIU/L TISSUE PATHOLOGY (3542) Reviewed date:06/23/2024 09:57:15 AM Interpretation: Performing Lab:PETE [address]-Odmyabccqn[address] Velma Simmons Notes/Report: NON-FASTING CLINICAL INFORMATION None gi maximino PATHOLOGIST Loc Syed M.D., Board Certified in Anatomic Pathology and Clinical Pathology (electronic signature) A SOURCE Skin, right for earm, biopsy A GROSS DESCRIPTION Specimen is received in 10% neutral buffered formalin, labeled with multiple patient identifiers and consists of one piece from a skin shave biopsy measuring 0.7 x 0.5 x 0.2 cm, irregular in shape and pace-parikh in color, with a pigmented area measuring 0.4 x 0.3 cm and pace-brown in color. The margins are inked green. The specimen is trisected and entirely submitted in one cassette. Gross exam(s) performed at: [facility] [address] [address] Rehab Tech: VELMA SIMMONS MD A DIAGNOSIS Squamous cell carcinoma, moderately differentiated, extending to the biopsy margins. A COMMENT The base of the lesion is not observed. Please correlate and follow clinically. MAGNESIUM (622) Reviewed date:07/15/2024 02:21:12 PM Interpretation: Performing Lab:Mario PELLETIER [address] [facility], [facility] HospitalLrrmIC[address] Velma Simmons Notes/Report: NON-FASTING; NON-FASTING; NON-FASTING; NON-FASTING; NON-FAST FASTING:YES FASTING: YES MAGNESIUM 1.7 1.5-2.5 mg/dL HEMOGLOBIN A1c (496) Reviewed date:07/15/2024 02:21:12 PM Interpretation: Performing Lab:LIYAH [address], [facility] HospitalXjomOR[address] Velma Simmons Notes/Report: NON-FASTING; NON-FASTING; NON-FASTING; NON-FASTING; NON-FAST FASTING:YES FASTING: YES HEMOGLOBIN A1c 7.1 <5.7 % For someone without known diabetes, [...] A1c for diagnosis of diabetes for children. COMPREHENSIVE METABOLIC PANE Jin (23068) Reviewed date:07/15/2024 02:21:11 PM Interpretation: Performing Lab:LIYAH [address] Lzsr6936 [employer], WhenU.comWtlaVY[address] Velma Simmons Notes/Report: NON-FASTING; NON-FASTING; NON-FASTING; NON-FASTING; NON-FAST FASTING:YES FASTING: YES GLUCOSE 138 65-99 mg/dL Fasting reference interval For someone without known diabetes, a glucose value >125 mg/dL indicates that they may have diabetes and this should be confirmed with a follow-up test. UREA NITROGEN (BUN) 19 7-25 mg/dL CREATININE 0.90 0.70-1.35 mg/dL EGFR 94 > OR = 60 mL/min/1.73m2 BUN/CREATININE RATIO SEE NOTE: 6-22 (calc) Not Reported: BUN and Creatinine are within reference range. SODIUM 137 135-146 mmol/L POTASSIUM 4.2 3.5-5.3 mmol/L CHLORIDE 99 98-110 mmol/L CARBON DIOXIDE 28 20-32 mmol/L CALCIUM 9.7 8.6-10.3 mg/dL PROTEIN, TOTAL 7.6 6.1-8.1 g/dL ALBUMIN 4.7 3.6-5.1 g/dL GLOBULIN 2.9 1.9-3.7 g/dL (calc) ALBUMIN/GLOBULIN RATIO 1.6 1.0-2.5 (calc) BILIRUBIN, TOTAL 1.4 0.2-1.2 mg/dL ALKALINE PHOSPHATASE 40 35-144 U/L AST 15 10-35 U/L ALT 10 9-46 U/L VITAMIN B12 (927) Reviewed date:07/15/2024 02:21:12 PM Interpretation: Performing Lab:LIYAH, [address] [facility] [id number], [place] NetworkNabnRZ[address] Velma Simmons Notes/Report: NON-FASTING; NON-FASTING; NON-FASTING; NON-FASTING; NON-FAST FASTING:YES FASTING: YES VITAMIN B12 229 579-9144 pg/mL LIPID PANEL, STANDARD (7600) Reviewed date:07/15/2024 02:21:11 PM Interpretation: Performing Lab:LIYAH [address] [employer], [facility] HospitalJofhLC[address] Velma Simmons Notes/Report: NON-FASTING; NON-FASTING; NON-FASTING; NON-FASTING; NON-FAST FASTING:YES FASTING: YES CHOLESTEROL, TOTAL 119 <200 mg/dL HDL CHOLESTEROL 52 > OR = 40 mg/dL TRIGLYCERIDES 103 <150 mg/dL LDL-CHOLESTEROL 48 Reference range: <100 Desirable range <100 mg/dL for primary prevention; <70 mg/dL for patients with CHD or diabetic patients with > or = 2 CHD risk factors. LDL-C is now calculated using the Verito calculation, which is a validated novel method providing better accuracy than the Friedewald equation in the estimation of LDL-C. Sal SS et al. ALLAN. 2013;310(19): 3239-4876 (http://education.Artim[employer] AB.Earth Class Mail/faq/MUM782) CHOL/HDLC RATIO 2.3 <5.0 (calc) NON HDL CHOLESTEROL 67 <130 mg/dL (calc) For patients with diabetes plus 1 major ASCVD risk factor, treating to a non-HDL-C goal of <100 mg/dL (LDL-C of <70 mg/dL) is considered a therapeutic option. CBC (INCLUDES DIFF/PLT) (639 9) Reviewed date:07/15/2024 02:21:12 PM Interpretation: Performing Lab:LIYAH [address] [id number] [employer], [facility] HospitalXbvzTA[address] Velma Simmons Notes/Report: NON-FASTING; NON-FASTING; NON-FASTING; NON-FASTING; NON-FAST FASTING:YES FASTING: YES WHITE BLOOD CELL COUNT 6.6 3.8-10.8 Thousand/ uL RED BLOOD CELL COUNT 5.15 4.20-5.80 Million/uL HEMOGLOBIN 14.8 13.2-17.1 g/dL HEMATOCRIT 45.7 38.5-50.0 % MCV 88.7 80.0-100.0 fL MCH 28.7 27.0-33.0 pg MCHC 32.4 32.0-36.0 g/dL For adults, a slight decrease in the calculated MCHC value (in the range of 30 to 32 g/dL) is most likely not clinically significant; however, it should be interpreted with caution in correlation with other red cell parameters and the patient's clinical condition. RDW 15.2 11.0-15.0 % PLATELET COUNT 212 140-400 Thousand/uL MPV 10.7 7.5-12.5 fL ABSOLUTE NEUTROPHILS 3815 7919-2503 cells/uL ABSOLUTE LYMPHOCYTES 2033 850-3900 cells/uL ABSOLUTE MONOCYTES 502 200-950 cells/uL ABSOLUTE EOSINOPHILS 211 15-500 cells/uL ABSOLUTE BASOPHILS 40 0-200 cells/uL NEUTROPHILS 57.8 LYMPHOCYTES 30.8 MONOCYTES 7.6 EOSINOPHILS 3.2 BASOPHILS 0.6 Medications Medication SIG (Take, Route, Frequency, Duration) Notes Start Date End Date Status metFORMIN HCl 1000 MG 1 tablet with a meal Orally Once a day; Duration: 90 days Active Metoprolol Succinate ER 50 MG 1 tab(s) orally once a day; Duration: 90 days Active Gabapentin 100 MG 2 caps orally at bedtime; Duration: 90 days 01/12/2025 Active NOVOFINE PLUS PEN NEEDLE 32G 4MM - FOR USE WITH INSULIN INJECTION 3 TIMES A DAY; Duration: 30 DAYS *Please review for potential replacement for e-prescription and drug interaction check* Active Mounjaro 12.5 MG/0.5ML INJECT THE CONTENTS OF 1 PEN (12.5 MG / 0.5ML) SUBCUTANEOUSLY ONCE A WEEK; Duration: 28 Active FreeStyle Jersey 14 Day Sensor DIRECTED; Duration: 28 DAYS *Please review and pick correct strength-formulat ion from Ning by [employer] options. If intended option is not shown, discontinue and re-order from Quick Search* 09/03/2022 Active Cyanocobalamin 1000 MCG/ML 1000 MCG EVERY 2 WEEKS INTRAMUSCULARLY intramuscularly every 2 weeks; Duration: 28 days Active FreeStyle Jersey 14 Day Proctor DIRECTED; Duration: 30 DAYS *Please review and pick correct strength-formulat ion from Ning by [employer] options. If intended option is not shown, discontinue and re-order from Quick Search* 09/03/2022 Active SYRINGE 3CC 20G 1 - IM EVERY 2 WEEKS; Duration: 28 days Active C-PAP MASK AND SUPPLIES DIRECTED DX: CRISTIAN; Duration: 30 DAYS *Please review for potential replacement for e-prescription and drug interaction check* 01/29/2020 Active Ferrous Sulfate 325 (65 Fe) MG 1 tablet Orally daily; Duration: 90 days 09/21/2024 Active Magnesium Gluconate 250 MG 1 tab(s) orally once daily Active Aspirin 81 81 MG 1 tablet Orally Once a day Active Rosuvastatin Calcium 5 MG 1 tab(s) orally once a day (at bedtime); Duration: 90 days Active Meloxicam 7.5 MG 1 tablet Orally Once a day; Duration: 90 days Active Lisinopril-hydroCHLO ROthiazide 20-25 MG 1 tab(s) orally once a day; Duration: 90 days Active Immunizations Vaccine Route Administration Date Status Comme nts Boostrix IM Intramuscular 01/13/2024 Administered Flublok IM Intramuscular 12/02/2019 Administered Flublok IM Intramuscular 12/21/2020 Administered Fluvirin--Influenza vaccine 3+ year Unknown 12/12/2006 Administered Fluzone High Dose IM Intramuscular 01/07/2023 Administered Fluzone High Dose IM Intramuscular 10/30/2023 Administered Fluzone High Dose IM Intramuscular 01/11/2025 Administered H1N1 Vaccine IM Intramuscular 01/27/2009 Administered Influenza-Fluzone 3+years (NON-MEDICARE) IM Intramuscular 11/15/2016 Administered Influenza-Fluzone 3+years (NON-MEDICARE) IM Intramuscular 12/23/2017 Administered Pneumovax 23 IM Intramuscular 04/20/2016 Administered Prevnar PCV-20 (Pneumococcal conjugate 20) IM Intramuscular 01/01/2022 Administered RSV Unknown 01/18/2023 Administered SHINGRIX IM Intramuscular 01/01/2022 Administered SHINGRIX IM Intramuscular 01/20/2024 Administered Zostavax (Shingles) IM Intramuscular 11/04/2017 Administer ed Shingrix Problems Problem Type SNOMED Code ICD Code Onset Dates Problem Status W/U Status Risk Notes Problem Diabetic renal disease (438448155) Type 2 diabetes mellitus with other diabetic kidney complication (E11.29) Active confirmed Problem Hypomagnesemia (964405424) Hypomagnesemia (E83.42) Active confirmed Problem Proteinuria (28605257) Proteinuria, unspecified (R80.9) Active confirmed Problem Hyperlipidemia (46709533) Hyperlipidemia (E78.5) Active confirmed Problem Essential hypertension (31746458) Essential hypertension (I10) Active confirmed Problem Vitamin B12 deficiency (non anemic) (29452615) B12 deficiency (E53.8) Active confirmed Problem Restless legs (92386935) RLS (restless legs syndrome) (G25.81) Active confirmed Problem Body mass index 40+ - morbidly obese (336516739) BMI 40.0-44.9, adult (Z68.41) Active confirmed Problem Body mass index 30.00 to 34.99 (647913784434885) BMI 34.0-34.9,adult (Z68.34) Active confirmed Problem Requires vaccination (872835819) Immunization(s) administered (Z23) Active confirmed Problem Type II diabetes mellitus without complication (096714387) Type 2 diabetes mellitus without complication (E11.9) Active confirmed Problem History of anemia (923177817) History of anemia (Z86.2) Active confirmed Problem Obstructive sleep apnea syndrome (33017146) Obstructive sleep apnea syndrome (G47.33) Active confirmed Problem Diabetic peripheral neuropathy (502958595) Diabetic peripheral neuropathy (E11.42) Active confirmed Problem 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) Active confirmed Problem Iron deficiency anemia due to chronic blood loss (171059963) Iron deficiency anemia due to chronic blood loss (D50.0) Active confirmed Problem Iron deficiency anemia (97963989) Iron deficiency anemia, unspecified iron deficiency anemia type (D50.9) Active confirmed Problem Insomnia (962317873) Insomnia, unspecified type (G47.00) Active confirmed Problem Long-term current use of insulin (436839923) Long-term insulin use (Z79.4) Active confirmed Problem Hyperglycemia due to type 2 diabetes mellitus (855417395101549) Uncontrolled type 2 diabetes mellitus with hyperglycemia, without long-term current use of insulin (E11.65) Active confirmed Problem Acne rosacea (743759703) Acne rosacea (L71.9) Active confirmed Problem Atrial fibrillation (49485387) New onset a-fib (I48.91) Active confirmed Problem Chronic atrial fibrillation (779750096) Chronic atrial fibrillation (I48.20) Active confirmed Problem Localized, primary osteoarthritis of the pelvic region and thigh (880777455) Osteoarthritis of left hip, unspecified osteoarthritis type (M16.12) Active confirmed Vital Signs Heart Rate 80 /min 01/11/2025 Temperature 98.0 degrees Fahrenheit 01/11/2025 Blood pressure diastolic 82 mm Hg 01/11/2025 Height 5 ft 10 in in 01/11/2025 Blood pressure systolic 116 mm Hg 01/11/2025 Weight 234 lbs 01/11/2025 BMI 33.57 kg/m2 01/11/2025 Encounters Encounter Location Date Provider Diagnosis [facility] [address] [facility] [address] [place], [place] [address] 06/13/2024 Provider Migration Essential hypertension I10 [facility] [address] [facility] [address] [place] [address] 06/16/2024 Kimberly Ba Non-healing skin lesion L98.9 [facility] [address] [facility] [address] [place], [place] [address] 07/13/2024 Kimberly Ba Type 2 diabetes mellitus with other diabetic kidney complication E11.29 ; Essential hypertension I10 ; RLS (restless legs syndrome) G25.81 ; B12 deficiency E53.8 ; Chronic atrial fibrillation I48.20 ; Iron deficiency anemia due to chronic blood loss D50.0 and SCCA (squamous cell carcinoma) of skin C44.92 [facility] [address] [place], [place] [address] 01/11/2025 Kimberly Ba Type 2 diabetes mellitus [...] specific antigen) Z12.5 and Immunization(s) administered Z23 [facility] [place] [address] [address] 02/03/2024 Kimberly Ba [facility] [place] [address] [address] 06/29/2024 Kimberly Ba [facility] [address] [place], [place] [address] 07/15/2024 Kimberly Jesenia [facility] [address] [place] [address] 07/18/2024 Kimberly Ba [facility] [address] [facility] [address] [place] [address] 07/24/2024 Deo Suzie [facility] [address] [place] [address] 09/21/2024 Kimberly Ba Essential hypertension I10 [facility] [address] [facility] [address] [place] [address] 12/22/2024 Kimberly Velazcoence [facility] [address] [place] [address] 12/24/2024 Kimberly Velazcoence [facility] [address] [place] [address] 01/11/2025 Kimberly Ba Type 2 diabetes mellitus with other diabetic kidney complication E11.29 [facility] [address] [place] [address] 01/11/2025 Deo Larsen Assessments Encounter Date Diagnosis (ICD Code) Assessment Notes Treatment Notes Treatment Clinical Notes Section Notes 06/13/2024 Essential hypertension (ICD-10 - I10) 06/16/2024 Non-healing skin lesion (ICD-10 - L98.9) await pathology 07/13/2024 Type 2 diabetes mellitus with other diabetic kidney complication (ICD-10 - E11.29) has done very well on Mounjaro, able to DC insulin. Consider increasing dose if needed base on A1C LDL 49, tolerating statin and ACEI 07/13/2024 Essential hypertension (ICD-10 - I10) well controlled 09/21/2024 Essential hypertension (ICD-10 - I10) 01/11/2025 Type 2 diabetes mellitus with other diabetic kidney complication (ICD-10 - E11.29) has done very well on Mounjaro, able to DC insulin. LDL < 70, tolerating statin and ACEI Normal UAC today 01/11/2025 Type 2 diabetes mellitus with other diabetic kidney complication (ICD-10 - E11.29) 01/11/2025 Essential hypertension (ICD-10 - I10) well controlled 07/13/2024 RLS (restless legs syndrome) (ICD-10 - G25.81) improved on current regimen and with iron replacement 07/13/2024 B12 deficiency (ICD-10 - E53.8) 01/11/2025 Medicare annual wellness visit, subsequent (ICD-10 - Z00.00) Well Visit, Over 65: Care Instructions material was published, Advance Directives: Care Instructions material was published 01/11/2025 Long-term insulin use (ICD-10 - Z79.4) discontinued since starting GLP1I 07/13/2024 Chronic atrial fibrillation (ICD-10 - I48.20) Continue follow-up with cardiology, there has been some discussion with GI about possible Watchman device so that anticoagulation can be discontinued 01/11/2025 RLS (restless legs syndrome) (ICD-10 - G25.81) improved on current regimen and with iron replacement 07/13/2024 Iron deficiency anemia due to chronic blood loss (ICD-10 - D50.0) 01/11/2025 B12 deficiency (ICD-10 - E53.8) 07/13/2024 SCCA (squamous cell carcinoma) of skin (ICD-10 - C44.92) dermatology now following 01/11/2025 Chronic atrial fibrillation (ICD-10 - I48.20) Continue follow-up with cardiology 01/11/2025 Iron deficiency anemia due to chronic blood loss (ICD-10 - D50.0) hopeful this will resolve since Watchman procedure and stopping OAC 01/11/2025 Screening PSA (prostate specific antigen) (ICD-10 - Z12.5) 01/11/2025 Immunization(s) administered (ICD-10 - Z23) Plan Of Treatment Pending Test Test Name Order Date X ray : Chest 01/21/2009 MRI : Lumbosacral Spine 10/05/2013 N-CMP 08/14/2006 N-Lipid Panel 08/14/2006 N-HbA1C 08/14/2006 Sleep Study 06/03/2009 EKG : In House 02/25/2014 Physical Therapy 10/02/2013 Physical Therapy 03/15/2021 Physical Therapy 06/20/2020 Dietary Consult 05/14/2019 H-CMP 11/15/2016 H-LIPID PANEL 11/15/2016 H-HGBA1C 11/15/2016 H-MISCELLANEOUS TEST 02/25/2014 C-CBC 03/03/2014 C-CBC 10/11/2014 C-CBC 08/13/2016 C-CBC 10/02/2013 C-CBC 05/12/2015 C-CBC 06/23/2015 C-Sed Rate (ESR) 06/23/2015 C-BASIC METABOLIC 08/11/2015 C-BASIC METABOLIC 01/29/2019 C-CMP 03/21/2020 C-CMP 06/20/2020 C-CMP 08/27/2008 C-CMP 06/09/2014 C-CMP 10/11/2014 C-CMP 03/03/2014 C-CMP 06/23/2015 C-CMP 05/12/2015 C-CMP 12/12/2011 C-CMP 08/13/2016 C-CMP 03/18/2013 C-CMP 09/10/2011 C-CMP 06/16/2012 C-MICROALBUMIN 06/16/2012 C-MICROALBUMIN 12/12/2011 C-MICROALBUMIN 03/03/2014 C-LIPID PANEL 03/03/2014 C-LIPID PANEL 10/11/2014 C-LIPID PANEL 08/11/2015 C-LIPID PANEL 06/09/2014 C-LIPID PANEL 06/20/2020 C-LIPID PANEL 03/21/2020 C-LIPID PANEL 12/12/2011 C-LIPID PANEL 05/12/2015 C-LIPID PANEL 01/13/2009 C-LIPID PANEL 06/16/2012 C-LIPID PANEL 09/10/2011 C-LIPID PANEL 03/18/2013 C-MAGNESIUM 06/23/2015 C-MAGNESIUM 06/20/2020 C-MAGNESIUM 08/11/2015 C-TSH 10/02/2013 C-TSH 06/23/2015 C-TSH 03/18/2013 C-TSH 12/07/2010 C-FREE T4 03/18/2013 C-FREE T4 10/02/2013 C-PSA 06/16/2012 C-VITAMIN B12 03/18/2013 C-VITAMIN B12 12/24/2013 C-VITAMIN B12 08/13/2016 C-VITAMIN B12 05/12/2015 C-VITAMIN B12 10/02/2013 C-VITAMIN B12 06/20/2020 C-VITAMIN B12 10/11/2014 C-VITAMIN B12 03/03/2014 C-CPK 12/12/2011 C-CPK 06/23/2015 C-HGBA1C 08/13/2016 C-HGBA1C 05/12/2015 C-HGBA1C 12/12/2011 C-HGBA1C 08/27/2008 C-HGBA1C 03/18/2013 C-HGBA1C 06/09/2014 C-HGBA1C 03/03/2014 C-HGBA1C 10/11/2014 C-HGBA1C 01/29/2019 C-HGBA1C 08/11/2015 C-HGBA1C 09/10/2011 C-HGBA1C 06/16/2012 C-VITAMIN D, 25-HYDROXY 03/18/2013 C-VITAMIN D, 25-HYDROXY 10/02/2013 C-VITAMIN D, 25-HYDROXY 03/03/2014 spirometry 12/12/2011 Future Test Test Name Order Date C-HOMOCYSTEINE 01/26/2008 C-CMP 06/29/2019 C-HGBA1C 06/29/2019 C-CMP 10/19/2019 C-LIPID PANEL 10/19/2019 C-HGBA1C 10/19/2019 Next Appt Details Provider Name:Kimberly Robles ce, 07/13/2025 08:00:00 AM, [address] [facility], [address], [place], [address], Insurance Providers Payer Name Payer Address Payer Phone Subscriber Number Group Number Insured Name Patient Relationship to Insured Coverage Start Date Coverage End Date MEDICARE PART B [address] [address] [place] [phone] [id number] Tomas Azul Self - patient is the insured CIG MEDICARE SUPPLEMENT INSURANCE [address] [place] [phone] [id number] Tomas Azul Self - patient is the insured [employer] [address] [place] [address] [address] [place] [address] ACL Tomas Azul Self - patient is [...] preserved ejection fraction but enlarged left atrium EGD/Colonoscopy 2023, Dr Dumont, Small AVM SCC right forearm 2024 Surgical History Surgery Date(Month/Year) Colonoscopy/EGD 12/2023 Hospitalization History Reason Date(Month/Year)
--- OUTSIDE RECORDS SUMMARY | 2025-02-01 07:42 | XMS_ITS | Clinical Summary ---
Author Organization [facility] Address [facility] [place] [address] Care Team Providers Care Locator Name Role Phone Jagjit Street MD Primary Care Provider [phone] Social History Tobacco Use Types Packs/Day Years Used Date Smoking Tobacco: Never Assessed Sex and Gender Information Value Date Recorded Sex Assigned at Not on file Legal Sex Male 6:01 PM EDT Gender Identity Not on file Sexual Orientation Not on file Plan of Treatment Health Maintenance Due Date Last Done Comments [facility]-Depression Screening 1956 [facility]-/Child/Adol SDOH Screenings 1956 [facility]- SDOH Screenings 1974 [facility]-Adult SDOH Screenings 1974 [facility]-DTaP,Tdap,and Td Vaccine s (1 - Tdap) 12/17/1975 CT Colonography 2001 Colonoscopy 2001 FIT-DNA 2001 FIT 2001 FOBT 2001 Sigmoidoscopy 2001 [facility]-Colorectal Cancer Screening 2001 [facility]-Pneumococcal Vaccine: 50 + Years (2 of 2 - PCV) 04/20/2017 04/20/2016 [facility]-Zoster Vaccines (2 of 3) 12/30/2017 11/04/2017 [id number] Vaccine (3 - season) 2024 04/19/2020, 03/18/2020 [facility]-Influenza Vaccine (#1) 11/09/202412/01, 12/23/2017, 11/15/2016 [facility]-RSV Vaccine: 60+ Years o r (1 - 1-dose 75+ series) 12/17/2031 [facility]-Hepatitis A Vaccines Aged Out 019, 02/21/2018 No longer eligible based on patient's age to complete this topic HPV Vaccines Aged Out No longer eligi ble based on patient's age to complete this topic [facility]-HIB Vaccines Aged Out No longer e ligible based on patient's age to complete this topic [facility]-IPV Vaccines Aged Out No longer e ligible based on patient's age to complete this topic [facility]-Rotavirus Vaccines Aged Out No lo nger eligible based on patient's age to complete this topic Insurance ANDRES Care Teams Locator Relationship Specialty Start Date End Date Jagjit Street MD [address] [place] [id number] PCP - General 03/11/20
--- OUTSIDE RECORDS SUMMARY | 2025-02-01 07:42 | XMS_ITS | Encounter Summary ---
Author Organization [facility] Address [address] [place] [address] Care Team Providers Care Drum Reel Cutter Name Role Phone Deo Larsen MD Primary Care Provider [phone] Encounter Details Date Type Department Care Team (Late st Contact Info) Description 12/03/2024 Telephone [facility] CARDI[facility] [address] [place] [address] [address] [place] [address] Kait Ashley Social History Tobacco Use Types Packs/Day Years [...] more drinks on one occasion? Never 08/29/2021 Sex and Gender Information Value Date Recorded Sex Assigned at Male 12/07/2024 10:00 AM EDT Legal Sex Male 1:21 PM EDT Gender Identity Not on file Sexual Orientation Straight 12/07/2024 10 :00 AM EDT documented as of this encounter Progress Notes * William De La Vega, RN - 12/09/2024 3:45 PM EDTAddended by: WILLIAM DE LA VEGA on: 12/09/2024 03:45 PM Modules accepted: Orders documented in this encounter Miscellaneous Notes * Telephone Encounter - William De La Vega RN - 12/09/2024 3:43 PM EDT Spoke with Pt all questions answered * Telephone Encounter - William De La Vega RN - 12/09/2024 2:55 PM EDT Attempted to reach pt today to go over health hx for LAAO. * Telephone Encounter - Kait Ashley - 12/03/2024 3:12 PM EDTSummary: Poonamaafy research study Patient contacted again regarding study interest. All questions answered and patient agreeable withparticipation. Will plan to consent when he arrives for PAT. Patient wanted us to know he's on Mounjaro and would like instructions on holding or not for upcoming Watchman implant. Routing to Dr. Garza's clinical staff for help. documented in this encounter Plan of Treatment Upcoming Encounters Date Type Department Care Team (Late st Contact Info) Description 03/31/2025 2:00 PM EST Office Visit [facility] C[facility] [address] [place] [address] Elmer Olea PA [address] [place], [place] [id number] 06/25/2025 12:30 PM EDT Telemedicine [facility] [address] [place] [phone] Nathan Sherman APRN [address] [place] [address] 01/12/2026 1:45 PM EST Office Visit [facility] [address] [place] [address] Willy Garza MD [address] [facility] [address] [place] [address] documented as of this encounter Visit Diagnoses Not on filedocumented in this encounter Care Teams Drum Reel Cutter Relationship Specialty Start Date End Date Deo Larsen MD [address] [facility] [address] [place] [address] PCP - General Adolescent Medicine 11/18/20 documented as of this encounter
--- OUTSIDE RECORDS SUMMARY | 2025-02-01 07:42 | XMS_ITS | Encounter Summary ---
Author Organization [facility] Address [address] [place] [address] Care Team Providers Care Switch Coupler Name Role Phone Deo Larsen MD Primary Care Provider [phone] Encounter Details Date Type Department Care Team (Latest Contact Info) Description 01/29/2025 Travel Social History Tobacco Use Types Packs/Day Years [...] or training? Not on file Preferred Language Jordanian 12/11/2024 Sex and Gender Information Value Date Recorded Sex Assigned at Male 12/07/2024 10:00 AM EDT Legal Sex Male 1:21 PM EDT Gender Identity Not on file Sexual Orientation Straight 12/07/2024 10 :00 AM EDT documented as of this encounter Plan of Treatment Upcoming Encounters Date Type Department Care Team (Late st Contact Info) Description 03/31/2025 2:00 PM EST Office Visit [facility] CARDIOLOGY [address] [facility] [address] [place] [address] Elmer Olea PA [address] [facility] [address] [place], [place] [address] 06/25/2025 12:30 PM EDT Telemedicine [facility] CARDIOLOGY [address] [facility] [address] [place] [address] Nathan Sherman APRN [address] [facility] [address] [place] [address] 01/12/2026 1:45 PM EST Office Visit [facility] CARDIOLOGY [address] [facility] [address] [place] [address] Willy Garza MD [address] [facility] [address] [place] [address] documented as of this encounter Visit Diagnoses Not on filedocumented in this encounter Care Teams Switch Coupler Relationship Specialty Start Date End Date Deo Larsen MD [address] [facility] [address] [place] [address] PCP - General Adolescent Medicine 11/18/20 documented as of this encounter
--- OUTSIDE RECORDS SUMMARY | 2025-02-01 07:42 | XMS_ITS | Encounter Summary ---
Author Organization [facility] Address [address] [place] [address] Care Team Providers Care Parachute Panel Joiner Name Role Phone Deo Larsen MD Primary Care Provider [phone] Encounter Details Date Type Department Care Team (Latest Contact Info) Description 12/22/2024 Travel Social History Tobacco Use Types Packs/Day [...] or training? Not on file Preferred Language Mauritanian 12/11/2024 Sex and Gender Information Value Date [...] 10:30 AM EDT Rebeka Wolfe RN * [place] Suicide Severity Rating Scale (Screener/Recent Self-Report) Question Answer Date of Assessment Author 6. Suicidal Behavior (Lifetime) No 12/22/2024 10:30 AM EDT Radha Corbin RN documented as of this encounter Plan of Treatment Upcoming Encounters Date Type Department Care Team (Late st Contact Info) Description 03/31/2025 2:00 PM EST Office Visit [facility] CARDIOLOG[facility] [address] [facility] [address] [place] [address] Elmer Olea PA [address] [facility] [address] [place], [place] [id number] 06/25/2025 12:30 PM EDT Telemedicine [facility] CARDIOLOGY [address] [facility] [address] [place] [address] Nathan Sherman APRN [address] [facility] [address] [place], [place] [address] 01/12/2026 1:45 PM EST Office Visit [facility] C[facility] [address] [facility] [address] [place] [address] Willy Garza MD [address] [facility] [address] [place] [address] documented as of this encounter Visit Diagnoses Not on filedocumented in this encounter Care Teams Parachute Panel Joiner Relationship Specialty Start Date End Date Deo Larsen MD [address] [facility] [address] [place] [address] PCP - General Adolescent Medicine 11/18/20 documented as of this encounter
--- OUTSIDE RECORDS SUMMARY | 2025-02-01 07:42 | XMS_ITS | Encounter Summary ---
[facility] Organization [facility] Address [address] [place] [address] Care Team Providers Care Quality Assurance Technician Name Role Phone Deo Larsen MD Primary Care Provider [phone] Encounter Details Date Type Department Care Team (Late st Contact Info) Description 12/22/2024 Documentation [facility] [address] [place] [address] Kait Ashley Social History Tobacco [...] or training? Not on file Preferred Language Ukrainian 12/11/2024 Sex and Gender Information Value Date [...] 10:30 AM EDT Rebeka Wolfe RN * [place] Suicide Severity Rating Scale (Screener/Recent Self-Report) Question Answer Date of Assessment Author 6. Suicidal Behavior (Lifetime) No 12/22/2024 10:30 AM EDT Radha Corbin RN documented as of this encounter Miscellaneous Notes * Research - Kait Ashley - 12/22/2024 1:31 PM EDTSummary: Simplaafy study randomization & predischarge After successful Watchman implant with no procedural complications, patient was randomized to aspirin arm (81-100 mg). There were no reportable adverse events or device deficiencies. documented in this encounter Plan of Treatment Upcoming Encounters Date Type Department Care Team (Late st Contact Info) Description 03/31/2025 2:00 PM EST Office Visit [facility] [address] [place] [address] Elmer Olea PA [address] [place] [address] 06/25/2025 12:30 PM EDT Telemedicine [facility] [address] [facility] [address] [place] [address] Nathan Sherman APRN [address] [facility] [address] [place] [address] 01/12/2026 1:45 PM EST Office Visit [facility] [address] [facility] [address] [place] [address] Willy Garza MD [address] [facility] [address] [place], [place] [phone] documented as of this encounter Visit Diagnoses Not on filedocumented in this encounter Care Teams Quality Assurance Technician Relationship Specialty Start Date End Date Deo Larsen MD [address] [facility] [address] [place], [place] [address] PCP - General Adolescent Medicine 11/18/20 documented as of this encounter
--- OUTSIDE RECORDS SUMMARY | 2025-02-01 07:42 | XMS_ITS | Encounter Summary ---
[facility] Address [address] [place] [address] Care Team Providers Care Interlocking Installer Name Role Phone Deo Larsen MD Primary Care Provider [phone] Reason for Visit * Reason Onset Date Comments PCI/Device 12/23/2024 Encounter Details Date Type Department Care Team (Late st Contact Info) Description 12/23/2024 Call Center Programs [facility] [address] [place] [address] Subhash Alfaro, RN Social History Tobacco [...] or training? Not on file Preferred Language Beninese 12/11/2024 Sex and Gender Information Value Date Recorded Sex Assigned at Male 12/07/2024 10:00 AM EDT Legal Sex Male 1:21 PM EDT Gender Identity Not on file Sexual Orientation Straight 12/07/2024 10 :00 AM EDT documented as of this encounter Miscellaneous Notes * Outreach Note - Subhash Alfaro, RN - 12/23/2024 8:45 AM EDT PCI/Device Survey Flowsheet Row Responses Facility patient discharged from? [place] Procedure date 12/22/24 Procedure (if device, specify in description) Device [Right femoral] Device Description atrial appendage occlusive device insertion. Performing MD Dr. Willy Garza Attempt successful? No Unsuccessful attempts Attempt 1 Subhash Wright - Registered Nurse documented in this encounter Plan of Treatment Upcoming Encounters Date Type Department Care Team (Late st Contact Info) Description 03/31/2025 2:00 PM EST Office Visit [facility] CARDIOLOGY [address] [facility] [address] [place] [address] Elmer Olea PA [address] [facility] [address] [place] [address] 06/25/2025 12:30 PM EDT Telemedicine [facility] CARDIOLOGY [address] [facility] [address] [place] [address] Nathan Sherman APRN [address] [facility] [address] [place] [address] 01/12/2026 1:45 PM EST Office Visit [facility] CARDIOLOGY [address] [facility] [address] [place] [address] Willy Garza MD [address] [place] [address] documented as of this encounter Visit Diagnoses Not on filedocumented in this encounter Care Teams Interlocking Installer Relationship Specialty Start Date End Date Deo Larsen MD [address] [facility] [address] [place] [address] PCP - General Adolescent Medicine 11/18/20 documented as of this encounter
--- OUTSIDE RECORDS SUMMARY | 2025-02-01 07:42 | XMS_ITS | Encounter Summary ---
Author Organization [facility] Address [address] [place] [address] Care Team Providers Care Drier Attendant Name Role Phone Deo Larsen MD Primary Care Provider [phone] Encounter Details Date Type Department Care Team (Late st Contact Info) Description 12/11/2024 Documentation [facility] CARDIOLOGY [address] [facility] [address] [place] [address] Kait Ashley Social History Tobacco [...] no 12/11/2024 Feels Threatened by Someone no 05/2024 Does Anyone Try to Keep You From Having Contact with Others or Doing Things Outside Your Home? no 12/11/2024 Physical Signs of Abuse Present no 12/11/2024 Education Answer Date Recorded Help with school or training? Not on file Preferred Language Trinidadian 12/11/2024 Sex and Gender Information Value Date Recorded Sex Assigned at Male 12/07/2024 10:00 AM EDT Legal Sex Male 1:21 PM EDT Gender Identity Not on file Sexual Orientation Straight 12/07/2024 10 :00 AM EDT documented as of this encounter Miscellaneous Notes * Research - Kait Ashley - 12/11/2024 1:36 PM EDTSummary: Pee research study Images from the original note were not included. Informed consent worksheet for the protocol: Pee research study Consent version D, protocol B with the approval dated Apr 28, 2024 Subject ID [id number] The patient was seen previously in office by Dr. Garza and identified as a candidate for the Pee study. The following people were present at the consent conference: Patient: Tomas Azul Forklift Truck Operator: Kait Ashley Other: patient's The following was discussed with the patient prior to signing the informed consent. The study purposes Procedures Duration of study participation New findings Risks Discomforts Any known side effects when applicable The alternative treatments Benefits Patient and insurance costs Payments if applicable Patient's accountability and responsibilities The voluntary nature of research participants Right to withdraw consent The withdrawal process Confidentiality Authorization to use and disclose information for research purposes - Including who can view information and the types of information shared. The patient was informed of what to do in case of an illness or injury resulting from the study andwho to contact for more trial information, or information on rights and welfare as a research volunteer. The patient was given the borough coordinator contact Information and clinical trial contact information. The patient was given opportunity for questions and opportunity to discuss this with family and friends. The principal cyber engineer and or sub investigators were also available for any questions. Thepatient verbalizes understanding and is willing to sign the informed consent. After all questions were satisfied the patient signed the informed consent and a copy of the signedmain informed consent form & any sub-study informed consent forms were given to the patient. No study-specific procedures were completed prior to patient signing study informed consent form(s) The principal cyber engineer and or sub credit investigator is aware of the subject's participation status. documented in this encounter Plan of Treatment Upcoming Encounters Date Type Department Care Team (Late st Contact Info) Description 03/31/2025 2:00 PM EST Office Visit [facility] [address] [facility] [address] [place] [address] Elmer Olea PA [address] [place] [address] 06/25/2025 12:30 PM EDT Telemedicine [facility] CARDIOLOGY [address] [facility] [address] [place] [address] Nathan Sherman APRN [address] [facility] [address] [place] [address] 01/12/2026 1:45 PM EST Office Visit [facility] CARDIOLOGY [address] [place] [address] Willy Garza MD [address] [place], [place] [address] documented as of this encounter Visit Diagnoses Not on filedocumented in this encounter Care Teams Drier Attendant Relationship Specialty Start Date End Date Deo Larsen MD [address] [facility] [address] [facility] [place] [address] PCP - General Adolescent Medicine 11/18/20 documented as of this encounter
--- OUTSIDE RECORDS SUMMARY | 2025-02-01 07:43 | XMS_ITS | Clinical Summary ---
Author Organization [facility] Address [address] [place] [address] Care Team Providers Care Marketing Project Lead Name Role Phone Deo Larsen MD Primary Care Provider [phone] Allergies No known active allergies Medications meloxicam (MOBIC) 7.5 MG tablet Take 1 tablet by mouth Daily. Active Metoprolol Succinate 50 MG capsule extended-releas e 24 hour sprinkle Take 50 mg by mouth Every Morning. Active Cyanocobalamin 1000 MCG/ML kit Inject 1 mL into the appropriate muscle as directed by prescriber Every 14 (Fourteen) Days. Active lisinopril-hydr ochlorothiazide (PRINZIDE,ZESTO RETIC) 20-12.5 MG per tablet Take 1 tablet by mouth Every Morning. 2 Active Additional Information Patient taking differently: 0.5 tabletOral Every Morning, Informant: Self, Medication Bottle, Reported on 01/29/2025 B-D 3CC LUER-SERGE SYR 23GX1 23G X 1 3 ML misc 2 Active metFORMIN (GLUCOPHAGE) 1000 MG tablet Take 1 tablet by mouth Daily. 3 Active Iron, Ferrous Sulfate, 325 (65 Fe) MG tablet Take 1 tablet by mouth Daily. 4 Active Magnesium Oxide -Mg Supplement ([facility] Magnesium) 500 MG tablet Take 1 tablet by mouth Daily. 4 Active Tirzepatide (MOUNJARO SC) Inject under the skin into the appropriate area as directed. Active gabapentin (NEURONTIN) 100 MG capsule Take 2 capsules by mouth every night at bedtime. 5 Active rosuvastatin (CRESTOR) 10 MG tablet Take 1 tablet by mouth Daily. 4 Active Mounjaro 12.5 MG/0.5ML solution auto-injector Inject 0.5 mL under the skin into the appropriate area as directed 1 (One) Time Per Week. 5 Active Continuous Glucose Sensor (FreeStyle [place] 3 Plus Sensor) Use. Active aspirin 81 MG EC tablet Take 1 tablet by mouth Daily. 90 tablet 3 5 Active Active Problems Problem Noted Date Diagnosed Date PAF (paroxysmal atrial fibrillation) 12/22/2024 Iron deficiency anemia 08/26/2024 Longstanding persistent atrial fibrillation 08/10 Atrial fibrillation, persistent 12/21/2020 Primary hypertension 12/21/2020 CRISTIAN on CPAP 12/21/2020 Encounters Date Type Department Care Team Description 01/29/2025 9:35 AM EST - 01/29/2025 11:59 PM EST Hospital Encounter [facility] CARDIOVASCULAR LAB [address] [facility] 3rd [place] [address] Daniel Bethea MD Longstanding persistent atrial fibrillation Discharge Disposition: Home or Self Care 01/29/2025 Travel 12/23/2024 Call Center Programs [facility] NURSE CALL CENTER [address] [place] [address] Subhash Alfaro RN 12/23/2024 Call Center Programs [facility] NURSE CALL [facility] [address] [place] [address] Subhash Alfaro, RN 12/22/2024 12:01 PM EDT Anesthesia Event [facility] EP LAB [address] [place] [address] Tha Ferro MD 12/22/2024 11:15 AM EDT - 12/22/2024 1:15 PM EDT Surgery [facility] EP LAB [address] [place] [address] Willy Garza MD Atrial Appendage Occlusion, DNS Mary [[id number] (CPT )] 12/22/2024 10:10 AM EDT - 12/22/2024 4:00 PM EDT Hospital Encounter [facility] CVOU [address] [place] [address] Willy Garza MD Longstanding persistent atrial fibrillation (Primary Dx); Atrial fibrillation, persistent; Iron deficiency anemia, unspecified iron deficiency anemia type Discharge Disposition: Home or Self Care 12/22/2024 Documentation [facility] CARDIOLOGY [address] [facility] [address] [place] [address] AshleyKait ramos 12/22/2024 Travel 12/11/2024 12:30 PM EDT Pre-Admission Testing [facility] PREADMISSION T [address] [place] [address] Atrial fibrillation, persistent 12/11/2024 Documentation [facility] CARDIOLOG[facility] [address] [facility] [address] [place] [address] GladstoneKait 12/03/2024 Telephone [facility] CARDIOLOGY [address] [facility] [address] [place] [address] AshleyKait ramos 11/29/2024 Prep for Surgery [facility] ORDERS ONLY [address] [place] [address] Tara Fajardo PA Atrial fibrillation, persistent (Primary Dx) 11/02/2024 Telephone [facility] CARDIOLOG[facility] [address] [facility] [address] [place] [address] Kait Ashley from Last 3 Months Immunizations Immunization Administration Dates Next Due COVID-19 (SHANA) 04/11/2021 COVID-19 (MODERNA) 1st,2nd,3rd Dose Monovalent 0 04/19/2020,03/18/2020 COVID-19 (MODERNA) Monovalent Original Booster 0 10/26/2020 Family History Medical History Relation Name Comments No Known Problems Brother Heart failure Father Daniel Azul Heart attack Mother Dasha Azul No Known Problems Sister 2 Relation Name Status Comments Brother Alive Father Daniel Azul Mother Dasha Azul Sister 1 Alive Sister 2 Alive Social History Tobacco Use Types Packs/Day Years Used Date Smoking Tobacco: Never Smokeless Tobacco: Never Tobacco Cessation:Counseling Given: Not Answered Alcohol Use Standard Drinks/Week Comments Never 0 [...] or training? Not on file Preferred Language Tunisian 12/11/2024 Sex and Gender Information Value Date Recorded Sex Assigned at Male 12/07/2024 10:00 AM EDT Legal Sex Male 1:21 PM EDT Gender Identity Not on file Sexual Orientation Straight 12/07/2024 10 :00 AM EDT Last Filed Vital Signs Vital Sign Reading Time Taken Comments Blood Pressure 95/65 01/29/2025 11:15 AM EST Pulse 57 01/29/2025 11:15 AM EST Temperature 36.2 C (97.1 F) 12/22/2024 1:14 PM EDT Respiratory Rate 16 01/29/2025 11:15 AM EST Oxygen Saturation 98% 01/29/2025 11:15 AM EST Inhaled Oxygen Concentration - - Weight 103 kg (227 lb 1.2 oz) 12/22/2024 3:18 PM EDT Height 180.3 cm (5' 11 ) 12/22/2024 10:33 AM EDT Body Mass Index 31.67 12/22/2024 10:33 AM EDT Plan of Treatment Upcoming Encounters Date Type Department Care Team (Late st Contact Info) Description 03/31/2025 2:00 PM EST Office Visit [facility] CARDIOLOGY [address] [facility] [address] [place] [address] Elmer Olea PA [address] [facility] [address] [place] [address] 06/25/2025 12:30 PM EDT Telemedicine [facility] CARDI[facility] [address] [facility] [address] [place] [address] Nathan Sherman APRN [address] [facility] [address] [place], [place] [id number] 01/12/2026 1:45 PM EST Office Visit [facility] CARDIOLOG[facility] [address] [facility] [address] [place] [address] Willy Garza MD [address] [facility] [address] [place], [place] [id number] Health Maintenance Due Date Last Done Comments DIABETIC EYE EXAM 1966 DIABETIC FOOT EXAM 1966 URINE MICROALBUMIN-CREATININ E RATIO (uACR) 1966 COLOGUARD 2001 COLON CANCER SCREENING 5 YEA R SIGMOIDOSCOPY 2001 COLONOSCOPY 2001 COLORECTAL CANCER SCREENING 2001 CT COLONOGRAPHY 2001 FECAL OCCULT BLOOD TEST 2001 FIT Testing (1 year) 2001 ANNUAL WELLNESS VISIT 12/21/2020 HEPATITIS C SCREENING 12/21/2020 COVID-19 Vaccine (3 - Modern a risk series) 05/09/2021 04/11/2021, 04/11/2021, 10/26/2020, Additional history exists HEMOGLOBIN A1C 06/11/2025 12/11/2024, 01/02/2021 TDAP/TD VACCINES (2 - Td or Tdap) 01/12/2034 024 Pneumococcal Vaccine 50+ Completed 01/01/2022, 04/11 ZOSTER VACCINE Completed 01/20/2024, 12/10, 11/04/2017 INFLUENZA VACCINE Completed 01/11/2025, , 01/07/2023, Additional history exists Medical Devices Implanted Type Area Overcoil Stepper Device Identifier Shelf Expiration Date Model / Serial / Lot Dev Cls Ish Watchman/Flx /Pro 27mm - [id number] Implanted:Qt y: 1 on 12/22/2024 by Willy Garza MD at [facility] Implant [employer] PARAM [id number] / / [id number] Cp Watchman Flx Pro Proc - [id number] Implanted:Qt y: 1 on 12/22/2024 by Willy Garza MD at [facility] Implant [employer] PAR[employer] [id number] / / Cp Sys Watchman Trusteer Access - [id number] Implanted:Qt y: 1 on 12/22/2024 by Willy Garza MD at [facility] Implant [employer] PAR[employer] [id number] / / Procedures Procedure Name Priority Date/Time Associated Diagnosis Comments DAVID W/ COMPLETE DOPPLER, COLOR AND 3D Routine 01/29/2025 9:50 AM EST Longstanding persistent atrial fibrillation EP STUDY Routine 12/22/2024 1:06 PM EDT Atrial fibrillation, persistent Iron deficiency anemia, unspecified iron deficiency anemia type POCT ACTIVATED CLOTTING TIME Routine 12/22/2024 12:59 PM EDT POCT ACTIVATED CLOTTING TIME Routine 12/22/2024 12:44 PM EDT ANESTHESIA INTUBATION Routine 12/22/2024 12:26 PM EDT INTRA-OP STRUCTURAL HEART DAVID (CARDIOLOGY READ) Routine 12/22/2024 11:56 AM EDT Atrial fibrillation, persistent Iron deficiency anemia, unspecified iron deficiency anemia type POCT GLUCOSE FINGERSTICK Routine 12/22/2024 10:38 AM EDT POTASSIUM Routine 12/22/2024 10:31 AM EDT HEMOGLOBIN A1C STAT 12/11/2024 12:34 PM EDT PROTIME-INR Routine 12/11/2024 12:34 PM EDT Atrial fibrillation, persistent BASIC METABOLIC PANEL Routine 12/11/2024 12:34 PM EDT Atrial fibrillation, persistent CBC (NO DIFF) Routine 12/11/2024 12:34 PM EDT Atrial fibrillation, persistent from Last 3 Months Results * DAVID W/ COMPLETE DOPPLER, COLOR [...] GARIBAY CV ECHO ORDERABLES Final Resul t * ATRIAL APPENDAGE OCCLUSION - CAR (12/22/2024 1:06 PM EDT) Anatomical Region Laterality Modality X-Ray Angiograph y Narrative 12/22/2024 1:28 PM EDT DATE OF PROCEDURE: 12/22/24 REFERRING PHYSICIAN: Deo Larsen MD BURIAL NEEDS SALESPERSON/PAPER COLORER: Willy Garza MD PROCEDURE(S) PERFORMED: 1. Insertion [...] sheaths and catheters were inserted: 1. An 11-Emirati, intracardiac ultrasound catheter was advanced via a 10-Emirati sheath in the right femoral vein to the high right atrium for visualization of left atrial structures. 2. A 27 mm left atrial appendage occlusive watchman flex device pro was advanced via a 17 Emirati sheath to the left atrial appendage for [...] times greater than 300 seconds. The 8 Emirati Daig transseptal sheath was exchanged for a 17 Emirati sterrable Watchman sheath in the left atrium. A 6 Emirati pigtail catheter was then advanced in the left atrial appendage. Venograms of the left atrial appendage was then performed in 2 views. There was only 1 lobe of the appendage identified. The 17 Emirati sheath was advanced over the pigtail in [...] Activated Clotting Time (12/22/2024 12:59 PM EDT) Only the most recent of2 resultswithin the time period is included. Activated Clotting Time 423(H) 82 - 152 Seconds 12/22/2024 3:14 PM EDT [facility] Comment:Serial Number: [id number] 1Operator: [id number] Blood 12/22/2024 12:5 9 PM EDT 12/22/2024 3:14 PM EDT Willy Garza MD POINT OF CARE TEST ORDERABLE S Final Result [facility]
[address] [place] [address], * BH AN ETT AIRWAY (12/22/2024 12:26 PM EDT) Narrative Daniel Gutierres CRNA - 12/22/2024 12:26 PM EDT Daniel Gutierres CRNA 12/22/2024 12:27 PM Airway Reason: elective Date/Time: 12/22/2024 12:12 PM Airway not difficult General Information and Staff Patient location during procedure: OR [employer]AME [employer]KER/CAA: Daniel Gutierres CRNA Indications and Patient Condition [...] Ferro MD ANESTHESIA ORDERABLES Final Res ult * Intra-Op Structural Heart DAVID (Cardiology Read) (12/22/2024 11:56 AM EDT) [facility] CV VAS BP LEFT ARM [...] procedure. 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 Patient was noted to be in a [...] - 130 mg/dL 12/22/2024 10:41 AM EDT [facility] Comment:Serial Number: [id number] Blood 12/22/2024 10:3 8 AM EDT 12/22/2024 10:41 AM EDT Tha Ferro MD POINT OF CARE TEST ORDERABLES F inal Result [facility]
[address] [place] [address], * Potassium (12/22/2024 10:31 AM EDT) Potassium 4.1 3.5 - 5.2 mmol/L 12/22/2024 11:07 AM EDT [facility] Blood Line / Unknown 12/22/2024 10 :31 AM EDT 12/22/2024 10:42 AM EDT Tha Ferro MD LAB BLOOD ORDERABLES Final Resu lt Performing Organization Address [facility] Co de Phone Number [facility]
[address] [place] [address], * (ABNORMAL) Protime-INR (12/11/2024 12:34 PM EDT) Pathologist [facility] Protime 25.0(H) 12.2 - 15.3 Seconds 12/11/2024 1:20 PM EDT [facility] INR 2.10(H) 0.89 - 1.12 12/11/2024 1:20 PM EDT [facility] Blood Venipuncture / Unknown 12/11/2024 12:34 PM EDT 12/11/2024 12:52 PM EDT Tara GARIBAY LAB BLOOD ORDERABLES Final Res ult Performing Organization Address City/[facility]/ZIP Co de Phone Number [facility]
[address] [place] [address], * CBC (No diff) (12/11/2024 12:34 PM EDT) WBC 6.50 3.40 - 10.80 10*3/mm3 12/11/2024 1:01 PM EDT [facility] RBC 4.91 4.14 - 5.80 10*6/mm3 12/11/2024 1:01 PM EDT [facility] Hemoglobin 14.9 13.0 - 17.7 g/dL 12/11/2024 1:01 PM EDT [facility] Hematocrit 44.9 37.5 - 51.0 % 12/11/2024 1:01 PM EDT [facility] MCV 91.4 79.0 - 97.0 fL 12/11/2024 1:01 PM EDT [facility] MCH 30.3 26.6 - 33.0 pg 12/11/2024 1:01 PM EDT [facility] MCHC 33.2 31.5 - 35.7 g/dL 12/11/2024 1:01 PM EDT [facility] RDW 12.7 12.3 - 15.4 % 12/11/2024 1:01 PM EDT [facility] RDW-SD 42.5 37.0 - 54.0 fl 12/11/2024 1:01 PM EDT [facility] MPV 10.3 6.0 - 12.0 fL 12/11/2024 1:01 PM EDT [facility] Platelets 189 140 - 450 10*3/mm3 12/11/2024 1:01 PM EDT [facility] Blood Venipuncture / Unknown 12/11/2024 12:34 PM EDT 12/11/2024 12:52 PM EDT us Tara GARIBAY LAB BLOOD ORDERABLES Final Res ult [facility]
[address] [place] [address], * (ABNORMAL) Hemoglobin A1c (12/11/2024 12:34 PM EDT) Hemoglobin A1C 6.25(H) 4.80 - 5.60 % 12/11/2024 2:07 PM EDT [facility] Blood Venipuncture / Unknown 12/11/2024 12:34 PM EDT 12/11/2024 12:52 PM EDT Narrative [facility] - 12/11/2024 2:07 PM EDT Hemoglobin A1C Ranges: Increased Risk for Diabetes 5.7% to 6.4% Diabetes >= 6.5% Diabetic Goal < 7.0% us Tara GARIBAY LAB BLOOD ORDERABLES Final Res ult [facility]
[address] [place] [address], * (ABNORMAL) Basic metabolic panel (12/11/2024 12:34 PM EDT) [facility] Signature Glucose 121(H) 65 - 99 mg/dL 12/11/2024 1:16 PM EDT [facility] BUN 16.7 8.0 - 23.0 mg/dL 12/11/2024 1:16 PM EDT [facility] Creatinine 0.89 0.76 - 1.27 mg/dL 12/11/2024 1:16 PM EDT [facility] Sodium 136 136 - 145 mmol/L 12/11/2024 1:16 PM EDT [facility] Potassium 4.6 3.5 - 5.2 mmol/L 12/11/2024 1:16 PM EDT [facility] Comment:Specimen hemolyzed. Result may be falsely elevated. Chloride 101 98 - 107 mmol/L 12/11/2024 1:16 PM EDT [facility] CO2 24.5 22.0 - 29.0 mmol/L 12/11/2024 1:16 PM EDT [facility] Calcium 9.6 8.6 - 10.5 mg/dL 12/11/2024 1:16 PM EDT [facility] BUN/Creatinine Ratio 18.8 7.0 - 25.0 12/11/2024 1:16 PM EDT [facility] Anion Gap 10.5 5.0 - 15.0 mmol/L 12/11/2024 1:16 PM EDT [facility] eGFR 93.9 >60.0 mL/min/1.7 3 12/11/2024 1:16 PM EDT [facility] Blood Venipuncture / Unknown 12/11/2024 12:34 PM EDT 12/11/2024 12:52 PM EDT Narrative [facility] - 12/11/2024 1:16 PM EDT GFR [...] GARIBAY LAB BLOOD ORDERABLES Final Res ult [facility]
[address] [place] [address], from Last 3 Months Insurance MEDICARE A & B [facility] [employer] Care Teams Marketing Project Lead Relationship Specialty Start Date End Date Deo Larsen MD [address] [facility] [address] [place] [id number] PCP - General Adolescent Medicine 11/18/20
[2025-02-01 08:15] LABS: Hematocrit 44.6 % (42.0-52.0); Hemoglobin 14.4 g/dL (14.1-18.0); Immature Granulocytes % 0.4 %; Mean Corpuscular HGB Conc 32.3 g/dL (31.8-35.4); Mean Corpuscular Hemoglobin 29.5 pg (27.0-31.2); Mean Corpuscular Volume 91.4 fl (80-94); Nucleated Red Blood Cells % 0 %; Platelet Count 178 K/mm3 (142-424); Red Blood Count 4.88 M/mm3 (4.60-6.20); Red Cell Distribution Width-SD 41.9 fL; White Blood Count 8.0 K/mm3 (4.8-10.8)
[2025-02-01 08:38] LABS: Iron 135 ug/dL (49-181)
[2025-02-01 08:48] LABS: Total Iron Binding Capacity 378 ug/dL (261-462)
[2025-02-01 09:15] LABS: Ferritin 25.3 ng/ml (17.9-464)
== END 2025-02-01 23:59 | disposition home or self-care (01) ==
LOC: LAB 07:39
PROVIDERS: PCP Nurse Practitioner Family; Visit Provider Nurse Practitioner Family
DX: D50.9 Iron deficiency anemia, unspecified (principal)
CPT/HCPCS: 36415; 82728; 83540; 83550; 85025